=== PATIENT | male | born 1985 | race Caucasian/White ===

== ENCOUNTER 2022-02-12 12:31 | Emergency (ER) | payer OTHER, SELFPAY ==
[2022-02-12 14:08] VITALS: BP 134/83; PULSE 69; RESP 18; TEMP 36.9; O2SAT 100; BMI 32.1
--- NOTE | 2022-02-12 14:28 | ED_ITS ---
HPI - General Adult General Chief complaint: General Medical Stated complaint: NOSE PAIN, EYE PAIN, HEADACHE Time Seen by Provider: 02/12/22 14:13 Source: patient Mode of arrival: ambulatory Limitations: no limitations History of Present Illness HPI narrative: 36 yo male healthy here with nasal congestion, nose pain, frontal facial pain, frontal headache x several days. no fevers, chills, sneezing, cough, sore th roat, ear pain. Related Data Previous Rx's Medication Instructions Recorded amoxicillin 875 mg-potassium 1 tab PO BID #14 tab 02/12/22 clavulanate 125 mg tablet Allergies Allergy/AdvReac Type Severity Reaction Status Date / Time No Known Allergies Allergy Verified 02/12/22 14:08 Review of Systems Review of Systems: Yes all other systems are reviewed and are negative Constitutional: Constitutional: Reports no additional constitutional complaints, Denies body ache(s), Denies chills, Denies fever(s), Reports headache(s) and Denies weakness Eyes: Eyes: Reports no additional eye complaints and Denies change in vision ENT: Reports system reviewed and no additional complaints, except as documented, Denies dizziness, Reports facial pain, Reports headache(s), Reports nasal congestion, Denies nasal discharge, Denies neck pain, Reports sinus pain and Reports sinus pressure Cardiovascular: Cardiovascular: Reports no additional cardiovascular complaints, Denies chest pain, Denies leg edema and Denies dyspnea Respiratory: Respiratory: Reports no additional respiratory complaints, Denies cough and Denies dyspnea Gastrointestinal: Gastrointestinal: Reports no additional gastrointestinal complaints, Denies abdominal pain, Denies diarrhea, Denies nausea and Denies vomiting Genitourinary: Genitourinary: Denies urinary incontinence Musculoskeletal: Musculoskeletal: Reports no additional musculoskeletal comp laints, Denies back pain, Denies arthralgias, Denies joint swelling, Denies neck pain, Denies numbness and Denies tingling Integumentary/Breasts: Skin/Breast: Reports system reviewed and no additional complaints, except as docu and Denies rash Neurologic: Reports system reviewed and no additional complaints, except as documented, Denies dizziness, Reports headache(s), Denies numbness, Denies tingling and Denies weakness [facility] Past Medical History Attestation statement: The following information was validated with the patient. Source: old records reviewed and nursing notes reviewed Social History Social History Advance Directives: No Advance Directives Information Provided: No Physical Exam ED Vital Signs: Vital Signs - 24 hr 02/12/22 14:08 Temperature 98.5 F Pulse Rate 69 Respiratory Rate 18 Blood Pressure 134/83 Pulse Oximetry 100 BMI result Body Mass Index 32.1 Const General: cooperative, healthy appearing, comfortable and no acute distress Orientation/consciousness: patient oriented x3 Limitations: no limitations HENMT Head: Yes normal to inspection Ears: hearing grossly normal bilaterally and TM abnormal (bilateral effusion) General nose exam: Normal external nose present and Abnormal mucous membranes and turbinates present erythematous (swelling ) bilateral Face and sinus: Yes sinus tenderness (bilateral maxillar) Throat: Yes posterior oropharynx normal, Yes tonsils normal and Yes uvula midline Neck Neck: Yes normal visual inspection, Yes full ROM, Yes no lymphadenopathy and Yes no meningeal signs Chest Chest palpation & inspection: normal inspection of the chest Resp Effort & Inspection: normal respiratory effort Auscultation: clear to auscultation bilaterally Cardio Rate: regular rate Rhythm: regular rhythm Peripheral pulses: Peripheral pulses 2+ throughout Skin General skin exam: no rashes or lesions noted Neuro General: patient oriented x3, moves all extremities and no meningeal signs Cognition (Neuro): normal cognition Extrem General: Yes normal to inspection, Yes no pedal edema and Yes no calf tenderness Course Course Course Narrative: 36 yo male here with nasal congestion, nasal pain, frontal HOLT x several days. Exam c/w sinusitis. Will treat with course of antibiotics. Reviewed worrisome signs and symptoms of when to return to the emergency department. Comfortable discharge home. Medical Decision Making Medical Records Medical records reviewed: Yes I reviewed the patient's medical records. Lab Data Lab results reviewed: Yes I reviewed the patient's lab results. Discharge Plan Discharge Clinical Impression: Sinusitis Patient Disposition: Home, Self-Care Instructions: Sinusitis (ED) Additional Instructions: Buy [id number] nasal spray like Flonase or Nasacort Prescriptions: New amoxicillin-pot clavulanate 875-125 mg tablet 1 tab PO BID Qty: 14 0RF Referrals: Physician,Unknown J [Primary Care Provider] - Interventions: ED Discharge Assessment Last Done: 02/12/22 14:33 Discharge Date/Time: 02/12/22 14:34
== END 2022-02-12 14:34 | disposition home or self-care (01) ==
PROVIDERS: Emergency Provider Emergency Medicine
DX: J32.9 Chronic sinusitis, unspecified (principal); R51.9 Headache, unspecified
CPT/HCPCS: 99283

== ENCOUNTER 2022-06-15 13:34 | Emergency (ER) | payer OTHER, SELFPAY | END 2022-06-15 16:33 | disposition left against medical advice (07) | PROVIDERS: Emergency Provider Emergency Medicine | DX: F99 Mental disorder, not otherwise specified (principal) ==

== ENCOUNTER 2023-04-20 01:43 | Emergency (ER) | payer MEDICAID, SELFPAY ==
[2023-04-20 02:04] VITALS: BP 112/69; PULSE 61; RESP 18; TEMP 36.8; O2SAT 97; BMI 29.6
[2023-04-20 05:47] VITALS: BP 117/64; PULSE 46; RESP 16; TEMP 36.6; O2SAT 98
--- NOTE | 2023-04-20 06:12 | ED_ITS ---
HPI - Wound/Laceration General Chief Complaint: Wound/Laceration Stated Complaint: Abscess Time Seen by Provider: 04/20/23 06:05 Source: patient Mode of arrival: ambulatory Limitations: no limitations History of Present Illness HPI narrative: Patient comes to the emergency room complaining of a possible abscess in the left lower quadrant of the abdomen. Patient denies fever or chills, no pus drainage. Related Data Previous Rx's Medication Instructions Recorded amoxicillin 875 mg-potassium 1 tab PO BID #14 tabs 02/12/22 clavulanate 125 mg tablet cephalexin 500 mg capsule 500 mg PO BID #14 caps 04/20/23 doxycycline hyclate 100 mg tablet 100 mg PO BID #14 tabs 04/20/23 Allergies Allergy/AdvReac Type Severity Reaction Status Date / Time No Known Allergies Allergy Verified 02/12/22 14:08 Review of Systems Review of Systems: Constitutional : No Weight loss, No Fever, No Chills, No Night Sweats, No Fatigue, No Malaise ENT/Mouth : No Hearing loss, No Ear Pain, No Nasal Congestion, No Sinus Pain, No Hoarseness, No sore throat, No Rhinorrhea, No Swallowing Difficulty Eyes: No Eye Pain, No Swelling, No Redness, No Foreign Body, No Discharge, No Vision Changes Cardiovascular : No Chest Pain, No SOB, No Dyspnea on Exertion, No Orthopnea, No Edema, No Palpitations Respiratory : No Cough, No Sputum, No Wheezing, No Smoke Exposure, No Dyspnea Gastrointestinal : No Nausea, No Vomiting, No Diarrhea, No Constipation, No abdominal Pain, No Hematochezia, No Melena Genitourinary : no irregular bleeding, No Dysuria, No Urinary Frequency, No Hematuria, No Urinary Incontinence, No Urgency, No Flank Pain, No Urinary Flow Changes, No Hesitancy Musculoskeletal : No joint pain, No Myalgias, No Joint Swelling Skin : Complaining of skin induration/red dot/cellulitis in left lower quadrant of abdomen, superficial Neuro : No Weakness, No Numbness, No Paresthesias, No Loss of Consciousness, No Dizziness, No Headache Psych : No Anxiety/Panic, No Depression, No SI/HI/AH/VH, No Social Issues, Heme/Lymph: No Bruising, No Bleeding,No Lymphadenopathy Endocrine : No Polyuria, No Polydipsia, No Temperature Intolerance [facility] Social History Social History Advance Directives: No Advance Directives Information Provided: No Physical Exam Vital Signs: Vital Signs: Last Vital Signs Temp 97.9 F 04/20/23 05:47 Pulse 46 L 04/20/23 05:47 Resp 16 04/20/23 05:47 BP 117/64 04/20/23 05:47 Pulse Ox 98 04/20/23 05:47 O2 Del Method Room Air 04/20/23 05:47 BMI result Body Mass Index 29.6 Const: Other: Appearance: Alert. Oriented X3. No acute distress. Eyes: Pupils equal, round and reactive to light. ENT: Pharynx normal. Neck: Normal inspection. Neck supple. No lymph nodes noted. No crepitus CVS: Normal heart rate and rhythm. Pulses normal. Normal S1 and S2 Respiratory: No respiratory distress. Breath sounds normal. No Wheezing. No rales Abdomen: Soft and nontender. No rigidity. No distention. Skin: Skin warm and dry. In the left lower quadrant of the abdomen, there is a 2 cm x 2 cm induration of the skin, erythematous, bedside ultrasound does not show any fluid accumulation under the skin. Extremities: No lower extremity edema. No Lacerations. No Rash Neuro: Oriented X 3. No motor deficit. No sensory deficit. Moving all ex tremities. No slurred speech. CN 2 through 12 grossly intact Psych: calm, cooperative, normal affect Medical Decision Making Medical Decision Making MDM Narrative: -I discussed the physical exam with the patient, there is nothing to be drained at this time. -patient will be started on p.o. antibiotics Differential Diagnosis Differential Diagnoses: The differential diagnosis associated with the presentation includes (Abscess, cellulitis) Discharge Plan Discharge Clinical Impression: Cellulitis Patient Disposition: Home, Self-Care Instructions: Cellulitis (ED) Additional Instructions: Please follow-up with your primary care physician tomorrow. If you have any worsening or new symptoms, please return to the emergency room or call 911 Prescriptions: New cephalexin 500 mg capsule 500 mg PO BID Qty: 14 0RF doxycycline hyclate 100 mg tablet 100 mg PO BID Qty: 14 0RF No Action amoxicillin-pot clavulanate 875-125 mg tablet 1 tab PO BID Qty: 14 0RF
== END 2023-04-20 06:27 | disposition home or self-care (01) ==
PROVIDERS: Emergency Provider Emergency Medicine
DX: L03.311 Cellulitis of abdominal wall (principal)
CPT/HCPCS: 99283

== ENCOUNTER 2024-03-20 01:56 | Inpatient (IN) | payer MEDICAID, OTHER, SELFPAY ==
[2024-03-20 02:27] VITALS: BP 107/60; PULSE 80; RESP 17; TEMP 36.6; O2SAT 98; BMI 30.6
--- NOTE | 2024-03-20 03:02 | ED.PSYCH ---
HPI - Psych General Chief Complaint: Psychiatric Symptoms Stated Complaint: crisis Time Seen by Provider: 03/20/24 02:58 Source: patient Mode of arrival: ambulatory Limitations: no limitations History of Present Illness ED Provider: SANTOS BARRETO Narrative: 39 yo male with PMH of opiate abuse, ETOH abuse, depression here with c/o SI and wanting to hurt himself - plans to cut himself. Admits to heavy ETOH abuse since November has had ETOH withdrawal seizure in the past. Is on methadone. MD complaint: suicidal ideation and feels depressed Onset (ago): day(s) Duration: constant History of same: Yes Relieving factors: none Exacerbating factors: alcohol and other Context: recent alcohol abuse Associated psychiatric symptoms: depression and suicidal ideation Associated symptoms: denies other symptoms Treatments prior to arrival: none If self harm: admits thoughts of self harm and has plan Related Data Previous Rx's ?Medication ?Instructions ?Recorded amoxicillin 875 mg-potassium 1 tab PO BID #14 tabs 02/12/22 clavulanate 125 mg tablet cephalexin 500 mg capsule 500 mg PO BID #14 caps 04/20/23 doxycycline hyclate 100 mg tablet 100 mg PO BID #14 tabs 04/20/23 Allergies Allergy/AdvReac Type Severity Reaction Status Date / Time No Known Allergies Allergy Verified 03/20/24 02:30 Review of Systems Review of Systems: Constitutional : No Fever, No Chills ENT/Mouth : No Ear Pain, No Nasal Congestion, No sore throat Eyes: No Eye Pain, No Swelling, No Redness Cardiovascular : No Chest Pain, No SOB Respiratory : No Cough, No Sputum, No Dyspnea Gastrointestinal : No Nausea, No Vomiting, No Diarrhea, No Hematochezia, No Melena Genitourinary : No Dysuria, No Urinary Frequency, No Hematuria Musculoskeletal : No Myalgias Skin : No Skin Lesions, No rash Neuro : No Weakness, No Numbness, No Paresthesias, No Dizziness, No Headache Psych : positive Anxiety, positive Depression, positive SI no HI Heme/Lymph: No Lymphadenopathy Endocrine : No Polyuria, No Polydipsia All other systems reviewed and are negative [facility] Past Medical History Attestation statement: The following information was validated with the patient. Source: old records reviewed Medical History Opiate abuse, continuous Depression Social History Social History (Updated 03/20/24 @ 03:07 by Jaqueline Marques DO) Alcohol intake: current Alcohol intake frequency: 3 or more drinks per day Alcohol type: hard liquor Patient Tobacco Use Status: Current someday Tobacco user Smoked in Last 30 Days: Yes Use of substances other than those prescribed or required for medical reasons: Yes Substance Use Type: Crack/Cocaine, Heroin and Marijuana Substance Use Frequency: Chronic Longstanding Advance Directives: No Advance Directives Information Provided: No Do you have a plan to hurt others: No Plan Physical Exam Vital Signs: Vital Signs: Last Vital Signs Temp 97.8 F 03/20/24 02:27 Pulse 80 03/20/24 02:27 Resp 17 03/20/24 02:27 BP 107/60 03/20/24 02:27 Pulse Ox 98 03/20/24 02:27 O2 Del Method Room Air 03/20/24 02:27 BMI result Body Mass Index 30.6 Appearance: Alert. Oriented X3. No acute distress. Eyes: Pupils equal, round and reactive to light. ENT: Pharynx normal. Neck: Normal inspection. Neck supple. CVS: Normal heart rate and rhythm. Pulses normal. Respiratory: No respiratory distress. Breath sounds normal. Abdomen: Soft and nontender. Skin: Skin warm and dry. Normal skin color. Normal skin turgor. Extremities: No lower extremity edema. No calf ttp Neuro: Oriented X 3. No motor deficit. No sensory deficit. CN2-12 intact Medications Administered Generic Name Dose Route Start Last Admin Trade Name Freq PRN Reason Stop Dose Admin Lorazepam 2 mg 03/20/24 03:05 03/20/24 03:47 Lorazepam 1 Mg Tablet PO 2 mg Q3H PRN Administration Alcohol Withdrawal Medical Decision Making Medical Decision Making [facility] Narrative: 39 yo male with PMH of opiate abuse, ETOH abuse, depression here with c/o SI and wanting to cut himself in setting of ETOH use at this time labs, CARE team consult, CIWA scoring and PRN ativan ordered. He denies any acute medical complaints Differential Diagnosis Differential Diagnoses: The differential diagnosis associated with the presentation includes drug abuse, ETOH abuse, depression Admission/Observation Consideration of admission/observation: Escalation of care including admission/observation considered physician observation started at 3am pending CARE team Lab Data [facility] Lab Attestation statement: I reviewed the patient's lab results. 03/20/24 03:28 03/20/24 04:02 Labs: Lab Results 03/20/24 03/20/24 03/20/24 Range/Units 03:06 03:28 04:02 WBC 7.9 (4.8-10.8) X10*3/uL RBC 4.01 L (4.60-5.80) X10*6/uL Hgb 12.5 L (14.0-18.0) g/dl Hct 37.0 L (42.0-52.0) % MCV 92.3 (80.0-98.0) fL MCH 31.2 (27.0-33.0) pg MCHC 33.8 (31.0-36.0) g/dl RDW 12.3 (11.0-16.0) % Plt Count 180 (160-400) X10*3/uL MPV 11.9 (9.4-12.4) fL Immature Gran % (Auto) 1.9 H (0.0-0.4) % Neut % (Auto) 57.8 (45-73) % Lymph % (Auto) 30.1 (20-40) % Bennett % (Auto) 7.5 (2-11) % Eos % (Auto) 1.9 (0-4) % Baso % (Auto) 0.8 (0-2) % Lymph # (Auto) 2.4 (1.2-4.9) X10*3/uL Bennett # (Auto) 0.6 (0.1-1.2) X10*3/uL Eos # (Auto) 0.2 (0.0-0.4) X10*3/uL Baso # (Auto) 0.1 (0.0-0.2) X10*3/uL Abs Immat Gran (auto) 0.15 H (0.00-0.03) X10*3/uL Absolute Neuts (auto) 4.6 (2.0-8.3) x10*3/uL Absolute Nucleated RBC 0.080 H (0.0-0.012) X10*3/uL Nucleated RBC % (auto) 1.0 H (0.0-0.2) /100WBC Smear Tech's Comments VERIFIED Sodium 139 (135-145) mmol/L Potassium 3.1 L (3.3-5.1) mmol/L Chloride 104 (96-108) mmol/L Carbon Dioxide 24 (22-29) mmol/L Anion Gap 14 (12-20) BUN 17 H (9-16) mg/dL Creatinine 1.09 (0.5-1.4) mg/dL Estim Creat Clear Calc 109.3 Estimated GFR > 60 Random Glucose 115 (60-115) mg/dL Calcium 9.0 (8.4-10.2) mg/dL Total Bilirubin 0.5 (0.0-1.0) mg/dL Direct Bilirubin 0.2 (0.0-0.5) mg/dL AST 19 (5-37) U/L ALT 17 (0-40) U/L Alkaline Phosphatase 71 (39-117) U/L Total Protein 7.3 (6.5-8.0) g/dL Albumin 4.0 (3.5-5.0) g/dL Urine Opiates Screen POSITIVE H (Not Detect) Ur Buprenorphine Scrn Not Detected (Not Detect) ng/mL Ur Oxycodone Screen Not Detected (Not Detect) ng/mL Urine Methadone Screen Positive H (Not Detect) ng/mL Urine Fentanyl Screen POSITIVE H (Not Detect) Ur Barbiturates Screen Not Detected (Not Detect) Ur Phencyclidine Scrn Not Detected (Not Detect) Ur Amphetamines Screen Not Detected (Not Detect) U Benzodiazepines Scrn Not Detected (Not Detect) Urine Cocaine Screen POSITIVE H (Not Detect) U Marijuana (THC) Screen POSITIVE H (Not Detect) Ethyl Alcohol < 10 mg/dL External Record Review External record reviewed: Inpatient record Social Determinants Patient?s care significantly limited by Social Determinants of Health including: Problems related to primary support group Discharge Plan Discharge Clinical Impression: Depression, Polysubstance abuse, Acute hypokalemia Patient Disposition: Still a Patient Prescriptions: No Action amoxicillin-pot clavulanate 875-125 mg tablet 1 tab PO BID Qty: 14 0RF cephalexin 500 mg capsule 500 mg PO BID Qty: 14 0RF doxycycline hyclate 100 mg tablet 100 mg PO BID Qty: 14 0RF Interventions: [place]-Suicide Risk Severity Scale Last Done: 03/20/24 03:40 Print Language: Telugu
[2024-03-20 03:25] LABS: Amphetamine Screen Urine Not Detected (Not Detect); Barbiturates, Urine Not Detected (Not Detect); Benzodiazepines Screen Urine Not Detected (Not Detect); Buprenorphine Scr Not Detected (Not Detect); Cannabinoid Screen Urine POSITIVE (Not Detect); Cocaine Screen Urine POSITIVE (Not Detect); Fentanyl, urine POSITIVE (Not Detect); Methadone Screen, Urine Positive (Not Detect); Opiate Screen Urine POSITIVE (Not Detect); Oxycodone Screen Urine Not Detected (Not Detect); Phencyclidine Screen Urine Not Detected (Not Detect)
[2024-03-20 03:38] LABS: Basophils Absolute Auto 0.1 X10*3/uL (0.0-0.2); Basophils Percent Auto 0.8 % (0-2); Eosinophils Absolute Auto 0.2 X10*3/uL (0.0-0.4); Eosinophils Percent Auto 1.9 % (0-4); Hemoglobin 12.5 g/dl (14.0-18.0); Imm Gran Abs Auto 0.15 X10*3/uL (0.00-0.03); Imm Gran Pct Auto 1.9 % (0.0-0.4); Lymphocytes Absolute Auto 2.4 X10*3/uL (1.2-4.9); Lymphocytes Percent Auto 30.1 % (20-40); MANUAL DIFF FLAG SCAN; Mean Corpuscular HGB Conc 33.8 g/dl (31.0-36.0); Mean Corpuscular Hemoglobin 31.2 pg (27.0-33.0); Mean Corpuscular Volume 92.3 fL (80.0-98.0); Mean Platelet Volume 11.9 fL (9.4-12.4); Monocytes Absolute Auto 0.6 X10*3/uL (0.1-1.2); Monocytes Percent Auto 7.5 % (2-11); Neutrophils Absolute Auto 4.6 x10*3/uL (2.0-8.3); Neutrophils Percent Auto 57.8 % (45-73); PLT CLUMP 1; Red Blood Count 4.01 X10*6/uL (4.60-5.80); Red Cell Distribution Width 12.3 % (11.0-16.0); SCAN SMEAR FLAG 1
[2024-03-20 03:43] LABS: Platelet Count 180 X10*3/uL (160-400); White Blood Count 7.9 X10*3/uL (4.8-10.8)
[2024-03-20] MEDS: LORazepam 1 MG TABLET 2 MG PO ×3 (03:47→16:54)
[2024-03-20 04:04] LABS: SLIDE REVIEW VERIFIED
[2024-03-20 04:22] LABS: Alanine Aminotransferase 17 U/L (0-40); Alkaline Phosphatase 71 U/L (39-117); Anion Gap 14 (12-20); Aspartate Amino Transferase 19 U/L (5-37); Bilirubin Direct 0.2 mg/dL (0.0-0.5); Bilirubin Total 0.5 mg/dL (0.0-1.0); Blood Urea Nitrogen 17 mg/dL (9-16); Carbon Dioxide 24 mmol/L (22-29); Chloride 104 mmol/L (96-108); Creatinine Clr Calc Pharmacy 109.3; Estimated Glomerular Filt Rate > 60; Ethanol < 10 mg/dL; Glucose Random 115 mg/dL (60-115); Potassium 3.1 mmol/L (3.3-5.1); Sodium 139 mmol/L (135-145); Total Protein 7.3 g/dL (6.5-8.0)
[2024-03-20] MEDS: Potassium Chloride Packet 20 MEQ PACKET 40 MEQ PO (04:50)
[2024-03-20 06:13] VITALS: BP 121/70; PULSE 68; RESP 16; TEMP 36.8; O2SAT 95
[2024-03-20 09:02] VITALS: BP 101/57; PULSE 69; RESP 16; TEMP 36.5; O2SAT 96
[2024-03-20] MEDS: PHENobarbitaL sodium 65 MG/ML VIAL IM (10:01)
--- NOTE | 2024-03-20 10:15 | PC.NURSE ---
Addendum entered by Reva Caballero 03/20/24 10:16: Note at 1016 is a late entry for 03/20/24 at 0930 Original Note: Patient sleeping, awakens to verbal stimuli. skin is pink warm and moist, resp even and non labored. patient reports increased depression, not reports SI or any plans at this time. CIWA 9, medicated as ordered and physician made aware. verified order for phenobarbital w/ provider.
--- NOTE | 2024-03-20 12:43 | MHC.CARE ---
Patient evaluated by the CARE Team, disposition inpatient psychiatric treatment. ED provider, Dr. Everett updated.
[2024-03-20 13:49] VITALS: BP 120/63; PULSE 59; RESP 16; TEMP 36.6; O2SAT 96
--- NOTE | 2024-03-20 16:23 | PHA.MEDREC ---
Pharmacy Consult ? Medication Reconciliation Pharmacy has completed the medication reconciliation. Patient confirmed medications. He is taking Bupropion 150mg daily along with a 300mg tablet daily for a total of 450mg daily. Patient also stated he is getting Methadone from [facility]. I called both [place] and [place] offices to get confirmation on them but both offices state that they do not have this patient in their records.
--- NOTE | 2024-03-20 17:17 | PC.NURSE ---
Methadone Verification [facility]. Verified by Lakeisha CARLISLE at the clinic. 140mg methadone, last dosed on 03/18/24 at 0704.
[2024-03-20] MEDS: methADONE HCl 20 MG/2 ML ORAL.CONC 140 MG PO (18:22)
[2024-03-20] MEDS: buPROPion HCl XL 300 MG TAB.ER.24H PO (18:23)
[2024-03-20] MEDS: Gabapentin 400 MG CAPSULE 800 MG PO (18:23)
--- NOTE | 2024-03-20 19:23 | HE.PHANOTE ---
METHADONE Pt receives from [facility] . Lucio [facility] RN spoke with Lakeisha CLEMENTS RN to confirm 140mg. Last dose given 03/18/24 @ 0704.
[2024-03-20] MEDS: Cariprazine HCl 1.5 MG CAPSULE PO (20:36)
[2024-03-20] MEDS: QUEtiapine Fumarate 100 MG TABLET PO (20:36)
[2024-03-20 22:00] VITALS: BP 118/71; PULSE 60; RESP 18; O2SAT 96
--- NOTE | 2024-03-21 | ECG_ITS ---
Test Reason : RULE OUT PORLONGED QTC Blood Pressure : / mmHG Vent. Rate : 062 BPM Atrial Rate : 062 BPM P-R Int : 150 ms QRS Dur : 092 ms QT Int : 456 ms P-R-T Axes : 016 046 049 degrees QTc Int : 462 ms Normal sinus rhythm Normal ECG When compared with ECG of 29-JUN-2009 09:55, No significant change was found Referred By: Jaqueline Marques Electronically Signed By:GABBY ENGLAND
[2024-03-21] MEDS: Omeprazole 20 MG CAPSULE.DR PO (06:02)
[2024-03-21 06:04] VITALS: BP 150/84; PULSE 65; TEMP 36.6; O2SAT 96
--- NOTE | 2024-03-21 06:04 | PC.NURSE ---
medicated per mar.
--- NOTE | 2024-03-21 06:09 | PC.NURSE ---
pt reports feeling better by being in the Pod, is currently not having thoughts of harm, but worried if he was to be discharge he would.
[2024-03-21] MEDS: methADONE HCl 20 MG/2 ML ORAL.CONC 140 MG PO (08:43)
[2024-03-21] MEDS: buPROPion HCl XL 300 MG TAB.ER.24H PO (08:43)
[2024-03-21] MEDS: QUEtiapine Fumarate 100 MG TABLET PO ×3 (08:43→21:54)
[2024-03-21] MEDS: buPROPion HCl XL 150 MG TAB.ER.24H PO (08:43)
[2024-03-21] MEDS: Gabapentin 400 MG CAPSULE 800 MG PO ×2 (08:43→18:03)
[2024-03-21] MEDS: LORazepam 1 MG TABLET 2 MG PO ×2 (08:55→21:57)
[2024-03-21] MEDS: LORazepam 1 MG TABLET PO (14:47)
[2024-03-21 15:21] LABS: Anion Gap 10 (12-20); Blood Urea Nitrogen 10 mg/dL (9-16); Calcium 9.5 mg/dL (8.4-10.2); Carbon Dioxide 28 mmol/L (22-29); Chloride 105 mmol/L (96-108); Creatinine Clr Calc Pharmacy 167.8; Estimated Glomerular Filt Rate > 60; Glucose Random 96 mg/dL (60-115); Potassium 4.2 mmol/L (3.3-5.1); Sodium 139 mmol/L (135-145)
[2024-03-21 15:42] VITALS: BMI 30.5
[2024-03-21 15:43] VITALS: BP 141/82; PULSE 75; RESP 18; TEMP 36.4; O2SAT 99
[2024-03-21] MEDS: Nicotine Polacrilex 2 MG GUM 4 MG BUCCAL (18:15)
[2024-03-21] MEDS: Nicotine 21 MG PATCH.TD24 TRANSDERMA (18:15)
--- NOTE | 2024-03-21 19:13 | PC.ADMIT ---
Von is admitted to , on a Conditional Voluntary, from [facility] for treatment of suicidal ideation & depression. Patient presented voluntarily, seeking help for better treatment of his depression and addiction. Cristian has outpatient psychiatric care but states he hasn't felt consistency with his care providers. He is an alcohol abuser, drinks 1 pint of alcohol every day, and also reports daily marijuana use. Von has a history of alcohol withdrawal seizures. Patient's father had recently while he was in prison and this has had a negative effect on his emotional health. He is technically homeless but stays with his mother & stepfather. Von is unemployed as well. Skin check and changeover done without issue. Pt has been put on 15 minute safety checks.
[2024-03-21 20:00] VITALS: BP 132/78; PULSE 82; RESP 14; TEMP 36.6; O2SAT 98
[2024-03-21] MEDS: Cariprazine HCl 1.5 MG CAPSULE PO (21:54)
[2024-03-21] MEDS: Acetaminophen 325 MG TABLET 650 MG PO (21:57)
[2024-03-22] MEDS: Gabapentin 400 MG CAPSULE 800 MG PO ×4 (00:07→20:33)
[2024-03-22] MEDS: LORazepam 1 MG TABLET PO ×2 (00:08→20:33)
--- NOTE | 2024-03-22 04:10 | PC.NURSE ---
Nurse observed patient sleeping. No signs of distress or fidgeting. No signs of sweet visible on patient. Patient RR-14 and breathing free and easy. Nurse did not wake patient for full CIWA assessment at this time.
[2024-03-22] MEDS: LORazepam 1 MG TABLET 2 MG PO ×2 (04:26→08:21)
--- NOTE | 2024-03-22 05:05 | PC.NURSE ---
Von scored an 11 on the CIWA scale, was given 2mg Ativan PO
[2024-03-22] MEDS: Omeprazole 20 MG CAPSULE.DR PO (06:44)
[2024-03-22] MEDS: buPROPion HCl XL 300 MG TAB.ER.24H PO (08:11)
[2024-03-22] MEDS: methADONE HCl 20 MG/2 ML ORAL.CONC 140 MG PO (08:11)
[2024-03-22] MEDS: QUEtiapine Fumarate 100 MG TABLET PO ×2 (08:11→14:05)
[2024-03-22] MEDS: buPROPion HCl XL 150 MG TAB.ER.24H PO (08:11)
[2024-03-22 08:15] VITALS: BP 130/74; PULSE 61; RESP 18; TEMP 36.4; O2SAT 95
[2024-03-22] MEDS: Nicotine 21 MG PATCH.TD24 TRANSDERMA (08:21)
[2024-03-22] MEDS: Nicotine Polacrilex 2 MG GUM 4 MG BUCCAL ×3 (08:23→14:05)
[2024-03-22 09:28] LABS: Appearance Urine Clear; Color Urine Yellow; Glucose Urine UA Negative (Negative); Leukocyte Esterase Urine Negative (Negative); Nitrite Urine Negative (Negative); Urine Blood Negative (Negative); Urine Ketones Negative (Negative); Urine Protein Negative (Neg-Trace)
[2024-03-22 09:45] LABS: Estimated Average Glucose 105 mg/dL; Hemoglobin A1c % 5.3 % (<6.0)
[2024-03-22 10:00] LABS: Alanine Aminotransferase 13 U/L (0-40); Albumin Level 4.1 g/dL (3.5-5.0); Alkaline Phosphatase 75 U/L (39-117); Anion Gap 12 (12-20); Aspartate Amino Transferase 16 U/L (5-37); Bilirubin Total 0.3 mg/dL (0.0-1.0); Blood Urea Nitrogen 10 mg/dL (9-16); Calcium 10.1 mg/dL (8.4-10.2); Carbon Dioxide 28 mmol/L (22-29); Chloride 104 mmol/L (96-108); Cholesterol 185 mg/dL (<200); Creatinine Clr Calc Pharmacy 141.7; Estimated Glomerular Filt Rate > 60; Glucose Fasting 123 mg/dL (60-99); HDL Cholesterol 48 mg/dL (>40); LDL Cholesterol Calculated 100 mg/dL (<100); Magnesium 1.8 mg/dL (1.6-2.6); Potassium 3.9 mmol/L (3.3-5.1); Sodium 140 mmol/L (135-145); Total Protein 7.6 g/dL (6.5-8.0); Triglycerides 187 mg/dL (<150)
[2024-03-22 10:16] LABS: Free T4 (Free Thyroxine) 0.92 ng/dL (0.71-1.85); Thyroid Stimulating Hormone 0.77 uIU/mL (0.32-4.0)
--- NOTE | 2024-03-22 10:52 | P.HPPS_ITS ---
HPI Date of Service: 03/22/24 Chief Complaint: Depression Pollysubstance Use Disorder Opiate Use Sources of Information: patient interviewed, chart reviewed and crisis/core team assessment reviewed HPI Subjective Notes: Kwon Warning and Conditional Voluntary Healthcare Proxy: No Guardianship: No Medical Problems Affecting Mental Status: No (Denies) Narrative: 39 yo male, history of bipolar disorder, panic attacks, ADHD, polysubstance use disorder-cannabis, sedatives,opiates, alcohol use disorder, admitted on CV for management of withdrawal, medication adjustment and referrals. Reports incarceration for domestic violence until November 2023 with release, with relapse to manage sx. Reports by hx successful treatment with a regime of Seroquel, Wellbutrin, Klonopin Adderall XR,and IR. 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 Regime changed when incarcerated - Adderall, Klonopin stopped-hydroxyine, clonidine ordered along with buspirone which caused EPS/TD sx.- electric pulses throughout my body. Reports Seroquel was helpful with depressive sx, Wellbutrin very effective for depression, Klonopin for panic at a low dose prn and Adderall XR 10 mg a.m., 10 mg IR noon> 1 year ago- it took me out of the corner and gave me an opportunity to participate in life. Pt describes main precipitant to relapse after incarceration as sudden of father from [place] Sep 2023 at age 64-pt had no ability to attend services, grieve with family. The loss has been a shock (cries as he describes this) and he has not done grief work. Relapse has been to feel normal again but the medicine did it better . Pt would like to re- establish regime, begin psychotherapy and re-establish sobriety Past Psychiatric History: IP: Tash Robin 2022, [facility], [facility], rehab. 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 One of 5 sons, raised by parents who . 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 He is interested in [employer]. Two children 21 yo son, Cristian Gleason; 13 yo sons (not twins) Reports incarcerations-most recent release for DV November 2023 Substance History: Alcohol, started age 15, 1 sleeve daily Cannabis, started age 15, daily Sedatives-started age 18 Opiates-started age 20 Toxicology positive for Fentanyl, Opiates, Methadone, Cocaine, Cannabis BHN Methadone Maintenance Trauma History: Best friend in an MVA at age 20 Father suddenly of MA Oct 2023. Diagnostics Vital Signs (24Hr): Vital Signs - 24 hr 03/21/24 15:43 03/21/24 20:00 03/22/24 08:15 Temperature 97.5 F 97.9 F 97.6 F Pulse Rate 75 82 61 Respiratory Rate 18 14 18 Blood Pressure 141/82 H 132/78 130/74 Pulse Oximetry 99 98 95 Oxygen Delivery Method Room Air Room Air Room Air BMI result Body Mass Index 30.5 Labs 03/20/24 03:28 03/22/24 09:19 Labs: Laboratory Results - last 48 hr 03/21/24 03/22/24 03/22/24 14:57 09:10 09:19 Sodium 139 140 Potassium 4.2 D 3.9 Chloride 105 104 Carbon Dioxide 28 28 Anion Gap 10 L 12 BUN 10 10 Creatinine 0.71 0.84 Estim Creat Clear Calc 167.8 141.7 Estimated GFR > 60 > 60 Random Glucose 96 Fasting Glucose 123 H Estimat Average Glucose 105 Hemoglobin A1c % 5.3 Calcium 9.5 10.1 D Magnesium 1.8 Total Bilirubin 0.3 AST 16 ALT 13 Alkaline Phosphatase 75 Total Protein 7.6 Albumin 4.1 Triglycerides 187 H Cholesterol 185 LDL Cholesterol, Calc 100 H HDL Cholesterol 48 TSH 0.77 Free T4 0.92 Urine Color Yellow Urine Appearance Clear Urine pH 6.0 Ur Specific [place] 1.010 Urine Protein Negative Urine Glucose (UA) Negative Urine Ketones Negative Urine Blood Negative Urine Nitrite Negative Ur Leukocyte Esterase Negative Meds/Allergies Meds Home Medications ?Medication ?Instructions ?Recorded ?Confirmed ?Type bupropion HCl 150 mg 24 hr tablet, 150 mg PO DAILY 03/20/24 03/20/24 History extended release bupropion HCl 300 mg 24 hr tablet, 300 mg PO QAM 03/20/24 03/20/24 History extended release cariprazine 1.5 mg capsule 1.5 mg PO BEDTIME 03/20/24 03/20/24 History (Vrleobardolar) clonazepam 0.5 mg tablet 0.5 mg PO DAILY PRN panic attack 03/20/24 03/20/24 History clonidine HCl 0.1 mg tablet 0.1 mg PO BID PRN dizziness 03/20/24 03/20/24 History gabapentin 800 mg tablet 800 mg PO Q8H 03/20/24 03/20/24 History methadone 10 mg/mL oral concentrate 140 mg PO DAILY 03/20/24 03/20/24 History omeprazole 20 mg capsule,delayed 20 mg PO DAILY@0630 03/20/24 03/20/24 History release quetiapine 100 mg tablet 100 mg PO TID 03/20/24 03/20/24 History sofosbuvir 400 mg-velpatasvir 100 1 tab PO DAILY 03/20/24 03/20/24 History mg tablet (Epclusa) Allergies Allergies Allergy/AdvReac Type Severity Reaction Status Date / Time buspirone AdvReac Severe EPS Verified 03/22/24 15:40 Mental Status Exam Mental Status Exam Patient Appearance: Fatigued and Appropriate Patient Orientation: Person, Place, Time and Situation Level of Consciousness: Alert Patient Behavior: Appropriate, Talkative, Cooperative, Anxious, Distractible, Good Eye Contact and Crying Mood Description: Depressed Affect Description: Flat Patient Cognition Impaired: No Ability to Follow Directions: Good Speech Pattern: Spontaneous Speech Memory Description: Episodic Impaired Hallucinations: None Delusions: Not Present Perceptual Disturbances: Derealization Thought Process: Rumination Thought Content: positive for Circumstantial, positive for Perseveration and positive for Suicidal Ideation (resolving with treatment) Depressive Symptoms: Increased Anxiety, Difficulty Sleeping, Loss of Int. in Activity, Hopelessness, Increased Fatigue, Thoughts of /Suicide, Low Self Esteem and Loss of Energy Judgement: Fair Assessment & Plan Assessment & Plan (1) Bipolar disorder: Status: Acute Code(s): F31.9 - Bipolar disorder, unspecified (2) ADHD: Status: Acute Code(s): F90.9 - Attention-deficit hyperactivity disorder, unspecified type (3) Panic attacks: Status: Acute Code(s): F41.0 - Panic disorder [episodic paroxysmal anxiety] (4) Alcohol use disorder: Status: Acute Code(s): F10.90 - Alcohol use, unspecified, uncomplicated (5) Opioid use disorder, severe, on maintenance therapy: Status: Acute Code(s): F11.20 - Opioid dependence, uncomplicated (6) Cocaine use disorder: Status: Acute Code(s): F14.10 - Cocaine abuse, uncomplicated (7) Cannabis use disorder: Status: Acute Code(s): F12.90 - Cannabis use, unspecified, uncomplicated Plan 39 yo male, history of bipolar disorder, ADHD, panic attacks, alcohol, opiate, cocaine, cannabis use disorders presents for re-establishment of regime, detox, referral for OP treatment for psychiatry and addictions. Plan: CV 15 minute checks Increase Seroquel to 100 mg bid; 300 mg HS Will hold on Adderall XR 10 mg and Adderal IR 10 mg as after our meeting tw was informed that pt is admitted to the same unit the mother of his children is admitted to. As a result he will have an administrative transfer to another unit to allow him to focus on his own needs and issues without distraction of his partner. Will defer this prescription of this agent to accepting provider. We did discuss the shortage of medication and Vyvanse. Collateral contact Lyrica 25 mg dose x 1 for reports of RLS Benadryl prn for rash sx on forearm along with hydrocortisone cream [facility] referral-pt would like to become a substance use counselor Addiction Medicine Consult. Patient educated on: diagnosis, medication risk/benefits, substance abuse and therapeutic strategies Informed Consent: understands Reason for continued inpatient stay Substantial Risk for: harm to self and rapid decompensation Statement Statement: I have reviewed the history and physical and performed a pertinent examination on my patient. No changes have occurred unless specified. If the History and Physical was not performed prior to admission, the Hospitalist's service will be consulted for completing the admission physical. Time Spent With Patient Time: Total time managing care of this patient today ____ minutes.
[2024-03-22 10:59] LABS: Vitamin B12 236 pg/mL (200-900)
[2024-03-22] MEDS: hydrOXYzine HCL 25 MG TABLET PO ×2 (11:27→18:22)
[2024-03-22] MEDS: Pregabalin 25 MG CAPSULE PO (14:27)
[2024-03-22] MEDS: clonazePAM 0.5 MG TABLET PO (16:09)
[2024-03-22] MEDS: Magnesium Hydrox/Alum Hydrox 30 ML ORAL.SUSP PO (16:13)
[2024-03-22] MEDS: Acetaminophen 325 MG TABLET 650 MG PO (16:13)
[2024-03-22 16:28] VITALS: BP 139/76
[2024-03-22] MEDS: cloNIDine HCL 0.1 MG TABLET PO (16:28)
[2024-03-22] MEDS: Nicotine Polacrilex Lozenge 4 MG LOZENGE BUCCAL ×3 (16:29→20:33)
[2024-03-22] MEDS: Loperamide HCl 2 MG CAPSULE PO (16:29)
[2024-03-22 16:30] VITALS: BP 139/76; PULSE 86; RESP 16; TEMP 36.9; O2SAT 96
[2024-03-22 20:00] VITALS: BP 144/72; PULSE 80; RESP 16; TEMP 37; O2SAT 98
[2024-03-22] MEDS: Cariprazine HCl 1.5 MG CAPSULE PO (20:33)
[2024-03-22] MEDS: QUEtiapine Fumarate 300 MG TABLET PO (20:33)
[2024-03-23] MEDS: LORazepam 1 MG TABLET PO ×5 (00:01→20:15)
[2024-03-23] MEDS: Loperamide HCl 2 MG CAPSULE PO (00:01)
[2024-03-23] MEDS: Nicotine Polacrilex Lozenge 4 MG LOZENGE BUCCAL ×5 (00:01→19:38)
[2024-03-23] MEDS: Omeprazole 20 MG CAPSULE.DR PO (06:33)
[2024-03-23 07:00] VITALS: BMI 31.0
--- NOTE | 2024-03-23 07:36 | PM.EVENT ---
Documented by User: Carmita Holden APRN 03/23/24 07:37 Event Note Date of Service: 03/22/24 Event Note: 1142pm KIMWA 11. Lorazepam 1 mg ordered Time Spent With Patient Time: Total time managing care of this patient today ____ minutes. Documented by User: aPncho Dubois MD 04/30/24 13:59 Event Note Date of Service: 04/30/24
[2024-03-23 07:52] VITALS: BP 126/81; PULSE 88; RESP 14; TEMP 36.9; O2SAT 97
[2024-03-23] MEDS: buPROPion HCl XL 300 MG TAB.ER.24H PO (08:09)
[2024-03-23] MEDS: buPROPion HCl XL 150 MG TAB.ER.24H PO (08:10)
[2024-03-23] MEDS: QUEtiapine Fumarate 100 MG TABLET PO ×2 (08:10→15:24)
[2024-03-23] MEDS: Acetaminophen 325 MG TABLET 650 MG PO (08:11)
[2024-03-23] MEDS: Gabapentin 400 MG CAPSULE 800 MG PO ×3 (08:12→20:15)
[2024-03-23] MEDS: methADONE HCl 20 MG/2 ML ORAL.CONC 140 MG PO (08:15)
[2024-03-23] MEDS: Nicotine 21 MG PATCH.TD24 TRANSDERMA (08:18)
--- NOTE | 2024-03-23 10:09 | P.PNPSI_ITS ---
Subjective Subjective Date of Service: 03/23/24 Reason For Visit: Depression Pollysubstance Use Disorder Opiate Use Interim History: pt reporting very anxious at times BP elevated and appears sweaty; reports relief after ativan dose; wants to be back on his outpatient meds including adderall; encourged him to talk with team tomorrow. pt accepted that. denies SI or Hi; says he wants to get back on track withhis life after recent relapse. Review of Systems Review of Systems Constitutional : No Fever, No Chills ENT/Mouth : No Ear Pain, No Nasal Congestion, No sore throat Eyes: No Eye Pain, No Swelling, No Redness Cardiovascular : No Chest Pain, No SOB Respiratory : No Cough, No Sputum, No Dyspnea Gastrointestinal : No Nausea, No Vomiting, No Diarrhea, No Hematochezia, No Melena Genitourinary : No Dysuria, No Urinary Frequency, No Hematuria Musculoskeletal : No Myalgias Skin : No Skin Lesions, No rash Neuro : No Weakness, No Numbness, No Paresthesias, No Dizziness, No Headache Psych : positive Anxiety, positive Depression, positive SI no HI Heme/Lymph: No Lymphadenopathy Endocrine : No Polyuria, No Polydipsia All other systems reviewed and are negative Yes all other systems are reviewed and are negative (denies) Mental Status Exam Mental Status Exam Patient Appearance: Fatigued and Appropriate Patient Orientation: Person, Place, Time and Situation Level of Consciousness: Alert Patient Behavior: Appropriate, Talkative, Cooperative, Anxious, Distractible and Good Eye Contact Mood Description: Depressed and Anxious Affect Description: Nervous and Apprehensive Patient Cognition Impaired: No Ability to Follow Directions: Good Speech Pattern: Spontaneous Speech Memory Description: Episodic Impaired Delusions: Not Present Thought Process: Intact Thought Content: positive for Intact and positive for Goal Oriented Judgement: Fair Diagnostics Vital Signs (24Hr): Vital Signs - 24 hr 03/22/24 16:28 03/22/24 16:30 03/22/24 20:00 Temperature 98.5 F 98.6 F Pulse Rate 86 80 Respiratory Rate 16 16 Blood Pressure 139/76 139/76 144/72 H Pulse Oximetry 96 98 Oxygen Delivery Method Room Air Room Air 03/23/24 07:52 Temperature 98.4 F Pulse Rate 88 Respiratory Rate 14 Blood Pressure 126/81 Pulse Oximetry 97 Oxygen Delivery Method Room Air BMI result Body Mass Index 30.5 Labs 03/20/24 03:28 03/22/24 09:19 Labs: Laboratory Results - last 48 hr 03/21/24 03/22/24 03/22/24 14:57 09:10 09:19 Sodium 139 140 Potassium 4.2 D 3.9 Chloride 105 104 Carbon Dioxide 28 28 Anion Gap 10 L 12 BUN 10 10 Creatinine 0.71 0.84 Estim Creat Clear Calc 167.8 141.7 Estimated GFR > 60 > 60 Random Glucose 96 Fasting Glucose 123 H Estimat Average Glucose 105 Hemoglobin A1c % 5.3 Calcium 9.5 10.1 D Magnesium 1.8 Total Bilirubin 0.3 AST 16 ALT 13 Alkaline Phosphatase 75 Total Protein 7.6 Albumin 4.1 Triglycerides 187 H Cholesterol 185 LDL Cholesterol, Calc 100 H HDL Cholesterol 48 Vitamin B12 236 Folate 10.0 TSH 0.77 Free T4 0.92 Urine Color Yellow Urine Appearance Clear Urine pH 6.0 Ur Specific [place] 1.010 Urine Protein Negative Urine Glucose (UA) Negative Urine Ketones Negative Urine Blood Negative Urine Nitrite Negative Ur Leukocyte Esterase Negative Medications Medications Current Medications Acetaminophen (Acetaminophen 325 Mg Tablet) 650 mg PO Q6H PRN PRN Reason: Headache/Pain Mild Scale (1-3) Last Admin: 03/23/24 08:11 Dose: 650 mg Al Hydroxide/Mg Hydroxide (Magnesium Hydrox/Alum Hydrox 30 Ml Oral.Susp) 30 ml PO Q6H PRN PRN Reason: Heartburn/Nausea Last Admin: 03/22/24 16:13 Dose: 30 ml Bupropion HCl (Bupropion Hcl Xl 150 Mg Tab.Er.24h) 150 mg PO DAILY RAQUEL Last Admin: 03/23/24 08:10 Dose: 150 mg Bupropion HCl (Bupropion Hcl Xl 300 Mg Tab.Er.24h) 300 mg PO DAILY RAQUEL Last Admin: 03/23/24 08:09 Dose: 300 mg Cariprazine (Cariprazine Hcl 1.5 Mg Capsule) 1.5 mg PO BEDTIME RAQUEL Last Admin: 03/22/24 20:33 Dose: 1.5 mg Clonazepam (Clonazepam 0.5 Mg Tablet) 0.5 mg PO DAILY PRN PRN Reason: panic attack Last Admin: 03/22/24 16:09 Dose: 0.5 mg Clonidine HCl (Clonidine Hcl 0.1 Mg Tablet) 0.1 mg PO BID PRN; Protocol PRN Reason: dizziness Last Admin: 03/22/24 16:28 Dose: 0.1 mg Diphenhydramine HCl (Diphenhydramine Hcl 25 Mg Capsule) 25 mg PO Q6H PRN PRN Reason: pruritus Gabapentin (Gabapentin 400 Mg Capsule) 800 mg PO TID [facility] Last Admin: 03/23/24 08:12 Dose: 800 mg Hydrocortisone (Hydrocortisone 1 % Cream 28.35 Gm Tube) 1 appl TOPICAL BID PRN; Protocol PRN Reason: rash Hydroxyzine HCl (Hydroxyzine Hcl 25 Mg Tablet) 25 mg PO Q6H PRN PRN Reason: Anxiety Last Admin: 03/22/24 18:22 Dose: 25 mg Loperamide HCl (Loperamide Hcl 2 Mg Capsule) 2 mg PO Q6H PRN PRN Reason: Diarrhea Last Admin: 03/23/24 00:01 Dose: 2 mg Lorazepam (Lorazepam 1 Mg Tablet) 1 mg PO QID [facility] Stop: 03/23/24 21:01 Last Admin: 03/23/24 08:13 Dose: 1 mg Lorazepam (Lorazepam 1 Mg Tablet) 1 mg PO TID [facility] Stop: 03/24/24 21:01 Lorazepam (Lorazepam 1 Mg Tablet) 1 mg PO BID [facility] Stop: 03/25/24 21:01 Lorazepam (Lorazepam 0.5 Mg Tablet) 0.5 mg PO BID [facility] Stop: 03/26/24 21:01 Magnesium Hydroxide (Milk Of Magnesia 30 Ml Oral.Susp) 30 ml PO DAILY PRN PRN Reason: Constipation Methadone HCl (Methadone Hcl 20 Mg/2 Ml Oral.Conc) 140 mg PO DAILY [facility] Last Admin: 03/23/24 08:15 Dose: 140 mg Nicotine (Nicotine 21 Mg Patch.Td24) 21 mg TRANSDERMA DAILY PRN PRN Reason: Nicotine cravings Last Admin: 03/23/24 08:18 Dose: 21 mg Nicotine Polacrilex (Nicotine Polacrilex Lozenge 4 Mg Lozenge) 4 mg BUCCAL Q2H PRN PRN Reason: Nicotine Cravings Last Admin: 03/23/24 08:19 Dose: 4 mg Non-Formulary Medication (Sofosbuvir-Velpatasvir [Epclusa]) 1 tab PO DAILY [facility] Omeprazole (Omeprazole 20 Mg Capsule.Dr) 20 mg PO DAILY@0630 [facility] Last Admin: 03/23/24 06:33 Dose: 20 mg Quetiapine Fumarate (Quetiapine Fumarate 100 Mg Tablet) 100 mg PO BID@0900,1500 [facility] Last Admin: 03/23/24 08:10 Dose: 100 mg Quetiapine Fumarate (Quetiapine Fumarate 300 Mg Tablet) 300 mg PO BEDTIME [facility] Last Admin: 03/22/24 20:33 Dose: 300 mg Trazodone HCl (Trazodone Hcl 50 Mg Tablet) 50 mg PO BEDTIME MRX1 PRN PRN Reason: Insomnia Allergies Allergies Allergy/AdvReac Type Severity Reaction Status Date / Time buspirone AdvReac Severe EPS Verified 03/22/24 15:40 Assessment & Plan Assessment & Plan (1) Bipolar disorder: Status: Acute Code(s): F31.9 - Bipolar disorder, unspecified (2) ADHD: Status: Acute Code(s): F90.9 - Attention-deficit hyperactivity disorder, unspecified type (3) Panic attacks: Status: Acute Code(s): F41.0 - Panic disorder [episodic paroxysmal anxiety] (4) Alcohol use disorder: Status: Acute Code(s): F10.90 - Alcohol use, unspecified, uncomplicated (5) Opioid use disorder, severe, on maintenance therapy: Status: Acute Code(s): F11.20 - Opioid dependence, uncomplicated (6) Cocaine use disorder: Status: Acute Code(s): F14.10 - Cocaine abuse, uncomplicated (7) Cannabis use disorder: Status: Acute Code(s): F12.90 - Cannabis use, unspecified, uncomplicated Plan 39 yo male, history of bipolar disorder, ADHD, panic attacks, alcohol, opiate, cocaine, cannabis use disorders presents for re-establishment of regime, detox, referral for OP treatment for psychiatry and addictions. Plan: CV 15 minute checks Increase Seroquel to 100 mg bid; 300 mg HS Will hold on Adderall XR 10 mg and Adderal IR 10 mg as after our meeting tw was informed that pt is admitted to the same unit the mother of his children is admitted to. As a result he will have an administrative transfer to another unit to allow him to focus on his own needs and issues without distraction of his partner. Will defer this prescription of this agent to accepting provider. We did discuss the shortage of medication and Vyvanse. Collateral contact Lyrica 25 mg dose x 1 for reports of RLS Benadryl prn for rash sx on forearm along with hydrocortisone cream [facility] referral-pt would like to become a substance use counselor Addiction Medicine Consult. 03/23 increase clonazepam PRN to 0.5mg BID Reason for continued inpatient stay Substantial Risk for: harm to self and inability to function Time Spent With Patient Time: Total time managing care of this patient today ____ minutes.
[2024-03-23] MEDS: clonazePAM 0.5 MG TABLET PO ×2 (10:39→22:20)
[2024-03-23] MEDS: hydrOXYzine HCL 25 MG TABLET PO ×2 (10:47→22:20)
[2024-03-23 10:48] VITALS: BP 109/71
[2024-03-23] MEDS: diphenhydrAMINE HCL 25 MG CAPSULE PO (10:48)
[2024-03-23] MEDS: cloNIDine HCL 0.1 MG TABLET PO ×2 (10:48→20:20)
[2024-03-23 20:00] VITALS: BP 126/64; PULSE 79; RESP 18; TEMP 37; O2SAT 98
[2024-03-23] MEDS: QUEtiapine Fumarate 300 MG TABLET PO (20:14)
[2024-03-23] MEDS: Cariprazine HCl 1.5 MG CAPSULE PO (20:15)
[2024-03-23 20:20] VITALS: BP 126/64
[2024-03-24 08:00] VITALS: BP 138/90; PULSE 78; RESP 16; TEMP 36.9; O2SAT 97
[2024-03-24] MEDS: Nicotine 21 MG PATCH.TD24 TRANSDERMA (11:29)
[2024-03-24] MEDS: methADONE HCl 20 MG/2 ML ORAL.CONC 140 MG PO (11:30)
[2024-03-24] MEDS: buPROPion HCl XL 300 MG TAB.ER.24H PO (11:31)
[2024-03-24] MEDS: buPROPion HCl XL 150 MG TAB.ER.24H PO (11:32)
[2024-03-24] MEDS: Gabapentin 400 MG CAPSULE PO ×2 (11:32→20:48)
[2024-03-24] MEDS: Omeprazole 20 MG CAPSULE.DR PO (11:32)
[2024-03-24] MEDS: LORazepam 1 MG TABLET PO ×3 (11:33→20:43)
[2024-03-24] MEDS: QUEtiapine Fumarate 100 MG TABLET PO ×2 (11:33→14:15)
[2024-03-24] MEDS: Gabapentin 600 MG TABLET PO ×3 (11:35→20:43)
[2024-03-24] MEDS: Nicotine Polacrilex 2 MG GUM 4 MG BUCCAL ×4 (11:58→21:00)
--- NOTE | 2024-03-24 14:44 | MHC.RECOVRN ---
AUDIT-C Brief Intervention Pt had positive screen for unhealthy alcohol use on admission, subsequently met with t/w to discuss alcohol use and recovery supports/options. Upon meeting pt, pt reports he does not use alcohol. Provided pt with general recovery resources. Also provided with t/w contact information if questions or concerns arise. Denies questions or concerns at this time.
[2024-03-24] MEDS: diphenhydrAMINE HCL 25 MG CAPSULE PO ×2 (14:45→20:43)
[2024-03-24] MEDS: Hydrocortisone 1 % Cream 28.35 GM TUBE 1 APPL TOPICAL (14:45)
--- NOTE | 2024-03-24 16:21 | HO.PSYCHPN ---
Subjective Subjective Date of Service: 03/24/24 Reason For Visit: Depression Pollysubstance Use Disorder Opiate Use Interim History: has been seeing therapist and prescriber at [facility] since november,. they have not restarted him on stimulant and benzo. explains predicament, encourages pt to work on building relationship with outpt providers rather than coming inpatient and asking for controlled substances. amenable to increase yecenia to 1000 TID for nerve pain and to try clonidine for anxiety. per staff, 3-day up . sedated. taking meds. perseverative re adderall. slept 7 hours. Mental Status Exam Mental Status Exam Narrative: adequately dressed and groomed. cooperative. no PMA/PMR. speech nml rate, amount, loudness, tone, latency. thoughts linear and logical. affect constricted, normo-intense, non-labile. mood anxious. no SI/HI/AVH expressed. Diagnostics Vital Signs (24Hr): Vital Signs - 24 hr 03/23/24 20:00 03/23/24 20:20 Temperature 98.6 F Pulse Rate 79 Respiratory Rate 18 Blood Pressure 126/64 126/64 Pulse Oximetry 98 Oxygen Delivery Method Room Air BMI result Body Mass Index 31.0 Labs 03/20/24 03:28 03/22/24 09:19 Medications Medications Current Medications Acetaminophen (Acetaminophen 325 Mg Tablet) 650 mg PO Q6H PRN PRN Reason: Headache/Pain scale 1-10 Al Hydroxide/Mg Hydroxide (Magnesium Hydrox/Alum Hydrox 30 Ml Oral.Susp) 30 ml PO Q6H PRN PRN Reason: Heartburn/Nausea Last Admin: 03/22/24 16:13 Dose: 30 ml Bupropion HCl (Bupropion Hcl Xl 150 Mg Tab.Er.24h) 150 mg PO DAILY [facility]QUEL Last Admin: 03/24/24 11:32 Dose: 150 mg Bupropion HCl (Bupropion Hcl Xl 300 Mg Tab.Er.24h) 300 mg PO DAILY [facility] Last Admin: 03/24/24 11:31 Dose: 300 mg Cariprazine (Cariprazine Hcl 1.5 Mg Capsule) 1.5 mg PO BEDTIME [facility] Last Admin: 03/23/24 20:15 Dose: 1.5 mg Clonidine HCl (Clonidine Hcl 0.2 Mg Tablet) 0.2 mg PO BID PRN; Protocol PRN Reason: anxiety/restlessness Diphenhydramine HCl (Diphenhydramine Hcl 25 Mg Capsule) 25 mg PO Q6H PRN PRN Reason: pruritus Last Admin: 03/24/24 14:45 Dose: 25 mg Gabapentin (Gabapentin 400 Mg Capsule) 400 mg PO TID [facility] Last Admin: 03/24/24 11:32 Dose: 400 mg Gabapentin (Gabapentin 600 Mg Tablet) 600 mg PO TID [facility] Last Admin: 03/24/24 14:15 Dose: 600 mg Hydrocortisone (Hydrocortisone 1 % Cream 28.35 Gm Tube) 1 appl TOPICAL BID PRN; Protocol PRN Reason: rash Last Admin: 03/24/24 14:45 Dose: 1 appl Hydroxyzine HCl (Hydroxyzine Hcl 25 Mg Tablet) 25 mg PO Q6H PRN PRN Reason: Anxiety Last Admin: 03/23/24 22:20 Dose: 25 mg Loperamide HCl (Loperamide Hcl 2 Mg Capsule) 2 mg PO Q6H PRN PRN Reason: Diarrhea Last Admin: 03/23/24 00:01 Dose: 2 mg Lorazepam (Lorazepam 1 Mg Tablet) 1 mg PO TID [facility] Stop: 03/24/24 21:01 Last Admin: 03/24/24 14:15 Dose: 1 mg Lorazepam (Lorazepam 1 Mg Tablet) 1 mg PO BID [facility] Stop: 03/25/24 21:01 Lorazepam (Lorazepam 0.5 Mg Tablet) 0.5 mg PO BID [facility] Stop: 03/26/24 21:01 Magnesium Hydroxide (Milk Of Magnesia 30 Ml Oral.Susp) 30 ml PO DAILY PRN PRN Reason: Constipation Methadone HCl (Methadone Hcl 20 Mg/2 Ml Oral.Conc) 140 mg PO DAILY [facility] Last Admin: 03/24/24 11:30 Dose: 140 mg Nicotine (Nicotine 21 Mg Patch.Td24) 21 mg TRANSDERMA DAILY PRN PRN Reason: Nicotine cravings Last Admin: 03/24/24 11:29 Dose: 21 mg Nicotine Polacrilex (Nicotine Polacrilex 2 Mg Gum) 4 mg BUCCAL Q2H PRN PRN Reason: nicotine cravings Last Admin: 03/24/24 11:58 Dose: 4 mg Non-Formulary Medication (Sofosbuvir-Velpatasvir [Epclusa]) 1 tab PO DAILY [facility] Omeprazole (Omeprazole 20 Mg Capsule.Dr) 20 mg PO DAILY@30 [facility] Last Admin: 03/24/24 11:32 Dose: 20 mg Quetiapine Fumarate (Quetiapine Fumarate 100 Mg Tablet) 100 mg PO BID@0900,1500 [facility] Last Admin: 03/24/24 14:15 Dose: 100 mg Quetiapine Fumarate (Quetiapine Fumarate 300 Mg Tablet) 300 mg PO BEDTIME [facility] Last Admin: 03/23/24 20:14 Dose: 300 mg Trazodone HCl (Trazodone Hcl 50 Mg Tablet) 50 mg PO BEDTIME MRX1 PRN PRN Reason: Insomnia Allergies Allergies Allergy/AdvReac Type Severity Reaction Status Date / Time buspirone AdvReac Severe EPS Verified 03/22/24 15:40 Assessment & Plan Assessment & Plan (1) Bipolar disorder: Status: Acute Code(s): F31.9 - Bipolar disorder, unspecified (2) ADHD: Status: Acute Code(s): F90.9 - Attention-deficit hyperactivity disorder, unspecified type (3) Panic attacks: Status: Acute Code(s): F41.0 - Panic disorder [episodic paroxysmal anxiety] (4) Alcohol use disorder: Status: Acute Code(s): F10.90 - Alcohol use, unspecified, uncomplicated (5) Opioid use disorder, severe, on maintenance therapy: Status: Acute Code(s): F11.20 - Opioid dependence, uncomplicated (6) Cocaine use disorder: Status: Acute Code(s): F14.10 - Cocaine abuse, uncomplicated (7) Cannabis use disorder: Status: Acute Code(s): F12.90 - Cannabis use, unspecified, uncomplicated Plan 39 yo male, history of bipolar disorder, ADHD, panic attacks, alcohol, opiate, cocaine, cannabis use disorders presents for re-establishment of regime, detox, referral for OP treatment for psychiatry and addictions. 03/22: Increase Seroquel to 100 mg bid; 300 mg HS. Will hold on Adderall XR 10 mg and Adderal IR 10 mg as after our meeting tw was informed that pt is admitted to the same unit the mother of his children is admitted to. As a result he will have an administrative transfer to another unit to allow him to focus on his own needs and issues without distraction of his partner. Will defer this prescription of this agent to accepting provider. We did discuss the shortage of medication and Vyvanse. Lyrica 25 mg dose x 1 for reports of RLS. Benadryl prn for rash sx on forearm along with hydrocortisone cream. [facility] referral-pt would like to become a substance use counselor. 03/23 increase clonazepam PRN to 0.5mg BID 03/24: KWESI gerardo. do not start adderall. increase gabapentin to 1000 TID. increase clonidine PRN to 0.2 mg each. otherwise continue previous plan. Reason for continued inpatient stay Substantial Risk for: rapid decompensation Time Spent With Patient Time: Total time managing care of this patient today __35__ minutes.
[2024-03-24 16:52] VITALS: BP 109/64
[2024-03-24] MEDS: cloNIDine HCL 0.2 MG TABLET PO (16:52)
[2024-03-24] MEDS: QUEtiapine Fumarate 50 MG TABLET PO (18:53)
[2024-03-24 20:00] VITALS: BP 112/72; PULSE 82; RESP 16; TEMP 36.4; O2SAT 96
[2024-03-24] MEDS: hydrOXYzine HCL 25 MG TABLET PO (20:43)
[2024-03-24] MEDS: Cariprazine HCl 1.5 MG CAPSULE PO (20:48)
[2024-03-24] MEDS: QUEtiapine Fumarate 300 MG TABLET PO (20:49)
[2024-03-25] MEDS: Magnesium Hydrox/Alum Hydrox 30 ML ORAL.SUSP PO (02:54)
[2024-03-25 08:00] VITALS: BP 111/75; PULSE 81; RESP 15; TEMP 36.8; O2SAT 100
[2024-03-25] MEDS: methADONE HCl 20 MG/2 ML ORAL.CONC 140 MG PO (08:45)
[2024-03-25] MEDS: Omeprazole 20 MG CAPSULE.DR PO (08:46)
[2024-03-25] MEDS: buPROPion HCl XL 300 MG TAB.ER.24H PO (08:46)
[2024-03-25] MEDS: buPROPion HCl XL 150 MG TAB.ER.24H PO (08:46)
[2024-03-25] MEDS: Gabapentin 600 MG TABLET PO (08:46)
[2024-03-25] MEDS: Gabapentin 400 MG CAPSULE PO (08:46)
[2024-03-25] MEDS: LORazepam 1 MG TABLET PO ×2 (08:46→21:20)
[2024-03-25] MEDS: QUEtiapine Fumarate 100 MG TABLET PO ×2 (08:46→15:44)
[2024-03-25] MEDS: Nicotine 21 MG PATCH.TD24 TRANSDERMA (09:07)
[2024-03-25] MEDS: Nicotine Polacrilex 2 MG GUM 4 MG BUCCAL ×4 (11:12→23:27)
[2024-03-25 12:40] VITALS: BP 130/69; PULSE 94
[2024-03-25] MEDS: hydrOXYzine HCL 25 MG TABLET PO (12:42)
[2024-03-25] MEDS: cloNIDine HCL 0.2 MG TABLET PO ×2 (12:42→21:38)
[2024-03-25] MEDS: Hydrocortisone 1 % Cream 28.35 GM TUBE 1 APPL TOPICAL (14:14)
--- NOTE | 2024-03-25 14:25 | PM.EVENT ---
Event Note Date of Service: 03/25/24 Event Note: 39 year old male with history of IVDA admitted for adult psychiatry with consult placed to hospitalist service for evaluation of a rash in the R antecubital fossa. Pt reports injecting drugs into the area and has had redness for several days. No fevers, chills, occassional pruritus. The area is about 8 cmx3 cm very well circumscribed erythematous dry patch with some excoriation appears consistent with a contact dermatitis possibly r/t adhesive tape. Excematous changes noted to the R hand as well This is not consistent with a cellulitis. Vitals are stable. no evidence of sepsis. No fevers. Antibiotics not indicated. Appears had hydrocortisone cream ordered but has only been administered once. Change to triamcinolone BID vu. Give loratidine 10mg daily. Can use hydroxyzine as ordered prn for pruritus. Would not have benadryl and hydroxyzine ordered together. Benadryl dc'd. Thank you for allowing me to participate in this consult. Signing off at this time. Please do not hesitate to call for further questions or for any worsening symptoms/acute medical issues. Time Spent With Patient Time: Total time managing care of this patient today ____ minutes.
[2024-03-25] MEDS: Gabapentin 600 MG TABLET 1200 MG PO ×2 (15:43→21:20)
[2024-03-25] MEDS: Loratadine 10 MG TABLET PO (15:44)
--- NOTE | 2024-03-25 16:46 | HO.PSYCHPN ---
Subjective Subjective Date of Service: 03/25/24 Reason For Visit: Depression Pollysubstance Use Disorder Opiate Use Interim History: c/o rash in right antecubital fossa where he stuck himself with needle. agreeable to increase gabapentin to 3600 mg to see if it is helpful for pain as well as anxiety. per staff, 3-day up 03/28. wants new provider bcse this technical writer will not Rx klonopin and adderall. Mental Status Exam Mental Status Exam Narrative: adequately dressed and groomed. cooperative. no PMA/PMR. speech nml rate, amount, loudness, tone, latency. thoughts linear and logical. affect constricted, normo-intense, non-labile. mood anxious. no SI/HI/AVH expressed. Diagnostics Vital Signs (24Hr): Vital Signs - 24 hr 03/24/24 16:52 03/24/24 20:00 03/25/24 08:00 Temperature 97.5 F 98.3 F Pulse Rate 82 81 Respiratory Rate 16 15 Blood Pressure 109/64 112/72 111/75 Pulse Oximetry 96 100 Oxygen Delivery Method Room Air Room Air 03/25/24 12:40 Temperature Pulse Rate 94 Respiratory Rate Blood Pressure 130/69 Pulse Oximetry Oxygen Delivery Method BMI result Body Mass Index 31.0 Labs 03/20/24 03:28 03/22/24 09:19 Medications Medications Current Medications Acetaminophen (Acetaminophen 325 Mg Tablet) 650 mg PO Q6H PRN PRN Reason: Headache/Pain scale 1-10 Al Hydroxide/Mg Hydroxide (Magnesium Hydrox/Alum Hydrox 30 Ml Oral.Susp) 30 ml PO Q6H PRN PRN Reason: Heartburn/Nausea Last Admin: 03/25/24 02:54 Dose: 30 ml Bupropion HCl (Bupropion Hcl Xl 150 Mg Tab.Er.24h) 150 mg PO DAILY [facility] Last Admin: 03/25/24 08:46 Dose: 150 mg Bupropion HCl (Bupropion Hcl Xl 300 Mg Tab.Er.24h) 300 mg PO DAILY [facility] Last Admin: 03/25/24 08:46 Dose: 300 mg Cariprazine (Cariprazine Hcl 1.5 Mg Capsule) 1.5 mg PO BEDTIME [facility] Last Admin: 03/24/24 20:48 Dose: 1.5 mg Clonidine HCl (Clonidine Hcl 0.2 Mg Tablet) 0.2 mg PO BID PRN; Protocol PRN Reason: anxiety/restlessness Last Admin: 03/25/24 12:42 Dose: 0.2 mg Gabapentin (Gabapentin 600 Mg Tablet) 1,200 mg PO TID [facility] Last Admin: 03/25/24 15:43 Dose: 1,200 mg Hydrocortisone (Hydrocortisone 1 % Cream 28.35 Gm Tube) 1 appl TOPICAL BID PRN; Protocol PRN Reason: rash Last Admin: 03/25/24 14:14 Dose: 1 appl Hydroxyzine HCl (Hydroxyzine Hcl 25 Mg Tablet) 25 mg PO Q6H PRN PRN Reason: Anxiety, pruritus Loperamide HCl (Loperamide Hcl 2 Mg Capsule) 2 mg PO Q6H PRN PRN Reason: Diarrhea Last Admin: 03/23/24 00:01 Dose: 2 mg Loratadine (Loratadine 10 Mg Tablet) 10 mg PO DAILY [facility] Last Admin: 03/25/24 15:44 Dose: 10 mg Lorazepam (Lorazepam 1 Mg Tablet) 1 mg PO BID [facility] Stop: 03/25/24 21:01 Last Admin: 03/25/24 08:46 Dose: 1 mg Lorazepam (Lorazepam 0.5 Mg Tablet) 0.5 mg PO BID [facility] Stop: 03/26/24 21:01 Magnesium Hydroxide (Milk Of Magnesia 30 Ml Oral.Susp) 30 ml PO DAILY PRN PRN Reason: Constipation Methadone HCl (Methadone Hcl 20 Mg/2 Ml Oral.Conc) 140 mg PO DAILY [facility] Last Admin: 03/25/24 08:45 Dose: 140 mg Nicotine (Nicotine 21 Mg Patch.Td24) 21 mg TRANSDERMA DAILY PRN PRN Reason: Nicotine cravings Last Admin: 03/25/24 09:07 Dose: 21 mg Nicotine Polacrilex (Nicotine Polacrilex 2 Mg Gum) 4 mg BUCCAL Q2H PRN PRN Reason: nicotine cravings Last Admin: 03/25/24 16:17 Dose: 4 mg Non-Formulary Medication (Sofosbuvir-Velpatasvir [Epclusa]) 1 tab PO DAILY [facility] Omeprazole (Omeprazole 20 Mg Capsule.Dr) 20 mg PO DAILY@0630 [facility] Last Admin: 03/25/24 08:46 Dose: 20 mg Quetiapine Fumarate (Quetiapine Fumarate 100 Mg Tablet) 100 mg PO BID@0900,1500 [facility] Last Admin: 03/25/24 15:44 Dose: 100 mg Quetiapine Fumarate (Quetiapine Fumarate 300 Mg Tablet) 300 mg PO BEDTIME [facility] Last Admin: 03/24/24 20:49 Dose: 300 mg Quetiapine Fumarate (Quetiapine Fumarate 50 Mg Tablet) 50 mg PO TID PRN PRN Reason: Anxiety Last Admin: 03/24/24 18:53 Dose: 50 mg Trazodone HCl (Trazodone Hcl 50 Mg Tablet) 50 mg PO BEDTIME MRX1 PRN PRN Reason: Insomnia Triamcinolone Acetonide (Triamcinolone Acet 0.1 % Cream 15 Gm Tube) 1 appl TOPICAL BID [facility]; Protocol Stop: 04/01/24 09:01 Allergies Allergies Allergy/AdvReac Type Severity Reaction Status Date / Time buspirone AdvReac Severe EPS Verified 03/22/24 15:40 Assessment & Plan Assessment & Plan (1) Bipolar disorder: Status: Acute Code(s): F31.9 - Bipolar disorder, unspecified (2) ADHD: Status: Acute Code(s): F90.9 - Attention-deficit hyperactivity disorder, unspecified type (3) Panic attacks: Status: Acute Code(s): F41.0 - Panic disorder [episodic paroxysmal anxiety] (4) Alcohol use disorder: Status: Acute Code(s): F10.90 - Alcohol use, unspecified, uncomplicated (5) Opioid use disorder, severe, on maintenance therapy: Status: Acute Code(s): F11.20 - Opioid dependence, uncomplicated (6) Cocaine use disorder: Status: Acute Code(s): F14.10 - Cocaine abuse, uncomplicated (7) Cannabis use disorder: Status: Acute Code(s): F12.90 - Cannabis use, unspecified, uncomplicated Plan 39 yo male, history of bipolar disorder, ADHD, panic attacks, alcohol, opiate, cocaine, cannabis use disorders presents for re-establishment of regime, detox, referral for OP treatment for psychiatry and addictions. 03/22: Increase Seroquel to 100 mg bid; 300 mg HS. Will hold on Adderall XR 10 mg and Adderal IR 10 mg as after our meeting tw was informed that pt is admitted to the same unit the mother of his children is admitted to. As a result he will have an administrative transfer to another unit to allow him to focus on his own needs and issues without distraction of his partner. Will defer this prescription of this agent to accepting provider. We did discuss the shortage of medication and Vyvanse. Lyrica 25 mg dose x 1 for reports of RLS. Benadryl prn for rash sx on forearm along with hydrocortisone cream. [facility] referral-pt would like to become a substance use counselor. 03/23 increase clonazepam PRN to 0.5mg BID 03/24: DC klonopin. do not start adderall. increase gabapentin to 1000 TID. increase clonidine PRN to 0.2 mg each. otherwise continue previous plan. 03/25: increase gabapentin to 3600 mg daily. medical consult for rash at injection site. anxious. otherwise continue current mgmt. Reason for continued inpatient stay Substantial Risk for: inability to function and rapid decompensation Time Spent With Patient Time: Total time managing care of this patient today ____ minutes.
[2024-03-25] MEDS: QUEtiapine Fumarate 50 MG TABLET PO (21:19)
[2024-03-25] MEDS: Cariprazine HCl 1.5 MG CAPSULE PO (21:20)
[2024-03-25] MEDS: QUEtiapine Fumarate 300 MG TABLET PO (21:21)
[2024-03-25 21:30] VITALS: BP 126/67; PULSE 81; RESP 18; TEMP 36.4; O2SAT 97
[2024-03-26] MEDS: Nicotine Polacrilex 2 MG GUM 4 MG BUCCAL ×6 (04:19→22:03)
[2024-03-26] MEDS: hydrOXYzine HCL 25 MG TABLET PO ×2 (04:48→10:48)
[2024-03-26 04:49] VITALS: BP 105/63
[2024-03-26] MEDS: Milk of Magnesia 30 ML ORAL.SUSP PO (04:49)
[2024-03-26] MEDS: cloNIDine HCL 0.2 MG TABLET PO (04:49)
[2024-03-26] MEDS: QUEtiapine Fumarate 50 MG TABLET PO ×3 (04:49→23:59)
[2024-03-26 07:35] VITALS: BP 103/56; PULSE 69; RESP 16; TEMP 36.9; O2SAT 98
[2024-03-26] MEDS: buPROPion HCl XL 150 MG TAB.ER.24H PO (08:38)
[2024-03-26] MEDS: QUEtiapine Fumarate 100 MG TABLET PO ×2 (08:38→14:25)
[2024-03-26] MEDS: Gabapentin 600 MG TABLET 1200 MG PO ×3 (08:38→21:48)
[2024-03-26] MEDS: methADONE HCl 20 MG/2 ML ORAL.CONC 140 MG PO (08:38)
[2024-03-26] MEDS: buPROPion HCl XL 300 MG TAB.ER.24H PO (08:38)
[2024-03-26] MEDS: LORazepam 0.5 MG TABLET PO ×2 (08:39→21:49)
[2024-03-26] MEDS: Loratadine 10 MG TABLET PO (08:39)
[2024-03-26] MEDS: Omeprazole 20 MG CAPSULE.DR PO (08:39)
[2024-03-26] MEDS: Triamcinolone Acet 0.1 % Cream 15 GM TUBE 1 APPL TOPICAL ×2 (14:09→21:50)
--- NOTE | 2024-03-26 17:00 | P.PNPSI_ITS ---
Subjective Subjective Date of Service: 03/26/24 Reason For Visit: Depression Pollysubstance Use Disorder Opiate Use Interim History: focused on getting adderall and benzos. circular conversation, repeated circular conversation. slept well. per staff, wants new provider as MD not willing to help him. slept 7 hours. taking PRNs. Mental Status Exam Mental Status Exam Narrative: adequately dressed and groomed. cooperative. no PMA/PMR. speech nml rate, amount, loudness, tone, latency. thoughts linear and logical. affect constricted, normo-intense, non-labile. mood anxious. no SI/HI/AVH expressed. Diagnostics Vital Signs (24Hr): Vital Signs - 24 hr 03/25/24 21:30 03/26/24 04:49 03/26/24 07:35 Temperature 97.5 F 98.5 F Pulse Rate 81 69 Respiratory Rate 18 16 Blood Pressure 126/67 105/63 103/56 L Pulse Oximetry 97 98 Oxygen Delivery Method Room Air Room Air BMI result Body Mass Index 31.0 Labs 03/20/24 03:28 03/22/24 09:19 Medications Medications Current Medications Acetaminophen (Acetaminophen 325 Mg Tablet) 650 mg PO Q6H PRN PRN Reason: Headache/Pain scale 1-10 Al Hydroxide/Mg Hydroxide (Magnesium Hydrox/Alum Hydrox 30 Ml Oral.Susp) 30 ml PO Q6H PRN PRN Reason: Heartburn/Nausea Last Admin: 03/25/24 02:54 Dose: 30 ml Bupropion HCl (Bupropion Hcl Xl 150 Mg Tab.Er.24h) 150 mg PO DAILY [facility] Last Admin: 03/26/24 08:38 Dose: 150 mg Bupropion HCl (Bupropion Hcl Xl 300 Mg Tab.Er.24h) 300 mg PO DAILY [facility] Last Admin: 03/26/24 08:38 Dose: 300 mg Cariprazine (Cariprazine Hcl 1.5 Mg Capsule) 1.5 mg PO BEDTIME [facility] Last Admin: 03/25/24 21:20 Dose: 1.5 mg Clonidine HCl (Clonidine Hcl 0.2 Mg Tablet) 0.2 mg PO BID PRN; Protocol PRN Reason: anxiety/restlessness Last Admin: 03/26/24 04:49 Dose: 0.2 mg Gabapentin (Gabapentin 600 Mg Tablet) 1,200 mg PO TID [facility] Last Admin: 03/26/24 14:25 Dose: 1,200 mg Hydrocortisone (Hydrocortisone 1 % Cream 28.35 Gm Tube) 1 appl TOPICAL BID PRN; Protocol PRN Reason: rash Last Admin: 03/25/24 14:14 Dose: 1 appl Hydroxyzine HCl (Hydroxyzine Hcl 50 Mg Tablet) 50 mg PO Q6H PRN PRN Reason: Anxiety, pruritus Loperamide HCl (Loperamide Hcl 2 Mg Capsule) 2 mg PO Q6H PRN PRN Reason: Diarrhea Last Admin: 03/23/24 00:01 Dose: 2 mg Loratadine (Loratadine 10 Mg Tablet) 10 mg PO DAILY [facility] Last Admin: 03/26/24 08:39 Dose: 10 mg Lorazepam (Lorazepam 0.5 Mg Tablet) 0.5 mg PO BID [facility] Stop: 03/26/24 21:01 Last Admin: 03/26/24 08:39 Dose: 0.5 mg Magnesium Hydroxide (Milk Of Magnesia 30 Ml Oral.Susp) 30 ml PO DAILY PRN PRN Reason: Constipation Last Admin: 03/26/24 04:49 Dose: 30 ml Methadone HCl (Methadone Hcl 20 Mg/2 Ml Oral.Conc) 140 mg PO DAILY [facility] Last Admin: 03/26/24 08:38 Dose: 140 mg Nicotine (Nicotine 21 Mg Patch.Td24) 21 mg TRANSDERMA DAILY PRN PRN Reason: Nicotine cravings Last Admin: 03/25/24 09:07 Dose: 21 mg Nicotine Polacrilex (Nicotine Polacrilex 2 Mg Gum) 4 mg BUCCAL Q2H PRN PRN Reason: nicotine cravings Last Admin: 03/26/24 14:09 Dose: 4 mg Non-Formulary Medication (Sofosbuvir-Velpatasvir [Epclusa]) 1 tab PO DAILY [facility] Omeprazole (Omeprazole 20 Mg Capsule.Dr) 20 mg PO DAILY@0630 [facility] Last Admin: 03/26/24 08:39 Dose: 20 mg Quetiapine Fumarate (Quetiapine Fumarate 100 Mg Tablet) 100 mg PO BID@0900,1500 [facility] Last Admin: 03/26/24 14:25 Dose: 100 mg Quetiapine Fumarate (Quetiapine Fumarate 300 Mg Tablet) 300 mg PO BEDTIME [facility] Last Admin: 03/25/24 21:21 Dose: 300 mg Quetiapine Fumarate (Quetiapine Fumarate 50 Mg Tablet) 50 mg PO TID PRN PRN Reason: Anxiety Last Admin: 03/26/24 15:30 Dose: 50 mg Trazodone HCl (Trazodone Hcl 50 Mg Tablet) 50 mg PO BEDTIME MRX1 PRN PRN Reason: Insomnia Triamcinolone Acetonide (Triamcinolone Acet 0.1 % Cream 15 Gm Tube) 1 appl TOPICAL BID [facility]; Protocol Stop: 04/01/24 09:01 Last Admin: 03/26/24 14:09 Dose: 1 appl Allergies Allergies Allergy/AdvReac Type Severity Reaction Status Date / Time buspirone AdvReac Severe EPS Verified 03/22/24 15:40 Assessment & Plan Assessment & Plan (1) Bipolar disorder: Status: Acute Code(s): F31.9 - Bipolar disorder, unspecified (2) ADHD: Status: Acute Code(s): F90.9 - Attention-deficit hyperactivity disorder, unspecified type (3) Panic attacks: Status: Acute Code(s): F41.0 - Panic disorder [episodic paroxysmal anxiety] (4) Alcohol use disorder: Status: Acute Code(s): F10.90 - Alcohol use, unspecified, uncomplicated (5) Opioid use disorder, severe, on maintenance therapy: Status: Acute Code(s): F11.20 - Opioid dependence, uncomplicated (6) Cocaine use disorder: Status: Acute Code(s): F14.10 - Cocaine abuse, uncomplicated (7) Cannabis use disorder: Status: Acute Code(s): F12.90 - Cannabis use, unspecified, uncomplicated Plan 39 yo male, history of bipolar disorder, ADHD, panic attacks, alcohol, opiate, cocaine, cannabis use disorders presents for re-establishment of regime, detox, referral for OP treatment for psychiatry and addictions. 03/22: Increase Seroquel to 100 mg bid; 300 mg HS. Will hold on Adderall XR 10 mg and Adderal IR 10 mg as after our meeting tw was informed that pt is admitted to the same unit the mother of his children is admitted to. As a result he will have an administrative transfer to another unit to allow him to focus on his own needs and issues without distraction of his partner. Will defer this prescription of this agent to accepting provider. We did discuss the shortage of medication and Vyvanse. Lyrica 25 mg dose x 1 for reports of RLS. Benadryl prn for rash sx on forearm along with hydrocortisone cream. [facility] referral-pt would like to become a substance use counselor. 03/23 increase clonazepam PRN to 0.5mg BID 03/24: DC klonopin. do not start adderall. increase gabapentin to 1000 TID. increase clonidine PRN to 0.2 mg each. otherwise continue previous plan. 03/25: increase gabapentin to 3600 mg daily. medical consult for rash at injection site. anxious. otherwise continue current mgmt. 03/26: yecenia increase feels helpful. still anxious. wants different provider. Reason for continued inpatient stay Substantial Risk for: rapid decompensation Time Spent With Patient Time: Total time managing care of this patient today ____ minutes.
[2024-03-26] MEDS: hydrOXYzine HCL 50 MG TABLET PO (18:56)
[2024-03-26 21:45] VITALS: BP 120/56; PULSE 82; RESP 16; TEMP 36.9; O2SAT 95
[2024-03-26] MEDS: Cariprazine HCl 1.5 MG CAPSULE PO (21:49)
[2024-03-26] MEDS: QUEtiapine Fumarate 300 MG TABLET PO (21:49)
[2024-03-26] MEDS: Loperamide HCl 2 MG CAPSULE PO (23:58)
--- NOTE | 2024-03-27 00:17 | PC.NURSE ---
Von reported some diarrhea(unwitnessed) and anxiety. Was given Immodium PO prn and Seroquel PO prn.
[2024-03-27 07:40] VITALS: BP 100/52; PULSE 60; RESP 16; TEMP 37.1; O2SAT 94
[2024-03-27] MEDS: methADONE HCl 20 MG/2 ML ORAL.CONC 140 MG PO (09:04)
[2024-03-27] MEDS: QUEtiapine Fumarate 100 MG TABLET PO ×3 (09:06→15:41)
[2024-03-27] MEDS: Omeprazole 20 MG CAPSULE.DR PO (09:06)
[2024-03-27] MEDS: Loratadine 10 MG TABLET PO (09:06)
[2024-03-27] MEDS: buPROPion HCl XL 150 MG TAB.ER.24H PO (09:07)
[2024-03-27] MEDS: buPROPion HCl XL 300 MG TAB.ER.24H PO (09:07)
[2024-03-27] MEDS: Gabapentin 600 MG TABLET 1200 MG PO ×3 (09:07→20:34)
[2024-03-27] MEDS: Loperamide HCl 2 MG CAPSULE PO (09:18)
[2024-03-27] MEDS: Nicotine Polacrilex 2 MG GUM 4 MG BUCCAL (10:12)
[2024-03-27] MEDS: Nicotine 21 MG PATCH.TD24 TRANSDERMA (10:12)
[2024-03-27] MEDS: Nicotine Polacrilex Lozenge 4 MG LOZENGE BUCCAL ×2 (14:18→20:34)
--- NOTE | 2024-03-27 15:22 | P.PNPSI_ITS ---
Subjective Subjective Date of Service: 03/27/24 Reason For Visit: Depression Pollysubstance Use Disorder Opiate Use Interim History: calm, cooperative. states he continues anxious, only slept about 3 hours overnight. agreeable to increase seroquel PRNs to 100 mg each. per staff, broad affect. wants new doctor. frequent PRNs. frequent naps. slept about 6 hours. Mental Status Exam Mental Status Exam Narrative: adequately dressed and groomed. cooperative. no PMA/PMR. speech nml rate, amount, loudness, tone, latency. thoughts linear and logical. affect constricted, normo-intense, non-labile. mood anxious. no SI/HI/AVH expressed. Diagnostics Vital Signs (24Hr): Vital Signs - 24 hr 03/26/24 21:45 03/27/24 07:40 Temperature 98.5 F 98.7 F Pulse Rate 82 60 Respiratory Rate 16 16 Blood Pressure 120/56 L 100/52 L Pulse Oximetry 95 94 Oxygen Delivery Method Room Air Room Air BMI result Body Mass Index 31.0 Labs 03/20/24 03:28 03/22/24 09:19 Medications Medications Current Medications Acetaminophen (Acetaminophen 325 Mg Tablet) 650 mg PO Q6H PRN PRN Reason: Headache/Pain scale 1-10 Al Hydroxide/Mg Hydroxide (Magnesium Hydrox/Alum Hydrox 30 Ml Oral.Susp) 30 ml PO Q6H PRN PRN Reason: Heartburn/Nausea Last Admin: 03/25/24 02:54 Dose: 30 ml Bupropion HCl (Bupropion Hcl Xl 150 Mg Tab.Er.24h) 150 mg PO DAILY [facility] Last Admin: 03/27/24 09:07 Dose: 150 mg Bupropion HCl (Bupropion Hcl Xl 300 Mg Tab.Er.24h) 300 mg PO DAILY [facility] Last Admin: 03/27/24 09:07 Dose: 300 mg Cariprazine (Cariprazine Hcl 1.5 Mg Capsule) 1.5 mg PO BEDTIME [facility] Last Admin: 03/26/24 21:49 Dose: 1.5 mg Clonidine HCl (Clonidine Hcl 0.2 Mg Tablet) 0.2 mg PO BID PRN; Protocol PRN Reason: anxiety/restlessness Last Admin: 03/26/24 04:49 Dose: 0.2 mg Gabapentin (Gabapentin 600 Mg Tablet) 1,200 mg PO TID [facility] Last Admin: 03/27/24 14:19 Dose: 1,200 mg Hydrocortisone (Hydrocortisone 1 % Cream 28.35 Gm Tube) 1 appl TOPICAL BID PRN; Protocol PRN Reason: rash Last Admin: 03/25/24 14:14 Dose: 1 appl Hydroxyzine HCl (Hydroxyzine Hcl 50 Mg Tablet) 50 mg PO Q6H PRN PRN Reason: Anxiety, pruritus Last Admin: 03/26/24 18:56 Dose: 50 mg Loperamide HCl (Loperamide Hcl 2 Mg Capsule) 2 mg PO Q6H PRN PRN Reason: Diarrhea Last Admin: 03/27/24 09:18 Dose: 2 mg Loratadine (Loratadine 10 Mg Tablet) 10 mg PO DAILY [facility] Last Admin: 03/27/24 09:06 Dose: 10 mg Magnesium Hydroxide (Milk Of Magnesia 30 Ml Oral.Susp) 30 ml PO DAILY PRN PRN Reason: Constipation Last Admin: 03/26/24 04:49 Dose: 30 ml Methadone HCl (Methadone Hcl 20 Mg/2 Ml Oral.Conc) 140 mg PO DAILY [facility] Last Admin: 03/27/24 09:04 Dose: 140 mg Nicotine (Nicotine 21 Mg Patch.Td24) 21 mg TRANSDERMA DAILY PRN PRN Reason: Nicotine cravings Last Admin: 03/27/24 10:12 Dose: 21 mg Nicotine Polacrilex (Nicotine Polacrilex Lozenge 4 Mg Lozenge) 4 mg BUCCAL Q2H PRN PRN Reason: Nicotine Cravings Last Admin: 03/27/24 14:18 Dose: 4 mg Non-Formulary Medication (Sofosbuvir-Velpatasvir [Epclusa]) 1 tab PO DAILY [facility] Omeprazole (Omeprazole 20 Mg Capsule.Dr) 20 mg PO DAILY@0630 [facility] Last Admin: 03/27/24 09:06 Dose: 20 mg Quetiapine Fumarate (Quetiapine Fumarate 100 Mg Tablet) 100 mg PO BID@0900,1500 [facility] Last Admin: 03/27/24 14:18 Dose: 100 mg Quetiapine Fumarate (Quetiapine Fumarate 300 Mg Tablet) 300 mg PO BEDTIME [facility] Last Admin: 03/26/24 21:49 Dose: 300 mg Quetiapine Fumarate (Quetiapine Fumarate 100 Mg Tablet) 100 mg PO TID PRN PRN Reason: Anxiety Trazodone HCl (Trazodone Hcl 50 Mg Tablet) 50 mg PO BEDTIME MRX1 PRN PRN Reason: Insomnia Triamcinolone Acetonide (Triamcinolone Acet 0.1 % Cream 15 Gm Tube) 1 appl TOPICAL BID [facility]; Protocol Stop: 04/01/24 09:01 Last Admin: 03/27/24 09:33 Dose: Not Given Allergies Allergies Allergy/AdvReac Type Severity Reaction Status Date / Time buspirone AdvReac Severe EPS Verified 03/22/24 15:40 Assessment & Plan Assessment & Plan (1) Bipolar disorder: Status: Acute Code(s): F31.9 - Bipolar disorder, unspecified (2) ADHD: Status: Acute Code(s): F90.9 - Attention-deficit hyperactivity disorder, unspecified type (3) Panic attacks: Status: Acute Code(s): F41.0 - Panic disorder [episodic paroxysmal anxiety] (4) Alcohol use disorder: Status: Acute Code(s): F10.90 - Alcohol use, unspecified, uncomplicated (5) Opioid use disorder, severe, on maintenance therapy: Status: Acute Code(s): F11.20 - Opioid dependence, uncomplicated (6) Cocaine use disorder: Status: Acute Code(s): F14.10 - Cocaine abuse, uncomplicated (7) Cannabis use disorder: Status: Acute Code(s): F12.90 - Cannabis use, unspecified, uncomplicated Plan 39 yo male, history of bipolar disorder, ADHD, panic attacks, alcohol, opiate, cocaine, cannabis use disorders presents for re-establishment of regime, detox, referral for OP treatment for psychiatry and addictions. 03/22: Increase Seroquel to 100 mg bid; 300 mg HS. Will hold on Adderall XR 10 mg and Adderal IR 10 mg as after our meeting tw was informed that pt is admitted to the same unit the mother of his children is admitted to. As a result he will have an administrative transfer to another unit to allow him to focus on his own needs and issues without distraction of his partner. Will defer this prescription of this agent to accepting provider. We did discuss the shortage of medication and Vyvanse. Lyrica 25 mg dose x 1 for reports of RLS. Benadryl prn for rash sx on forearm along with hydrocortisone cream. [facility] referral-pt would like to become a substance use counselor. 03/23 increase clonazepam PRN to 0.5mg BID 03/24: KWESI klonosara. do not start adderall. increase gabapentin to 1000 TID. increase clonidine PRN to 0.2 mg each. otherwise continue previous plan. 03/25: increase gabapentin to 3600 mg daily. medical consult for rash at injection site. anxious. otherwise continue current mgmt. 03/26: yecenia increase feels helpful. still anxious. wants different provider. 03/27: no change. increase seroquel PRNs from 50 mg each to 100 mg each. planning to discharge by weds. Reason for continued inpatient stay Substantial Risk for: inability to function and rapid decompensation Time Spent With Patient Time: Total time managing care of this patient today __25__ minutes.
[2024-03-27] MEDS: hydrOXYzine HCL 50 MG TABLET PO (15:39)
[2024-03-27] MEDS: Hydrocortisone 1 % Cream 28.35 GM TUBE 1 APPL TOPICAL (15:42)
[2024-03-27 20:30] VITALS: BP 133/76; PULSE 95; RESP 16; TEMP 36.9; O2SAT 97
[2024-03-27] MEDS: QUEtiapine Fumarate 300 MG TABLET PO (20:34)
[2024-03-27] MEDS: cloNIDine HCL 0.2 MG TABLET PO (20:34)
[2024-03-27] MEDS: Cariprazine HCl 1.5 MG CAPSULE PO (20:34)
[2024-03-27] MEDS: Triamcinolone Acet 0.1 % Cream 15 GM TUBE 1 APPL TOPICAL (20:38)
[2024-03-28 07:45] VITALS: BP 111/62; PULSE 64; RESP 16; TEMP 36.8; O2SAT 98
[2024-03-28] MEDS: methADONE HCl 20 MG/2 ML ORAL.CONC 140 MG PO (08:19)
[2024-03-28] MEDS: Omeprazole 20 MG CAPSULE.DR PO (08:37)
[2024-03-28] MEDS: buPROPion HCl XL 150 MG TAB.ER.24H PO (08:37)
[2024-03-28] MEDS: QUEtiapine Fumarate 100 MG TABLET PO (08:38)
[2024-03-28] MEDS: buPROPion HCl XL 300 MG TAB.ER.24H PO (08:38)
[2024-03-28] MEDS: Loratadine 10 MG TABLET PO (08:39)
[2024-03-28] MEDS: Nicotine Polacrilex Lozenge 4 MG LOZENGE BUCCAL (08:39)
[2024-03-28] MEDS: Gabapentin 600 MG TABLET 1200 MG PO (08:39)
--- NOTE | 2024-03-28 10:16 | PM.PSYDC ---
DS: Providers Provider Date of Service: 03/28/24 Date of admission: 03/21/24 12:32 Primary care physician: Unknown Physician Consults: 03/21/24 16:10 Addiction Medicine Routine Consulting Provider: Addiction Covering Reason for consultation: substance abuse 03/25/24 12:35 Consult to Hospitalist Routine Comment: at needle insertion site R antecubital fossa Consulting Provider: Hospitalist Reason For Exam: spreading pruritic erythematous patch DS: Diagnosis Discharge Diagnosis (1) Bipolar disorder: Status: Acute (2) ADHD: Status: Acute (3) Panic attacks: Status: Acute (4) Alcohol use disorder: Status: Acute (5) Opioid use disorder, severe, on maintenance therapy: Status: Acute (6) Cocaine use disorder: Status: Acute (7) Cannabis use disorder: Status: Acute DS: Medications Discharge Medications Home Medications: Home Medications ?Medication ?Instructions ?Recorded ?Confirmed bupropion HCl 150 mg 24 hr tablet, 150 mg PO DAILY 03/20/24 03/20/24 extended release bupropion HCl 300 mg 24 hr tablet, 300 mg PO QAM 03/20/24 03/20/24 extended release cariprazine 1.5 mg capsule 1.5 mg PO BEDTIME 03/20/24 03/20/24 (Vraylar) methadone 10 mg/mL oral concentrate 140 mg PO DAILY 03/20/24 03/20/24 omeprazole 20 mg capsule,delayed 20 mg PO DAILY@0630 03/20/24 03/20/24 release sofosbuvir 400 mg-velpatasvir 100 1 tab PO DAILY 03/20/24 03/20/24 mg tablet (Epclusa) Previous Rx's ?Medication ?Instructions ?Recorded clonidine HCl 0.2 mg tablet 0.2 mg PO BID PRN 03/28/24 Anxiety/Restlessness 30 days #60 tabs gabapentin 600 mg tablet 1,200 mg (2 x 600 mg) PO TID 30 03/28/24 days #180 tabs hydroxyzine HCl 50 mg tablet 50 mg PO BID PRN Anxiety, pruritus 03/28/24 30 days #60 tabs naloxone 4 mg/actuation nasal 4 mg intranasal Q2M PRN opioid 03/28/24 spray (Narcan) overdose 1 day #2 ea nicotine (polacrilex) 4 mg buccal 4 mg buccal Q2H PRN Nicotine 03/28/24 lozenge Cravings 30 days #108 ea quetiapine 100 mg tablet 100 mg PO BID@0900,1500 30 days 03/28/24 #60 tabs quetiapine 300 mg tablet 300 mg PO BEDTIME 30 days #30 tabs 03/28/24 triamcinolone acetonide 0.1 % 1 appl topical BID 15 days #15 03/28/24 topical cream grams Mental Status Exam Mental Status Exam Narrative: adequately dressed and groomed. cooperative. no PMA/PMR. speech nml rate, amount, loudness, tone, latency. thoughts linear and logical. affect constricted, normo-intense, non-labile. mood happy and excited. no SI/HI/AVH expressed. Data Data Completed and Pending Completed studies during hospitalization [Text1]: 03/21/24 03/22/24 03/22/24 14:57 09:10 09:19 Sodium 139 140 Potassium 4.2 D 3.9 Chloride 105 104 Carbon Dioxide 28 28 Anion Gap 10 L 12 BUN 10 10 Creatinine 0.71 0.84 Estim Creat Clear Calc 167.8 141.7 Estimated GFR > 60 > 60 Random Glucose 96 Fasting Glucose 123 H Estimat Average Glucose 105 Hemoglobin A1c % 5.3 Calcium 9.5 10.1 D Magnesium 1.8 Total Bilirubin 0.3 AST 16 ALT 13 Alkaline Phosphatase 75 Total Protein 7.6 Albumin 4.1 Triglycerides 187 H Cholesterol 185 LDL Cholesterol, Calc 100 H HDL Cholesterol 48 Vitamin B12 236 Folate 10.0 TSH 0.77 Free T4 0.92 Urine Color Yellow Urine Appearance Clear Urine pH 6.0 Ur Specific [place] 1.010 Urine Protein Negative Urine Glucose (UA) Negative Urine Ketones Negative Urine Blood Negative Urine Nitrite Negative Ur Leukocyte Esterase Negative DS: Summary Hospital Course Hospital Course: per 03/22 admission note: 39 yo male, history of bipolar disorder, panic attacks, ADHD, polysubstance use disorder-cannabis, sedatives,opiates, alcohol use disorder, admitted on CV for management of withdrawal, medication adjustment and referrals. Reports incarceration for domestic violence until November 2023 with release, with relapse to manage sx. Reports by hx successful treatment with a regime of Seroquel, Wellbutrin, Klonopin Adderall XR,and IR. Hx of follow up with [facility]. Regime changed when incarcerated - Adderall, Klonopin stopped-hydroxyine, clonidine ordered along with buspirone which caused EPS/TD sx.- electric pulses throughout my body. Reports Seroquel was helpful with depressive sx, Wellbutrin very effective for depression, Klonopin for panic at a low dose prn and Adderall XR 10 mg a.m., 10 mg IR noon> 1 year ago- it took me out of the corner and gave me an opportunity to participate in life. Pt describes main precipitant to relapse after incarceration as sudden of father from [place] Sep 2023 at age 64-pt had no ability to attend services, grieve with family. The loss has been a shock (cries as he describes this) and he has not done grief work. Relapse has been to feel normal again but the medicine did it better . Pt would like to re-establish regime, begin psychotherapy and re-establish sobriety Past Psychiatric History: IP: [facility] 2022, [facility], [facility] for detox, rehab. CSS, TSS OP: Hx [facility] Several detox admits Medical Evaluation Reviewed: Yes [facility] Medical History (Updated 03/22/24 @ 16:04 by Carmita Holden, SOIL [employer]STER) Cannabis use disorder Cocaine use disorder Opioid use disorder, severe, on maintenance therapy Alcohol use disorder Panic attacks ADHD Bipolar disorder Opiate abuse, continuous Depression Narrative: Hepatitis C Family History: Bipolar- 2 brothers Social History: Born in [place]. One of 5 sons, raised by parents who . 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 He is interested in [facility]. Two children 21 yo son, Cristian Gleason; 13 yo sons (not twins) Reports incarcerations-most recent release for DV November 2023 Substance History: Alcohol, started age 15, 1 sleeve daily Cannabis, started age 15, daily Sedatives-started age 18 Opiates-started age 20 Toxicology positive for Fentanyl, Opiates, Methadone, Cocaine, Cannabis BHN Methadone Maintenance Trauma History: Best friend in an MVA at age 20 Father suddenly of [place] Oct 2023. Precis: 39 yo male, history of bipolar disorder, ADHD, panic attacks, alcohol, opiate, cocaine, cannabis use disorders presents for re-establishment of regime, detox, referral for OP treatment for psychiatry and addictions. 03/22: Increase Seroquel to 100 mg bid; 300 mg HS. Will hold on Adderall XR 10 mg and Adderal IR 10 mg as after our meeting tw was informed that pt is admitted to the same unit the mother of his children is admitted to. As a result he will have an administrative transfer to another unit to allow him to focus on his own needs and issues without distraction of his partner. Will defer this prescription of this agent to accepting provider. We did discuss the shortage of medication and Vyvanse. Lyrica 25 mg dose x 1 for reports of RLS. Benadryl prn for rash sx on forearm along with hydrocortisone cream. 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 03/23 increase clonazepam PRN to 0.5mg BID 03/24: DC klonopin. do not start adderall. increase gabapentin to 1000 TID. increase clonidine PRN to 0.2 mg each. otherwise continue previous plan. 03/25: increase gabapentin to 3600 mg daily. medical consult for rash at injection site. anxious. otherwise continue current mgmt. 03/26: yecenia increase feels helpful. still anxious. wants different provider. 03/27: no change. increase seroquel PRNs from 50 mg each to 100 mg each. planning to discharge by . 03/28: stable, discharged as per plan. aftercare in place. meds reviewed, reconciled, prescribed. Time Spent with Patient Time attestation: Total time managing care of this patient today __35__ minutes. Time spent: Greater than 30 minutes Discharge Plan Discharge Anticipated Discharge Date/Time: 03/28/24 10:11 Patient Disposition: Home, Self-Care Discharge Diagnosis: Depressive Disorder NOS Anxiety Disorder NOS Opioid Use Disorder Cocaine Use Disorder Referrals: Therapy & Psychiatry [Other] - 1 Week (*Please present to the above clinic, Wednesday through Wednesday between the hours of 8am and 12pm, in order to obtain outpatient mental health providers. *Please bring a photo ID and copy of your insurance card with you. ) [facility] [Provider Group] - 1 Week ([facility] added to chart. Patient does not have PCP.) Discharge Medications: New nicotine (polacrilex) 4 mg Lozenge 4 mg buccal Q2H PRN (Reason: Nicotine Cravings) 30 Days Qty: 108 0RF gabapentin 600 mg Tablet 1,200 mg PO TID 30 Days Qty: 180 0RF quetiapine 300 mg Tablet 300 mg PO BEDTIME 30 Days Qty: 30 0RF hydroxyzine HCl 50 mg Tablet 50 mg PO BID PRN (Reason: Anxiety, pruritus) 30 Days Qty: 60 0RF quetiapine 100 mg Tablet 100 mg PO BID@0900,1500 30 Days Qty: 60 0RF triamcinolone acetonide 0.1 % Cream 1 appl topical BID 15 Days Qty: 15 0RF Protocol: Apply to: Apply to: R antecubital fossa clonidine HCl 0.2 mg Tablet 0.2 mg PO BID PRN (Reason: Anxiety/Restlessness) 30 Days Qty: 60 0RF Protocol: Hold for SBP< HOLD for SBP < : 90 naloxone [Narcan] 4 mg/actuation spray,non-aerosol 4 mg intranasal Q2M PRN (Reason: opioid overdose) 1 Days Qty: 2 0RF Rx Instructions: spray 1 dose into ONE nostril; alternate nostrils w each dose until help arrives Continued omeprazole 20 mg capsule,delayed release(DR/EC) 20 mg PO DAILY@0630 bupropion HCl 300 mg tablet extended release 24 hr 300 mg PO QAM bupropion HCl 150 mg tablet extended release 24 hr 150 mg PO DAILY Vraylar 1.5 mg capsule 1.5 mg PO BEDTIME sofosbuvir-velpatasvir [Epclusa] 400-100 mg tablet 1 tab PO DAILY methadone 10 mg/mL Concentrate 140 mg PO DAILY Discontinued clonidine HCl 0.1 mg tablet 0.1 mg PO BID PRN (Reason: dizziness) clonazepam 0.5 mg tablet 0.5 mg PO DAILY PRN (Reason: panic attack) quetiapine 100 mg tablet 100 mg PO TID gabapentin 800 mg tablet 800 mg PO Q8H Discharge Orders: Discharge Order (Routine); Ordered 03/28/24 Ordered By: Sean Garcia Diet: Advance to usual diet Activity on Discharge: As tolerated Stand Alone Forms: Patient Portal Discharge page, Community Support Print Language: Thai Care Plan Goals: remain safe, stable, and sober in the outpatient treatment setting Health Concerns: none Plan of Treatment: take medications as prescribed, attend appointments as scheduled Assessment: not at imminent risk of harm to self or others Discharge Date/Time: 03/28/24 10:27
--- NOTE | 2024-03-28 11:37 | PC.NURSE ---
medicated with 2mg Ativan PRN for Ciwa. on March.
== END 2024-03-28 10:27 | disposition home or self-care (01) | DRG 753 ==
LOC: HO.ED 16:04 → HO.PM5 03-21 12:35 → HO.PADLT16 03-22 15:52
PROVIDERS: Admitting Provider Clinical Nurse Specialist Psychiatric/Mental Health, Adult; Emergency Provider Emergency Medicine; Visit Provider Psychiatry & Neurology Psychiatry
DX: F31.9 Bipolar disorder, unspecified (principal); E87.6 Hypokalemia; F90.9 Attention-deficit hyperactivity disorder, unspecified type; F19.10 Other psychoactive substance abuse, uncomplicated; F41.0 Panic disorder [episodic paroxysmal anxiety]; F14.10 Cocaine abuse, uncomplicated; F12.90 Cannabis use, unspecified, uncomplicated; F11.20 Opioid dependence, uncomplicated; F17.210 Nicotine dependence, cigarettes, uncomplicated; Z71.6 Tobacco abuse counseling; Z79.899 Other long term (current) drug therapy
CPT/HCPCS: 36415; 80048; 80053; 80061; 80076; 80307; 81003; 82607; 82746; 83036; 83735; 84439; 84443; 85025; 93005; 99285; J2560; S9485

== ENCOUNTER → 2024-03-21 08:57 | Outpatient (BNV) | payer MEDICAID, SELFPAY | PROVIDERS: Admitting Provider Clinical Nurse Specialist Psychiatric/Mental Health, Adult; Emergency Provider Emergency Medicine; Visit Provider Internal Medicine | DX: F32.A Depression, unspecified (principal); F19.10 Other psychoactive substance abuse, uncomplicated | CPT/HCPCS: 93010 ==

== ENCOUNTER → 2024-03-21 12:32 | Outpatient (BNV) | payer OTHER, SELFPAY | PROVIDERS: Admitting Provider Clinical Nurse Specialist Psychiatric/Mental Health, Adult; Emergency Provider Emergency Medicine; Visit Provider Clinical Nurse Specialist Psychiatric/Mental Health, Adult | DX: F31.4 Bipolar disorder, current episode depressed, severe, without psychotic features (principal); F90.9 Attention-deficit hyperactivity disorder, unspecified type; F41.0 Panic disorder [episodic paroxysmal anxiety]; F10.90 Alcohol use, unspecified, uncomplicated; F11.20 Opioid dependence, uncomplicated; F14.10 Cocaine abuse, uncomplicated; F12.90 Cannabis use, unspecified, uncomplicated | CPT/HCPCS: 99231; 99232; 99499 ==

== ENCOUNTER 2024-07-09 04:05 | Emergency (ER) | payer MEDICAID, SELFPAY ==
--- NOTE | 2024-07-09 | ECG_ITS ---
Test Reason : COCAINE USE Blood Pressure : / mmHG Vent. Rate : 068 BPM Atrial Rate : 068 BPM P-R Int : 168 ms QRS Dur : 090 ms QT Int : 440 ms P-R-T Axes : 046 029 029 degrees QTc Int : 467 ms Normal sinus rhythm Normal ECG When compared with ECG of 21-MAR-2024 08:57, No significant change was found Referred By: Generic ED Physician Electronically Signed By:GABBY ENGLAND
[2024-07-09 04:08] VITALS: BP 127/65; PULSE 74; RESP 18; TEMP 36.7; O2SAT 98; BMI 27.9
[2024-07-09 04:20] VITALS: BP 132/62; PULSE 75; RESP 16; O2SAT 99
[2024-07-09 05:33] LABS: Basophils Absolute Auto 0.1 X10*3/uL (0.0-0.2); Basophils Percent Auto 0.4 % (0-2); Eosinophils Absolute Auto 0.2 X10*3/uL (0.0-0.4); Eosinophils Percent Auto 1.4 % (0-4); Hematocrit 38.9 % (42.0-52.0); Hemoglobin 13.7 g/dl (14.0-18.0); Imm Gran Abs Auto 0.04 X10*3/uL (0.00-0.03); Imm Gran Pct Auto 0.3 % (0.0-0.4); Lymphocytes Absolute Auto 3.7 X10*3/uL (1.2-4.9); Lymphocytes Percent Auto 30.6 % (20-40); MANUAL DIFF FLAG NO; Mean Corpuscular HGB Conc 35.2 g/dl (31.0-36.0); Mean Corpuscular Hemoglobin 30.4 pg (27.0-33.0); Mean Corpuscular Volume 86.4 fL (80.0-98.0); Mean Platelet Volume 11.5 fL (9.4-12.4); Monocytes Percent Auto 8.3 % (2-11); Neutrophils Absolute Auto 7.2 x10*3/uL (2.0-8.3); Platelet Count 218 X10*3/uL (160-400); Red Cell Distribution Width 12.3 % (11.0-16.0); White Blood Count 12.2 X10*3/uL (4.8-10.8)
[2024-07-09 05:47] LABS: IDNOW Serial# 08D9AD1C
[2024-07-09 05:48] LABS: Alanine Aminotransferase 10 U/L (0-40); Albumin Level 4.4 g/dL (3.5-5.0); Alkaline Phosphatase 66 U/L (39-117); Anion Gap 14 (12-20); Aspartate Amino Transferase 13 U/L (5-37); Bilirubin Total 0.5 mg/dL (0.0-1.0); Blood Urea Nitrogen 15 mg/dL (9-16); COVID-19 Test Negative (Negative); Calcium 8.7 mg/dL (8.4-10.2); Carbon Dioxide 26 mmol/L (22-29); Chloride 103 mmol/L (96-108); Creatinine Clr Calc Pharmacy 137.7; Estimated Glomerular Filt Rate > 60; Glucose Random 106 mg/dL (60-115); Potassium 3.6 mmol/L (3.3-5.1); Sodium 139 mmol/L (135-145); Total Protein 7.3 g/dL (6.5-8.0)
[2024-07-09 06:00] VITALS: BP 101/60; PULSE 58; RESP 16; TEMP 36.6; O2SAT 97
--- NOTE | 2024-07-09 06:50 | ED_ITS ---
HPI - Psych General Chief Complaint: Psychiatric Symptoms Stated Complaint: Crisis Time Seen by Provider: 07/09/24 06:29 Source: patient Mode of arrival: ambulatory Limitations: no limitations History of Present Illness ED Provider: Krysta Ansari PA-C HPI Narrative: This is a 39-year-old male, with a history of opioid use disorder, cannabis use disorder, and depression, who presents emergency department with complaints SI with plan to overdose. He reports that he feels ?stuck? inside of his head with a thoughts. He uses heroin, cocaine, marijuana daily. On my initial assessment, patient reporting that he would like to speak to a psych doctor. He reports that is SI, he does not give me any other information. He frequently falls back to sleep, able to be aroused by voice. MD complaint: suicidal ideation and feels depressed Associated psychiatric symptoms: depression and suicidal ideation Related Data Home Medications ?Medication ?Instructions ?Recorded ?Confirmed bupropion HCl 150 mg 24 hr tablet, 150 mg PO DAILY 03/20/24 07/09/24 extended release bupropion HCl 300 mg 24 hr tablet, 300 mg PO DAILY 03/20/24 07/09/24 extended release methadone 10 mg/mL oral concentrate 150 mg PO DAILY 03/20/24 07/09/24 omeprazole 20 mg capsule,delayed 20 mg PO DAILY@0630 03/20/24 07/09/24 release clonazepam 0.5 mg tablet 0.5 mg PO DAILY PRN anxiety attack 07/09/24 07/09/24 dextroamphetamine-amphetamine ER 1 cap PO DAILY 07/09/24 07/09/24 10 mg 24hr capsule,extend release (Adderall XR) dextroamphetamine-amphetamine ER 1 cap PO DAILY 07/09/24 07/09/24 20 mg 24hr capsule,extend release (Adderall XR) sertraline 100 mg tablet 150 mg PO DAILY 07/09/24 07/09/24 Previous Rx's ?Medication ?Instructions ?Recorded gabapentin 600 mg tablet 1,200 mg (2 x 600 mg) PO TID 30 03/28/24 days #180 tabs nicotine (polacrilex) 4 mg buccal 4 mg buccal Q2H PRN Nicotine 03/28/24 lozenge Cravings 30 days #108 ea quetiapine 100 mg tablet 100 mg PO BID@0900,1500 30 days 03/28/24 #60 tabs quetiapine 300 mg tablet 300 mg PO BEDTIME 30 days #30 tabs 03/28/24 cephalexin 500 mg capsule 500 mg PO QID 7 days #28 caps 07/09/24 doxycycline hyclate 100 mg capsule 100 mg PO BID 7 days #14 caps 07/09/24 Allergies Allergy/AdvReac Type Severity Reaction Status Date / Time buspirone AdvReac Severe EPS Verified 07/09/24 04:11 Review of Systems 2 Review of Systems: Yes all other systems are reviewed and are negative Constitutional: Constitutional: Reports as per [facility] Past Medical History Medical History (Updated 07/10/24 @ 00:01 by Diana Long) Polysubstance abuse Cannabis use disorder Cocaine use disorder Opioid use disorder, severe, on maintenance therapy Alcohol use disorder Panic attacks ADHD Bipolar disorder Opiate abuse, continuous Depression Social History Social History (Updated 03/20/24 @ 03:07 by Jaqueline Marques DO) Household Members: Other Household Members Other:: Mother and Stepfather Housing: House Do you presently have visiting nurse or other home services: No Alcohol intake: current Alcohol intake frequency: 3 or more drinks per day Alcohol type: hard liquor Patient Tobacco Use Status: Current everyday Tobacco user Tobacco use type: Cigarette Cigarettes Per Day: 30 Smoked in Last 30 Days: Yes Second Hand Smoke Exposure: No Use of substances other than those prescribed or required for medical reasons: Yes Substance Use Type: Crack/Cocaine, Heroin and Marijuana Substance Use Frequency: Chronic Longstanding Last Used Substance: Just Prior to Admission Advance Directives: No Do you have a plan to hurt others: No Plan service: No Sexual orientation: Straight/Heterosexual Physical Exam 2 Vital Signs: Vital Signs: Last Vital Signs Temp 98.1 F 07/09/24 18:39 Pulse 77 07/09/24 18:39 Resp 18 07/09/24 18:39 BP 112/69 07/09/24 18:39 Pulse Ox 97 07/09/24 18:39 O2 Del Method Room Air 07/09/24 18:39 BMI result Body Mass Index 27.9 Const: General: cooperative, comfortable and no acute distress O rientation/consciousness: patient oriented x3 Limitations: no limitations HEENT: Head: Yes normal to inspection, Yes normocephalic and Yes atraumatic Ears: hearing grossly normal bilaterally General nose exam: Normal external nose present Face and sinus: Yes normal facial exam Mouth: Normal oral and palatal mucosa present, oropharynx normal and moist mucous membranes Throat: Yes posterior oropharynx normal Eyes: General: appearance normal, both eyes and all related structures E yelids: Yes eyelids normal Conjunctivae: conjunctivae normal Sclerae: s clerae normal Pupils: Equal, round and reactive pupils present EOM: EOMs intact bilaterally Neck: Neck: Yes normal visual inspection, Yes full ROM and Yes no lymphadenopathy Lymphatic: no lymphadenopathy noted Chest: Chest palpation & inspection: normal inspection of the chest Resp: Effort & Inspection: normal respiratory effort and able to speak in complete sentences Auscultation: clear to auscultation bilaterally, no crackles, no rales, no rhonchi and no wheezes Cardio: Rate: regular rate Rhythm: regular rhythm Heart sounds: S1 normal heart sound present and S2 normal heart sound present GI: Other: Abdomen is soft, nontender Inspection: Yes normal to inspection Skin: General skin exam: no rashes or lesions noted Trauma: no lacerations or abrasions Wounds: no wounds Neuro: General: patient oriented x3 and moves all extremities Cranial nerves: Yes CN's II-XII intact bilaterally and Yes Equal, round and reactive pupils present Cognition (Neuro): normal cognition Gait exam (Neuro): N ormal gait present Motor exam (neuro): 5/5 motor strength present throughout Extrem: General: Yes normal to inspection Right upper extremity: normal to inspection Left upper extremity: normal to inspection Right lower extremity: normal to inspection Left lower extremity: normal to inspection Psych: Appearance: grossly normal Mental Status: mental status grossly normal Speech and movement: Normal speech and movement present Affect: Sad affect present Attitude: Guarded attititude/behavior present and Avoids eye contact (attititude/behavior) Thought content: Suicidality present I nsight: Good insight present (Psych) Judgement: Good judgement present (Psych) Course Reevaluation(s) Reevaluation #1: Patient was brought back to the Behavioral pod. Upon further questioning, he reports that he needs help and is feeling very anxious. He is resting comfortably under no acute distress. Will continue to monitor pending care team consult. Still waiting urine drug screen and UA. Labs revealing slight leukocytosis at 12.2, chemistry within normal limits, no electrolyte derangement, COVID negative. EKG nonischemic. We will continue to closely monitor. He tested negative for COVID. He has no physical complaints. Time: 09:54 Reevaluation #2: Patient re-evaluated, he is alert. He states that he has had increased thoughts of ending his life with a plan to overdose. He states that he previously was on psychiatric medications however has not been using them as prescribed. He is unable to report to me when he lost took any of his medications. He does report that he received his methadone dosing yesterday. He states that he typically uses 2-3 bundles of heroin per day. He also admits to cocaine use. He states that he last use yesterday. He also states that he has a history of alcohol use disorder, typically drinks asleep of nips per day. History of alcohol withdrawal seizures 2 years ago. Last drink was yesterday. He is physically feeling well, no current complaints. Patient willing to give urine sample now. Pending care team consult. Physician observation initiated. Time: 16:12 Reevaluation #3: Case discussed with care team consulted Addie who states patient is not suicidal or homicidal. Upon further investigation she states it seems patient is selling his Adderall and Klonopin to procur heroin, cocaine, and fentanyl. UA SANTOS shows positivity for fentanyl, cocaine, and heroin but no benzos. I also evaluated patient who states he is not suicidal or homicidal. Patient has shown me left thigh area of redness where he injected himself with a needle. Positive for redness and tenderness but negative for fluctuance. Will discharged with antibiotics. Patient educated on warm compress 4 times a day for 15 minutes. Patient not in any distress. Not suspecting DVT, osteomyelitis, or necrotizing fasciitis. Negative for signs of arterial occlusion. Time: 18:24 Medications Administered Discontinued Medications Generic Name Dose Route Start Last Admin Trade Name Freq PRN Reason Stop Dose Admin Methadone HCl 150 mg 07/10/24 09:00 07/09/24 18:11 Methadone Hcl 20 Mg/2 Ml Oral.Conc PO 150 mg DAILY RAQUEL Administration Nicotine Polacrilex 4 mg 07/09/24 16:55 07/09/24 17:13 Nicotine Polacrilex Lozenge 4 Mg Lozenge BUCCAL 4 mg Q2H PRN Administration Nicotine Cravings Medical Decision Making Medical Decision Making MDM Narrative: This is a 39-year-old male who presents emergency department for evaluation of suicidal ideation with plan to overdose. He uses heroin, cocaine, and marijuana daily. On arrival, vital signs within normal limits. On my initial assessment, patient is drowsy however easily arousable. Head is normocephalic atraumatic, he is neurologically intact. We will continue to closely monitor, and patient will be seen and evaluated by the care team. Plan: Labs, EKG, viral swabs, care team evaluation Differential Diagnosis Differential Diagnoses: The differential diagnosis associated with the presentation includes Depression, anxiety, suicidal ideation, homicidal ideation, polysubstance abuse Admission/Observation Consideration of admission/observation: Escalation of care including admission/observation considered Depression, anxiety, suicidal ideation, homicidal ideation, polysubstance abuse Lab Data MDM Lab Attestation statement: I reviewed the patient's lab results. Slight leukocytosis at 12.2, chemistry with no electrolyte derangement, COVID negative. 07/09/24 05:27 07/09/24 05:27 Labs: Lab Results 07/09/24 07/09/24 Range/Units 05:27 16:19 WBC 12.2 H (4.8-10.8) X10*3/uL RBC 4.50 L (4.60-5.80) X10*6/uL Hgb 13.7 L (14.0-18.0) g/dl Hct 38.9 L (42.0-52.0) % MCV 86.4 (80.0-98.0) fL MCH 30.4 (27.0-33.0) pg MCHC 35.2 (31.0-36.0) g/dl RDW 12.3 (11.0-16.0) % Plt Count 218 (160-400) X10*3/uL MPV 11.5 (9.4-12.4) fL Immature Gran % (Auto) 0.3 (0.0-0.4) % Neut % (Auto) 59.0 (45-73) % Lymph % (Auto) 30.6 (20-40) % [place] % (Auto) 8.3 (2-11) % Eos % (Auto) 1.4 (0-4) % Baso % (Auto) 0.4 (0-2) % Lymph # (Auto) 3.7 (1.2-4.9) X10*3/uL [place] # (Auto) 1.0 (0.1-1.2) X10*3/uL Eos # (Auto) 0.2 (0.0-0.4) X10*3/uL Baso # (Auto) 0.1 (0.0-0.2) X10*3/uL Abs Immat Gran (auto) 0.04 H (0.00-0.03) X10*3/uL Absolute Neuts (auto) 7.2 (2.0-8.3) x10*3/uL Absolute Nucleated RBC 0.000 (0.0-0.012) X10*3/uL Nucleated RBC % (auto) 0.0 (0.0-0.2) /100WBC Sodium 139 (135-145) mmol/L Potassium 3.6 (3.3-5.1) mmol/L Chloride 103 (96-108) mmol/L Carbon Dioxide 26 (22-29) mmol/L Anion Gap 14 (12-20) BUN 15 (9-16) mg/dL Creatinine 0.83 (0.5-1.4) mg/dL Estim Creat Clear Calc 137.7 Estimated GFR > 60 Random Glucose 106 (60-115) mg/dL Calcium 8.7 D (8.4-10.2) mg/dL Total Bilirubin 0.5 (0.0-1.0) mg/dL AST 13 (5-37) U/L ALT 10 (0-40) U/L Alkaline Phosphatase 66 (39-117) U/L Total Protein 7.3 (6.5-8.0) g/dL Albumin 4.4 (3.5-5.0) g/dL Urine Opiates Screen POSITIVE H (Not Detect) Ur Buprenorphine Scrn Not Detected (Not Detect) ng/mL Ur Oxycodone Screen Not Detected (Not Detect) ng/mL Urine Methadone Screen Positive H (Not Detect) ng/mL Urine Fentanyl Screen POSITIVE H (Not Detect) Ur Barbiturates Screen Not Detected (Not Detect) Ur Phencyclidine Scrn Not Detected (Not Detect) Ur Amphetamines Screen Not Detected (Not Detect) U Benzodiazepines Scrn Not Detected (Not Detect) Urine Cocaine Screen POSITIVE H (Not Detect) U Marijuana (THC) Screen POSITIVE H (Not Detect) COVID-19 (MAKAYLA) Negative (Negative) COVID-19 Clin Com See Note Independent Interpretation I performed an independent interpretation of an: EKG Interpretation: EKG normal sinus rhythm with a ventricular rate of 68 beats per minute, CO interval 168, QT QTC 440/467, no ST elevation or depression. Radiology Impression Discussion of test interpretation with radiology: I have reviewed the radiologist's reading. External Record Review External record reviewed: Inpatient record, Office record, Outpatient record, Prior outpatient labs, Prior outpatient radiology, Primary care record and Outside ED record Discharge Plan Discharge Clinical Impression: Opioid use disorder, severe, on maintenance therapy, Cellulitis, Abscess Patient Disposition: Home, Self-Care Instructions: Cellulitis (ED), Abscess (ED), Opioid Use Disorder (ED) Additional Instructions: Please continue all at-home medications as prescribed. If any new or worsening symptoms occur including but not limited to thoughts of harming herself or others, chest pain, shortness for breath, seek emergent care. Recommend warm compress 4 times a day for 15 minutes on left thigh early abscess cellulitis. You will be discharged with antibiotics. Return to the ED immediately for any increased swelling, pus discharge, foul odor, fever, chills, increased redness, calf pain, leg swelling, bluish discoloration, chest pain, shortness of breath, suicidal/homicidal ideation, or any other concerning symptoms. Recommend follow-up with [facility] and primary care provider. Prescriptions: New cephalexin 500 mg capsule 500 mg PO QID 7 Days Qty: 28 0RF doxycycline hyclate 100 mg capsule 100 mg PO BID 7 Days Qty: 14 0RF No Action omeprazole 20 mg capsule,delayed release(DR/EC) 20 mg PO DAILY@0630 bupropion HCl 300 mg tablet extended release 24 hr 300 mg PO DAILY bupropion HCl 150 mg tablet extended release 24 hr 150 mg PO DAILY methadone 10 mg/mL Concentrate 150 mg PO DAILY nicotine (polacrilex) 4 mg Lozenge 4 mg buccal Q2H PRN (Reason: Nicotine Cravings) 30 Days Qty: 108 0RF gabapentin 600 mg Tablet 1,200 mg PO TID 30 Days Qty: 180 0RF quetiapine 300 mg Tablet 300 mg PO BEDTIME 30 Days Qty: 30 0RF quetiapine 100 mg Tablet 100 mg PO BID@0900,1500 30 Days Qty: 60 0RF clonazepam 0.5 mg tablet 0.5 mg PO DAILY PRN (Reason: anxiety attack) sertraline 100 mg tablet 150 mg PO DAILY dextroamphetamine-amphetamine [Adderall XR] 20 mg capsule,extended release 24hr 1 cap PO DAILY dextroamphetamine-amphetamine [Adderall XR] 10 mg capsule,extended release 24hr 1 cap PO DAILY Interventions: Waldo-Suicide Risk Severity Scale Last Done: 07/09/24 04:20 ED Discharge Assessment Last Done: 07/09/24 18:39 Discharge Date/Time: 07/09/24 18:42 Print Language: Chinese
--- NOTE | 2024-07-09 08:25 | PC.NURSE ---
Assumed care of patient at 0800, patient appears to be in no apparent distress this am, calm and cooperative, sitting watching TV in 8
--- NOTE | 2024-07-09 12:36 | MHC.CARE ---
Col[facility] Maker attempted to meet with patient to complete evaluation. Will re-approach when clinically appropriate; appears to be under the influence of substances. No UTOx completed at this time.
--- NOTE | 2024-07-09 16:00 | MHC.CARE ---
According to RN patient is unable to be aroused and appears to be under the influence of an unknown substance. Pts urine is pending collection for UA/UTOX to be completed.
--- NOTE | 2024-07-09 16:02 | PHA.MEDREC ---
Pharmacy Consult ? Medication Reconciliation Pharmacy has completed the medication reconciliation. MED REC DONE USING CLAIMS HISTORY PATIENT IS BEING UNCOOPERATIVE ANSWERING QUESTIONS.
[2024-07-09 16:44] LABS: Amphetamine Screen Urine Not Detected (Not Detect); Barbiturates, Urine Not Detected (Not Detect); Benzodiazepines Screen Urine Not Detected (Not Detect); Buprenorphine Scr Not Detected (Not Detect); Cannabinoid Screen Urine POSITIVE (Not Detect); Cocaine Screen Urine POSITIVE (Not Detect); Fentanyl, urine POSITIVE (Not Detect); Methadone Screen, Urine Positive (Not Detect); Opiate Screen Urine POSITIVE (Not Detect); Oxycodone Screen Urine Not Detected (Not Detect); Phencyclidine Screen Urine Not Detected (Not Detect)
--- NOTE | 2024-07-09 17:11 | HE.PHANOTE ---
[facility] last dose given 150 mg 07/08/24
[2024-07-09] MEDS: Nicotine Polacrilex Lozenge 4 MG LOZENGE BUCCAL (17:13)
[2024-07-09 17:35] VITALS: BP 112/69; PULSE 77; RESP 18; TEMP 36.7; O2SAT 97
--- NOTE | 2024-07-09 18:03 | PC.NURSE ---
Pt notified this RN that he has an abscess on his inner left thigh. He reports that he shot up in his thigh about two weeks prior to arrival. Area is about 2 inches in size, red and warm to the touch. MILDRED velazquez
[2024-07-09] MEDS: methADONE HCl 20 MG/2 ML ORAL.CONC 150 MG PO (18:11)
[2024-07-09 18:39] VITALS: BP 112/69; PULSE 77; RESP 18; TEMP 36.7; O2SAT 97
== END 2024-07-09 18:42 | disposition home or self-care (01) ==
PROVIDERS: Emergency Provider Emergency Medicine
DX: F33.1 Major depressive disorder, recurrent, moderate (principal); R45.851 Suicidal ideations; L02.416 Cutaneous abscess of left lower limb; F12.10 Cannabis abuse, uncomplicated; F17.210 Nicotine dependence, cigarettes, uncomplicated; F14.10 Cocaine abuse, uncomplicated; F11.10 Opioid abuse, uncomplicated; F41.9 Anxiety disorder, unspecified; Z79.899 Other long term (current) drug therapy; Z51.81 Encounter for therapeutic drug level monitoring; Z11.52 Encounter for screening for COVID-19
CPT/HCPCS: 80053; 80307; 85025; 87635; 93005; 99284; 99285; S9485

== ENCOUNTER → 2024-07-09 04:38 | Outpatient (BNV) | payer MEDICAID, SELFPAY | PROVIDERS: Emergency Provider Emergency Medicine; Visit Provider Internal Medicine | DX: F14.10 Cocaine abuse, uncomplicated (principal) | CPT/HCPCS: 93010 ==

== ENCOUNTER 2024-10-04 13:14 | Emergency (ER) | payer MEDICAID, SELFPAY ==
[2024-10-04 13:39] VITALS: BP 139/91; PULSE 59; RESP 18; TEMP 37.2; O2SAT 97; BMI 28.6
--- NOTE | 2024-10-04 13:39 | ED_ITS ---
HPI - General Adult General Chief complaint: Psychiatric Symptoms Stated complaint: Crisis Time Seen by Provider: 10/04/24 13:45 Source: patient Mode of arrival: ambulatory Limitations: no limitations History of Present Illness ED Provider: STEFANY VILLALBA PA-C HPI narrative: 39 year old male with pmhx significant for depression, bipolar disorder, ADHD, polysubstance abuse presents to the ED today for evaluation of depression and suicidal ideation. Reports increased thoughts of harming himself. Has plans to overdose on intravenous drugs. Denies any previous attempts. Denies HI. Admits to intravenous heroin and cocaine use. Last used early this morning. He does not wish to speak to our detox team. Denies AH/VH/TH. Denies etoh consumption. Denies any physical complaints. Related Data Home Medications ?Medication ?Instructions ?Recorded ?Confirmed bupropion HCl 150 mg 24 hr tablet, 150 mg PO DAILY 03/20/24 10/04/24 extended release bupropion HCl 300 mg 24 hr tablet, 300 mg PO DAILY 03/20/24 10/04/24 extended release clonazepam 0.5 mg tablet 0.5 mg PO DAILY PRN anxiety attack 07/09/24 10/04/24 dextroamphetamine-amphetamine ER 1 cap PO DAILY 07/09/24 10/04/24 20 mg 24hr capsule,extend release (Adderall XR) sertraline 100 mg tablet 150 mg PO DAILY 07/09/24 10/04/24 albuterol sulfate 90 mcg/actuation 2 puff inhalation Q6H PRN wheezing 10/04/24 10/04/24 aerosol inhaler (Ventolin HFA) quetiapine 100 mg tablet 100 mg PO BID@0900,1500 10/04/24 10/04/24 methadone 10 mg/mL oral 150 mg PO DAILY 10/05/24 10/05/24 concentrate (Methadone Intensol) Previous Rx's ?Medication ?Instructions ?Recorded gabapentin 600 mg tablet 1,200 mg (2 x 600 mg) PO TID 30 03/28/24 days #180 tabs Allergies Allergy/AdvReac Type Severity Reaction Status Date / Time buspirone AdvReac Severe EPS Verified 10/04/24 13:41 Review of Systems 2 Review of Systems: Constitutional: No fever, chills, fatigue, night sweats, weight changes ENT/Mouth: No ear pain, hearing loss, nasal congestion, sinus pain, rhinorrhea, sore throat Eyes: No eye pain, swelling, redness, vision changes, discharge Cardio: No chest pain, palpitations, CORONEL, orthopnea, peripheral edema Pulm: No SOB, cough, sputum, wheezing, dyspnea, hemoptysis GI: No nausea, vomiting, hematemesis, abdominal pain, diarrhea, constipation, hematochezia, melena : No irregular bleeding, dysuria, frequency, urgency, hesitancy, hematuria, flank pain, urinary flow changes, urinary incontinence or retention MSK: No back pain, neck pain, joint pain, myalgias Skin: No lesions, rashes Neuro: No weakness, numbness, paresthesias, LOC, dizziness, headache Psych: No anxiety/panic,, HI, AH/VH, +SI, +depression All other systems reviewed and are negative. FORMERLY [facility], [facility] Past Medical History Attestation statement: The following information was validated with the patient. Source: old records reviewed and nursing notes reviewed Medical History Polysubstance abuse Cannabis use disorder Cocaine use disorder Opioid use disorder, severe, on maintenance therapy Alcohol use disorder Panic attacks ADHD Bipolar disorder Opiate abuse, continuous Depression Social History Social History Household Members: Other Household Members Other:: Mother and Stepfather Housing: House Do you presently have visiting nurse or other home services: No Alcohol intake: current Alcohol intake frequency: 3 or more drinks per day Alcohol type: hard liquor Patient Tobacco Use Status: Current everyday Tobacco user Tobacco use type: Cigarette Cigarettes Per Day: 30 Smoked in Last 30 Days: Yes Second Hand Smoke Exposure: No Use of substances other than those prescribed or required for medical reasons: Yes Substance Use Type: Crack/Cocaine, Heroin and Marijuana Advance Directives: No Advance Directives Information Provided: Yes Do you have a plan to hurt others: No Plan service: No Sexual orientation: Straight/Heterosexual Physical Exam ED Vital Signs: Vital Signs - 24 hr 10/04/24 20:03 10/05/24 07:01 10/05/24 11:44 Temperature 97.8 F 97.4 F Pulse Rate 67 72 Respiratory Rate 20 16 16 Blood Pressure 110/42 L 114/92 H Pulse Oximetry 97 97 Oxygen Delivery Method Room Air Room Air BMI result Body Mass Index 28.6 hypertensive, vitals otherwise wnl General: intermittently falling asleep on my exam however arousable to verbal stimuli, appears acutely high on substances Skin: track blanco noted to extremities Head: Normocephalic, atraumatic. EENT: Hearing is intact b/l. Conjunctiva clear. PERRLA. EOM intact. Moist mucous membranes.? Neck: Supple without LAD Cardiac: Chest wall symmetric. RRR Lungs: Normal respiratory effort without accessory muscle use. CTA bilaterally Abdomen: Soft, non-tender, non-distended. No rebound tenderness or guarding Back: No midline spinous or paraspinal tenderness. No step off deformity. Ext: Upper and lower extremities atraumatic, without tenderness, deformity, swelling or erythema. NV intact. Neuro: AOx3. Normal speech. CN 2-12 grossly intact. Ambulating with steady gait. Psych: Appropriate mood and affect. Responds appropriately to questions. Course Course Course Narrative: RME, this is a rapid medical exam performed by Alli Ramírez please refer to primary provider for complete H&P- 39 year old male presents for evaluation of heroin abuse and depression with suicidal ideation. Plan for medical workup and care team evaluation. Reevaluation(s) Reevaluation #1: CBC without leukocytosis or left shift. Normocytic anemia, chronic when compared to priors. H&H around baseline and above transfusion threshold. Chemistry without acute electrolyte abnormality requiring intervention. No TERESO. Liver function WNL. Awaiting UA/UDS. Care team consult placed. Reevaluation #2: Physician observation ended, patient with placement at [facility], patient otherwise well appearing without acute events. Clinical exam of heart lungs and abdomen without acute findings. No focal deficits. Medications Administered Discontinued Medications Generic Name Dose Route Start Last Admin Trade Name Freq PRN Reason Stop Dose Admin Amphetamine/Dextroamphetamine 20 mg 10/05/24 09:00 10/05/24 08:06 Dextroamphetamine/Amphetamine Xr 10 Mg Cap.Er.24h PO 20 mg DAILY RAQUEL Administration Bupropion HCl 300 mg 10/05/24 09:00 10/05/24 08:14 Bupropion Hcl Xl 300 Mg Tab.Er.24h PO Not Given DAILY RAQUEL Bupropion HCl 150 mg 10/05/24 09:00 01/16/25 08:06 Bupropion Hcl Xl 150 Mg Tab.Er.24h PO 150 mg DAILY RAQUEL Administration Clonazepam 0.5 mg 10/04/24 17:24 10/05/24 08:32 Clonazepam 0.5 Mg Tablet PO 0.5 mg DAILY PRN Administration anxiety attack Gabapentin 1,200 mg 10/04/24 21:00 10/05/24 08:06 Gabapentin 600 Mg Tablet PO 1,200 mg TID RAQUEL Administration Lorazepam 1 mg 10/04/24 16:02 10/04/24 17:03 Lorazepam 1 Mg Tablet PO 10/04/24 16:03 1 mg ONCE ONE Administration Methadone HCl 150 mg 10/05/24 09:00 10/05/24 08:04 Methadone Hcl 20 Mg/2 Ml Oral.Conc PO 10/05/24 09:01 150 mg ONCE@0900 ONE Administration Methadone HCl 150 mg 10/05/24 09:00 10/05/24 08:13 Methadone Hcl 20 Mg/2 Ml Oral.Conc PO Not Given DAILY RAQUEL Nicotine Polacrilex 2 mg 10/04/24 17:24 10/05/24 08:31 Nicotine Polacrilex 2 Mg Gum BUCCAL 2 mg Q1H PRN Administration Nicotine Cravings Quetiapine Fumarate 100 mg 10/05/24 09:00 10/05/24 08:06 Quetiapine Fumarate 100 Mg Tablet PO 100 mg BID@0900,1500 RAQUEL Administration Quetiapine Fumarate 100 mg 10/04/24 21:14 10/04/24 21:26 Quetiapine Fumarate 100 Mg Tablet PO 10/04/24 21:15 100 mg ONCE ONE Administration Sertraline HCl 150 mg 10/05/24 09:00 10/05/24 08:06 Sertraline Hcl 50 Mg Tablet PO 150 mg DAILY RAQUEL Administration Medical Decision Making Medical Decision Making MDM Narrative: 39 year old male with pmhx significant for depression, bipolar disorder, ADHD, polysubstance abuse presents to the ED today for evaluation of depression and suicidal ideation. he is hypertensive, vitals are otherwise wnl. on exam, patient is intermittently falling asleep on my exam however arousable to verbal stimuli, appears acutely high on substances Differential diagnosis includes depression, anxiety, suicidal ideation, polysubstance abuse, anemia, electrolyte abnormality Plan for medical work up and care team evaluation. Differential Diagnosis Differential Diagnoses: The differential diagnosis associated with the presentation includes as above. Admission/Observation Consideration of admission/observation: Escalation of care including admission/observation considered Lab Data MDM Lab Attestation statement: I reviewed the patient's lab results. as above. 10/04/24 14:10 10/04/24 14:10 Labs: Lab Results 10/04/24 10/04/24 Range/Units 14:10 16:33 WBC 6.7 (4.8-10.8) X10*3/uL RBC 4.33 L (4.60-5.80) X10*6/uL Hgb 13.1 L (14.0-18.0) g/dl Hct 39.1 L (42.0-52.0) % MCV 90.3 (80.0-98.0) fL MCH 30.3 (27.0-33.0) pg MCHC 33.5 (31.0-36.0) g/dl RDW 11.9 (11.0-16.0) % Plt Count TNP MPV TNP Immature Gran % (Auto) 0.3 (0.0-0.4) % Neut % (Auto) 61.3 (45-73) % Lymph % (Auto) 24.3 (20-40) % [place] % (Auto) 10.5 (2-11) % Eos % (Auto) 3.0 (0-4) % Baso % (Auto) 0.6 (0-2) % Lymph # (Auto) 1.6 (1.2-4.9) X10*3/uL [place] # (Auto) 0.7 (0.1-1.2) X10*3/uL Eos # (Auto) 0.2 (0.0-0.4) X10*3/uL Baso # (Auto) 0.0 (0.0-0.2) X10*3/uL Abs Immat Gran (auto) 0.02 (0.00-0.03) X10*3/uL Absolute Neuts (auto) 4.1 (2.0-8.3) x10*3/uL Absolute Nucleated RBC 0.000 (0.0-0.012) X10*3/uL Nucleated RBC % (auto) 0.0 (0.0-0.2) /100WBC Smear Tech's Comments VERIFIED Sodium 141 (135-145) mmol/L Potassium 4.0 (3.3-5.1) mmol/L Chloride 109 H (96-108) mmol/L Carbon Dioxide 25 (22-29) mmol/L Anion Gap 11 L (12-20) BUN 8 L (9-16) mg/dL Creatinine 0.78 (0.5-1.4) mg/dL Estim Creat Clear Calc 148.1 Estimated GFR > 60 Random Glucose 93 (60-115) mg/dL Calcium 8.8 (8.4-10.2) mg/dL Total Bilirubin 0.3 (0.0-1.0) mg/dL AST 21 (5-37) U/L ALT 17 (0-40) U/L Alkaline Phosphatase 59 (39-117) U/L Total Protein 7.1 (6.5-8.0) g/dL Albumin 4.0 (3.5-5.0) g/dL Urine Color Yellow Urine Appearance Clear Urine pH 5.5 (5.0-9.0) Ur Specific [place] <= 1.005 (1.005-1.025) Urine Protein Negative (Neg-Trace) mg/dL Urine Glucose (UA) Negative (Negative) mg/dL Urine Ketones Negative (Negative) mg/dL Urine Blood Trace H (Negative) Urine Nitrite Negative (Negative) Ur Leukocyte Esterase Negative (Negative) Urine RBC 0-2 (0-2) /HPF Urine WBC 0-5 (0-5) /HPF Ur Squamous Epith Cells 0-2 (0-2) /HPF Urine Bacteria None Seen (None Seen) Hyaline Casts 0-2 (0-2) /LPF Salicylates < 5.0 L (15-30) mg/dL Urine Opiates Screen POSITIVE H (Not Detect) Ur Buprenorphine Scrn Not Detected (Not Detect) ng/mL Ur Oxycodone Screen Not Detected (Not Detect) ng/mL Urine Methadone Screen Positive H (Not Detect) ng/mL Urine Fentanyl Screen POSITIVE H (Not Detect) Acetaminophen < 3 (<30) mcg/mL Ur Barbiturates Screen Not Detected (Not Detect) Ur Phencyclidine Scrn Not Detected (Not Detect) Ur Amphetamines Screen Not Detected (Not Detect) U Benzodiazepines Scrn POSITIVE H (Not Detect) Urine Cocaine Screen POSITIVE H (Not Detect) U Marijuana (THC) Screen POSITIVE H (Not Detect) Ethyl Alcohol < 10 mg/dL Independent Interpretation I performed an independent interpretation of an: EKG Radiology Impression Discussion of test interpretation with radiology: I have reviewed the radiologist's reading. External Record Review External record reviewed: Inpatient record, Office record, Outpatient record, Prior outpatient labs, Prior outpatient radiology, Primary care record and Outside ED record Chronic Conditions Patient?s care impacted by: Other (polysubstance abuse, depression) Social Determinants Patient?s care significantly limited by Social Determinants of Health including: Alcoholism and drug addiction in family, Problems related to primary support group and Other Social Determinant of Health Critical Care Time Critical Care Time Critical Care Time: No Discharge Plan Discharge Clinical Impression: Heroin abuse, Suicidal ideation, Cocaine abuse Depression Qualifiers: Depression Type: unspecified Qualified Code(s): F32.A - Depression, unspecified Patient Disposition: Xfer Psychiatric Hosp Transfer Details: TO: [facility], [facility], [place], [place], Prescriptions: No Action bupropion HCl 300 mg tablet extended release 24 hr 300 mg PO DAILY bupropion HCl 150 mg tablet extended release 24 hr 150 mg PO DAILY gabapentin 600 mg Tablet 1,200 mg PO TID 30 Days Qty: 180 0RF clonazepam 0.5 mg tablet 0.5 mg PO DAILY PRN (Reason: anxiety attack) sertraline 100 mg tablet 150 mg PO DAILY dextroamphetamine-amphetamine [Adderall XR] 20 mg capsule,extended release 24hr 1 cap PO DAILY albuterol sulfate [Ventolin HFA] 90 mcg/actuation HFA aerosol inhaler 2 puff inhalation Q6H PRN (Reason: wheezing) quetiapine 100 mg tablet 100 mg PO BID@0900,1500 methadone [Methadone Intensol] 10 mg/mL Concentrate 150 mg PO DAILY Patient Comments: Last dosed yesterday 10/04/2024 at 0643 Interventions: Emmet-Suicide Risk Severity Scale Last Done: 10/04/24 17:23 Acute Care Transfer Worksheet (ED) Last Done: 10/05/24 11:44 Discharge Date/Time: 10/05/24 11:46 Print Language: Uzbek
[2024-10-04 14:30] LABS: Basophils Percent Auto 0.6 % (0-2); Eosinophils Absolute Auto 0.2 X10*3/uL (0.0-0.4); Hematocrit 39.1 % (42.0-52.0); Hemoglobin 13.1 g/dl (14.0-18.0); Imm Gran Abs Auto 0.02 X10*3/uL (0.00-0.03); Imm Gran Pct Auto 0.3 % (0.0-0.4); Lymphocytes Absolute Auto 1.6 X10*3/uL (1.2-4.9); Lymphocytes Percent Auto 24.3 % (20-40); MANUAL DIFF FLAG SCAN; Mean Corpuscular HGB Conc 33.5 g/dl (31.0-36.0); Mean Corpuscular Hemoglobin 30.3 pg (27.0-33.0); Mean Corpuscular Volume 90.3 fL (80.0-98.0); Monocytes Absolute Auto 0.7 X10*3/uL (0.1-1.2); Monocytes Percent Auto 10.5 % (2-11); Neutrophils Absolute Auto 4.1 x10*3/uL (2.0-8.3); Neutrophils Percent Auto 61.3 % (45-73); PLT CLUMP 1; Red Blood Count 4.33 X10*6/uL (4.60-5.80); Red Cell Distribution Width 11.9 % (11.0-16.0); SCAN SMEAR FLAG 1
[2024-10-04 14:37] LABS: Acetaminophen LAB < 3 mcg/mL (<30); Alanine Aminotransferase 17 U/L (0-40); Alkaline Phosphatase 59 U/L (39-117); Anion Gap 11 (12-20); Aspartate Amino Transferase 21 U/L (5-37); Bilirubin Total 0.3 mg/dL (0.0-1.0); Blood Urea Nitrogen 8 mg/dL (9-16); Calcium 8.8 mg/dL (8.4-10.2); Carbon Dioxide 25 mmol/L (22-29); Chloride 109 mmol/L (96-108); Creatinine Clr Calc Pharmacy 148.1; Estimated Glomerular Filt Rate > 60; Ethanol < 10 mg/dL; Glucose Random 93 mg/dL (60-115); Salicylate < 5.0 mg/dL (15-30); Sodium 141 mmol/L (135-145); Total Protein 7.1 g/dL (6.5-8.0)
[2024-10-04 14:46] LABS: White Blood Count 6.7 X10*3/uL (4.8-10.8)
[2024-10-04 14:47] LABS: SLIDE REVIEW VERIFIED
--- NOTE | 2024-10-04 14:52 | MHC.EDTECH ---
pt changed over into hospital attire with securityu present. Pt could not provide a urine at this time. Labs drawn. Belongings in [facility].
--- NOTE | 2024-10-04 15:14 | ECG_ITS ---
Test Reason : polysubstance use Blood Pressure : */* mmHG Vent. Rate : 54 BPM Atrial Rate : 54 BPM P-R Int : 152 ms QRS Dur : 88 ms QT Int : 486 ms P-R-T Axes : 14 34 15 degrees QTcB Int : 460 ms Sinus bradycardia Otherwise normal ECG When compared with ECG of 09-Jul-2024 04:38, No significant change was found Referred By: Vidya Hinds Electronically Signed By: Andrea Forbes
[2024-10-04 16:29] VITALS: BP 109/65; PULSE 56; RESP 16; TEMP 36.9; O2SAT 98
[2024-10-04 16:53] LABS: Appearance Urine Clear; Color Urine Yellow; Glucose Urine UA Negative (Negative); Leukocyte Esterase Urine Negative (Negative); Nitrite Urine Negative (Negative); PH 5.5 (5.0-9.0); Specific Gravity - Urine <= 1.005 (1.005-1.025); UMIC TRIGGER UACC YES; Urine Blood Trace (Negative); Urine Ketones Negative (Negative); Urine Protein Negative (Neg-Trace)
[2024-10-04 16:58] LABS: Amphetamine Screen Urine Not Detected (Not Detect); Barbiturates, Urine Not Detected (Not Detect); Benzodiazepines Screen Urine POSITIVE (Not Detect); Buprenorphine Scr Not Detected (Not Detect); Cannabinoid Screen Urine POSITIVE (Not Detect); Cocaine Screen Urine POSITIVE (Not Detect); Fentanyl, urine POSITIVE (Not Detect); Methadone Screen, Urine Positive (Not Detect); Opiate Screen Urine POSITIVE (Not Detect); Oxycodone Screen Urine Not Detected (Not Detect); Phencyclidine Screen Urine Not Detected (Not Detect)
[2024-10-04 16:59] LABS: Bacteria Urine None Seen (None Seen); Hyaline Casts Urine 0-2 /LPF (0-2); RBC Urine 0-2 /HPF (0-2); Squamous Epithelial Cell Urine 0-2 /HPF (0-2); WBC Urine 0-5 /HPF (0-5)
[2024-10-04] MEDS: LORazepam 1 MG TABLET PO (17:03)
--- NOTE | 2024-10-04 17:18 | PC.NURSE ---
med rec competed with [facility] pharmacy via phone.
[2024-10-04] MEDS: Nicotine Polacrilex 2 MG GUM BUCCAL ×2 (17:40→20:03)
[2024-10-04 20:03] VITALS: BP 110/42; PULSE 67; RESP 20; TEMP 36.6; O2SAT 97
[2024-10-04] MEDS: Gabapentin 600 MG TABLET 1200 MG PO (20:03)
--- NOTE | 2024-10-04 20:33 | MHC.CARE ---
Pt has been accepted to [facility], [address] [facility] [id number]. for tomorrow 10/05 ETA [address]. Gaitan. No N2N required
[2024-10-04] MEDS: QUEtiapine Fumarate 100 MG TABLET PO (21:26)
[2024-10-05 07:01] VITALS: RESP 16
--- NOTE | 2024-10-05 07:07 | PC.NURSE ---
Assumed care of patient at 0645, patient appears to be sleeping, respirations even and unlabored, no apparent distress was noted. Continue plan of care for transfer to [facility] for 11am today
--- NOTE | 2024-10-05 07:54 | PC.NURSE ---
verified methadone with [facility], updated in med rec
--- NOTE | 2024-10-05 07:54 | HE.PHANOTE ---
METHADONE Pt last received 150mg on 10/04/24 @ 0643 from [facility], ashish Hudson LPN, .
[2024-10-05] MEDS: methADONE HCl 20 MG/2 ML ORAL.CONC 150 MG PO (08:04)
[2024-10-05] MEDS: Gabapentin 600 MG TABLET 1200 MG PO (08:06)
[2024-10-05] MEDS: QUEtiapine Fumarate 100 MG TABLET PO (08:06)
[2024-10-05] MEDS: buPROPion HCl XL 150 MG TAB.ER.24H PO (08:06)
[2024-10-05] MEDS: Dextroamphetamine/Amphetamine XR 10 MG CAP.ER.24H 20 MG PO (08:06)
[2024-10-05] MEDS: Sertraline HCL 50 MG TABLET 150 MG PO (08:06)
--- NOTE | 2024-10-05 08:12 | PC.NURSE ---
Pt visualized cheeking his medications, spitting some out and taking the rest. Pt reporting that he does not like taking the zoloft and felt uncomfortable asking to not take them. This RN disposed of Zoloft and visualized that patient took the rest of his medications
[2024-10-05] MEDS: Nicotine Polacrilex 2 MG GUM BUCCAL (08:31)
[2024-10-05] MEDS: clonazePAM 0.5 MG TABLET PO (08:32)
--- NOTE | 2024-10-05 09:10 | PC.NURSE ---
Pt showering at this time
--- NOTE | 2024-10-05 09:11 | PHA.MEDREC ---
Pharmacy Consult ? Medication Reconciliation Pharmacy has reviewed med rec done by nursing. Matches claims.
[2024-10-05 11:44] VITALS: BP 114/92; PULSE 72; RESP 16; TEMP 36.3; O2SAT 97
== END 2024-10-05 11:46 ==
PROVIDERS: Physician Assistant; Physician Assistant Medical; Emergency Provider Student in an Organized Health Care Education/Training Program
DX: F33.1 Major depressive disorder, recurrent, moderate (principal); R45.851 Suicidal ideations; F11.10 Opioid abuse, uncomplicated; F14.10 Cocaine abuse, uncomplicated; R00.1 Bradycardia, unspecified; Z51.81 Encounter for therapeutic drug level monitoring; Z79.899 Other long term (current) drug therapy; Z71.51 Drug abuse counseling and surveillance of drug abuser
CPT/HCPCS: 36415; 80053; 80143; 80179; 80307; 81001; 85025; 93005; 99285; S9485

== ENCOUNTER → 2024-10-04 15:14 | Outpatient (BNV) | payer MEDICAID, SELFPAY | PROVIDERS: Emergency Provider Student in an Organized Health Care Education/Training Program; Visit Provider Internal Medicine Cardiovascular Disease | DX: R00.1 Bradycardia, unspecified (principal) | CPT/HCPCS: 93010 ==

== ENCOUNTER 2024-11-05 11:53 | Emergency (ER) | payer MEDICAID, SELFPAY ==
--- NOTE | 2024-11-05 12:09 | ED.GENADULT ---
HPI - General Adult General Chief complaint: General Medical Stated complaint: methadone dose Time Seen by Provider: 11/05/24 12:19 Source: patient, RN notes reviewed and old records reviewed Mode of arrival: ambulatory History of Present Illness ED Provider: Abigail Cali PA-C HPI narrative: 39-year-old male with a past medical history of polysubstance use disorder, ADHD, bipolar, depression, presenting to ED requesting methadone dosing. was just discharged from [facility] on 11/03/2024. currently takes 140 mg of methadone, and was last dosed on 11/03. Missed dose yesterday. Denies active substance use, SI/HI. Usually receives methadone at [facility]. Related Data Home Medications ?Medication ?Instructions ?Recorded ?Confirmed bupropion HCl 150 mg 24 hr tablet, 150 mg PO DAILY 03/20/24 10/04/24 extended release bupropion HCl 300 mg 24 hr tablet, 300 mg PO DAILY 03/20/24 10/04/24 extended release clonazepam 0.5 mg tablet 0.5 mg PO DAILY PRN anxiety attack 07/09/24 10/04/24 dextroamphetamine-amphetamine ER 1 cap PO DAILY 07/09/24 10/04/24 20 mg 24hr capsule,extend release (Adderall XR) sertraline 100 mg tablet 150 mg PO DAILY 07/09/24 10/04/24 albuterol sulfate 90 mcg/actuation 2 puff inhalation Q6H PRN wheezing 10/04/24 10/04/24 aerosol inhaler (Ventolin HFA) quetiapine 100 mg tablet 100 mg PO BID@0900,1500 10/04/24 10/04/24 methadone 10 mg/mL oral 140 mg PO DAILY 10/05/24 11/05/24 concentrate (Methadone Intensol) Previous Rx's ?Medication ?Instructions ?Recorded gabapentin 600 mg tablet 1,200 mg (2 x 600 mg) PO TID 30 03/28/24 days #180 tabs Allergies Allergy/AdvReac Type Severity Reaction Status Date / Time buspirone AdvReac Severe EPS Verified 11/05/24 12:18 Review of Systems Review of Systems: Yes all other systems are reviewed and are negative Constitutional: Constitutional: Reports as per HPI [facility] Past Medical History Attestation statement: The following information was validated with the patient. Source: old records reviewed Medical History Polysubstance abuse Cannabis use disorder Cocaine use disorder Opioid use disorder, severe, on maintenance therapy Alcohol use disorder Panic attacks ADHD Bipolar disorder Opiate abuse, continuous Depression Social History Social History Household Members: Other Household Members Other:: Mother and Stepfather Housing: House Do you presently have visiting nurse or other home services: No Alcohol intake: current Alcohol intake frequency: 3 or more drinks per day Alcohol type: hard liquor Patient Tobacco Use Status: Current everyday Tobacco user Tobacco use type: Cigarette Cigarettes Per Day: 30 Second Hand Smoke Exposure: No Substance Use Type: Crack/Cocaine, Heroin and Marijuana Advance Directives: No Advance Directives Information Provided: No service: No Sexual orientation: Straight/Heterosexual Physical Exam ED Vital Signs: Vital Signs - 24 hr 11/05/24 12:16 11/05/24 14:40 Temperature 98.7 F 98.7 F Pulse Rate 85 85 Respiratory Rate 16 16 Blood Pressure 117/66 117/66 Pulse Oximetry 95 95 Oxygen Delivery Method Room Air Room Air BMI result Body Mass Index 30.9 Const General: cooperative, healthy appearing and no acute distress Orientation/consciousness: patient oriented x3 Limitations: no limitations HENMT Head: Yes normal to inspection and Yes atraumatic Ears: hearing grossly normal bilaterally General nose exam: Normal external nose present Face and sinus: Yes normal facial exam Eyes General: appearance normal, both eyes and all related structures EOM: EOMs intact bilaterally Neck Neck: Yes normal visual inspection and Yes no meningeal signs Resp Effort & Inspection: normal respiratory effort and no respiratory distress Cardio Rate: regular rate Skin Rashes: no rashes Wounds: no wounds Neuro General: patient oriented x3, tone normal and no meningeal signs Cranial nerves: Yes CN's II-XII intact bilaterally Gait exam (Neuro): Normal gait present Extrem General: Yes normal to inspection Psych Thought content: suicidality and no homicidality Course Course Course Narrative: Recovery team evaluated patient, patient did admit to buying heroin/cocaine yesterday. > Recovery was able to confirm patient's methadone dose as being 140mg, and he did receive last dose on 11/03/2024 > case also discussed with Vira Saleem, agreeable to give patient his dose of 140mg today in the ED. Will supply with last dose letter. Results discussed with patient including worrisome signs and symptoms and strict return precautions, and when to return to the emergency department. They verbalized understanding and feel safe for discharge at this time. Medications Administered Discontinued Medications Generic Name Dose Route Start Last Admin Trade Name Veronica PRN Reason Stop Dose Admin Methadone HCl 140 mg 11/05/24 13:47 11/05/24 14:34 Methadone Hcl 20 Mg/2 Ml Oral.Conc PO 11/05/24 13:48 140 mg ONCE ONE Administration Medical Decision Making Medical Decision Making MDM Narrative: 39-year-old male with a past medical history of polysubstance use disorder, ADHD, bipolar, depression, presenting to ED requesting methadone dosing. Patient has paperwork from [facility], [facility] state discharge date is 11/03/2024 however per paperwork last dose of methadone 11/02/2024. Paperwork difficult to read/confusing. Will consult CARE team for further information/verification Plan: Tox screen, Recovery team consult Please refer to course for remaining clinical decision making, interpretation of labs/imaging results, and discussions with consultants and/or family members. Differential Diagnosis Differential Diagnoses: The differential diagnosis associated with the presentation includes As above Consult Healthcare Provider Management of the patient was discussed with: Behavioral Health Provider Lab Data [facility] Lab Attestation statement: I reviewed the patient's lab results. Labs: Lab Results 11/05/24 Range/Units 12:34 Urine Opiates Screen POSITIVE H (Not Detect) Ur Buprenorphine Scrn Not Detected (Not Detect) ng/mL Ur Oxycodone Screen Not Detected (Not Detect) ng/mL Urine Methadone Screen Positive H (Not Detect) ng/mL Urine Fentanyl Screen POSITIVE H (Not Detect) Ur Barbiturates Screen Not Detected (Not Detect) Ur Phencyclidine Scrn Not Detected (Not Detect) Ur Amphetamines Screen Not Detected (Not Detect) U Benzodiazepines Scrn POSITIVE H (Not Detect) Urine Cocaine Screen POSITIVE H (Not Detect) U Marijuana (THC) Screen Not Detected (Not Detect) Independent Historian Clinical information obtained from an independent historian. History obtained from or confirmed by: Other External Record Review External record reviewed: Inpatient record, Office record, Outpatient record, Prior outpatient labs, Prior outpatient radiology, Primary care record and Outside ED record Tests considered The following testing was considered but not selected: As above Chronic Conditions Patient?s care impacted by: Other Social Determinants Patient?s care significantly limited by Social Determinants of Health including: Inadequate housing, Alcoholism and drug addiction in family, Problems related to primary support group, Unemployment and Other Social Determinant of Health Discharge Plan Discharge Clinical Impression: Methadone dependence Patient Disposition: Home, Self-Care Instructions: Opioid Use Disorder (ED) Additional Instructions: You were dose with her methadone today. You were supplied with a last dose letter. Please follow-up with your methadone clinic tomorrow for further dosing Please avoid drug and alcohol use Opiate use disorder You were seen in our Emergency Department today for treatment of opiate use disorder. You may have been dosed with medication for opiate use disorder (MOUD) in the form of suboxone or methadone. You may experience feeling some withdrawal symptoms and this is normal. The? dose in the Emergency Department is a starting dose and meant to be titrated up once you follow up with a clinic. Please do not feel discouraged, it is a process. The nurse has reviewed with you where to follow up and what information to bring with you, to continue treatment. You also may have been given naloxone (narcan) to take home with you. This medication is used to potentially treat opiate overdose. If you decide you want to stop or cut down on how much you?re using, you can call or walk into our outpatient Addiction Treatment office: [facility] (M-F 9am-5p) [address] [place] [address], [address] [phone] You may have been provided with safer injection?items, please take time to take care of YOU and your health. Use new supplies whenever possible to lessen the chances of infections and other illnesses.? ?If you need more supplies, please go [facility],? [address], [place] you can call or text to coordinate delivery of safer supplies. You were also provided a list of several treatment providers in the area.? If you experience any worsening symptoms you cannot control please return to the ED or call 911. Please follow up at your next appointment. Things to look out for are fevers, chest pain, shortness of breath, severe pain, dizziness, fainting or any other concerns. Prescriptions: No Action bupropion HCl 300 mg tablet extended release 24 hr 300 mg PO DAILY bupropion HCl 150 mg tablet extended release 24 hr 150 mg PO DAILY gabapentin 600 mg Tablet 1,200 mg PO TID 30 Days Qty: 180 0RF clonazepam 0.5 mg tablet 0.5 mg PO DAILY PRN (Reason: anxiety attack) sertraline 100 mg tablet 150 mg PO DAILY dextroamphetamine-amphetamine [Adderall XR] 20 mg capsule,extended release 24hr 1 cap PO DAILY albuterol sulfate [Ventolin HFA] 90 mcg/actuation HFA aerosol inhaler 2 puff inhalation Q6H PRN (Reason: wheezing) quetiapine 100 mg tablet 100 mg PO BID@0900,1500 methadone [Methadone Intensol] 10 mg/mL Concentrate 140 mg PO DAILY Referrals: [facility] [Outside] - 1 week Interventions: ED Discharge Assessment Last Done: 11/05/24 14:40 Discharge Date/Time: 11/05/24 14:40 Print Language: Syriac
[2024-11-05 12:16] VITALS: BP 117/66; PULSE 85; RESP 16; TEMP 37.1; O2SAT 95; BMI 30.9
[2024-11-05 13:01] LABS: Amphetamine Screen Urine Not Detected (Not Detect); Barbiturates, Urine Not Detected (Not Detect); Benzodiazepines Screen Urine POSITIVE (Not Detect); Buprenorphine Scr Not Detected (Not Detect); Cannabinoid Screen Urine Not Detected (Not Detect); Cocaine Screen Urine POSITIVE (Not Detect); Fentanyl, urine POSITIVE (Not Detect); Methadone Screen, Urine Positive (Not Detect); Opiate Screen Urine POSITIVE (Not Detect); Oxycodone Screen Urine Not Detected (Not Detect); Phencyclidine Screen Urine Not Detected (Not Detect)
--- NOTE | 2024-11-05 13:55 | HE.PHANOTE ---
re methadone verification last dose 140 mg given at recovery [facility] in [place] 11/03/24 *pt normal clinic is [facility] in [place]*
--- NOTE | 2024-11-05 13:55 | MHC.RECOVRN ---
Methadone verified: Agus Lama, RN at [facility] ([place] location) [address] 1985 was last dosed on Sunday November 03, 2024 11/03/2024 @ 5:20am with 140mg of Methadone. Pt was to get his dose yesterday at [facility] but it was closed and pt missed his dose and used instead. Called and confirmed that pt has not been dosed there since September. Consulted with MILDRED Raymond and Vira Saleem NP.
[2024-11-05] MEDS: methADONE HCl 20 MG/2 ML ORAL.CONC 140 MG PO (14:34)
--- NOTE | 2024-11-05 14:39 | PC.NURSE ---
Last dose note provided to pt. in a sealed envelope by this RN.
[2024-11-05 14:40] VITALS: BP 117/66; PULSE 85; RESP 16; TEMP 37.1; O2SAT 95
== END 2024-11-05 14:40 | disposition home or self-care (01) ==
LOC: HO.ED 14:27
PROVIDERS: Physician Assistant; Emergency Provider Emergency Medicine
DX: F11.20 Opioid dependence, uncomplicated (principal); Z51.81 Encounter for therapeutic drug level monitoring; Z79.899 Other long term (current) drug therapy
CPT/HCPCS: 80307; 99282; 99284; S9485

== ENCOUNTER 2024-11-06 17:54 | Emergency (ER) | payer MEDICAID, SELFPAY ==
[2024-11-06 18:17] VITALS: BP 115/63; PULSE 85; RESP 19; TEMP 36.6; O2SAT 99; BMI 30.7
--- NOTE | 2024-11-06 18:18 | ED_ITS ---
HPI - General Adult General Chief complaint: General Medical Stated complaint: methadone shot Time Seen by Provider: 11/06/24 18:20 Source: patient and RN notes reviewed Mode of arrival: ambulatory Limitations: no limitations History of Present Illness ED Provider: Krysta Ansari PA-C HPI narrative: This is a 39-year-old male, with a history of opioid use disorder on methadone who presents emergency department for methadone dosing. Patient is currently on methadone 140 mg daily. Last dose was yesterday, he was seen here in the emergency department as his clinic is currently closed due to the holiday. Denies any current complaints. No fevers, chills, chest pain, shortness for breath, abdominal pain, nausea, vomiting or diarrhea. No other complaints or concerns at this time. MD complaint: methadone dose Relieving factors: none Exacerbating factors: none Associated symptoms: denies other symptoms Treatments prior to arrival: none Related Data Home Medications ?Medication ?Instructions ?Recorded ?Confirmed bupropion HCl 150 mg 24 hr tablet, 150 mg PO DAILY 03/20/24 10/04/24 extended release bupropion HCl 300 mg 24 hr tablet, 300 mg PO DAILY 03/20/24 10/04/24 extended release clonazepam 0.5 mg tablet 0.5 mg PO DAILY PRN anxiety attack 07/09/24 10/04/24 dextroamphetamine-amphetamine ER 1 cap PO DAILY 07/09/24 10/04/24 20 mg 24hr capsule,extend release (Adderall XR) sertraline 100 mg tablet 150 mg PO DAILY 07/09/24 10/04/24 albuterol sulfate 90 mcg/actuation 2 puff inhalation Q6H PRN wheezing 10/04/24 10/04/24 aerosol inhaler (Ventolin HFA) quetiapine 100 mg tablet 100 mg PO BID@0900,1500 10/04/24 10/04/24 methadone 10 mg/mL oral 140 mg PO DAILY 10/05/24 11/05/24 concentrate (Methadone Intensol) Previous Rx's ?Medication ?Instructions ?Recorded gabapentin 600 mg tablet 1,200 mg (2 x 600 mg) PO TID 30 03/28/24 days #180 tabs Allergies Allergy/AdvReac Type Severity Reaction Status Date / Time buspirone AdvReac Severe EPS Verified 11/06/24 18:19 Review of Systems Review of Systems: Yes all other systems are reviewed and are negative Constitutional: Constitutional: Reports as per [facility] Past Medical History Attestation statement: The following information was validated with the patient. Medical History Polysubstance abuse Cannabis use disorder Cocaine use disorder Opioid use disorder, severe, on maintenance therapy Alcohol use disorder Panic attacks ADHD Bipolar disorder Opiate abuse, continuous Depression Social History Social History Household Members: Other Household Members Other:: Mother and Stepfather Housing: House Do you presently have visiting nurse or other home services: No Alcohol intake: current Alcohol intake frequency: 3 or more drinks per day Alcohol type: hard liquor Patient Tobacco Use Status: Current everyday Tobacco user Tobacco use type: Cigarette Cigarettes Per Day: 30 Second Hand Smoke Exposure: No Substance Use Type: Crack/Cocaine, Heroin and Marijuana Advance Directives: No Advance Directives Information Provided: No Do you have a plan to hurt others: No Plan service: No Sexual orientation: Straight/Heterosexual Physical Exam ED Vital Signs: Vital Signs - 24 hr 11/06/24 18:17 11/06/24 19:18 Temperature 98 F 98 F Pulse Rate 85 85 Respiratory Rate 19 19 Blood Pressure 115/63 115/63 Pulse Oximetry 99 99 BMI result Body Mass Index 30.7 Const General: cooperative, comfortable and no acute distress Orientation/consciousness: patient oriented x3 Limitations: no limitations [facility] Head: Yes normal to inspection, Yes normocephalic and Yes atraumatic Ears: hearing grossly normal bilaterally General nose exam: Normal external nose present Face and sinus: Yes normal facial exam Mouth: Normal oral and palatal mucosa present, oropharynx normal and moist mucous membranes Throat: Yes posterior oropharynx normal Eyes General: appearance normal, both eyes and all related structures Eyelids: Yes eyelids normal Conjunctivae: conjunctivae normal Sclerae: sclerae normal Pupils: Equal, round and reactive pupils present EOM: EOMs intact bilaterally Neck Neck: Yes normal visual inspection, Yes full ROM and Yes no lymphadenopathy Lymphatic: no lymphadenopathy noted Chest Chest palpation & inspection: normal inspection of the chest Resp Effort & Inspection: normal respiratory effort and able to speak in complete sentences Cardio Rate: regular rate Rhythm: regular rhythm Heart sounds: S1 normal heart sound present and S2 normal heart sound present GI Inspection: Yes normal to inspection Skin General skin exam: no rashes or lesions noted Trauma: no lacerations or abrasions Wounds: no wounds Neuro General: patient oriented x3 and moves all extremities Cranial nerves: Yes Equal, round and reactive pupils present Extrem General: Yes normal to inspection Right upper extremity: normal to inspection Left upper extremity: normal to inspection Right lower extremity: normal to inspection Left lower extremity: normal to inspection Medications Administered Discontinued Medications Generic Name Dose Route Start Last Admin Trade Name Freq PRN Reason Stop Dose Admin Methadone HCl 140 mg 11/06/24 18:18 11/06/24 18:54 Methadone Hcl 20 Mg/2 Ml Oral.Conc PO 11/06/24 18:19 140 mg ONCE ONE Administration Medical Decision Making Medical Decision Making [facility] Narrative: This is a 39-year-old male who presents emergency department for evaluation of methadone dosing. Vital signs within normal limits. Patient was medicated with methadone, given last dose letter. He will follow-up with his outpatient facility tomorrow. No current complaints. Patient stable for discharge Differential Diagnosis Differential Diagnoses: The differential diagnosis associated with the presentation includes opioid use disorder, methadone dependence, polysubstance abuse, Discharge Plan Discharge Clinical Impression: Opioid use disorder, severe, on maintenance therapy Patient Disposition: Home, Self-Care Instructions: Opioid Use Disorder (ED) Additional Instructions: You were seen in the emergency department for methadone dosing. You were medicated with methadone 140 mg. Please follow-up with your clinic tomorrow. If any new or worsening symptoms occur including but not limited to chest pain or shortness for breath, please seek emergent care. Prescriptions: No Action bupropion HCl 300 mg tablet extended release 24 hr 300 mg PO DAILY bupropion HCl 150 mg tablet extended release 24 hr 150 mg PO DAILY gabapentin 600 mg Tablet 1,200 mg PO TID 30 Days Qty: 180 0RF clonazepam 0.5 mg tablet 0.5 mg PO DAILY PRN (Reason: anxiety attack) sertraline 100 mg tablet 150 mg PO DAILY dextroamphetamine-amphetamine [Adderall XR] 20 mg capsule,extended release 24hr 1 cap PO DAILY albuterol sulfate [Ventolin HFA] 90 mcg/actuation HFA aerosol inhaler 2 puff inhalation Q6H PRN (Reason: wheezing) quetiapine 100 mg tablet 100 mg PO BID@0900,1500 methadone [Methadone Intensol] 10 mg/mL Concentrate 140 mg PO DAILY Interventions: ED Discharge Assessment Last Done: 11/06/24 19:18 Discharge Date/Time: 11/06/24 19:19 Print Language: Faroese
--- OUTSIDE RECORDS SUMMARY | 2024-11-06 18:35 | XMS_ITS | Encounter Summary ---
Author Organization [employer] Address [address] [place] [address] Care Team Providers Care Area Forester Name Role Phone Radhames Ojeda MD Primary Care Prov ider Reason for Visit * Reason Onset Date Comments PT1 form 02/24/2023 Encounter Details Date Type Department Care Team (Late st Contact Info) Description 02/24/2023 Telephone [facility] [address] [place] [address] Radhames Ojeda MD [address] [place] [address] PT1 form Social History Tobacco Use Types Packs/Day Years Used Date Smoking Tobacco: Former Cigarettes 1 20 Smokeless Tobacco: Never Alcohol Use Standard Drinks/Week Comments Not Currently 0 (1 standard drink = 0.6 oz pur e alcohol) Depression Answer Date Recorded Patient Health Questionnaire-9 Score 3 02/10/2023 Depression Answer Date Recorded Patient Health Questionnaire-2 Score 2 02/10/2023 Sex and Gender Information Value Date Recorded Sex Assigned at Male 07/20/2022 10:20 AM EDT Legal Sex Male 10:20 AM EDT Gender Identity Male 07/20/2022 10:20 AM EDT Sexual Orientation Straight 07/20/2022 10 :20 AM EDT documented as of this encounter Miscellaneous Notes * Telephone Encounter - Janay Wagner - 04/02/2023 9:53 AM EDT Tc from pt returning call in regards to message above. Pt verified both home and location address. * Telephone Encounter - Helena Wu - 03/17/2023 9:50 AM EDT VM left for pt to return call and verify address. Patient has an active PT-1 to address requested on file. * Telephone Encounter - Kimber Alvarez - 02/24/2023 9:45 AM EDT TC from Gwen Bhagat of pt requesting PT1 for location : [facility] [address] [place] [address] Date: everyday Time: 6:00 am Software Asset Manager : no Wheelchair : no PCP DR. Quinones documented in this encounter Plan of Treatment Not on file documented as of this encounter Visit Diagnoses Not on filedocumented in this encounter Additional Health Concerns Assessment Noted Time PHQ-9 Depression Total Score: 3 02/11/20 23 2:02 PM EDT documented as of this encounter Care Teams Area Forester Relationship Specialty Start Date End Date Radhames Ojeda MD [address] [place] [id number] PCP - General Internal Medicine 02/13/20 documented as of this encounter
--- OUTSIDE RECORDS SUMMARY | 2024-11-06 18:35 | XMS_ITS | Encounter Summary ---
Author Organization [employer] Address [address] [facility] 7t [place] [address] Care Team Providers Care Arch Support Technician Name Role Phone Radhames Ojeda MD Primary Care Prov ider Reason for Visit * Reason Comments Care Coordination [facility] Program Encounter Details Date Type Department Care Team ([facility] st Contact Info) Description 10/13/2024 Telephone [facility] MED[facility]INE [address] [place] [address] Radhames Ojeda MD [address] [place], [place] [phone] Care Coordination ( [facility] Program) Social History Tobacco Use Types Packs/Day Years Used Date Smoking Tobacco: Every Day Cigarettes 0.5 22.1 Started: 2002 Passive Smoke Exposure: Current Smokeless Tobacco: Never Alcohol Use Standard Drinks/Week Comments Not Currently 0 (1 standard drink = 0.6 oz pur e alcohol) Depression Answer Date Recorded Patient Health Questionnaire-9 Score 3 02/10/2023 Housing Stability Answer Date Recorded What is your housing situation today? I have giovani sunshine 07/21/[address] you li ve. Do you have problems with any of the following? None of the above 07/21/2023 Food Insecurity Answer Date Recorded Within the past 12 months, y ou worried that your food would run out before you got money to buy more: Never True 07/21/2023 Within the past 12 months,th e food you bought just didn't last and you didn't have enough money to get more: Never True 09/2022 Transportation Answer Date Recorded In the past 12 months, has l ack of transportation kept you from medical appts, meetings, work or from getting things needed for daily living? No 07/21/2023 Utilities Answer Date Recorded In the past 12 months, has t he electric, gas, oil or water company threatened to shut off services in your home? No 07/21/2023 Depression Answer Date Recorded Patient Health Questionnaire-2 Score 2 02/10/2023 Sex and Gender Information Value Date Recorded Sex Assigned at Male 07/20/2022 10:20 AM EDT Legal Sex Male 10:20 AM EDT Gender Identity Male 07/20/2022 10:20 AM EDT Sexual Orientation Straight 07/20/2022 10 :20 AM EDT documented as of this encounter Progress Notes * Reva Benitez RN - 10/13/2024 9:16 AM EST Received below incoming email from LUCAS Snider with the [facility] Program, Tatiana, I am writing to inform you that Von Michelle 1985 Member: [id number] was admitted to [facility] . We will be outreaching the member while they are admitted and will be hopefully working with them in o) Behavioral Health Transitions of Care ( [facility]) program. I have CC'd the Social Work Shift Production Supervisor, Adilia Foss : who will be working with me on the case and who will be coordinating with the inpatient team. I also wanted to share some preliminary information with you: Admission date: 10/05/2024 Admission diagnosis: Additional clinical information from [facility]: Chart review: 39, white male- admitted to [facility] 10/05. DX: opioid dependance, RENEE, alcohol abuse, MDD active w/ c3 assigned to [facility], last appt at center: 08/23/2024 Planned discharge date: TBD We will be in touch soon with more information as soon as we have it and to coordinate discharge appointments. Please let us know if there is any pertinent clinical information that we should share with the inpatient team PCP updated. documented in this encounter Plan of Treatment Not on file documented as of this encounter Visit Diagnoses Not on filedocumented in this encounter Additional Health Concerns Assessment Noted Time PHQ-9 Depression Total Score: 3 02/11/20 23 2:02 PM EDT documented as of this encounter Care Teams Arch Support Technician Relationship Specialty Start Date End Date Radhames Ojeda MD [address] [place] [id number] PCP - General Internal Medicine 02/13/20 documented as of this encounter
--- OUTSIDE RECORDS SUMMARY | 2024-11-06 18:35 | XMS_ITS | Encounter Summary ---
Author Organization [employer] Address [address] [place] [address] [place] [address] Care Team Providers Care Cushion Cover Inspector Name Role Phone Radhames Ojeda MD Primary Care Prov ider Reason for Visit * Reason Onset Date Comments Med Refill 01/06/2023 Encounter Details Date Type Department Care Team ([facility] st Contact Info) Description 01/06/2023 Telephone [facility] MED & PEDS [address] [place], [place] [phone] Radhames Ojeda MD [address] [place] [address] Med Refill Social History Tobacco Use Types Packs/Day Years Used Date Smoking Tobacco: Never Assessed Sex and Gender Information Value Date Recorded Sex Assigned at Male 07/20/2022 10:20 AM EDT Legal Sex Male 10:20 AM EDT Gender Identity Male 07/20/2022 10:20 AM EDT Sexual Orientation Straight 07/20/2022 10 :20 AM EDT documented as of this encounter Miscellaneous Notes * Telephone Encounter - Zachariah Leung - 01/06/2023 4:38 PM EDT Tc from pt requesting med refill on gabapentin (Neurontin) 800 MG tablet Please sent to [facility]/pharmacy #[id number] - [place] - [address] [facility] documented in this encounter Plan of Treatment Not on file documented as of this encounter Visit Diagnoses Not on filedocumented in this encounter Care Teams Cushion Cover Inspector Relationship Specialty Start Date End Date QuinonesRadhames Hester MD [address] [place] [id number] PCP - General Internal Medicine 02/13/20 documented as of this encounter
--- OUTSIDE RECORDS SUMMARY | 2024-11-06 18:35 | XMS_ITS | Clinical Summary ---
Author Organization [employer] Address [address] [facility] 7t [place] [address] Care Team Providers Care Carton Stamper Name Role Phone Radhames Ojeda MD Primary Care Prov ider Allergies No known active allergies Medications * This document contains information received from the source organization and may not represent a complete record from that organization. 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 90 tablet 1 4 Active buPROPion XL (Wellbutrin XL) 300 MG 24 hr tablet Take 1 tablet (300 mg) by mouth in the morning. 90 tablet 3 4 025 Active albuterol 108 (90 Base) MCG/ACT inhaler Inhale 2 puffs every 6 (six) hours if needed for wheezing. 18 g 11 4 025 Active omeprazole (PriLOSEC) [address] capsuleIndicati ons:Gastroesoph ageal reflux disease, unspecified whether esophagitis present TAKE 1 CAPSULE BY MOUTH EVERY DAY 90 capsule 1 5 Active omeprazole (PriLOSEC) [address] capsuleIndicati ons:Gastroesoph ageal reflux disease, unspecified whether esophagitis present TAKE 1 CAPSULE BY MOUTH EVERY DAY 90 capsule 1 4 025 Discontinued Active Problems Problem Noted Date Diagnosed Date Right forearm cellulitis 05/06/2023 Assessment & Plan (05/06/2023 1:49 PM EDT): Patient seen at [facility] due to right arm cellulitis, he refers completed oral antibiotics, no reported fever/chills, no erythema. Candidiasis 04/19/2023 Assessment & Plan (04/19/2023 7:27 PM EDT): Likely from heat at work -rx clotrimazole cream then nystatin powder when improving -will check DM, HIV and RPR Chronic bilateral low back pain with bilateral s ciatica 02/10/2023 Assessment & Plan (04/04/2024 10:45 PM EDT): On gabapentin, has been helping with his pain, no changes will be made Assessment & Plan (12/29/2023 12:20 AM EDT): Continue gabapentin, tylenol/ibuprofen as needed Assessment & Plan (05/06/2023 1:52 PM EDT): Continue gabapentin/tylenol/ibuprofen, avoid heavy lifting Assessment & Plan (02/10/2023 2:27 PM EDT): Pain controlled with current therapy, avoid heavy lifting, aply cold pads, rest as needed, take tylenol/ibuprofen as needed Anabolic steroid abuse 01/25/2019 Chronic anemia 01/25/2019 Chronic hepatitis C 01/25/2019 Assessment & Plan (05/06/2023 1:49 PM EDT): Told to get blood work done for further assesment Assessment & Plan (04/19/2023 7:30 PM EDT): PT would like treatment for Hep C. He was waiting until he was in sustained recovery. 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 Assessment & Plan (12/29/2023 12:19 AM EDT): Followed by therapist, he is pending psych evaluation Assessment & Plan (05/06/2023 1:52 PM EDT): Followed by mental health provider he is on clonidine, clonazepam as needed, bupropion 300mg, quetiapine, and escitalopram, No suicidal/homicidal ideas Assessment & Plan (02/10/2023 2:28 PM EDT): No suicidal/homicidal ideas, on wellbutrin, followed by therapist, pending psych evaluation Perirenal abscess 01/25/2019 Smoker 01/25/2019 Encounters * This document contains information received from the source organization and may not represent a complete record from that organization. Date Type Department Care Team Description 10/17/2024 Refill [facility] MED[facility]INE [address] [place] [phone] Radhames Ojeda MD Gastroesophageal reflux disease, unspecified whether esophagitis present 10/13/2024 Telephone [facility] MEDICINE [address] [place] [address] Radhames Ojeda MD Care Coordination ( [facility] Program) 08/23/2024 2:00 PM EST Telemedicine [facility] MED & PEDS [address] [place] [address] Radhames Ojeda MD Subacute cough (Primary Dx) 08/23/2024 Travel 08/22/2024 Telephone [facility] [address] [place] [address] Radhames Ojeda MD chart prep 08/16/2024 Telephone [facility] [address] [place] [address] Radhames Ojeda MD Nurse Triage 08/07/2024 Telephone [facility] [address] [place] [address] Amanda Johnson RN ER Follow-up 08/07/2024 Patient Outreach [facility] [address] [place] [address] Kena Galvan RN Transition Of Care (Tcm) from Last 3 Months Immunizations Name Administration Dates Next Due Tdap 03/18/2018 Social History Tobacco Use Types Packs/Day Years Used Date Smoking Tobacco: Every Day Cigarettes 0.5 22.1 Started: 2002 Passive Smoke Exposure: Current Smokeless Tobacco: Never Tobacco Cessation:Ready to Q uit: Not Asked; Counseling Given: Not Answered Alcohol Use Standard Drinks/Week Comments Not Currently [...] Orientation Straight 07/20/2022 10 :20 AM EDT Last Filed Vital Signs Vital Sign Reading Time Taken Comments Blood Pressure 117/73 12/28/2023 3:39 PM EDT Pulse 82 12/28/2023 3:39 PM EDT Temperature 36.1 ??C (97 ??F) 12/28/2023 3:39 PM EDT Respiratory Rate 20 12/28/2023 3:39 PM EDT Oxygen Saturation 95% 12/28/2023 3:39 PM EDT Inhaled Oxygen Concentration - - Weight 104 kg (229 lb) 12/28/2023 3:39 PM EDT Height 177.8 cm (5' 10 ) 12/28/2023 3:39 PM EDT Body Mass Index 32.86 12/28/2023 3:39 PM EDT Plan of Treatment Health Maintenance Due Date Last Done Comments HIV Screening 1985 Lipid Panel 1985 Alcohol/Substance Use Screening 1997 Family Planning (PISQ) 02/23/2000 Hepatitis B Vaccines (2 of 3 - 3-dose series) 11/22/2000 10/25/2000 Pneumococcal Vaccine: Pediatrics (0 to 5 Years) and At-Risk Patients (6 to 49) Years) (1 of 2 - PCV) 02/23/2004 Hepatitis A Vaccines (2 of 2 - Risk 2-dose series) 03/27/2021 09/27/2020 Depression Screening 02/11/2024 02/10/2023, 02/10/2023 SDOH Screening 02/11/2024 02/10/2023 COVID-19 Vaccine (4 - 2023-2 5 season) 2024 08/22/2022, 12/19/2020, 11/21/2020 Influenza Vaccine (#1) 2024 Tobacco Screening 12/27/2024 12/28/2023 DTaP/Tdap/Td Vaccines (3 - T d or Tdap) 11/07/2033 11/07/2023, 03/18/2018 Zoster Vaccines (1 of 2) 2035 RSV Patients and Patients Aged 60 years or older (1 - 1-dose 75+ series) 02/23/2060 HIB Vaccines Aged Out No longer eligi ble based on patient's age to complete this topic HPV Vaccines Aged Out No longer eligi ble based on patient's age to complete this topic IPV Vaccines Aged Out No longer eligi ble based on patient's age to complete this topic Meningococcal Vaccine Aged Out No fozia tyrese eligible based on patient's age to complete this topic RSV under 20 months Aged Out No longe r eligible based on patient's age to complete this topic Rotavirus Vaccines Aged Out No longer eligible based on patient's age to complete this topic Insurance [facility] C3 Care Teams Carton Stamper Relationship Specialty Start Date End Date Radhames Ojeda MD [address] [place] [id number] PCP - General Internal Medicine 02/13/20
--- OUTSIDE RECORDS SUMMARY | 2024-11-06 18:35 | XMS_ITS | Encounter Summary ---
Author Organization [employer] Address [address] [place] [address] 7t [place] [address] Care Team Providers Care Demographer Name Role Phone Radhames Ojeda MD Primary Care Prov ider Reason for Visit * Reason Comments Med Refill Encounter Details Date Type Department Care Team ([facility] st Contact Info) Description 03/24/2023 Refill [facility] MED & PEDS [address] [place], [place] [phone] Radhames Ojeda MD [address] [place] [address] Chronic bilateral low back pain with bilateral sciatica Social History Tobacco Use Types Packs/Day Years [...] AM EDT documented as of this encounter Plan of Treatment Not on file documented as of this encounter Visit Diagnoses Diagnosis Chronic bilateral low back pain with bilateral sciatica documented in this encounter Additional Health Concerns Assessment Noted Time PHQ-9 Depression Total Score: 3 02/11/20 23 2:02 PM EDT documented as of this encounter Care Teams Demographer Relationship Specialty Start Date End Date Radhames Ojeda MD [address] [place] [id number] PCP - General Internal Medicine 02/13/20 documented as of this encounter
--- OUTSIDE RECORDS SUMMARY | 2024-11-06 18:35 | XMS_ITS | Encounter Summary ---
Author Organization [employer] Address [address] [place] [address] 7t [place] [address] Care Team Providers Care Application Dba Name Role Phone Radhames Ojeda MD Primary Care Prov ider Reason for Visit * Reason Comments Med Refill Encounter Details Date Type Department Care Team ([facility] st Contact Info) Description 01/06/2023 Refill [facility] MED & PEDS [address] [place] [address] Radhames Ojeda MD [address] [place] [address] Chronic bilateral low back pain with bilateral [...] with bilateral sciatica documented in this encounter Care Teams Application Dba Relationship Specialty Start Date End Date Radhames Ojeda MD [address] [place] [address] PCP - General Internal Medicine 02/13/20 documented as of this encounter
--- OUTSIDE RECORDS SUMMARY | 2024-11-06 18:35 | XMS_ITS | Clinical Summary ---
Author Organization [facility] Address [address] [place] [id number] Care Team Providers Care Mobile Designer Name Role Phone Unavailable Primary Care Provider Unavailabl e Social History Tobacco Use Types Packs/Day Years Used Date Smoking Tobacco: Never Assessed Sex and Gender Information Value Date Recorded Sex Assigned at Not on file Legal Sex Male 4:14 AM EST Gender Identity Not on file Sexual Orientation Not on file Plan of Treatment Health Maintenance Due Date Last Done Comments DTaP,Tdap,and Td Vaccines (1 - Tdap) 02/23/2004 Hepatitis B Vaccines (1 of 3 - 19+ 3-dose series) 02/23/2004 Cholesterol Screening (Lipid Panel) 08/23/2022 Depression Screening 08/23/2022 HIV Screening 08/23/2022 Hepatitis C Screening 08/23/2022 Social Influencers of Health Screening 08/23/2022 COVID-19 Vaccine (2023-2 5 season) 2024 Influenza Vaccine (#1) 2024 HIB Vaccines Aged Out No longer eligi ble based on patient's age to complete this topic HPV Vaccines Aged Out No longer eligi ble based on patient's age to complete this topic Hepatitis A Vaccines Aged Out No long er eligible based on patient's age to complete this topic IPV Vaccines Aged Out No longer eligi ble based on patient's age to complete this topic MMR Vaccines Aged Out No longer eligi ble based on patient's age to complete this topic Meningococcal ACWY Vaccine Aged Out N o longer eligible based on patient's age to complete this topic Meningococcal B Vacine Aged Out No lo nger eligible based on patient's age to complete this topic Pneumococcal Vaccine: Pediat rics (0 to 5 Years) and At-Risk Patients (6 to 64 Years) Aged Out No longer eligible b ased on patient's age to complete this topic RSV Immunization Patients Un paras 20 months Aged Out No longer eligible b ased on patient's age to complete this topic Varicella Vaccines Aged Out No longer eligible based on patient's age to complete this topic
--- OUTSIDE RECORDS SUMMARY | 2024-11-06 18:35 | XMS_ITS | Clinical Summary ---
Author Organization [facility] Address [address] [place] [address] Care Team Providers Care Global Cto Name Role Phone Unavailable Primary Care Provider Unavailabl e Allergies No known active allergies Medications Medication Sig Dispensed Refills Start Date End Date Status clindamycin (CLEOCIN) 300 MG capsule Take 1 capsule (300 mg total) by mouth 3 (three) times a day. 21 capsule 0 05/15/2018 Active Active Problems No known active problems Social History Tobacco Use Types Packs/Day Years Used Date Smoking Tobacco: Former Smokeless Tobacco: Never Sex and Gender Information Value Date Recorded Sex Assigned at Not on file Gender Identity Not on file Sexual Orientation Not on file Last Filed Vital Signs Vital Sign Reading Time Taken Comments Blood Pressure 130/84 05/15/2018 8:00 PM EDT Pulse 64 05/15/2018 8:00 PM EDT Temperature 36.9 ??C (98.4 ??F) 05/15/2018 8:00 PM ED T Respiratory Rate 16 05/15/2018 8:00 PM EDT Oxygen Saturation 100% 05/15/2018 8:00 PM EDT Inhaled Oxygen Concentration - - Weight 86.1 kg (189 lb 14.4 oz) 05/15/2018 5:17 PM EDT Height - - Body Mass Index - - Plan of Treatment Health Maintenance Due Date Last Done Comments Hepatitis B Vaccines (1 of 3 - 3-dose series) 1985 Hepatitis C Screening 1985 COVID-19 Vaccine (#1) 1985 Depression Screening 1997 Preventative Health Evaluation 2003 DTap / Tdap / Td (1 - Tdap) 02/23/2004 Influenza Vaccine (#1) 2024 Pneumococcal Vaccine Aged Out No long er eligible based on patient's age to complete this topic RSV Ped < 20 months Aged Out No longe r eligible based on patient's age to complete this topic
--- OUTSIDE RECORDS SUMMARY | 2024-11-06 18:35 | XMS_ITS | Encounter Summary ---
Author Organization [employer] Address [address] [facility] [address] [place] [address] Care Team Providers Care Clinical Documentation Developer Name Role Phone Radhames Ojeda MD Primary Care Prov ider Reason for Visit * Reason Onset Date Comments Medication Question 10/14/2022 Encounter Details Date Type Department Care Team (Late st Contact Info) Description 10/14/2022 Telephone [facility] MEDICINE [address] [place] [address] Radhames Ojeda MD [address] [place], [place] [phone] Medication Question Social History Tobacco Use Types Packs/Day Years Used Date Smoking Tobacco: Never Assessed Sex and Gender Information Value Date Recorded Sex Assigned at Male 07/20/2022 10:20 AM EDT Legal Sex Male 10:20 AM EDT Gender Identity Male 07/20/2022 10:20 AM EDT Sexual Orientation Straight 07/20/2022 10 :20 AM EDT documented as of this encounter Miscellaneous Notes * Telephone Encounter - Richard Wagner RN - 10/14/2022 2:22 PM EST Please see message below. Thank you. * Telephone Encounter - Wagner Bethea - 10/14/2022 2:16 PM EST Tc from pt requesting med status on Wellbutrin XL 150 mg documented in this encounter Plan of Treatment Not on file documented as of this encounter Visit Diagnoses Not on filedocumented in this encounter Care Teams Clinical Documentation Developer Relationship Specialty Start Date End Date Radhames Oejda MD [address] [place] [phone] PCP - General Internal Medicine 02/13/20 documented as of this encounter
--- OUTSIDE RECORDS SUMMARY | 2024-11-06 18:35 | XMS_ITS | Encounter Summary ---
Author Organization [employer] Address [address] [place] [address] 7t [place] [address] Care Team Providers Care Endocrinology Physician Name Role Phone Radhames Ojeda MD Primary Care Prov ider Encounter Details Date Type Department Care Team (Late st Contact Info) Description 10/15/2022 Orders Only [facility] MEDICINE [address] [place], [place] [phone] Radhames Ojeda MD [address] [place] [address] Mood disorder (CMS/HCC) (Primary Dx) Social History Tobacco Use Types Packs/Day Years [...] as of this encounter Visit Diagnoses Diagnosis Mood disorder (CMS/HCC)- Primary Unspecified episodic mood disorder documented in this encounter Care Teams Endocrinology Physician Relationship Specialty Start Date End Date Radhames Ojeda MD [address] [place] [address] PCP - General Internal Medicine 02/13/20 documented as of this encounter
--- OUTSIDE RECORDS SUMMARY | 2024-11-06 18:35 | XMS_ITS | Encounter Summary ---
Author Organization [employer] Address [address] [place] [address] 7t [place] [address] Care Team Providers Care Vp Of Digital Marketing Name Role Phone Radhames Ojeda MD Primary Care Prov ider Reason for Visit * Reason Comments Med Refill Encounter Details Date Type Department Care Team ([facility] st Contact Info) Description 03/23/2023 Refill [facility] CH[facility] MED & PEDS [address] [place], [place] [phone] Radhames Ojeda MD [address] [place] [address] Chronic bilateral low back pain with bilateral [...] documented as of this encounter Care Teams Vp Of Digital Marketing Relationship Specialty Start Date End Date Radhames Ojeda MD [address] [place] [id number] PCP - General Internal Medicine 02/13/20 documented as of this encounter
--- OUTSIDE RECORDS SUMMARY | 2024-11-06 18:35 | XMS_ITS | Encounter Summary ---
Author Organization [employer] Address [address] [place] [address] 7t [place] [address] Care Team Providers Care Highway Safety Engineer Name Role Phone Radhames Ojeda MD Primary Care Prov ider Reason for Visit * Reason Comments Med Refill Encounter Details Date Type Department Care Team ([facility] st Contact Info) Description 10/14/2022 Refill [facility] MED & PEDS [address] [place] [address] Radhames Ojeda MD [address] [place] [address] Chronic bilateral low back pain with bilateral [...] sciatica documented in this encounter Care Teams Highway Safety Engineer Relationship Specialty Start Date End Date Radhames Ojeda MD [address] [place] [address] PCP - General Internal Medicine 02/13/20 documented as of this encounter
--- OUTSIDE RECORDS SUMMARY | 2024-11-06 18:35 | XMS_ITS | Encounter Summary ---
Author Organization [employer] Address [address] [facility] 7t [place] [address] Care Team Providers Care Homicide Squad Captain Name Role Phone Radhames Ojeda MD Primary Care Prov ider Reason for Visit * Reason Comments Med Refill Encounter Details Date Type Department Care Team ([facility] st Contact Info) Description 10/17/2024 Refill [facility] MEDICINE [address] [place] [address] Radhames Ojeda MD 505 [place], [place] [phone] Gastroesophageal reflux disease, unspecified whether esophagitis present Social History Tobacco Use Types Packs/Day Years [...] as of this encounter Visit Diagnoses Diagnosis Gastroesophageal reflux disease, unspecified whether esophagitis present documented in this encounter Additional Health Concerns Assessment Noted Time PHQ-9 Depression Total Score: 3 02/11/20 23 2:02 PM EDT documented as of this encounter Care Teams Homicide Squad Captain Relationship Specialty Start Date End Date Radhames Ojeda MD [address] [place] [id number] PCP - General Internal Medicine 02/13/20 documented as of this encounter
--- OUTSIDE RECORDS SUMMARY | 2024-11-06 18:35 | XMS_ITS | Encounter Summary ---
Author Organization [employer] Address [address] [place] [address] 7t [place] [address] Care Team Providers Care Cryptographic Technician Name Role Phone Radhames Ojeda MD Primary Care Prov ider Encounter Details Date Type Department Care Team (Late st Contact Info) Description 09/25/2022 Orders Only [facility] MEDICINE 230 [place] [address] Radhames Ojeda MD 505 [place], [place] [phone] Eye exam, routine (Primary Dx) Social History Tobacco Use Types [...] as of this encounter Visit Diagnoses Diagnosis Eye exam, routine- Primary documented in this encounter Care Teams Cryptographic Technician Relationship Specialty Start Date End Date Radhames Ojeda MD 505 [place] [address] PCP - General Internal Medicine 02/13/20 documented as of this encounter
--- NOTE | 2024-11-06 18:50 | HE.PHANOTE ---
METHADONE Pt last received here at [facility] 11/05/24 @ 0567 for 140mg.
[2024-11-06] MEDS: methADONE HCl 20 MG/2 ML ORAL.CONC 140 MG PO (18:54)
[2024-11-06 19:18] VITALS: BP 115/63; PULSE 85; RESP 19; TEMP 36.6; O2SAT 99
== END 2024-11-06 19:19 | disposition home or self-care (01) ==
LOC: HO.ED 18:33
PROVIDERS: Emergency Provider Emergency Medicine
DX: F11.10 Opioid abuse, uncomplicated (principal); Z79.899 Other long term (current) drug therapy
CPT/HCPCS: 99282

== ENCOUNTER 2024-11-26 10:14 | Emergency (ER) | payer MEDICAID, SELFPAY ==
--- NOTE | ~2024-11-26 | XR_ITS ---
CLINICAL HISTORY: pain 3 views lumbar spine Comparison: None Findings: Normal vertebral body alignment. No acute fractures or dislocation. Moderate disc space narrowing at L5-S1. IMPRESSION: Moderate disc space narrowing at L5-S1. No acute process. This document has been electronically signed by: Derrek Vance MD on 11/26/2024 12:25:59
--- NOTE | ~2024-11-26 | XR_ITS ---
CLINICAL HISTORY: pain 3 views thoracic spine Comparison: None Findings: Normal vertebral body alignment. No acute fractures or dislocation. No significant degenerative change. IMPRESSION: No acute findings. This document has been electronically signed by: Derrek Vance MD on 11/26/2024 12:25:10
--- NOTE | ~2024-11-26 | MR_ITS ---
CLINICAL HISTORY: MIDLINE TENDERNESS, IVDU, HX EPIDURAL, WBC COUNT MR thoracic spine with and without gadolinium Comparison: CR - XR THORACIC SPINE 3V - 11/26/24 10:49 EDT Findings: Normal alignment. No acute fracture or pathologic bone lesion. T6 moderate-sized benign vertebral body hemangioma. Unremarkable thoracic cord. No significant spinal canal or foraminal stenoses. No significant degenerative change. Paraspinous musculature intact. Left lower lobe area of consolidation and small pleural effusion. IMPRESSION: No acute findings. Left lower lobe area of consolidation and small pleural effusion, partially imaged, concerning for airspace disease such as pneumonia. CT chest is recommended for further evaluation. This document has been electronically signed by: Hira Estrada MD on 11/26/2024 19:43:48
--- NOTE | ~2024-11-26 | MR_ITS ---
CLINICAL HISTORY: MIDLINE TENDERNESS, IVDU, HX EPIDURAL, WBC COUNT MR lumbar spine with and without gadolinium Comparison: CR - XR LUMBAR SPINE 2-3V - 11/26/24 10:50 EDT Findings: Normal alignment. No acute fracture or pathologic bone lesion. Cauda equina and conus medullaris within normal limits. Moderate spondylosis at L5-S1 with degenerative disc desiccation, disc height loss, and a superimposed left paracentral disc extrusion with caudal migration causing mild spinal canal narrowing and moderate bilateral neural foraminal narrowing with abutment of the exiting bilateral L5 nerve roots. Paraspinous musculature intact. IMPRESSION: No acute findings. Single level moderate spondylosis at L5-S1 with left paracentral disc extrusion with caudal migration causing moderate bilateral neural foraminal narrowing and abutment of the exiting L5 nerve roots. This document has been electronically signed by: Hira Estrada MD on 11/26/2024 19:29:26
[2024-11-26 10:21] VITALS: BP 123/72; PULSE 67; RESP 18; TEMP 35.8; O2SAT 98; BMI 29.4
--- OUTSIDE RECORDS SUMMARY | 2024-11-26 11:09 | XMS_ITS | Encounter Summary ---
Author Organization [employer] Address [address] [place] [address] 7t [place] [address] Care Team Providers Care Grinding Operator Name Role Phone Radhames Ojeda MD Primary Care Prov ider Reason for Visit * Reason Comments Med Refill Encounter Details Date Type Department Care Team ([facility] st Contact Info) Description 01/06/2023 Refill [facility] MED & PEDS 505 [place] [address] Radhames Ojeda MD 505 [place] [address] Chronic bilateral low back pain with bilateral [...] sciatica documented in this encounter Care Teams Grinding Operator Relationship Specialty Start Date End Date Radhames Ojeda MD 505 [place] [address] PCP - General Internal Medicine 02/13/20 documented as of this encounter
--- OUTSIDE RECORDS SUMMARY | 2024-11-26 11:09 | XMS_ITS | Encounter Summary ---
Author Organization [employer] Address [address] [facility] 7 [place] [address] Care Team Providers Care Second Shift Supervisor Name Role Phone Radhames Ojeda MD Primary Care Prov ider Reason for Visit * Reason Onset Date Comments Medication Question 10/14/2022 Encounter Details Date Type Department Care Team (Late st Contact Info) Description 10/14/2022 Telephone [facility] MEDICINE 230 [place] [address] Radhames Ojeda MD 505 [place], [place] [phone] Medication Question Social History Tobacco Use Types [...] on filedocumented in this encounter Care Teams Second Shift Supervisor Relationship Specialty Start Date End Date Radhames Ojeda MD [address] [place] [id number] PCP - General Internal Medicine 02/13/20 documented as of this encounter
--- OUTSIDE RECORDS SUMMARY | 2024-11-26 11:09 | XMS_ITS | Encounter Summary ---
Author Organization [employer] Address [address] [place] [address] 7t [place] [address] Care Team Providers Care Director Television Name Role Phone Radhames Ojeda MD Primary Care Prov ider Encounter Details Date Type Department Care Team (Late st Contact Info) Description 09/25/2022 Orders Only [facility] MEDICINE 230 [place] [address] Radhames Ojeda MD 505 [place], [place] [phone] Eye exam, routine (Primary Dx) Social History [...] Primary documented in this encounter Care Teams Director Television Relationship Specialty Start Date End Date Radhames Ojeda MD 505 [place] [address] PCP - General Internal Medicine 02/13/20 documented as of this encounter
--- OUTSIDE RECORDS SUMMARY | 2024-11-26 11:09 | XMS_ITS | Encounter Summary ---
Author Organization [employer] Address [address] [place] [address] 7t [place] [address] Care Team Providers Care Newswriter Name Role Phone Radhames Ojeda MD Primary Care Prov ider Reason for Visit * Reason Comments Med Refill Encounter Details Date Type Department Care Team ([facility] st Contact Info) Description 03/23/2023 Refill [facility] 505 [place], [place] [phone] Radhames Ojeda MD 505 [place] [address] Chronic bilateral low back pain with bilateral [...] documented as of this encounter Care Teams Newswriter Relationship Specialty Start Date End Date Radhames Ojeda MD [address] [place] [phone] PCP - General Internal Medicine 02/13/20 documented as of this encounter
--- OUTSIDE RECORDS SUMMARY | 2024-11-26 11:09 | XMS_ITS | Encounter Summary ---
Author Organization [employer] Address [address] [place] [address] [place] [address] Care Team Providers Care Dairy Husbandman Name Role Phone Radhames Ojeda MD Primary Care Prov ider Reason for Visit * Reason Onset Date Comments Med Refill 01/06/2023 Encounter Details Date Type Department Care Team ([facility] st Contact Info) Description 01/06/2023 Telephone [facility] MED & PEDS 505 [place], [place] [phone] Radhames Ojeda MD 505 [place] [address] Med Refill Social History Tobacco Use Types [...] (Neurontin) 800 MG tablet Please sent to [facility]/pharmacy #[id number] - [place] - [address] [facility] [facility] documented in this encounter Plan of Treatment Not on file documented as of this encounter Visit Diagnoses Not on filedocumented in this encounter Care Teams Dairy Husbandman Relationship Specialty Start Date End Date QuinonesRadhames Hester MD [address] [place] [phone] PCP - General Internal Medicine 02/13/20 documented as of this encounter
--- OUTSIDE RECORDS SUMMARY | 2024-11-26 11:09 | XMS_ITS | Encounter Summary ---
Author Organization [employer] Address [address] [place] [address] 7t [place] [address] Care Team Providers Care Rail Car Maintenance Mechanic Name Role Phone Radhames Ojeda MD Primary Care Prov ider Reason for Visit * Reason Comments Med Refill Encounter Details Date Type Department Care Team ([facility] st Contact Info) Description 10/14/2022 Refill [facility] MED & PEDS 505 [place] [address] Radhames Ojeda MD 505 [place] [address] Chronic bilateral low back pain with bilateral [...] sciatica documented in this encounter Care Teams Rail Car Maintenance Mechanic Relationship Specialty Start Date End Date Radhames Ojeda MD 505 [place] [address] PCP - General Internal Medicine 02/13/20 documented as of this encounter
--- OUTSIDE RECORDS SUMMARY | 2024-11-26 11:09 | XMS_ITS | Encounter Summary ---
Author Organization [employer] Address [address] [place] [address] 7t [place] [address] Care Team Providers Care Public Works Supervisor Name Role Phone Radhames Ojeda MD Primary Care Prov ider Encounter Details Date Type Department Care Team (Late st Contact Info) Description 10/15/2022 Orders Only [facility] MEDICINE 230 [place], [place] [phone] Radhames Ojeda MD 505 [place] [address] Mood disorder (CMS/HCC) (Primary Dx) Social History [...] disorder documented in this encounter Care Teams Public Works Supervisor Relationship Specialty Start Date End Date Radhames Ojeda MD 505 [place] [address] PCP - General Internal Medicine 02/13/20 documented as of this encounter
--- OUTSIDE RECORDS SUMMARY | 2024-11-26 11:09 | XMS_ITS | Encounter Summary ---
Author Organization [employer] Address [address] [facility] 7t [place] [address] Care Team Providers Care Communications Engineering Technician Name Role Phone Radhames Ojeda MD Primary Care Prov ider Reason for Visit * Reason Onset Date Comments PT1 form 02/24/2023 Encounter Details Date Type Department Care Team (Late st Contact Info) Description 02/24/2023 Telephone [facility] MEDICINE 230 [place] [address] Radhames Ojeda MD 505 [place] [address] PT1 form Social History Tobacco Use Types [...] of pt requesting PT1 for location : [facility] [address] [place] [address] Date: everyday Time: 6:00 am Mill Helper : no Wheelchair : no PCP DR. Quinones documented in this encounter Plan of Treatment Not on file documented as of this encounter Visit Diagnoses Not on filedocumented in this encounter Additional Health Concerns Assessment Noted Time PHQ-9 Depression Total Score: 3 02/11/20 23 2:02 PM EDT documented as of this encounter Care Teams Communications Engineering Technician Relationship Specialty Start Date End Date Radhames Ojeda MD [address] [place] [id number] PCP - General Internal Medicine 02/13/20 documented as of this encounter
--- OUTSIDE RECORDS SUMMARY | 2024-11-26 11:09 | XMS_ITS | Clinical Summary ---
Author Organization [employer] Address [address] [facility] 7t [place] [address] Care Team Providers Care Burglar Alarm Assembler Name Role Phone Radhames Ojeda MD Primary Care Prov ider Allergies No known active allergies Medications * This document contains information received from the source organization and may not represent a complete record from that organization. clotrimazole (Lotrimin) 1 % cream Use 4 times a day on rash for 7 days 30 g 2 04/19/2023 Active gabapentin (Neurontin) 800 MG tabletIndication s:DOUGH RAISER checked 08/26/22 Take 1 tablet (800 mg) by mouth every 8 (eight) hours. 90 tablet 1 01/25/2024 Active buPROPion XL (Wellbutrin XL) 300 MG 24 hr tablet Take 1 tablet (300 mg) by mouth in the morning. 90 tablet 3 01/25/2024 01/25/20 25 Active albuterol 108 (90 Base) MCG/ACT inhaler Inhale 2 puffs every 6 (six) hours if needed for wheezing. 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5 22.2 Started: 2002 Passive Smoke Exposure: Current Smokeless Tobacco: Never Tobacco Cessation:Ready to Q uit: Not Asked; Counseling Given: Not Answered Alcohol Use Standard Drinks/Week Comments Not Currently 0 (1 standard drink = 0.6 oz pur e alcohol) Depression Answer Date Recorded Patient Health Questionnaire-9 Score 3 02/10/2023 Housing Stability Answer Date Recorded What is your housing situation today? I have giovanicharlene sunshine 07/21/[address] you [...] enough money to get more: Never True 11/ 09/2022 Transportation Answer Date Recorded In the [...] 02/10/2023 SDOH Screening 02/11/2024 02/10/2023 COVID-19 Vaccine (2023-2 5 season) 2024 08/22/2022, 12/19/2020, 11/21/2020 Influenza [...] patient's age to complete this topic [facility] Care Teams Burglar Alarm Assembler Relationship Specialty Start Date End Date QuinonesRadhames Hester MD [address] [place] [phone] PCP - General Internal Medicine 02/13/20
--- OUTSIDE RECORDS SUMMARY | 2024-11-26 11:09 | XMS_ITS | Clinical Summary ---
Author Organization [facility] Address [address] [place] [address] Care Team Providers Care Environmental Scientist Name Role Phone Unavailable Primary Care Provider [...]
--- OUTSIDE RECORDS SUMMARY | 2024-11-26 11:09 | XMS_ITS | Encounter Summary ---
Author Organization [employer] Address [address] [facility] 7t [place] [address] Care Team Providers Care Endoscopy Nurse Name Role Phone Radhames Ojeda MD Primary Care Prov ider Reason for Visit * Reason Onset Date Comments Med Refill 01/13/2024 Encounter Details Date Type Department Care Team (Late st Contact Info) Description 01/13/2024 Telephone [facility] MEDICINE 230 [place] [address] Radhames Ojeda MD 505 [place] [address] Med Refill Social History Tobacco Use Types [...] encounter Miscellaneous Notes * Telephone Encounter - Rose Subramanian RN - 01/14/2024 3:46 PM EDT Placed call to pharmacy regarding message. Pt last filled wellbutrin rx on 04/30/23 for 90 day supply. If pt had been taking regularly pt should have been out by July of last year. No history of psych prescribing med prior to that and last rx filled was from PCP. Pt does have upcoming appt with PCP on 01/27/24. Will send message to PCP for review and see if PCP wants to wait to discuss med with pt during appt. * Telephone Encounter - Kari Awad - 01/14/2024 12:52 PM EDT Tc from pt calling again in regards to medication mention below, stated prescribed by psychiatrist however is not going anymore to specialty and stated discussed with PCP the script. * Telephone Encounter - John Ford - 01/13/2024 10:30 AM EDT TC from pt requesting medication refill. Medications needing refill: buPROPion XL (Wellbutrin XL) 150 MG 24 hr tablet To be sent to: [facility]/pharmacy #[id number] documented in this encounter Plan of Treatment Not on file documented as of this encounter Visit Diagnoses Not on filedocumented in this encounter Additional Health Concerns Assessment Noted Time PHQ-9 Depression Total Score: 3 02/11/20 23 2:02 PM EDT documented as of this encounter Care Teams Endoscopy Nurse Relationship Specialty Start Date End Date Radhames Ojeda MD [address] [place] [phone] PCP - General Internal Medicine 02/13/20 documented as of this encounter
--- OUTSIDE RECORDS SUMMARY | 2024-11-26 11:09 | XMS_ITS | Encounter Summary ---
Author Organization [employer] Address [address] [place] [address] 7t [place] [address] Care Team Providers Care Dairy Hand Name Role Phone Radhames Ojeda MD Primary Care Prov ider Reason for Visit * Reason Comments Med Refill Encounter Details Date Type Department Care Team ([facility] st Contact Info) Description 03/24/2023 Refill [facility] MED & PEDS 505 [place], [place] [phone] Radhames Ojeda MD 505 [place] [address] Chronic bilateral low back pain with bilateral [...] documented as of this encounter Care Teams Dairy Hand Relationship Specialty Start Date End Date Radhames Ojeda MD [address] [place] [phone] PCP - General Internal Medicine 02/13/20 documented as of this encounter
--- OUTSIDE RECORDS SUMMARY | 2024-11-26 11:09 | XMS_ITS | Clinical Summary ---
Author Organization [facility] Address [address] [place] [phone] Care Team Providers Care Clinical Law Professor Name Role Phone Unavailable Primary Care Provider [...]
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
[2024-11-26 12:39] LABS: MANUAL DIFF FLAG NO
[2024-11-26 12:42] LABS: Basophils Percent Auto 0.3 % (0-2); Eosinophils Absolute Auto 0.1 X10*3/uL (0.0-0.4); Eosinophils Percent Auto 0.6 % (0-4); Hematocrit 37.3 % (42.0-52.0); Hemoglobin 12.8 g/dl (14.0-18.0); Imm Gran Abs Auto 0.05 X10*3/uL (0.00-0.03); Imm Gran Pct Auto 0.3 % (0.0-0.4); Lymphocytes Percent Auto 13.5 % (20-40); Mean Corpuscular HGB Conc 34.3 g/dl (31.0-36.0); Mean Corpuscular Hemoglobin 30.1 pg (27.0-33.0); Mean Corpuscular Volume 87.8 fL (80.0-98.0); Mean Platelet Volume 11.2 fL (9.4-12.4); Monocytes Absolute Auto 1.2 X10*3/uL (0.1-1.2); Monocytes Percent Auto 8.2 % (2-11); Neutrophils Absolute Auto 11.4 x10*3/uL (2.0-8.3); Neutrophils Percent Auto 77.1 % (45-73); Platelet Count 284 X10*3/uL (160-400); Red Blood Count 4.25 X10*6/uL (4.60-5.80); Red Cell Distribution Width 12.4 % (11.0-16.0); White Blood Count 14.8 X10*3/uL (4.8-10.8)
[2024-11-26] MEDS: Ketorolac Tromethamine 30 MG/ML VIAL IVPUSH (12:48)
[2024-11-26 12:51] VITALS: BP 124/70; PULSE 65; RESP 18; TEMP 36.7; O2SAT 94
[2024-11-26 12:58] LABS: Alanine Aminotransferase 11 U/L (0-40); Albumin Level 4.5 g/dL (3.5-5.0); Alkaline Phosphatase 75 U/L (39-117); Anion Gap 16 (12-20); Aspartate Amino Transferase 12 U/L (5-37); Bilirubin Total 0.8 mg/dL (0.0-1.0); Blood Urea Nitrogen 10 mg/dL (9-16); C Reactive Protein 10.86 mg/dL (< or = 0.50); Carbon Dioxide 26 mmol/L (22-29); Chloride 103 mmol/L (96-108); Creatinine Clr Calc Pharmacy 142.7; Estimated Glomerular Filt Rate > 60; Glucose Random 79 mg/dL (60-115); Potassium 4.3 mmol/L (3.3-5.1); Sodium 141 mmol/L (135-145); Total Protein 8.7 g/dL (6.5-8.0)
[2024-11-26 12:59] LABS: Lactic Acid 1.5 mmol/L (0.5-2.0)
[2024-11-26 13:40] LABS: Erythrocyte Sedimentation Rate 87 MM/HR (0-15)
[2024-11-26] MEDS: Piperacillin Sodium/Tazobactam 3.375 GM in 0.9 % Sodium Chloride 50 ML IV (14:35)
[2024-11-26 14:56] VITALS: RESP 18
[2024-11-26] MEDS: HYDROmorphone HCl 1 MG/ML SYRINGE IVPUSH (14:56)
[2024-11-26] MEDS: vancomycin/NS 2,000 MG/500 ML PLAST..BAG 250 MG IV (15:11)
[2024-11-26 16:10] VITALS: BP 130/73; PULSE 69; RESP 16; O2SAT 98
[2024-11-26] MEDS: gadobutroL 10 ML VIAL IVPUSH (18:36)
[2024-11-26 21:05] VITALS: BP 132/84; PULSE 67; RESP 17; TEMP 36.6; O2SAT 97
[2024-11-26] MEDS: Amoxicillin/Potassium Clav 875 MG TABLET PO (21:08)
[2024-11-26] MEDS: Doxycycline Monohydrate 100 MG CAPSULE PO (21:08)
[2024-11-26 21:14] VITALS: BP 132/84; PULSE 67; RESP 17; TEMP 36.6; O2SAT 97
== END 2024-11-26 21:15 | disposition home or self-care (01) ==
PROVIDERS: Physician Assistant Medical; Emergency Provider Emergency Medicine
DX: J18.8 Other pneumonia, unspecified organism (principal); M54.9 Dorsalgia, unspecified; F19.10 Other psychoactive substance abuse, uncomplicated; F14.10 Cocaine abuse, uncomplicated; F17.210 Nicotine dependence, cigarettes, uncomplicated
CPT/HCPCS: 36415; 72072; 72100; 72157; 72158; 80053; 82550; 83605; 83735; 85025; 85652; 86140; 87040; 96365; 96366; 96367; 96375; 99285; A9585; J1171; J1885; J2543; J3370

== ENCOUNTER → 2024-11-26 10:24 | Outpatient (BNV) | payer MEDICAID, SELFPAY | PROVIDERS: Emergency Provider Emergency Medicine; Visit Provider Radiology Vascular & Interventional Radiology | DX: J90 Pleural effusion, not elsewhere classified (principal); M47.817 Spondylosis without myelopathy or radiculopathy, lumbosacral region; M51.360 Other intervertebral disc degeneration, lumbar region with discogenic back pain only; M54.6 Pain in thoracic spine | CPT/HCPCS: 72072; 72100; 72157; 72158 ==

== ENCOUNTER 2025-01-27 14:58 | Emergency (ER) | payer MEDICAID, SELFPAY ==
--- NOTE | ~2025-01-27 | US_ITS ---
CLINICAL HISTORY: RLE swelling, concern for DVT Venous duplex ultrasound right lower extremity Comparison: None Findings: The visualized deep veins are fully compressible with normal Doppler color flow and spectral tracings. No popliteal cyst. IMPRESSION: 1. Negative for right lower extremity deep vein thrombosis. This document has been electronically signed by: Casey Vasqeuz MD on 01/27/2025 16:28:18
--- NOTE | ~2025-01-27 | XR_ITS ---
CLINICAL HISTORY: infection, concern for osteo 2 view right tibia-fibula Comparison: None Findings No acute fractures or dislocations. Chronic healed fracture of the tibial diaphysis. No joint effusion. No significant arthritic change. No radiopaque foreign body. IMPRESSION: No aggressive osseous lesion. This document has been electronically signed by: Casey Vasquez MD on 01/27/2025 16:02:20
[2025-01-27 15:06] VITALS: BP 125/61; PULSE 65; RESP 16; TEMP 36.6; O2SAT 96; BMI 28.4
--- NOTE | 2025-01-27 15:08 | ED_ITS ---
HPI - General Adult General Chief complaint: Wound/Laceration Stated complaint: r lower leg cellulitis Time Seen by Provider: 01/27/25 16:09 Source: patient Mode of arrival: ambulatory Limitations: no limitations History of Present Illness ED Provider: Jose Cruz Srivastava PA-C HPI narrative: 39-year-old male with polysubstance use disorder, bipolar, depression presents to the emergency department today due to left lower leg pain. He states that he injected heroin into the area 2 days ago, and since then has noticed redness, swelling and increased pain of the right lower leg. He states the leg is painful while ambulating. He states he has had the same issue and had an infection in the same extremity a few years ago . He reports he is also experiencing some pain in his left hand over the 5th digit as he uses this area to inject heroin as well. He states his last heroin use was 2 days ago and he is currently on 150 mg of methadone daily from [facility], had his dose today. He states he is interested in getting some assistance with his drug use. He denies fever, chills, headache, nausea, vomiting, diarrhea. MD complaint: RLE cellulitis Onset (ago): day(s) (2) Location: upper extremity ( left hand) and lower extremity ( RLE) Radiation: non-radiation Severity: moderate Quality: aching Pain Consistency: constant Relieving factors: none Exacerbating factors: none Associated symptoms: denies other symptoms Treatments prior to arrival: none Related Data Home Medications ?Medication ?Instructions ?Recorded ?Confirmed bupropion HCl 150 mg 24 hr tablet, 150 mg PO DAILY 03/20/24 10/04/24 extended release bupropion HCl 300 mg 24 hr tablet, 300 mg PO DAILY 03/20/24 10/04/24 extended release clonazepam 0.5 mg tablet 0.5 mg PO DAILY PRN anxiety attack 07/09/24 10/04/24 dextroamphetamine-amphetamine ER 1 cap PO DAILY 07/09/24 10/04/24 20 mg 24hr capsule,extend release (Adderall XR) sertraline 100 mg tablet 150 mg PO DAILY 07/09/24 10/04/24 albuterol sulfate 90 mcg/actuation 2 puff inhalation Q6H PRN wheezing 10/04/24 10/04/24 aerosol inhaler (Ventolin HFA) quetiapine 100 mg tablet 100 mg PO BID@0900,1500 10/04/24 10/04/24 methadone 10 mg/mL oral 140 mg PO DAILY 10/05/24 11/05/24 concentrate (Methadone Intensol) Previous Rx's ?Medication ?Instructions ?Recorded gabapentin 600 mg tablet 1,200 mg (2 x 600 mg) PO TID 30 03/28/24 days #180 tabs amoxicillin 875 mg-potassium 1 tab PO BID 7 days #14 tabs 11/26/24 clavulanate 125 mg tablet doxycycline hyclate 100 mg tablet 100 mg PO BID 7 days #14 tabs 11/26/24 doxycycline hyclate 100 mg tablet 100 mg PO BID #20 tabs 01/27/25 Allergies Allergy/AdvReac Type Severity Reaction Status Date / Time buspirone AdvReac Severe EPS Verified 01/27/25 15:08 Review of Systems 2 Constitutional: Constitutional: Denies chills, Denies fever(s) and Denies headache(s) Eyes: Eyes: Denies change in vision and Denies other (No redness.) ENT: Denies headache(s), Denies nasal congestion, Denies nasal discharge, Denies neck pain and Denies sore throat Cardiovascular: Cardiovascular: Denies chest pain, Denies dyspnea, Denies dyspnea on exertion and Denies orthopnea Respiratory: Respiratory: Denies cough, Denies dyspnea and Denies dyspnea on exertion Gastrointestinal: Gastrointestinal: Denies abdominal pain, Denies melena, Denies hematochezia, Denies diarrhea, Denies nausea and Denies vomiting Musculoskeletal: Musculoskeletal: Denies back pain, Denies muscle weakness, Denies neck pain and Denies numbness Neurologic: Denies headache(s), Denies focal weakness and Denies numbness [facility] Past Medical History Attestation statement: The following information was validated with the patient. Source: old records reviewed Medical History Polysubstance abuse Cannabis use disorder Cocaine use disorder Opioid use disorder, severe, on maintenance therapy Alcohol use disorder Panic attacks ADHD Bipolar disorder Opiate abuse, continuous Depression Social History Social History Household Members: Other Household Members Other:: Mother and Stepfather Housing: House Do you presently have visiting nurse or other home services: No Alcohol intake: current Alcohol intake frequency: 3 or more drinks per day Alcohol type: hard liquor Patient Tobacco Use Status: Current everyday Tobacco user Tobacco use type: Cigarette Cigarettes Per Day: 30 Second Hand Smoke Exposure: No Substance Use Type: Crack/Cocaine and Heroin Substance Use Frequency: Chronic Longstanding Advance Directives: Yes Advance Directives Information Provided: No Advance Directives on File: No Do you have a plan to hurt others: No Plan service: No Sexual orientation: Straight/Heterosexual Physical Exam ED Vital Signs: Vital Signs - 24 hr 01/27/25 15:06 01/27/25 16:14 Temperature 98 F 97.7 F Pulse Rate 65 66 Respiratory Rate 16 16 Blood Pressure 125/61 131/76 Pulse Oximetry 96 96 Oxygen Delivery Method Room Air Room Air BMI result Body Mass Index 28.4 Const General: cooperative, no acute distress, alert and awake; No intoxicated appearing Orientation/consciousness: patient oriented x3 Limitations: no limitations HENMT Head: Yes normal to inspection Eyes General: appearance normal, both eyes and all related structures Pupils: Equal, round and reactive pupils present EOM: EOMs intact bilaterally Neck Neck: Yes normal visual inspection and Yes full ROM Resp Other: Lung sounds clear with scant wheeze that clears with cough. Effort & Inspection: normal respiratory effort Cardio Rate: regular rate Rhythm: regular rhythm Heart sounds: no murmurs Skin Other: Erythema to the right lower extremity overlying the tibia in several areas at the injection site. There was no induration or discharge. See photo below. Neuro General: patient oriented x3 Cranial nerves: Yes Equal, round and reactive pupils present Extrem Other: Full range of motion, no inguinal lymphadenopathy Left upper extremity: normal to inspection Right lower extremity: lower leg ( erythema over the prox, lateral calf, erythema over the anterior tibialis) Course Course Course Narrative: RME performed by Carmella Cardozo PA-C. Patient is a 39 year old assigned male at presenting to the emergency department with right lower leg cellulitis. Patient states he has a history of IVDU and over the last 2 days he has had right lower leg swelling / redness / pain. Detailed physical exam and review of systems are deferred to the primary care coordinator. Labs and imaging ordered. Patient placed back in the waiting room pending room availability and results. Medications Administered Discontinued Medications Generic Name Dose Route Start Last Admin Trade Name Freq PRN Reason Stop Dose Admin Doxycycline Monohydrate 100 mg 01/27/25 17:07 01/27/25 17:16 Doxycycline Monohydrate 100 Mg Capsule PO 01/27/25 17:08 100 mg ONCE ONE Administration Naloxone HCl 8 mg 01/27/25 17:07 01/27/25 17:16 Naloxone Hcl Nasal Take Home 4 Mg Walls NOSTRILALT 01/27/25 17:08 8 mg ONCE ONE Administration Medical Decision Making Medical Decision Making [facility] Narrative: 39-year-old male with polysubstance use disorder, bipolar, depression presents to the emergency department today due to left lower leg pain. He states that he injected heroin into the area 2 days ago, and since then has noticed redness, swelling and increased pain of the right lower leg. Vital signs stable, patient nontoxic appearing, in no acute distress. On physical exam right lower extremity with large border of erythema over the anterior tibialis extending into the lateral calf with mild warmth. No edema/pitting edema of the lower extremities, DP and femoral pulses 2+. No abscess or active drainage. Injection areas with scabs no open wounds or drainage, compartments soft- low suspicion for osteomyelitis, DVT, compartment syndrome. Labs, tib-fib x-ray, and venous duplex ordered from triage. Labs reveal leukocytosis at 14, elevated CRP at 12.5. This is most likely due to a cellulitis infection. These lab elevations are more reassuring due to vital signs being stable. X-ray does not show evidence of acute processes, does not show any evidence of osteomyelitis or gas in soft tissues. Patient will be treated with doxycycline to cover for MRSA. Area of erythema marked with purple skin marker to allow patient to observe for worsening cellulitis. Patient counseled on strict return precautions. Patient offered addiction medicine consult however refused, stating that he has a continue relationship with [facility]. Patient feels comfortable with discharge plan home. No further questions at this time. Differential Diagnosis Differential Diagnoses: The differential diagnosis associated with the presentation includes Cellulitis Abscess Osteomyelitis DVT Compartment syndrome Necrotizing fasciitis Admission/Observation Consideration of admission/observation: Escalation of care including admission/observation considered Lab Data [facility] Lab Attestation statement: I reviewed the patient's lab results. 01/27/25 15:29 01/27/25 15:29 Labs: Lab Results 01/27/25 Range/Units 15:29 WBC 14.3 H (4.8-10.8) X10*3/uL RBC 4.11 L (4.60-5.80) X10*6/uL Hgb 12.5 L (14.0-18.0) g/dl Hct 35.7 L (42.0-52.0) % MCV 86.9 (80.0-98.0) fL MCH 30.4 (27.0-33.0) pg MCHC 35.0 (31.0-36.0) g/dl RDW 12.4 (11.0-16.0) % Plt Count 181 D (160-400) X10*3/uL MPV 10.5 (9.4-12.4) fL Immature Gran % (Auto) 0.4 (0.0-0.4) % Neut % (Auto) 78.1 H (45-73) % Lymph % (Auto) 11.8 L (20-40) % [place] % (Auto) 8.9 (2-11) % Eos % (Auto) 0.6 (0-4) % Baso % (Auto) 0.2 (0-2) % Lymph # (Auto) 1.7 (1.2-4.9) X10*3/uL [place] # (Auto) 1.3 H (0.1-1.2) X10*3/uL Eos # (Auto) 0.1 (0.0-0.4) X10*3/uL Baso # (Auto) 0.0 (0.0-0.2) X10*3/uL Abs Immat Gran (auto) 0.06 H (0.00-0.03) X10*3/uL Absolute Neuts (auto) 11.2 H (2.0-8.3) x10*3/uL Absolute Nucleated RBC 0.000 (0.0-0.012) X10*3/uL Nucleated RBC % (auto) 0.0 (0.0-0.2) /100WBC ESR 36 H (0-15) MM/HR Sodium 141 (135-145) mmol/L Potassium 3.6 (3.3-5.1) mmol/L Chloride 105 (96-108) mmol/L Carbon Dioxide 25 (22-29) mmol/L Anion Gap 15 (12-20) BUN 21 H (9-16) mg/dL Creatinine 0.93 (0.5-1.4) mg/dL Estim Creat Clear Calc 123.9 Estimated GFR > 60 Random Glucose 127 H (60-115) mg/dL Calcium 9.1 D (8.4-10.2) mg/dL Magnesium 2.0 (1.6-2.6) mg/dL Total Bilirubin 0.6 (0.0-1.0) mg/dL AST 17 (5-37) U/L ALT 17 (0-40) U/L Alkaline Phosphatase 69 (39-117) U/L C-Reactive Protein 12.50 H (< or = 0.50) mg/dL Total Protein 7.4 (6.5-8.0) g/dL Albumin 4.3 (3.5-5.0) g/dL Independent Interpretation I performed an independent interpretation of an: Plain X-Ray and Ultrasound Interpretation: I have independently reviewed the x-ray and ultrasound and agree with the radiologist's reading Radiology Impression Discussion of test interpretation with radiology: I have reviewed the radiologist's reading. Radiologist Impression: Venous duplex ultrasound right lower extremity Comparison: None Findings: The visualized deep veins are fully compressible with normal Doppler color flow and spectral tracings. No popliteal cyst. IMPRESSION: 1. Negative for right lower extremity deep vein thrombosis. This document has been electronically signed by: Casey Vasquez MD on 01/27/2025 16:28:18 2 view right tibia-fibula Comparison: None Findings No acute fractures or dislocations. Chronic healed fracture of the tibial diaphysis. No joint effusion. No significant arthritic change. No radiopaque foreign body. IMPRESSION: No aggressive osseous lesion. This document has been electronically signed by: Casey Vasquez MD on 01/27/2025 16:02:20 External Record Review External record reviewed: Inpatient record, Office record and Outpatient record Prescription Management I considered prescription management with: Antibiotic (Doxycycline) Discharge Plan Discharge Clinical Impression: Cellulitis of leg, right Patient Disposition: Home, Self-Care Instructions: Cellulitis (ED) Additional Instructions: You were evaluated in the emergency department today for an infection called cellulitis of your right lower leg. Your labs showed an elevated white count due to the infection but were otherwise reassuring. Your x-ray imaging did not show any involvement of the bone or soft tissues. Your ultrasound did not show any evidence of a DVT which would be a clot in your leg. You will be started on a 10 day course of doxycycline for the infection. Please make sure that you take the entire course of medication to ensure that the infection clears up. Your leg was marked with purple marker to allow you to observe for any growth of the infection. If the redness on your leg passes the purple line please return to the emergency department. Please return to the emergency department if you experience fevers greater than 100.4?, nausea, vomiting, confusion, or any other new or concerning symptoms. We will also provide you with take-home Narcan. Follow-up with your primary care provider. Call this week to schedule a follow- up appointment. Return to the emergency department if you have any worsening of symptoms, or any concerns. Get well soon! Prescriptions: New doxycycline hyclate 100 mg tablet 100 mg PO BID Qty: 20 0RF No Action bupropion HCl 300 mg tablet extended release 24 hr 300 mg PO DAILY bupropion HCl 150 mg tablet extended release 24 hr 150 mg PO DAILY gabapentin 600 mg Tablet 1,200 mg PO TID 30 Days Qty: 180 0RF clonazepam 0.5 mg tablet 0.5 mg PO DAILY PRN (Reason: anxiety attack) sertraline 100 mg tablet 150 mg PO DAILY dextroamphetamine-amphetamine [Adderall XR] 20 mg capsule,extended release 24hr 1 cap PO DAILY albuterol sulfate [Ventolin HFA] 90 mcg/actuation HFA aerosol inhaler 2 puff inhalation Q6H PRN (Reason: wheezing) quetiapine 100 mg tablet 100 mg PO BID@0900,1500 methadone [Methadone Intensol] 10 mg/mL Concentrate 140 mg PO DAILY doxycycline hyclate 100 mg tablet 100 mg PO BID 7 Days Qty: 14 0RF amoxicillin-pot clavulanate 875-125 mg tablet 1 tab PO BID 7 Days Qty: 14 0RF Print Language: Citizen Of [place]
[2025-01-27 15:34] LABS: MANUAL DIFF FLAG NO
[2025-01-27 15:35] LABS: Basophils Percent Auto 0.2 % (0-2); Eosinophils Absolute Auto 0.1 X10*3/uL (0.0-0.4); Eosinophils Percent Auto 0.6 % (0-4); Hematocrit 35.7 % (42.0-52.0); Hemoglobin 12.5 g/dl (14.0-18.0); Imm Gran Abs Auto 0.06 X10*3/uL (0.00-0.03); Imm Gran Pct Auto 0.4 % (0.0-0.4); Lymphocytes Absolute Auto 1.7 X10*3/uL (1.2-4.9); Lymphocytes Percent Auto 11.8 % (20-40); Mean Corpuscular Hemoglobin 30.4 pg (27.0-33.0); Mean Corpuscular Volume 86.9 fL (80.0-98.0); Mean Platelet Volume 10.5 fL (9.4-12.4); Monocytes Absolute Auto 1.3 X10*3/uL (0.1-1.2); Monocytes Percent Auto 8.9 % (2-11); Neutrophils Absolute Auto 11.2 x10*3/uL (2.0-8.3); Neutrophils Percent Auto 78.1 % (45-73); Platelet Count 181 X10*3/uL (160-400); Red Blood Count 4.11 X10*6/uL (4.60-5.80); Red Cell Distribution Width 12.4 % (11.0-16.0); White Blood Count 14.3 X10*3/uL (4.8-10.8)
[2025-01-27 15:50] LABS: Alanine Aminotransferase 17 U/L (0-40); Albumin Level 4.3 g/dL (3.5-5.0); Alkaline Phosphatase 69 U/L (39-117); Anion Gap 15 (12-20); Aspartate Amino Transferase 17 U/L (5-37); Bilirubin Total 0.6 mg/dL (0.0-1.0); Blood Urea Nitrogen 21 mg/dL (9-16); Calcium 9.1 mg/dL (8.4-10.2); Carbon Dioxide 25 mmol/L (22-29); Chloride 105 mmol/L (96-108); Creatinine Clr Calc Pharmacy 123.9; Estimated Glomerular Filt Rate > 60; Glucose Random 127 mg/dL (60-115); Potassium 3.6 mmol/L (3.3-5.1); Sodium 141 mmol/L (135-145); Total Protein 7.4 g/dL (6.5-8.0)
[2025-01-27 16:12] LABS: Erythrocyte Sedimentation Rate 36 MM/HR (0-15)
[2025-01-27 16:14] VITALS: BP 131/76; PULSE 66; RESP 16; TEMP 36.5; O2SAT 96
--- NOTE | 2025-01-27 16:20 | PC.NURSE ---
Patient is a 39 yo male, history of bipolar disorder, panic attacks, ADHD, polysubstance use disorder-cannabis, sedatives,opiates, alcohol use disorder presents with multiple areas of redness, swelling and several non-draining wounds to right leg from injecting heroin/cocaine. Areas are cellulitic in appearance. Alert and oriented. Lungs clear bilat. Respirations even and non-labored. Abdomen soft, non-tender with positive bowel sounds. Positive pedal pulses with good CSM noted.
[2025-01-27] MEDS: Doxycycline Monohydrate 100 MG CAPSULE PO (17:16)
[2025-01-27] MEDS: Naloxone HCl Nasal TAKE HOME 4 MG SPRAY 8 MG NOSTRILALT (17:16)
[2025-01-27 17:45] VITALS: BP 121/76; PULSE 65; RESP 18; TEMP 36.5; O2SAT 99
[2025-01-27 17:50] VITALS: BP 121/76; PULSE 65; RESP 18; TEMP 36.5; O2SAT 99
== END 2025-01-27 17:52 | disposition home or self-care (01) ==
PROVIDERS: Physician Assistant Medical; Emergency Provider Emergency Medicine Emergency Medical Services
DX: L03.115 Cellulitis of right lower limb (principal); R60.0 Localized edema; M79.604 Pain in right leg; Z79.899 Other long term (current) drug therapy
CPT/HCPCS: 36415; 73590; 80053; 83735; 85025; 85652; 86140; 93971; 99284

== ENCOUNTER → 2025-01-27 15:08 | Outpatient (BNV) | payer MEDICAID, SELFPAY | PROVIDERS: Visit Provider Nuclear Medicine | DX: R22.41 Localized swelling, mass and lump, right lower limb (principal); L03.115 Cellulitis of right lower limb | CPT/HCPCS: 73590; 93971 ==

== ENCOUNTER 2025-02-18 10:35 | Emergency (ER) | payer MEDICAID, SELFPAY ==
[2025-02-18 10:41] VITALS: BP 101/48; PULSE 59; RESP 16; TEMP 36.3; O2SAT 97; BMI 28.2
--- NOTE | 2025-02-18 10:50 | PC.NURSE ---
faxed methadone verification for to pharmacy
--- NOTE | 2025-02-18 10:50 | ED_ITS ---
HPI - General Adult General Chief complaint: General Medical Stated complaint: seeking methadone dose Time Seen by Provider: 02/18/25 10:50 Source: patient Mode of arrival: ambulatory Limitations: no limitations History of Present Illness ED Provider: Carmella Cardozo PA-C HPI narrative: Patient is a 39 year old assigned male at with a history of substance use disorder - on methadone presenting to the emergency department today requesting his methadone dose. Patient states that he just barely missed the clinic today and needs his methadone dose. Patient denies any dizziness, lightheadedness, abdominal pain, nausea, vomiting, fever, chills, blurry vision, double vision, loss of vision, chest pain, difficulty breathing, shortness of breath, back pain, night sweats, pain with urination, increased urinary frequency, increased urinary urgency, blood in his urine or stool, syncope or a near syncopal episode, recent trauma or falls, bowel incontinence, bladder incontinence, or an y other complaints at this time. Relieving factors: none Exacerbating factors: none Associated symptoms: denies other symptoms Treatments prior to arrival: none Related Data Home Medications ?Medication ?Instructions ?Recorded ?Confirmed bupropion HCl 150 mg 24 hr tablet, 150 mg PO DAILY 03/20/24 10/04/24 extended release bupropion HCl 300 mg 24 hr tablet, 300 mg PO DAILY 03/20/24 10/04/24 extended release clonazepam 0.5 mg tablet 0.5 mg PO DAILY PRN anxiety attack 07/09/24 10/04/24 dextroamphetamine-amphetamine ER 1 cap PO DAILY 07/09/24 10/04/24 20 mg 24hr capsule,extend release (Adderall XR) sertraline 100 mg tablet 150 mg PO DAILY 07/09/24 10/04/24 albuterol sulfate 90 mcg/actuation 2 puff inhalation Q6H PRN wheezing 10/04/24 10/04/24 aerosol inhaler (Ventolin HFA) quetiapine 100 mg tablet 100 mg PO BID@0900,1500 10/04/24 10/04/24 methadone 10 mg/mL oral 140 mg PO DAILY 10/05/24 11/05/24 concentrate (Methadone Intensol) Previous Rx's ?Medication ?Instructions ?Recorded gabapentin 600 mg tablet 1,200 mg (2 x 600 mg) PO TID 30 03/28/24 days #180 tabs amoxicillin 875 mg-potassium 1 tab PO BID 7 days #14 tabs 11/26/24 clavulanate 125 mg tablet doxycycline hyclate 100 mg tablet 100 mg PO BID 7 days #14 tabs 11/26/24 doxycycline hyclate 100 mg tablet 100 mg PO BID #20 tabs 01/27/25 Allergies Allergy/AdvReac Type Severity Reaction Status Date / Time buspirone AdvReac Severe EPS Verified 02/18/25 10:42 Review of Systems Constitutional: Constitutional: Reports no additional constitutional complaints, Denies chills, Denies fever(s) and Denies night sweats Eyes: Eyes: Reports no additional eye complaints, Denies blurry vision, Denies change in vision, Denies diplopia, Denies eye discharge, Denies loss of vision and Denies eye pain ENT: Denies dizziness Cardiovascular: Cardiovascular: Reports no additional cardiovascular complaints, Denies chest pain, Denies lightheadedness, Denies Loss of Consciousness and Denies dyspnea Respiratory: Respiratory: Reports no additional respiratory complaints and Denies dyspnea Gastrointestinal: Gastrointestinal: Reports no additional gastrointestinal complaints, Denies abdominal pain, Denies melena, Denies hematochezia, Denies change in bowel habits and Denies change in stool character Genitourinary: Genitourinary: Reports no additional male genitourinary co mplaints, Denies hematuria, Denies oliguria, Denies difficulty urinating, Denies dysuria, Denies urinary frequency, Denies urinary hesitancy, Denies urinary incontinence and Denies urinary urgency Musculoskeletal: Musculoskeletal: Reports no additional musculoskeletal complaints, Denies numbness and Denies tingling Neurologic: Denies dizziness, Denies loss of vision, Denies numbness and Denies tingling Psychiatric: Psychiatric: Reports no additional psychiatric complaints Endocrine: Endocrine: Reports no additional endocrine complaints Hematologic/Lymphatic: Hematologic/Lymphatic: Reports no additional hematologic/lymphatic complaints Allergic/Immunologic: Allergic/Immunologic: Reports no additional allergic/immunologic complaints PMFSH Past Medical History Attestation statement: The following information was validated with the patient. Source: old records reviewed and nursing notes reviewed Medical History Polysubstance abuse Cannabis use disorder Cocaine use disorder Opioid use disorder, severe, on maintenance therapy Alcohol use disorder Panic attacks ADHD Bipolar disorder Opiate abuse, continuous Depression Social History Social History Household Members: Other Household Members Other:: Mother and Stepfather Housing: House Do you presently have visiting nurse or other home services: No Alcohol intake: current Alcohol intake frequency: 3 or more drinks per day Alcohol type: hard liquor Patient Tobacco Use Status: Current everyday Tobacco user Tobacco use type: Cigarette Cigarettes Per Day: 30 Second Hand Smoke Exposure: No Substance Use Type: Crack/Cocaine and Heroin Advance Directives: No Advance Directives Information Provided: Yes Do you have a plan to hurt others: No Plan service: No Sexual orientation: Straight/Heterosexual Physical Exam ED Vital Signs: Vital Signs - 24 hr 02/18/25 10:41 Temperature 97.4 F Pulse Rate 59 Respiratory Rate 16 Blood Pressure 101/48 L Pulse Oximetry 97 Oxygen Delivery Method Room Air BMI result Body Mass Index 28.2 Const General: cooperative, no acute distress, alert and awake Nutritional Appearance: well nourished Orientation/consciousness: patient oriented x3 HENMT Head: Yes normal to inspection and Yes atraumatic Ears: hearing grossly normal bilaterally and external ears normal General nose exam: Normal external nose present, no nasal discharge noted and no epistaxis Face and sinus: Yes normal facial exam, No abrasion and No laceration Mouth: Normal oral and palatal mucosa present, no drooling and no muffled voice Eyes General: appearance normal, both eyes and all related structures Periorbital: periorbital findings normal Eyelids: Yes eyelids normal Conjunctivae: conjunctivae normal Pupils: Equal, round and reactive pupils present EOM: EOMs intact bilaterally Neck Neck: Yes normal visual inspection, Yes full ROM and Yes no lymphadenopathy Resp Effort & Inspection: normal respiratory effort and able to speak in complete sentences Neuro General: patient oriented x3, moves all extremities and CN's II-XI intact bilaterally Cranial nerves: Yes Equal, round and reactive pupils present Cognition (Neuro): normal cognition Extrem General: Yes normal to inspection, Yes full ROM and Yes capillary refill normal Psych Appearance: grossly normal Mental Status: mental status grossly normal Affect: normal affect Attitude: cooperative Thought process: Normal thought process present Thought content: Normal thought content present Insight: Good insight present (Psych) Medical Decision Making Medical Decision Making MDM Narrative: Patient is a 39 year old assigned male at with a history of substance use disorder - on methadone presenting to the emergency department today requesting his methadone dose. Patient's physical exam was unremarkable. I explained my physical exam findings to the patient. I answered all questions asked by the patient. While awaiting for his methadone dose - the patient eloped from the department. I called him and he explained that he wanted to run to the local [employer] for cigarettes and would be back at some point today to get his dose. Patient is considered to have left without completing treatment. Differential Diagnosis Differential Diagnoses: The differential diagnosis associated with the presentation includes Methadone dose Methadone use Discharge Plan Discharge Clinical Impression: Opiate use Patient Disposition: Left W/O Completing Treatment Instructions: Opioid Use Disorder (ED) Prescriptions: No Action bupropion HCl 300 mg tablet extended release 24 hr 300 mg PO DAILY bupropion HCl 150 mg tablet extended release 24 hr 150 mg PO DAILY gabapentin 600 mg Tablet 1,200 mg PO TID 30 Days Qty: 180 0RF clonazepam 0.5 mg tablet 0.5 mg PO DAILY PRN (Reason: anxiety attack) sertraline 100 mg tablet 150 mg PO DAILY dextroamphetamine-amphetamine [Adderall XR] 20 mg capsule,extended release 24hr 1 cap PO DAILY albuterol sulfate [Ventolin HFA] 90 mcg/actuation HFA aerosol inhaler 2 puff inhalation Q6H PRN (Reason: wheezing) quetiapine 100 mg tablet 100 mg PO BID@0900,1500 methadone [Methadone Intensol] 10 mg/mL Concentrate 140 mg PO DAILY doxycycline hyclate 100 mg tablet 100 mg PO BID 7 Days Qty: 14 0RF amoxicillin-pot clavulanate 875-125 mg tablet 1 tab PO BID 7 Days Qty: 14 0RF doxycycline hyclate 100 mg tablet 100 mg PO BID Qty: 20 0RF Referrals: [facility] Family Medicine [Provider Group] (Call to establish and follow up with a primary care provider. If you already have a primary care provider, please follow up with them.) [facility] [Provider Group] (Call to establish and follow up with a primary care provider. If you already have a primary care provider, please follow up with them.) [facility] [Provider Group] (Call to establish and follow up with a primary care provider. If you already have a primary care provider, please follow up with them.) [facility] Primary Care, [facility] [Provider Group] (Call to establish and follow up with a primary care provider. If you already have a primary care provider, please follow up with them.) [facility] Primary Care, [facility] [Provider Group] (Call to establish and follow up with a primary care provider. If you already have a primary care provider, please follow up with them.) Print Language: Anguillan
--- NOTE | 2025-02-18 10:59 | HE.PHANOTE ---
RE: methadone Last dose at [facility] 02/16/25 150mg @0704
--- NOTE | 2025-02-18 11:05 | PC.NURSE ---
called pt in wr without answer, security believed he stepped outside, security looked outside without finding patient- PIT provider notified.
--- NOTE | 2025-02-18 11:10 | PC.NURSE ---
provider called patient who stated he went to the gas station to buy cigarettes and will return.
--- NOTE | 2025-02-18 11:36 | PC.NURSE ---
pt has not returned for medication
--- NOTE | 2025-02-18 11:40 | PC.NURSE ---
pt has not returned, 2nd called placed by PIT provider, pt will be taken off as LWCT
== END 2025-02-18 11:43 | disposition left against medical advice (07) ==
PROVIDERS: Emergency Provider Emergency Medicine
DX: F11.20 Opioid dependence, uncomplicated (principal)
CPT/HCPCS: 99281

== ENCOUNTER 2025-03-06 06:58 | Emergency (ER) | payer MEDICAID, SELFPAY ==
--- NOTE | ~2025-03-06 | XR_ITS ---
EXAMINATION: XR HAND, RIGHT CLINICAL INFORMATION: rt hand pain COMPARISON: None available. TECHNIQUE: PA, lateral, and oblique views of the right hand. FINDINGS: Metacarpal bones are intact. The phalanges are intact with normal alignment. Carpal bones are intact with normal alignment. Distal radius and ulna are intact. No subcutaneous emphysema. No metallic or radiopaque foreign body. XR/XR hand RT min 3V IMPRESSION: No acute fracture or dislocation. Electronically signed by: Jaime David MD 03/06/2025 08:25 AM EDT
[2025-03-06 07:06] VITALS: BP 153/88; PULSE 69; RESP 16; TEMP 36.3; O2SAT 100; BMI 26.5
--- OUTSIDE RECORDS SUMMARY | 2025-03-06 07:27 | XMS_ITS | Encounter Summary ---
Author Organization [employer] Address [address] [place] [address] Care Team Providers Care Emotionally Impaired Teacher Name Role Phone Radhames Ojeda MD Primary Care Prov ider Reason for Visit * Reason Onset Date Comments Med Refill 01/13/2024 Encounter Details Date Type Department Care Team (Late st Contact Info) Description 01/13/2024 Telephone [facility] [address] [place] [address] Radhames Ojeda MD [address], [place] [id number] Med Refill Social History Tobacco Use Types Packs/Day Years Used Date Smoking Tobacco: Every Day Cigarettes 0.5 22.5 Started: 2002 Passive Smoke Exposure: Current Smokeless [...] 24 hr tablet To be sent to: [facility]/pharmacy #[id number] documented in this encounter Plan of Treatment Not on file documented as of this encounter Visit Diagnoses Not on filedocumented in this encounter Additional Health Concerns Assessment Noted Time PHQ-9 Depression Total Score: 3 02/11/20 23 2:02 PM EDT documented as of this encounter Care Teams Emotionally Impaired Teacher Relationship Specialty Start Date End Date Radhames Ojeda MD [address] [place] [id number] PCP - General Internal Medicine 02/13/20 documented as of this encounter
--- NOTE | 2025-03-06 08:03 | ED.EXTPRO ---
HPI - Extremity Problem General Chief complaint: Extremity Problem Stated complaint: Finger Pain R Hand Time Seen by Provider: 03/06/25 07:50 Source: patient Mode of arrival: ambulatory Limitations: no limitations History of Present Illness HPI Narrative: this is 40 years old male presented to emergency department complaining of tingling in the right 5th finger ongoing for about 3 days denies any injury. He does have history of IVDA he does inject in the right upper extremity MD Complaint: extremity pain Onset (ago): hour(s) (3) Pain Consistency: constant Location: right Radiation: none Relieving factors: nothing Exacerbating factors: nothing Associated symptoms: denies other symptoms Related Data Home Medications ?Medication ?Instructions ?Recorded ?Confirmed bupropion HCl 150 mg 24 hr tablet, 150 mg PO DAILY 03/20/24 10/04/24 extended release bupropion HCl 300 mg 24 hr tablet, 300 mg PO DAILY 03/20/24 10/04/24 extended release clonazepam 0.5 mg tablet 0.5 mg PO DAILY PRN anxiety attack 07/09/24 10/04/24 dextroamphetamine-amphetamine ER 1 cap PO DAILY 07/09/24 10/04/24 20 mg 24hr capsule,extend release (Adderall XR) sertraline 100 mg tablet 150 mg PO DAILY 07/09/24 10/04/24 albuterol sulfate 90 mcg/actuation 2 puff inhalation Q6H PRN wheezing 10/04/24 10/04/24 aerosol inhaler (Ventolin HFA) quetiapine 100 mg tablet 100 mg PO BID@0900,1500 10/04/24 10/04/24 methadone 10 mg/mL oral 140 mg PO DAILY 10/05/24 11/05/24 concentrate (Methadone Intensol) Previous Rx's ?Medication ?Instructions ?Recorded gabapentin 600 mg tablet 1,200 mg (2 x 600 mg) PO TID 30 03/28/24 days #180 tabs amoxicillin 875 mg-potassium 1 tab PO BID 7 days #14 tabs 11/26/24 clavulanate 125 mg tablet doxycycline hyclate 100 mg tablet 100 mg PO BID 7 days #14 tabs 11/26/24 doxycycline hyclate 100 mg tablet 100 mg PO BID #20 tabs 01/27/25 Allergies Allergy/AdvReac Type Severity Reaction Status Date / Time buspirone AdvReac Severe EPS Verified 03/06/25 07:07 Review of Systems Constitutional: Constitutional: Reports no additional constitutional complaints ENT: Reports system reviewed and no additional complaints, except as documented Cardiovascular: Cardiovascular: Reports no additional cardiovascular complaints Gastrointestinal: Gastrointestinal: Reports no additional gastrointestinal complaints [facility] Past Medical History [facility] Narrative: history of polysubstance abuse, history of bipolar disorder Medical History Polysubstance abuse Cannabis use disorder Cocaine use disorder Opioid use disorder, severe, on maintenance therapy Alcohol use disorder Panic attacks ADHD Bipolar disorder Opiate abuse, continuous Depression Social History Social History Household Members: Other Household Members Other:: Mother and Stepfather Housing: House Do you presently have visiting nurse or other home services: No Alcohol intake: current Alcohol intake frequency: 3 or more drinks per day Alcohol type: hard liquor Patient Tobacco Use Status: Current everyday Tobacco user Tobacco use type: Cigarette Cigarettes Per Day: 30 Second Hand Smoke Exposure: No Substance Use Type: Crack/Cocaine and Heroin service: No Sexual orientation: Straight/Heterosexual Physical Exam Vital Signs: Vital Signs: Last Vital Signs Temp 97.4 F 03/06/25 09:45 Pulse 69 03/06/25 09:45 Resp 16 03/06/25 09:45 BP 153/88 H 03/06/25 09:45 Pulse Ox 100 03/06/25 09:45 O2 Del Method Room Air 03/06/25 09:45 BMI result Body Mass Index 26.5 Const: General: cooperative Orientation/consciousness: oriented to person and patient oriented x3 HEENT: Head: Yes normal to inspection General nose exam: Normal external nose present Face and sinus: Yes normal facial exam Mouth: Normal oral and palatal mucosa present Neck: Neck: Yes normal visual inspection Chest: Chest palpation & inspection: normal inspection of the chest Resp: Effort & Inspection: normal respiratory effort Auscultation: clear to auscultation bilaterally Cardio: Jugular venous distension: no JVD Palpation: normal PMI Rate: regular rate GI: Inspection: Yes normal to inspection Palpation (GI): Soft to palpation, not firm and nontender Percussion: Yes normal to percussion Auscultation: normal bowel sounds Skin: General skin exam: elasticity normal and turgor normal Neuro: General: oriented to person and patient oriented x3 Cranial nerves: Yes CN's II-XII intact bilaterally Cognition (Neuro): normal cognition Extrem: Other: examination of the right extremity shows no deformi Course Reevaluation(s) Reevaluation #1: xray normal neuro intact will d/c Time: 09:31 Medical Decision Making Medical Decision Making [facility] Narrative: he is here with a right 5th finger tingling neurologically is intact most likely is peripheral neuropathy we will obtain an x-ray to complete the evaluation to rule out foreign body retained in the hand such as needles Differential Diagnosis Differential Diagnoses: The differential diagnosis associated with the presentation includes neuropathy / I do not think he has a CVA with right 5th finger numbness Admission/Observation Consideration of admission/observation: Escalation of care including admission/observation considered Discharge Plan Discharge Clinical Impression: Paresthesia and pain of right extremity Patient Disposition: Home, Self-Care Instructions: Paresthesia (ED) Additional Instructions: Follow-up with your primary care physician return to the emergency room if you worse if you have a weakness in the arm /fever Prescriptions: No Action bupropion HCl 300 mg tablet extended release 24 hr 300 mg PO DAILY bupropion HCl 150 mg tablet extended release 24 hr 150 mg PO DAILY gabapentin 600 mg Tablet 1,200 mg PO TID 30 Days Qty: 180 0RF clonazepam 0.5 mg tablet 0.5 mg PO DAILY PRN (Reason: anxiety attack) sertraline 100 mg tablet 150 mg PO DAILY dextroamphetamine-amphetamine [Adderall XR] 20 mg capsule,extended release 24hr 1 cap PO DAILY albuterol sulfate [Ventolin HFA] 90 mcg/actuation HFA aerosol inhaler 2 puff inhalation Q6H PRN (Reason: wheezing) quetiapine 100 mg tablet 100 mg PO BID@0900,1500 methadone [Methadone Intensol] 10 mg/mL Concentrate 140 mg PO DAILY doxycycline hyclate 100 mg tablet 100 mg PO BID 7 Days Qty: 14 0RF amoxicillin-pot clavulanate 875-125 mg tablet 1 tab PO BID 7 Days Qty: 14 0RF doxycycline hyclate 100 mg tablet 100 mg PO BID Qty: 20 0RF Referrals: Physician,Unknown J [Primary Care Provider] - 2 days Interventions: ED Discharge Assessment Last Done: 03/06/25 09:45 Discharge Date/Time: 03/06/25 09:58 Print Language: Paraguayan
[2025-03-06 09:45] VITALS: BP 153/88; PULSE 69; RESP 16; TEMP 36.3; O2SAT 100
== END 2025-03-06 09:58 | disposition home or self-care (01) ==
PROVIDERS: Emergency Provider Emergency Medicine
DX: R20.2 Paresthesia of skin (principal); M79.644 Pain in right finger(s)
CPT/HCPCS: 73130; 99282; 99283

== ENCOUNTER → 2025-03-06 08:02 | Outpatient (BNV) | payer MEDICAID, SELFPAY | PROVIDERS: Emergency Provider Emergency Medicine; Visit Provider Radiology Diagnostic Radiology | DX: M79.641 Pain in right hand (principal) | CPT/HCPCS: 73130 ==

== ENCOUNTER 2025-03-15 22:22 | Inpatient (IN) | payer MEDICAID, SELFPAY ==
[2025-03-15 22:49] VITALS: BP 106/72; PULSE 62; RESP 18; TEMP 36.9; O2SAT 98; BMI 27.1
--- NOTE | 2025-03-15 23:07 | MHC.EDTECH ---
IVDU - Patient is a hard stick, refused x2 attempt.
[2025-03-16] VITALS (7 sets, daily range): BP systolic 92–126; BP diastolic 54–83; PULSE 51–57; RESP 16–18; TEMP 36.1–36.8; O2SAT 96–99; BMI 27.8
--- NOTE | 2025-03-16 00:15 | ED.SKABFB ---
HPI - Skin/Abscess/Foreign Bdy General Chief complaint: Skin/Abscess/Foreign Body Stated complaint: christine lower legs infected,poison carola Time Seen by Provider: 03/15/25 23:58 Source: patient Mode of arrival: ambulatory Limitations: no limitations History of Present Illness ED Provider: Dr. Bre Boggs HPI narrative: Patient comes to the emergency room complaining of worsening lower extremity cellulitis. Patient states that he was discharged from [facility] 3 days ago. Patient was sent home with a prescription for cephalexin and Bactrim. Patient admits that he takes his medications maybe once a day instead of twice a day because he is not at home. Patient denies fever chills. Patient states that his lower extremities are still draining fluid. Patient states that the pain is getting worse and the redness significantly worsened since he was discharged from [facility]. Related Data Home Medications ?Medication ?Instructions ?Recorded ?Confirmed bupropion HCl 150 mg 24 hr tablet, 150 mg PO DAILY 03/20/24 10/04/24 extended release bupropion HCl 300 mg 24 hr tablet, 300 mg PO DAILY 03/20/24 10/04/24 extended release clonazepam 0.5 mg tablet 0.5 mg PO DAILY PRN anxiety attack 07/09/24 10/04/24 dextroamphetamine-amphetamine ER 1 cap PO DAILY 07/09/24 10/04/24 20 mg 24hr capsule,extend release (Adderall XR) sertraline 100 mg tablet 150 mg PO DAILY 07/09/24 10/04/24 albuterol sulfate 90 mcg/actuation 2 puff inhalation Q6H PRN wheezing 10/04/24 10/04/24 aerosol inhaler (Ventolin HFA) quetiapine 100 mg tablet 100 mg PO BID@0900,1500 10/04/24 10/04/24 methadone 10 mg/mL oral 140 mg PO DAILY 10/05/24 11/05/24 concentrate (Methadone Intensol) Previous Rx's ?Medication ?Instructions ?Recorded gabapentin 600 mg tablet 1,200 mg (2 x 600 mg) PO TID 30 03/28/24 days #180 tabs amoxicillin 875 mg-potassium 1 tab PO BID 7 days #14 tabs 11/26/24 clavulanate 125 mg tablet doxycycline hyclate 100 mg tablet 100 mg PO BID 7 days #14 tabs 11/26/24 doxycycline hyclate 100 mg tablet 100 mg PO BID #20 tabs 01/27/25 Allergies Allergy/AdvReac Type Severity Reaction Status Date / Time buspirone AdvReac Severe EPS Verified 03/15/25 22:53 Review of Systems Review of Systems: Constitutional : No Weight loss, No Fever, No Chills, No Night Sweats, No Fatigue, No Malaise ENT/Mouth : No Hearing loss, No Ear Pain, No Nasal Congestion, No Sinus Pain, No Hoarseness, No sore throat, No Rhinorrhea, No Swallowing Difficulty Eyes: No Eye Pain, No Swelling, No Redness, No Foreign Body, No Discharge, No Vision Changes Cardiovascular : No Chest Pain, No SOB, No Dyspnea on Exertion, No Orthopnea, No Edema, No Palpitations Respiratory : No Cough, No Sputum, No Wheezing, No Smoke Exposure, No Dyspnea Gastrointestinal : No Nausea, No Vomiting, No Diarrhea, No Constipation, No abdominal Psych : No Anxiety/Panic, No Depression, No SI/HI/AH/VH, No Social Issues, Heme/Lymph: No Bruising, No Bleeding,No Lymphadenopathy Endocrine : No Polyuria, No Polydipsia, No Temperature Intolerance ON LICENSE OF [facility] Past Medical History Medical History Polysubstance abuse Cannabis use disorder Cocaine use disorder Opioid use disorder, severe, on maintenance therapy Alcohol use disorder Panic attacks ADHD Bipolar disorder Opiate abuse, continuous Depression Social History Social History Household Members: Other Household Members Other:: Mother and Stepfather Housing: House Do you presently have visiting nurse or other home services: No Alcohol intake: current Alcohol intake frequency: 3 or more drinks per day Alcohol type: hard liquor Patient Tobacco Use Status: Current everyday Tobacco user Tobacco use type: Cigarette Cigarettes Per Day: 30 Second Hand Smoke Exposure: No Substance Use Type: Crack/Cocaine and Heroin Advance Directives: No Do you have a plan to hurt others: No Plan service: No Sexual orientation: Straight/Heterosexual Physical Exam Vital Signs: Vital Signs: Last Vital Signs Temp 98.5 F 03/15/25 22:49 Pulse 62 03/15/25 22:49 Resp 18 03/15/25 22:49 BP 106/72 03/15/25 22:49 Pulse Ox 98 03/15/25 22:49 O2 Del Method Room Air 03/15/25 22:49 BMI result Body Mass Index 27.1 Const: Other: Appearance: Alert. Oriented X3. No acute distress. Eyes: Pupils equal, round and reactive to light. ENT: Pharynx normal. Neck: Normal inspection. Neck supple. No lymph nodes noted. No crepitus CVS: Normal heart rate and rhythm. Pulses normal. Normal S1 and S2 Respiratory: No respiratory distress. Breath sounds normal. No Wheezing. No rales Abdomen: Soft and nontender. No rigidity. No distention. Skin: Skin warm and dry. Normal skin color. Normal skin turgor. See extremities below Extremities: No lower extremity edema. No Lacerations. No Rash patient has bilateral cellulitis, eschars, mild serosanguineous drainage from the right barba, see pictures below Neuro: Oriented X 3. No motor deficit. No sensory deficit. Moving all extremities. No slurred speech. CN 2 through 12 grossly intact Psych: calm, cooperative, normal affect Medical Decision Making Medical Decision Making [facility] Narrative: My interpretation of labs: No significant abnormality in patient's hematology or chemistry. No fever. I discussed the physical exam with Dr. Redd. Unfortunately, patient is not very good at taking his medications and his legs are getting worse. Ideally he should be admitted, patient is not reliable taking p.o. meds. Dr. Redd I agreed to admit the patient. Patient states that he is willing to stay for his treatment Differential Diagnosis Differential Diagnoses: The differential diagnosis associated with the presentation includes (Cellulitis, abscesses) Admission/Observation Consideration of admission/observation: Escalation of care including admission/observation considered Consult Healthcare Provider Management of the patient was discussed with: Hospitalist Lab Data [facility] Lab Attestation statement: I reviewed the patient's lab results. 03/16/25 00:18 03/16/25 00:18 Labs: Lab Results 03/16/25 Range/Units 00:18 WBC 9.7 (4.8-10.8) X10*3/uL RBC 3.66 L (4.60-5.80) X10*6/uL Hgb 11.0 L (14.0-18.0) g/dl Hct 31.4 L (42.0-52.0) % MCV 85.8 (80.0-98.0) fL MCH 30.1 (27.0-33.0) pg MCHC 35.0 (31.0-36.0) g/dl RDW 12.5 (11.0-16.0) % Plt Count 212 (160-400) X10*3/uL MPV 10.9 (9.4-12.4) fL Immature Gran % (Auto) 0.3 (0.0-0.4) % Neut % (Auto) 66.2 (45-73) % Lymph % (Auto) 19.8 L (20-40) % Kings % (Auto) 9.0 (2-11) % Eos % (Auto) 4.5 H (0-4) % Baso % (Auto) 0.2 (0-2) % Lymph # (Auto) 1.9 (1.2-4.9) X10*3/uL Kings # (Auto) 0.9 (0.1-1.2) X10*3/uL Eos # (Auto) 0.4 (0.0-0.4) X10*3/uL Baso # (Auto) 0.0 (0.0-0.2) X10*3/uL Abs Immat Gran (auto) 0.03 (0.00-0.03) X10*3/uL Absolute Neuts (auto) 6.4 (2.0-8.3) x10*3/uL Absolute Nucleated RBC 0.000 (0.0-0.012) X10*3/uL Nucleated RBC % (auto) 0.0 (0.0-0.2) /100WBC Sodium 140 (135-145) mmol/L Potassium 3.7 (3.3-5.1) mmol/L Chloride 105 (96-108) mmol/L Carbon Dioxide 26 (22-29) mmol/L Anion Gap 13 (12-20) BUN 13 (9-16) mg/dL Creatinine 0.73 (0.5-1.4) mg/dL Estim Creat Clear Calc 143.2 Estimated GFR > 60 Random Glucose 111 (60-115) mg/dL Total Bilirubin 0.6 (0.0-1.0) mg/dL AST 25 (5-37) U/L ALT 10 (0-40) U/L Alkaline Phosphatase 60 (39-117) U/L Total Protein 7.2 (6.5-8.0) g/dL Albumin 4.3 (3.5-5.0) g/dL Critical Care Time Critical Care Time Critical Care Time: Yes Total Critical Care Time: 60 Attestation: I have personally provided critical care time. Time includes review of lab data, radiology results, discussion with consultants, and monitoring for potential decompensation. Intervention performed as documented. Discharge Plan Discharge Clinical Impression: Cellulitis Patient Disposition: Home, Self-Care Prescriptions: No Action bupropion HCl 300 mg tablet extended release 24 hr 300 mg PO DAILY bupropion HCl 150 mg tablet extended release 24 hr 150 mg PO DAILY gabapentin 600 mg Tablet 1,200 mg PO TID 30 Days Qty: 180 0RF clonazepam 0.5 mg tablet 0.5 mg PO DAILY PRN (Reason: anxiety attack) sertraline 100 mg tablet 150 mg PO DAILY dextroamphetamine-amphetamine [Adderall XR] 20 mg capsule,extended release 24hr 1 cap PO DAILY albuterol sulfate [Ventolin HFA] 90 mcg/actuation HFA aerosol inhaler 2 puff inhalation Q6H PRN (Reason: wheezing) quetiapine 100 mg tablet 100 mg PO BID@0900,1500 methadone [Methadone Intensol] 10 mg/mL Concentrate 140 mg PO DAILY doxycycline hyclate 100 mg tablet 100 mg PO BID 7 Days Qty: 14 0RF amoxicillin-pot clavulanate 875-125 mg tablet 1 tab PO BID 7 Days Qty: 14 0RF doxycycline hyclate 100 mg tablet 100 mg PO BID Qty: 20 0RF Print Language: Belarusian
[2025-03-16 00:24] LABS: MANUAL DIFF FLAG NO
[2025-03-16 00:26] LABS: Hematocrit 31.4 % (42.0-52.0); Hemoglobin 11.0 g/dl (14.0-18.0); Imm Gran Abs Auto 0.03 X10*3/uL (0.00-0.03); Imm Gran Pct Auto 0.3 % (0.0-0.4); Lymphocytes Absolute Auto 1.9 X10*3/uL (1.2-4.9); Mean Corpuscular HGB Conc 35.0 g/dl (31.0-36.0); Mean Corpuscular Hemoglobin 30.1 pg (27.0-33.0); Mean Corpuscular Volume 85.8 fL (80.0-98.0); NRBC Abs Auto 0.000 X10*3/uL (0.0-0.012); NRBC Pct Auto 0.0 /100WBC (0.0-0.2); Platelet Count 212 X10*3/uL (160-400); Red Blood Count 3.66 X10*6/uL (4.60-5.80); White Blood Count 9.7 X10*3/uL (4.8-10.8)
--- OUTSIDE RECORDS SUMMARY | 2025-03-16 00:38 | XMS_ITS | Encounter Summary ---
Author Organization [employer] Address [address] [place] [address] Care Team Providers Care Bullion Weigher Name Role Phone Radhames Ojeda MD Primary Care Prov ider Reason for Visit * Reason Onset Date Comments Med Refill 01/13/2024 Encounter Details Date Type Department Care Team (Late st Contact Info) Description 01/13/2024 Telephone [facility] [address] [place] [address] Radhames Ojeda MD [address] [place], [place] [id number] Med Refill Social History Tobacco Use Types [...] 24 hr tablet To be sent to: [facility]/pharmacy #[id number] documented in this encounter Plan of Treatment Not on file documented as of this encounter Visit Diagnoses Not on filedocumented in this encounter Additional Health Concerns Assessment Noted Time PHQ-9 Depression Total Score: 3 02/11/20 23 2:02 PM EDT documented as of this encounter Care Teams Bullion Weigher Relationship Specialty Start Date End Date Radhames Ojeda MD [address] [place] [id number] PCP - General Internal Medicine 02/13/20 documented as of this encounter
[2025-03-16 00:46] LABS: Anion Gap 13 (12-20); Blood Urea Nitrogen 13 mg/dL (9-16); Carbon Dioxide 26 mmol/L (22-29); Chloride 105 mmol/L (96-108); Creatinine Clr Calc Pharmacy 143.2; Estimated Glomerular Filt Rate > 60; Potassium 3.7 mmol/L (3.3-5.1); Sodium 140 mmol/L (135-145)
[2025-03-16 00:47] LABS: Alanine Aminotransferase 10 U/L (0-40); Albumin Level 4.3 g/dL (3.5-5.0); Alkaline Phosphatase 60 U/L (39-117); Aspartate Amino Transferase 25 U/L (5-37); Total Protein 7.2 g/dL (6.5-8.0)
--- NOTE | 2025-03-16 01:14 | PC.NURSE ---
Plan for USGIV per Dr. Boggs at this time.
[2025-03-16 01:34] LABS: Calcium 9.1 mg/dL (8.4-10.2)
--- NOTE | 2025-03-16 01:42 | PM.IMHP ---
History of Present Illness Date of Service: 03/16/25 Chief Complaint: Leg infection This is a 40-year-old male with pertinent history of IV polysubstance use disorder, mood disorder who presents to the emergency department for concerns of leg infection. Patient states he was sent home from [facility] 3 days prior to presentation with oral antibiotics but patient admits that he was not compliant with them. He reports worsening of right lower extremity redness, warmth and pain. Also bilateral lower extremities are draining pus. Does not know if he has had MRSA infection in the past. Admits to using IV drugs. No fever, chills, nausea or vomiting. He denies chest pain, palpitations, shortness of breath, abdominal pain, changes in urinary or bowel habits. In the emergency department, patient was given IV antibiotics. Review of Systems Constitutional: Constitutional: Reports no additional constitutional complaints Cardiovascular: Cardiovascular: Reports no additional cardiovascular complaints Respiratory: Respiratory: Reports no additional respiratory complaints Gastrointestinal: Gastrointestinal: Reports no additional gastrointestinal complaints Genitourinary: Genitourinary: Reports no additional male genitourinary complaints [facility] Medical History Polysubstance abuse Cannabis use disorder Cocaine use disorder Opioid use disorder, severe, on maintenance therapy Alcohol use disorder Panic attacks ADHD Bipolar disorder Opiate abuse, continuous Depression Social History Household Members: Other Household Members Other:: Mother and Stepfather Housing: House Do you presently have visiting nurse or other home services: No Alcohol intake: current Alcohol intake frequency: 3 or more drinks per day Alcohol type: hard liquor Patient Tobacco Use Status: Current everyday Tobacco user Tobacco use type: Cigarette Cigarettes Per Day: 30 Second Hand Smoke Exposure: No Substance Use Type: Crack/Cocaine and Heroin Advance Directives: No Do you have a plan to hurt others: No Plan service: No Sexual orientation: Straight/Heterosexual Meds Allergies Allergy/AdvReac Type Severity Reaction Status Date / Time buspirone AdvReac Severe EPS Verified 03/15/25 22:53 Active Medications: Current Medications Sodium Chloride (Ns) 1,000 mls @ 999 mls/hr IVCONT .Q1H1M ONE Stop: 03/16/25 02:01 Vancomycin HCl (Vancomycin/Ns) 2,000 mg in 500 mls @ 250 mls/hr IV ONCE ONE Stop: 03/16/25 03:00 Home Medications ?Medication ?Instructions ?Recorded ?Confirmed ?Last Taken ?Type bupropion HCl 150 mg 24 hr tablet, 150 mg PO DAILY 03/20/24 10/04/24 10/03/24 History extended release bupropion HCl 300 mg 24 hr tablet, 300 mg PO DAILY 03/20/24 10/04/24 10/03/24 History extended release clonazepam 0.5 mg tablet 0.5 mg PO DAILY PRN anxiety attack 07/09/24 10/04/24 07/06/24 History dextroamphetamine-amphetamine ER 1 cap PO DAILY 07/09/24 10/04/24 10/03/24 History 20 mg 24hr capsule,extend release (Adderall XR) sertraline 100 mg tablet 150 mg PO DAILY 07/09/24 10/04/24 10/03/24 History albuterol sulfate 90 mcg/actuation 2 puff inhalation Q6H PRN wheezing 10/04/24 10/04/24 10/03/24 09:00 History aerosol inhaler (Ventolin HFA) quetiapine 100 mg tablet 100 mg PO BID@0900,1500 10/04/24 10/04/24 10/03/24 History methadone 10 mg/mL oral 140 mg PO DAILY 10/05/24 11/05/24 11/03/24 History concentrate (Methadone Intensol) Physical Exam Vital Signs and Narrative: Vital Signs: Last Vital Signs Temp 98.5 F 03/15/25 22:49 Pulse 62 03/15/25 22:49 Resp 18 03/15/25 22:49 BP 106/72 03/15/25 22:49 Pulse Ox 98 03/15/25 22:49 O2 Del Method Room Air 03/15/25 22:49 BMI result Body Mass Index 27.1 Middle-aged male lying in bed in no distress Neck supple, no JVD Regular rate and rhythm, S1-S2 heard Regular breath sounds bilaterally, no wheezing or crackles appreciated Abdomen soft nontender, no guarding, no rigidity Patient is awake, alert and oriented to self, place, time and person ; no focal motor deficit Psych: Normal mood Right lower extremity with foul-smelling serosanguineous drainage, erythema, warmth ; left lower extremity with erythema and warmth ; multiple track blanco seen Results Labs 03/16/25 00:18 03/16/25 00:18 Labs: Laboratory Results - last 24 hr 03/16/25 00:18 MCV 85.8 MCH 30.1 MCHC 35.0 RDW 12.5 Plt Count 212 MPV 10.9 Immature Gran % (Auto) 0.3 Neut % (Auto) 66.2 Lymph % (Auto) 19.8 L Mclennan % (Auto) 9.0 Eos % (Auto) 4.5 H Baso % (Auto) 0.2 Lymph # (Auto) 1.9 Mclennan # (Auto) 0.9 Eos # (Auto) 0.4 Baso # (Auto) 0.0 Abs Immat Gran (auto) 0.03 Absolute Neuts (auto) 6.4 Absolute Nucleated RBC 0.000 Nucleated RBC % (auto) 0.0 Anion Gap 13 Estim Creat Clear Calc 143.2 Estimated GFR > 60 Random Glucose 111 Calcium 9.1 Total Bilirubin 0.6 AST 25 ALT 10 Alkaline Phosphatase 60 Total Protein 7.2 Albumin 4.3 Assessment and Plan (1) Cellulitis: Status: Acute Plan This is a 40-year-old male with pertinent history of IV polysubstance use disorder, mood disorder who presents to the emergency department for concerns of leg infection. #. Lower extremity purulent cellulitis: Will admit patient with IV antibiotics due to extensive cellulitis. Noncompliant with outpatient p.o. antibiotics. No sepsis. Monitor for improvement. #. Mood disorder: Continue home mood stabilizers #. Polysubstance use disorder: Monitor for withdrawal. Consulted Addiction Team Med rec pending DVT prophylaxis: Lovenox Full code Admit as inpatient and will require two night minimum hospital stay for IV antibiotics (as above), which is not possible in a lesser acute setting. Quality Stroke Does the patient have a stroke diagnosis?: No VTE Prior VTE?: No VTE Risk Level:: Medical - moderate - high VTE Device Contraindication: Treatment Not Indicated VTE Drug Contraindication: N/A - Med Ordered
[2025-03-16] MEDS: vancomycin/NS 2,000 MG/500 ML PLAST..BAG 250 MG IV (02:13)
[2025-03-16 06:07] LABS: MANUAL DIFF FLAG NO
[2025-03-16 06:17] LABS: Hematocrit 30.0 % (42.0-52.0); Hemoglobin 10.2 g/dl (14.0-18.0); Imm Gran Abs Auto 0.02 X10*3/uL (0.00-0.03); Imm Gran Pct Auto 0.3 % (0.0-0.4); Lymphocytes Absolute Auto 2.2 X10*3/uL (1.2-4.9); Mean Corpuscular HGB Conc 34.0 g/dl (31.0-36.0); Mean Corpuscular Hemoglobin 29.6 pg (27.0-33.0); Mean Corpuscular Volume 87.0 fL (80.0-98.0); NRBC Abs Auto 0.000 X10*3/uL (0.0-0.012); NRBC Pct Auto 0.0 /100WBC (0.0-0.2); Platelet Count 182 X10*3/uL (160-400); Red Blood Count 3.45 X10*6/uL (4.60-5.80); White Blood Count 7.1 X10*3/uL (4.8-10.8)
--- NOTE | 2025-03-16 08:14 | HE.PHANOTE ---
Re Methadone Received verification from nursing. Pt get 150mg from [facility], last dose was given on 03/15/25 @0900.
[2025-03-16 08:25] LABS: Anion Gap 12 (12-20); Blood Urea Nitrogen 9 mg/dL (9-16); Calcium 8.2 mg/dL (8.4-10.2); Carbon Dioxide 23 mmol/L (22-29); Chloride 106 mmol/L (96-108); Creatinine Clr Calc Pharmacy 171.4; Estimated Glomerular Filt Rate > 60; Potassium 3.2 mmol/L (3.3-5.1); Sodium 138 mmol/L (135-145)
[2025-03-16] MEDS: oxyCODONE HCl Immed Release 5 MG TABLET PO ×3 (08:32→22:17)
--- NOTE | 2025-03-16 08:35 | PHA.MEDREC ---
Pharmacy Consult ? Medication Reconciliation Pharmacy has completed the medication reconciliation. Spoke with pt to confirm meds.
--- NOTE | 2025-03-16 08:43 | PC.NURSE ---
Pt medicated for pain per orders; pt's methadone dose verified with [facility] clinic/Abdi and verification form faxed to pharmacy; provider made aware and awaiting ordered dose
[2025-03-16] MEDS: methADONE HCl 20 MG/2 ML ORAL.CONC 150 MG PO (08:59)
[2025-03-16] MEDS: Dextroamphetamine/Amphetamine XR 5 MG CAP.ER.24H 25 MG PO (09:01)
[2025-03-16] MEDS: buPROPion HCl XL 300 MG TAB.ER.24H PO (09:02)
[2025-03-16] MEDS: 0.9 % Sodium Chloride Flush 3 ML SYRINGE IVFLUSH ×3 (10:46→22:11)
--- NOTE | 2025-03-16 15:51 | PC.NURSE ---
Attempt to place IV x 2, unable, primary rn notified.
--- NOTE | 2025-03-16 16:20 | MHC.CM.PN ---
PT REPORTS HE LIVES WITH HIS MOTHER AND IS INDEPENDENT WITH CARE HE IS ACTIVE WITH [facility] FOR MMT AND [facility] FOR MH SERVICES COPY OF HCP REQUESTED, HE REPORTS HIS MOTHER IS HIS AGENT PCP AT [facility] DCP: HOME VIA PRIVATE TRANSPORT
--- NOTE | 2025-03-16 16:25 | PM.EVENT ---
Event Note Date of Service: 03/16/25 Event Note: Patient seen and examined by hospitalist team this morning, seen and examined again Leg skin area seems similar Physical exam is similar to HPI. Assessment and plan as per HPI Time Spent With Patient Time: Total time managing care of this patient today ____ minutes.
--- NOTE | 2025-03-16 17:14 | HO.SKINPHOTO ---
Addendum entered by Xiao Peter RN 03/16/25 17:16: RT Leg open to air, multiple abrasions, some scabby, warm to touch Left leg bottom photo Original Note:
[2025-03-17 07:22] VITALS: BP 110/71; PULSE 50; RESP 18; TEMP 36.2; O2SAT 98
[2025-03-17] MEDS: oxyCODONE HCl Immed Release 5 MG TABLET PO ×3 (07:30→21:31)
[2025-03-17] MEDS: Dextroamphetamine/Amphetamine XR 5 MG CAP.ER.24H 25 MG PO (08:44)
[2025-03-17] MEDS: buPROPion HCl XL 150 MG TAB.ER.24H PO (08:45)
[2025-03-17] MEDS: buPROPion HCl XL 300 MG TAB.ER.24H PO (08:45)
[2025-03-17] MEDS: methADONE HCl 20 MG/2 ML ORAL.CONC 150 MG PO (08:54)
--- NOTE | 2025-03-17 10:25 | P.PNIM_ITS ---
Subjective Subjective Date of Service: 03/17/25 Interval History: leg cellulitis Review of Systems mostly area seems similar -may be slight improvement no fevers Review of Systems: Yes all other systems are reviewed and are negative Physical Exam 2 Vital Signs: Vital Signs: Last Vital Signs Temp 97.1 F 03/17/25 07:22 Pulse 50 03/17/25 07:22 Resp 18 03/17/25 07:22 BP 110/71 03/17/25 07:22 Pulse Ox 98 03/17/25 07:22 O2 Del Method Room Air 03/17/25 07:22 BMI result Body Mass Index 27.8 Appearance: Alert.? Oriented X3.? cvs: rrr, [id number] , no murmur res: clear to auscultation ,no rhonchii or wheezing abd: no rebound or guarding ,nt, bs present. Right lower extremity witherythema/warm ,slowly drying up, multiple track blanco seen ext pulses present , no cyanosis , neuro: axo3 , nonfocal. Objective Data Active Medications Acetaminophen (Acetaminophen 325 Mg Tablet) 650 mg PO Q6H PRN PRN Reason: Pain, Mild 1-3,fever,headache Last Admin: 03/17/25 07:30 Dose: 650 mg Documented By: JERALD Albuterol Sulfate (Albuterol Sulfate 90 Mcg 8 Gm Inhaler) 2 puff INHALE Q6H PRN PRN Reason: Wheezing Amphetamine/Dextroamphetamine (Dextroamphetamine/Amphetamine Xr 5 Mg Cap.Er.24h) 25 mg PO DAILY [facility] Last Admin: 03/17/25 08:44 Dose: 25 mg Documented By: JERALD Bupropion HCl (Bupropion Hcl Xl 150 Mg Tab.Er.24h) 150 mg PO DAILY [facility] Last Admin: 03/17/25 08:45 Dose: 150 mg Documented By: JERALD Bupropion HCl (Bupropion Hcl Xl 300 Mg Tab.Er.24h) 300 mg PO DAILY [facility] Last Admin: 03/17/25 08:45 Dose: 300 mg Documented By: JERALD Calcium Carbonate (Calcium Carbonate 750 Mg Tab.Chew) 750 mg PO Q4H PRN PRN Reason: Heartburn Clonazepam (Clonazepam 0.5 Mg Tablet) 0.5 mg PO DAILY [facility] Last Admin: 03/17/25 08:45 Dose: 0.5 mg Documented By: JERALD Enoxaparin Sodium (Enoxaparin Sodium 40 Mg/0.4 Ml Syringe) 40 mg SUBCUT Q24H [facility] Last Admin: 03/17/25 08:46 Dose: Not Given Documented By: JERALD Non-Admin Reason: Patient Refused Gabapentin (Gabapentin 400 Mg Capsule) 1,200 mg PO TID [facility] Last Admin: 03/17/25 08:44 Dose: 1,200 mg Documented By: JERALD Vancomycin HCl 1,250 mg/ (Sodium Chloride) 250 mls @ 166.667 mls/hr IV Q12H [facility] Last Infusion: 03/17/25 03:24 Dose: Infused Documented By: NATHANIEL Sodium Chloride (Ns) 1,000 mls @ 100 mls/hr IVCONT .Q10H [facility] Last Admin: 03/17/25 01:50 Dose: 100 mls/hr Documented By: NATHANIEL Magnesium Hydroxide (Milk Of Magnesia 30 Ml Oral.Susp) 30 ml PO DAILY PRN PRN Reason: Constipation Melatonin (Melatonin 3 Mg Tablet) 6 mg PO BEDTIME PRN PRN Reason: Insomnia Methadone HCl (Methadone Hcl 20 Mg/2 Ml Oral.Conc) 150 mg PO DAILY [facility] Last Admin: 03/17/25 08:54 Dose: 150 mg Documented By: JERALD Co-signed By: KEYUR Multivitamins/Vitamin C (Multivitamin Tablet) 1 tab PO DAILY [facility] Last Admin: 03/17/25 08:46 Dose: Not Given Documented By: JERALD Non-Admin Reason: Patient Refused Nicotine Polacrilex (Nicotine Polacrilex 2 Mg Gum) 2 mg BUCCAL Q2H PRN PRN Reason: Nicotine Cravings Last Admin: 03/17/25 07:30 Dose: 2 mg Documented By: JERALD Ondansetron HCl (Ondansetron Hcl 4 Mg/2 Ml Vial) 4 mg IVPUSH Q8H PRN PRN Reason: Nausea and Vomiting Oxycodone HCl (Oxycodone Hcl Immed Release 5 Mg Tablet) 5 mg PO Q4H PRN PRN Reason: Pain, Severe (Pain Scale 7-10) Last Admin: 03/17/25 07:30 Dose: 5 mg Documented By: JERALD Pharmacy Consult (Consult Rx Vancomycin Dosing) 1 each MISCELLANE DAILY PRN PRN Reason: Consult order Quetiapine Fumarate (Quetiapine Fumarate 100 Mg Tablet) 100 mg PO BID@1200,2100 [facility] Last Admin: 03/16/25 22:11 Dose: 100 mg Documented By: NATHANIEL Sertraline HCl (Sertraline Hcl 50 Mg Tablet) 150 mg PO DAILY [facility] Last Admin: 03/17/25 08:46 Dose: Not Given Documented By: JERALD Non-Admin Reason: Patient Refused Sodium Chloride (0.9 % Sodium Chloride Flush 3 Ml Syringe) 3 ml IVFLUSH QSHIFT [facility] Last Admin: 03/17/25 08:03 Dose: Not Given Documented By: JERALD Non-Admin Reason: IV Running Labs 03/16/25 05:47 03/16/25 05:47 Microbiology Microbiology Results: Microbiology 03/16/25 02:05 Blood Culture - Preliminary Blood - Venous No growth after 24 hours. 03/16/25 02:05 Blood Culture - Preliminary Blood - Venous No growth after 24 hours. Assessment and Plan (1) Cellulitis: Status: Acute (2) Hypokalemia: Status: Acute Assessment and Plan: 40-year-old male with pertinent history of IV polysubstance use disorder, mood disorder who presents to the emergency department for concerns of leg infection. Lower extremity purulent cellulitis:continue IV antibiotics due to extensive cellulitis. blood cultures neg@24hrs, Noncompliant with outpatient p.o. antibiotics. No sepsis. Monitor for improvement. Acute hypokalemia: Replacements ordered. Mood disorder: Continue home mood stabilizers Polysubstance use disorder: Monitor for withdrawal. Consulted Addiction Team ongoing need:lower leg cellulitis -need iv antibiotics, vanco trough monitoring as well as renal function electrolyte monitoring. Above was discussed with the patient detail length he understand and in agreement with the above plan. Quality Stroke Does the patient have a stroke diagnosis?: No VTE Prior VTE?: No VTE Risk Level:: Medical - moderate - high VTE Device Contraindication: Treatment Not Indicated VTE Drug Contraindication: N/A - Med Ordered
[2025-03-17] MEDS: Potassium Chloride ER 20 MEQ TAB.ER.PRT PO (10:33)
[2025-03-17 12:34] LABS: Creatinine Clr Calc Pharmacy 127.5; Estimated Glomerular Filt Rate > 60
--- NOTE | 2025-03-17 12:57 | HE.PHANOTE ---
RE: VANCO DOSING Trough came back as 9.7 mg/L, renal function is stable. Dose is increased to 1500 mg q12h, next trough is scheduled for 03/18/25 @1200.
[2025-03-17 15:08] VITALS: BP 139/78; PULSE 58; RESP 15; TEMP 36.8; O2SAT 99
[2025-03-17] MEDS: 0.9 % Sodium Chloride Flush 3 ML SYRINGE IVFLUSH (21:33)
[2025-03-17 23:28] VITALS: BP 100/62; PULSE 50; RESP 16; TEMP 36.6; O2SAT 99
[2025-03-18 07:19] VITALS: BP 107/62; PULSE 57; RESP 18; TEMP 36.4; O2SAT 97
[2025-03-18] MEDS: Dextroamphetamine/Amphetamine XR 5 MG CAP.ER.24H 25 MG PO (09:09)
[2025-03-18] MEDS: buPROPion HCl XL 300 MG TAB.ER.24H PO (09:09)
[2025-03-18] MEDS: buPROPion HCl XL 150 MG TAB.ER.24H PO (09:10)
[2025-03-18] MEDS: methADONE HCl 20 MG/2 ML ORAL.CONC 150 MG PO (09:10)
[2025-03-18] MEDS: oxyCODONE HCl Immed Release 5 MG TABLET PO ×4 (09:16→21:41)
[2025-03-18 15:12] VITALS: BP 163/85; PULSE 62; RESP 16; TEMP 36.7; O2SAT 98
--- NOTE | 2025-03-18 15:22 | PC.NURSE ---
Patient has been refusing labs. This RN whent to bedside to hang noon vanco and realized trough was not drawn. When asked pt reported that he refused. This RN was not told that patient had refused vanco trough. Education provided to patient abouit importance of blood work who them consented to getting a blood draw. Phlebotomy was contacted to redraw and re[ported to bedside for sample but was unable to get one due top [patient being a difficult stick. Meat Washer reported that she would have someone else come up and try to draw him. Time is now 3:24 and still no vanco trough has been drawn and antibiotic dose is delayed.
[2025-03-18] MEDS: 0.9 % Sodium Chloride Flush 3 ML SYRINGE IVFLUSH (15:40)
[2025-03-18 16:45] LABS: Anion Gap 14 (12-20); Blood Urea Nitrogen 5 mg/dL (9-16); Calcium 8.6 mg/dL (8.4-10.2); Carbon Dioxide 22 mmol/L (22-29); Chloride 109 mmol/L (96-108); Creatinine Clr Calc Pharmacy 147.3; Estimated Glomerular Filt Rate > 60; Potassium 4.2 mmol/L (3.3-5.1); Sodium 141 mmol/L (135-145)
[2025-03-18 17:03] VITALS: BP 132/78
[2025-03-19] VITALS: BP 121/71; PULSE 50; RESP 18; TEMP 36.2; O2SAT 98
[2025-03-19 07:41] VITALS: BP 140/78; PULSE 59; RESP 17; TEMP 36.7; O2SAT 99
[2025-03-19] MEDS: methADONE HCl 20 MG/2 ML ORAL.CONC 150 MG PO (09:23)
[2025-03-19] MEDS: buPROPion HCl XL 150 MG TAB.ER.24H PO (09:26)
[2025-03-19] MEDS: buPROPion HCl XL 300 MG TAB.ER.24H PO (09:26)
[2025-03-19] MEDS: Dextroamphetamine/Amphetamine XR 5 MG CAP.ER.24H 25 MG PO (09:26)
[2025-03-19] MEDS: oxyCODONE HCl Immed Release 5 MG TABLET PO ×2 (11:42→16:13)
--- NOTE | 2025-03-19 12:30 | P.PNIM_ITS ---
Subjective Subjective Date of Service: 03/19/25 Interval History: leg cellulitis Review of Systems erythema and swelling somewhat improving pain also improving Review of Systems: Yes all other systems are reviewed and are negative Physical Exam 2 Vital Signs: Vital Signs: Last Vital Signs Temp 98.1 F 03/19/25 07:41 Pulse 59 03/19/25 07:41 Resp 17 03/19/25 07:41 BP 140/78 H 03/19/25 07:41 Pulse Ox 99 03/19/25 07:41 O2 Del Method Room Air 03/19/25 07:41 BMI result Body Mass Index 27.8 Appearance: Alert.? Oriented X3.? cvs: [id number], [id number] . res: clear to auscultation ,no rhonchii or wheezing abd: no rebound or guarding ,nt, bs present. Right lower extremity witherythema/warm ,slowly drying up, multiple track blanco seen ext pulses present , no cyanosis , neuro: axo3 , nonfocal. Objective Data Active Medications Acetaminophen (Acetaminophen 325 Mg Tablet) 650 mg PO Q6H PRN PRN Reason: Pain, Mild 1-3,fever,headache Last Admin: 03/17/25 07:30 Dose: 650 mg Documented By: JERALD Albuterol Sulfate (Albuterol Sulfate 90 Mcg 8 Gm Inhaler) 2 puff INHALE Q6H PRN PRN Reason: Wheezing Amphetamine/Dextroamphetamine (Dextroamphetamine/Amphetamine Xr 5 Mg Cap.Er.24h) 25 mg PO DAILY [facility] Last Admin: 03/19/25 09:26 Dose: 25 mg Documented By: NORMAN Bupropion HCl (Bupropion Hcl Xl 150 Mg Tab.Er.24h) 150 mg PO DAILY [facility] Last Admin: 03/19/25 09:26 Dose: 150 mg Documented By: NORMAN Bupropion HCl (Bupropion Hcl Xl 300 Mg Tab.Er.24h) 300 mg PO DAILY [facility] Last Admin: 03/19/25 09:26 Dose: 300 mg Documented By: NORMAN Calcium Carbonate (Calcium Carbonate 750 Mg Tab.Chew) 750 mg PO Q4H PRN PRN Reason: Heartburn Clonazepam (Clonazepam 0.5 Mg Tablet) 0.5 mg PO DAILY [facility] Last Admin: 03/19/25 09:27 Dose: 0.5 mg Documented By: NORMAN Enoxaparin Sodium (Enoxaparin Sodium 40 Mg/0.4 Ml Syringe) 40 mg SUBCUT Q24H [facility] Last Admin: 03/19/25 09:31 Dose: Not Given Documented By: NORMAN Non-Admin Reason: Patient Refused Gabapentin (Gabapentin 400 Mg Capsule) 1,200 mg PO TID [facility] Last Admin: 03/19/25 09:26 Dose: 1,200 mg Documented By: NORMAN Sodium Chloride (Ns) 1,000 mls @ 100 mls/hr IVCONT .Q10H [facility] Last Admin: 03/19/25 05:51 Dose: 100 mls/hr Documented By: JULISSA Vancomycin HCl 1,000 mg/ (Sodium Chloride) 270 mls @ 270 mls/hr IV Q8H [facility] Last Infusion: 03/19/25 10:41 Dose: Infused Documented By: NORMAN Ketorolac Tromethamine (Ketorolac Tromethamine 15 Mg/Ml Vial) 15 mg IVPUSH Q6H [facility] Last Admin: 03/19/25 09:25 Dose: 15 mg Documented By: NORMAN Magnesium Hydroxide (Milk Of Magnesia 30 Ml Oral.Susp) 30 ml PO DAILY PRN PRN Reason: Constipation Melatonin (Melatonin 3 Mg Tablet) 6 mg PO BEDTIME PRN PRN Reason: Insomnia Methadone HCl (Methadone Hcl 20 Mg/2 Ml Oral.Conc) 150 mg PO DAILY [facility] Last Admin: 03/19/25 09:23 Dose: 150 mg Documented By: NORMAN Co-signed By: LISA Multivitamins/Vitamin C (Multivitamin Tablet) 1 tab PO DAILY [facility] Last Admin: 03/19/25 09:27 Dose: 1 tab Documented By: NORMAN Nicotine Polacrilex (Nicotine Polacrilex 2 Mg Gum) 2 mg BUCCAL Q2H PRN PRN Reason: Nicotine Cravings Last Admin: 03/19/25 09:37 Dose: 2 mg Documented By: NORMAN Omeprazole (Omeprazole 20 Mg Capsule.Dr) 20 mg PO DAILY@30 [facility] Last Admin: 03/19/25 05:50 Dose: 20 mg Documented By: JULISSA Ondansetron HCl (Ondansetron Hcl 4 Mg/2 Ml Vial) 4 mg IVPUSH Q8H PRN PRN Reason: Nausea and Vomiting Oxycodone HCl (Oxycodone Hcl Immed Release 5 Mg Tablet) 5 mg PO Q4H PRN PRN Reason: Pain, Severe (Pain Scale 7-10) Last Admin: 03/19/25 11:42 Dose: 5 mg Documented By: NORMAN Pharmacy Consult (Consult Rx Vancomycin Dosing) 1 each MISCELLANE DAILY PRN PRN Reason: Consult order Quetiapine Fumarate (Quetiapine Fumarate 100 Mg Tablet) 100 mg PO BID@1200,2100 [facility] Last Admin: 03/19/25 11:42 Dose: 100 mg Documented By: NORMAN Sertraline HCl (Sertraline Hcl 50 Mg Tablet) 150 mg PO DAILY [facility] Last Admin: 03/19/25 09:30 Dose: Not Given Documented By: NORMAN Non-Admin Reason: Patient Refused Sodium Chloride (0.9 % Sodium Chloride Flush 3 Ml Syringe) 3 ml IVFLUSH QSHIFT [facility] Last Admin: 03/19/25 07:11 Dose: Not Given Documented By: NORMAN Non-Admin Reason: IV Running Labs 03/16/25 05:47 03/18/25 16:05 Labs: Laboratory Results - last 24 hr 03/18/25 16:05 Anion Gap 14 Estim Creat Clear Calc 147.3 Estimated GFR > 60 Random Glucose 87 Calcium 8.6 C-Reactive Protein 1.48 H Random Vancomycin 8.2 L Assessment and Plan (1) Cellulitis: Status: Acute (2) Hypokalemia: Status: Acute Assessment and Plan: 40-year-old male with pertinent history of IV polysubstance use disorder, mood disorder who presents to the emergency department for concerns of leg infection. Lower extremity purulent cellulitis:continue IV antibiotics due to extensive cellulitis. blood cultures neg@24hrs, Noncompliant with outpatient p.o. antibiotics. No sepsis. Monitor for improvement. vanco trough was 8.2,blood culture negative @48hrs crp improving,esr pendin id eval Acute hypokalemia: Replacements ordered. Mood disorder: Continue home mood stabilizers Polysubstance use disorder: Monitor for withdrawal. Consulted Addiction Team ongoing need:lower leg cellulitis -need iv antibiotics, vanco trough monitoring as well as renal function electrolyte monitoring. Above was discussed with the patient detail length he understand and in agreement with the above plan. Quality Stroke Does the patient have a stroke diagnosis?: No VTE Prior VTE?: No VTE Risk Level:: Medical - moderate - high VTE Device Contraindication: Treatment Not Indicated VTE Drug Contraindication: N/A - Med Ordered
[2025-03-19 15:18] VITALS: BP 155/86; PULSE 64; RESP 18; TEMP 36.6; O2SAT 99
--- NOTE | 2025-03-19 15:47 | MHC.CM.PN ---
PER MD ROUNDS/EMR, PT NOT MEDICALLY CLEARED, DUE TO LE CELLULITIS REQUIRING IV ABX, VANCO TROUGH MONITORING AND RENAL FUNCTION MONITORING. ID CONSULT ALSO PENDING DCP TBD, CURRENTLY EXPECTED HE WILL DC HOME WITH NO SERVICES.
--- NOTE | 2025-03-19 16:06 | HO.WOUND ---
Wound Consult: Initial 40yr old?male admitted to [facility] on 03/16/25 - See progress notes and H&P for detailed history.? Wound consult placed for right barba.? Patient agreeable to assessment and photo documentation.? Patient reports injection use sites. Patient educated about choosing different sites to limit damage to tissue - he reports understanding. We discussed community resources such as [employer] and he reports he is aware of the services. Right barba Etiology: ?Ulceration secondary to injection sites Present on Admission Wound Bed: various stages of healing -many are stable dry scabs the larges has a moist inferior aspect no fluctance noted Drainage / Odor: scant sampson drainage Edges: ? irregular Sunitha wound:improving erythema noted per chart review - ? No Induration, Fluctuance or Warmth noted Pain: mild discomfort noted Goals of Treatment: ? Moisture management with Durafiber AG Recommendations: Right Barba - Cleanse with Normal saline moist gauze, or routine showering with soap and water daily, pat dry.? Apply barrier cream to periwound, apply Durafiber AG to wound bed, cover with dry gauze, ABd pad and wrap.? Change every other day. Re-consult wound care Nurse for wound deterioration or wound changes.
[2025-03-19] MEDS: 0.9 % Sodium Chloride Flush 3 ML SYRINGE IVFLUSH (16:17)
[2025-03-19 17:15] LABS: Creatinine Clr Calc Pharmacy 145.2; Estimated Glomerular Filt Rate > 60
[2025-03-19 17:29] LABS: Anion Gap 16 (12-20); Blood Urea Nitrogen 6 mg/dL (9-16); Calcium 9.0 mg/dL (8.4-10.2); Carbon Dioxide 22 mmol/L (22-29); Chloride 106 mmol/L (96-108); Potassium 4.4 mmol/L (3.3-5.1); Sodium 140 mmol/L (135-145)
--- NOTE | 2025-03-19 17:29 | HE.PHANOTE ---
RUIZ Changing dose to 1250mg Q8H per subtherapeutic trough. New predicted trough 14.7, AUC 517. Next trough to be drawn 03/20 @1600.
[2025-03-19 23:51] VITALS: BP 124/61; PULSE 62; RESP 16; TEMP 36.1; O2SAT 97
[2025-03-20] MEDS: oxyCODONE HCl Immed Release 5 MG TABLET PO ×2 (06:12→12:02)
[2025-03-20 07:25] VITALS: BP 135/72; PULSE 59; RESP 18; TEMP 37.2; O2SAT 97
[2025-03-20] MEDS: methADONE HCl 20 MG/2 ML ORAL.CONC 150 MG PO (09:42)
[2025-03-20] MEDS: Dextroamphetamine/Amphetamine XR 5 MG CAP.ER.24H 25 MG PO (09:42)
[2025-03-20] MEDS: buPROPion HCl XL 300 MG TAB.ER.24H PO (09:43)
[2025-03-20] MEDS: buPROPion HCl XL 150 MG TAB.ER.24H PO (09:43)
--- NOTE | 2025-03-20 11:03 | MHC.CM.PN ---
Patient is discharged to home self care. A Last dose letter was provided to the patient to resume treatment @ [facility] Methadone [facility]. Patient has arranged for private transport to home.
--- NOTE | 2025-03-20 13:21 | PM.DS ---
DS: Providers Provider Date of Service: 03/20/25 Date of admission: 03/16/25 01:05 Date of discharge: 03/20/25 Primary care physician: Unknown Physician Consults: 03/16/25 01:41 Addiction Medicine Provider Routine Consulting Provider: Addiction Covering Reason for consultation: polysubstance use disorder 03/16/25 10:56 Consult to Wound Care Routine Reason for consultation: Abrasion/scabs to skin with cellulitis 03/16/25 15:50 Inpt - Recovery Team Routine Comment: Reason for consultation: BH/ABIOLA eval 03/19/25 07:35 Consult to Infectious Diseases Routine Consulting Provider: [facility] Reason for consultation: Leg cellulitis /ivdu Has provider been notified: No DS: Diagnosis Discharge Diagnosis (1) Cellulitis: Status: Acute (2) Hypokalemia: Status: Acute DS: Summary Hospital Course Hospital Course: from initial hpi: 40-year-old male with pertinent history of IV polysubstance use disorder, mood disorder who presents to the emergency department for concerns of leg infection. Patient states he was sent home from [facility] 3 days prior to presentation with oral antibiotics but patient admits that he was not compliant with them. He reports worsening of right lower extremity redness, warmth and pain. Also bilateral lower extremities are draining pus. Does not know if he has had MRSA infection in the past. Admits to using IV drugs. No fever, chills, nausea or vomiting. He denies chest pain, palpitations, shortness of breath, abdominal pain, changes in urinary or bowel habits. In the emergency department, patient was given IV antibiotics. hospital course: patient was admitted for RLE cellulitis, treated with vancomycin, seen by wound care measures recommendations for local care. Blood cultures were negative. Symptoms resolved. We will be discharged on 5 more days of doxycycline. For acute hypokalemia received replacement. For mood disorder continued on meds. For polysubstance dependence had no withdrawal was seen by Addiction team. Patient is feeling better will be discharged home. Time Attestation Discharge Coordination Time (in mins): 33 Quality: Safe Use of Opioids Does Pt have an Active Cancer Diagnosis on the Problem List?: No Quality: Stroke Does the patient have a stroke diagnosis?: No Physical Exam Vital Signs: Vital Signs: Last Vital Signs Temp 98.9 F 03/20/25 07:25 Pulse 59 03/20/25 07:25 Resp 18 03/20/25 07:25 BP 135/72 03/20/25 07:25 Pulse Ox 97 03/20/25 07:25 O2 Del Method Room Air 03/20/25 07:25 BMI result Body Mass Index 27.8 Appearance: Alert.? Oriented X3.? cvs: [id number], [id number] . res: clear to auscultation ,no rhonchii or wheezing abd: no rebound or guarding ,nt, bs present. Right lower extremity witherythema/warm ,slowly drying up, multiple track blanco seen ext pulses present , no cyanosis , neuro: axo3 , nonfocal. DS: Data Data Completed and Pending Labs on day of discharge: Laboratory Results - last 24 hr 03/19/25 16:15 Sodium 140 Potassium 4.4 Chloride 106 Carbon Dioxide 22 Anion Gap 16 BUN 6 L Creatinine 0.72 Estim Creat Clear Calc 145.2 Estimated GFR > 60 Random Glucose 106 Calcium 9.0 Random Vancomycin 11.0 L Preliminary micro results at discharge 03/16/25 02:05 Blood Culture - Preliminary Blood - Venous No growth after 48 hours. 03/16/25 02:05 Blood Culture - Preliminary Blood - Venous No growth after 48 hours. Discharge Plan Discharge Anticipated Discharge Date/Time: 03/20/25 13:19 Patient Disposition: Home, Self-Care Discharge Diagnosis: cellulitis Referrals: Physician,Unknown J [Primary Care Provider, Medical] - 1 Week Discharge Medications: New doxycycline hyclate 100 mg tablet 100 mg PO BID Qty: 10 0RF Continued bupropion HCl 300 mg tablet extended release 24 hr 300 mg PO DAILY bupropion HCl 150 mg tablet extended release 24 hr 150 mg PO DAILY clonazepam 0.5 mg tablet 0.5 mg PO DAILY sertraline 100 mg tablet 150 mg PO DAILY dextroamphetamine-amphetamine [Adderall XR] 25 mg capsule,extended release 24hr 1 cap PO DAILY gabapentin 800 mg tablet 1,200 mg PO TID multivitamin with minerals Tablet 1 tab PO DAILY albuterol sulfate [Ventolin HFA] 90 mcg/actuation HFA aerosol inhaler 2 puff inhalation Q6H PRN (Reason: wheezing) quetiapine 100 mg tablet 100 mg PO BID@1200,2100 methadone [Methadone Intensol] 10 mg/mL Concentrate 150 mg PO DAILY Discharge Orders: Discharge Order (Routine); Ordered 03/20/25 Ordered By: Renato Vo Diet: Advance to usual diet Activity on Discharge: As tolerated Stand Alone Forms: Patient Portal Discharge page Print Language: [place] Islander Activity Restrictions/Additional Instructions: Topical wound care recommendations: Right Guzman - Cleanse with Normal saline moist gauze, or routine showering with soap and water daily, pat dry.? Apply barrier cream to area around wound, apply Durafiber AG to wound bed, cover with dry gauze, or Bandaid.? Change every 2-3 days. If would healing does not occur over the next few weeks consider Outpatient Wound Clinic. Recommend follow up out patient Wound Clinic at [address] [place] [id number] and to call for an appointment at time of discharge. [phone].? Care Plan Goals: recovery Health Concerns: cellulitis Plan of Treatment: doxy 5 days Assessment: see above
--- NOTE | 2025-03-20 13:42 | P.CNID_ITS ---
History of Present Illness Data of Consult Service Date: 03/19/25 Requesting physician: Isabel Dias Primary Care Provider: Unknown Physician HPI Reason for consult: RLE redness He presents with redness and serosanguinous discharge RLE. He has no fever or chills . He was discharged for same issue three days ago and didnt take Keflex and Bactrim regularly. He also is injecting into area Review of Systems 2 Review of Systems: Yes all other systems are reviewed and are negative PMFSH Past Medical History Medical History Polysubstance abuse Cannabis use disorder Cocaine use disorder Opioid use disorder, severe, on maintenance therapy Alcohol use disorder Panic attacks ADHD Bipolar disorder Opiate abuse, continuous Depression Social History Social History Household Members: Family Household Members Other:: Mother and Stepfather Housing: House Do you presently have visiting nurse or other home services: No Alcohol intake: unknown Patient Tobacco Use Status: Current everyday Tobacco user Tobacco use type: Cigarette Cigarettes Per Day: 30 Second Hand Smoke Exposure: No Substance Use Type: Crack/Cocaine, IV Drugs and Opiates service: No Sexual orientation: Straight/Heterosexual Meds Allergies Allergy/AdvReac Type Severity Reaction Status Date / Time buspirone AdvReac Severe EPS Verified 03/15/25 22:53 Active Medications: Current Medications Acetaminophen (Acetaminophen 325 Mg Tablet) 650 mg PO Q6H PRN PRN Reason: Pain, Mild 1-3,fever,headache Last Admin: 03/20/25 12:33 Dose: 650 mg Albuterol Sulfate (Albuterol Sulfate 90 Mcg 8 Gm Inhaler) 2 puff INHALE Q6H PRN PRN Reason: Wheezing Amphetamine/Dextroamphetamine (Dextroamphetamine/Amphetamine Xr 5 Mg Cap.Er.24h) 25 mg PO DAILY [facility] Last Admin: 03/20/25 09:42 Dose: 25 mg Bupropion HCl (Bupropion Hcl Xl 150 Mg Tab.Er.24h) 150 mg PO DAILY [facility] Last Admin: 03/20/25 09:43 Dose: 150 mg Bupropion HCl (Bupropion Hcl Xl 300 Mg Tab.Er.24h) 300 mg PO DAILY [facility] Last Admin: 03/20/25 09:43 Dose: 300 mg Calcium Carbonate (Calcium Carbonate 750 Mg Tab.Chew) 750 mg PO Q4H PRN PRN Reason: Heartburn Clonazepam (Clonazepam 0.5 Mg Tablet) 0.5 mg PO DAILY [facility] Last Admin: 03/20/25 09:43 Dose: 0.5 mg Enoxaparin Sodium (Enoxaparin Sodium 40 Mg/0.4 Ml Syringe) 40 mg SUBCUT Q24H [facility] Last Admin: 03/20/25 09:50 Dose: Not Given Gabapentin (Gabapentin 400 Mg Capsule) 1,200 mg PO TID [facility] Last Admin: 03/20/25 09:42 Dose: 1,200 mg Sodium Chloride (Ns) 1,000 mls @ 100 mls/hr IVCONT .Q10H [facility] Last Admin: 03/20/25 13:09 Dose: Not Given Vancomycin HCl 1,250 mg/ (Sodium Chloride) 250 mls @ 166.667 mls/hr IV Q8H [facility] Last Infusion: 03/20/25 11:30 Dose: Infused Ketorolac Tromethamine (Ketorolac Tromethamine 15 Mg/Ml Vial) 15 mg IVPUSH Q6H [facility] Last Admin: 03/20/25 09:44 Dose: 15 mg Magnesium Hydroxide (Milk Of Magnesia 30 Ml Oral.Susp) 30 ml PO DAILY PRN PRN Reason: Constipation Melatonin (Melatonin 3 Mg Tablet) 6 mg PO BEDTIME PRN PRN Reason: Insomnia Methadone HCl (Methadone Hcl 20 Mg/2 Ml Oral.Conc) 150 mg PO DAILY [facility] Last Admin: 03/20/25 09:42 Dose: 150 mg Multivitamins/Vitamin C (Multivitamin Tablet) 1 tab PO DAILY [facility] Last Admin: 03/20/25 09:42 Dose: 1 tab Nicotine Polacrilex (Nicotine Polacrilex 2 Mg Gum) 2 mg BUCCAL Q2H PRN PRN Reason: Nicotine Cravings Last Admin: 03/20/25 12:02 Dose: 2 mg Omeprazole (Omeprazole 20 Mg Capsule.Dr) 20 mg PO DAILY@0630 [facility] Last Admin: 03/20/25 05:30 Dose: 20 mg Ondansetron HCl (Ondansetron Hcl 4 Mg/2 Ml Vial) 4 mg IVPUSH Q8H PRN PRN Reason: Nausea and Vomiting Oxycodone HCl (Oxycodone Hcl Immed Release 5 Mg Tablet) 5 mg PO Q4H PRN PRN Reason: Pain, Severe (Pain Scale 7-10) Last Admin: 03/20/25 12:02 Dose: 5 mg Pharmacy Consult (Consult Rx Vancomycin Dosing) 1 each MISCELLANE DAILY PRN PRN Reason: Consult order Quetiapine Fumarate (Quetiapine Fumarate 100 Mg Tablet) 100 mg PO BID@1200,2100 [facility] Last Admin: 03/20/25 12:02 Dose: 100 mg Sertraline HCl (Sertraline Hcl 50 Mg Tablet) 150 mg PO DAILY [facility] Last Admin: 03/20/25 09:50 Dose: Not Given Sodium Chloride (0.9 % Sodium Chloride Flush 3 Ml Syringe) 3 ml IVFLUSH QSHIFT [facility] Last Admin: 03/20/25 07:08 Dose: Not Given Home Medications ?Medication ?Instructions ?Recorded ?Confirmed ?Last Taken ?Type bupropion HCl 150 mg 24 hr tablet, 150 mg PO DAILY 10/1303/16/25 03/15/25 History extended release bupropion HCl 300 mg 24 hr tablet, 300 mg PO DAILY 10/1303/16/25 03/15/25 History extended release clonazepam 0.5 mg tablet 0.5 mg PO DAILY anxiety radha ck 07/09/24 03/16/25 03/15/25 History sertraline 100 mg tablet 150 mg PO DAILY 07/09/2403/15/25 History albuterol sulfate 90 mcg/actuation 2 puff inhalation Q 6H PRN wheezing 10/04/24 03/16/25 03/15/25 History aerosol inhaler (Ventolin HFA) quetiapine 100 mg tablet 100 mg PO BID@1200,2100 09/2003/16/25 03/15/25 History methadone 10 mg/mL oral 150 mg PO DAILY 10/05/2403/15/25 09:00 History concentrate (Methadone Intensol) dextroamphetamine-amphetamine ER 1 cap PO DAILY 03/16/25 03/15/25 History 25 mg 24hr capsule,extend release (Adderall XR) gabapentin 800 mg tablet 1,200 mg PO TID 03/16/2503/15/25 History multivitamin with minerals 1 tab PO DAILY 03/16/2503/15/25 History Physical Exam 2 Vital Signs: Vital Signs: Last Vital Signs Temp 98.9 F 03/20/25 07:25 Pulse 59 03/20/25 07:25 Resp 18 03/20/25 07:25 BP 135/72 03/20/25 07:25 Pulse Ox 97 03/20/25 07:25 O2 Del Method Room Air 03/20/25 07:25 BMI result Body Mass Index 27.8 Const: General: cooperative HEENT: Head: Yes normal to inspection Face and sinus: Yes normal facial exam Mouth: Normal oral and palatal mucosa present Teeth and gingiva: d entition normal Eyes: General: appearance normal, both eyes and all related structures P upils: Equal, round and reactive pupils present Resp: Effort & Inspection: normal respiratory effort Cardio: Rate: regular rate Rhythm: regular rhythm GI: Palpation (GI): Soft to palpation and nontender : General: Yes no CVA tenderness Back/Spine/Pelvis: Back: no CVA tenderness Skin: General skin exam: no rashes or lesions noted Neuro: General: moves all extremities Cranial nerves: Yes Equal, round and reactive pupils present Extrem: Other: mild redness around eschars RLE below knee LLe unremarkable ,slt erythema Psych: Appearance: grossly normal Results Labs 03/16/25 05:47 03/19/25 16:15 Labs: BMP 03/19/25 16:15 Sodium 140 Potassium 4.4 Chloride 106 Carbon Dioxide 22 BUN 6 L Creatinine 0.72 Calcium 9.0 Microbiology Microbiology Results: Microbiology 03/16/25 02:05 Blood - Venous Blood Culture - Preliminary No growth after 48 hours. 03/16/25 02:05 Blood - Venous Blood Culture - Preliminary No growth after 48 hours. Assessment and Plan (1) Cellulitis: Status: Acute (2) Cocaine use disorder: Status: Acute (3) Opioid use disorder, severe, on maintenance therapy: Status: Acute Plan Resolving cellulitis,xylazine and med noncompliance Po Doxycycline 100 mg bid for a week and check HIV and Hepatitis C viral load.
[2025-03-20 15:11] VITALS: BP 108/61; PULSE 75; RESP 18; TEMP 36.6; O2SAT 97
== END 2025-03-20 15:50 | disposition home or self-care (01) | DRG 383 ==
LOC: HO.ED 03-16 01:18 → HO.EDOVER 03-16 01:33 → HO.S3 03-16 09:33
PROVIDERS: Internal Medicine; Admitting Provider Student in an Organized Health Care Education/Training Program; Emergency Provider Emergency Medicine; Visit Provider Internal Medicine
DX: L03.115 Cellulitis of right lower limb (principal); E87.6 Hypokalemia; F11.20 Opioid dependence, uncomplicated; L03.116 Cellulitis of left lower limb; F17.210 Nicotine dependence, cigarettes, uncomplicated; F19.90 Other psychoactive substance use, unspecified, uncomplicated; F39 Unspecified mood [affective] disorder; Z71.6 Tobacco abuse counseling; Z91.148 Patient's other noncompliance with medication regimen for other reason; Z79.899 Other long term (current) drug therapy
CPT/HCPCS: 36415; 80048; 80053; 80202; 82565; 85025; 85652; 86140; 87040; 99285; J1885; J2543; J3370; J3371; S9485

== ENCOUNTER → 2025-03-16 01:05 | Outpatient (BNV) | payer MEDICAID, SELFPAY | PROVIDERS: Admitting Provider Student in an Organized Health Care Education/Training Program; Emergency Provider Emergency Medicine; Visit Provider Internal Medicine | DX: L03.90 Cellulitis, unspecified (principal); F14.10 Cocaine abuse, uncomplicated; F11.20 Opioid dependence, uncomplicated | CPT/HCPCS: 99222 ==

== ENCOUNTER → 2025-03-16 01:05 | Outpatient (BNV) | payer MEDICAID, SELFPAY | PROVIDERS: Admitting Provider Student in an Organized Health Care Education/Training Program; Emergency Provider Emergency Medicine; Visit Provider Student in an Organized Health Care Education/Training Program | DX: L03.90 Cellulitis, unspecified (principal) | CPT/HCPCS: 99222; 99231; 99499 ==

== ENCOUNTER 2025-05-20 15:47 | Inpatient (IN) | payer MEDICAID, SELFPAY ==
[2025-05-20] VITALS (10 sets, daily range): BP systolic 119–126; BP diastolic 59–75; PULSE 76–84; RESP 16–18; TEMP 37.4–38.4; O2SAT 98–100; BMI 25.3
--- NOTE | ~2025-05-20 | CT_ITS ---
CLINICAL HISTORY: tib fib, abscess? CT of the right lower extremity with contrast Comparison: Radiograph of the right tibia and fibula 05/20/2025, radiograph of the right tibia and fibula 01/27/2025 Findings: Anterior soft tissue defects at the mid lower leg (series 3, images 350- 390). No encapsulated fluid collection is seen to suggest an abscess. There is anterior skin thickening and subcutaneous fat stranding suggestive of cellulitis. No subcutaneous or intramuscular air are seen to suggest necrotizing fasciitis and there is no air tracking to the bone to suggest osteomyelitis. Healed mid tibial shaft fracture. No acute fracture or dislocation. Again, no evidence of acute osteomyelitis. Right lower extremity visualized vascular structures are grossly unremarkable. Impression: Anterior right lower extremity cellulitis without abscess or imaging findings of necrotizing fasciitis, which should be confirmed clinically. No radiographic evidence of acute osteomyelitis. Healed mid tibial shaft fracture. This document has been electronically signed by: Randall Coburn MD on 05/20/2025 21:51:10
--- NOTE | ~2025-05-20 | US_ITS ---
CLINICAL HISTORY: cellulitis Venous duplex ultrasound bilateral lower extremity Comparison: CT/SR - CT LOWER LEG RT W IV CON - 05/20/25 20:19 EDT US - US VENOUS DUPLEX LE RT - 01/27/25 15:35 EDT Findings: The visualized deep veins are fully compressible with normal Doppler color flow and spectral tracings. Right peroneal vein is not visualized. Mildly enlarged right inguinal lymph node with normal morphology, favored to be reactive. No popliteal cyst. IMPRESSION: 1. Negative for bilateral lower extremity deep vein thrombosis in the visualized veins. 2. Right peroneal vein is not visualized. This document has been electronically signed by: Nancy Kauffman MD on 05/21/2025 18:30:08
--- NOTE | ~2025-05-20 | XR_ITS ---
CLINICAL HISTORY: overlying skin infection 2 view right tibia-fibula Comparison: CR - XR TIBIA FIBULA RT 2V - 01/27/25 15:15 EDT Findings There is a old healed mid shaft tibial diaphysis fracture. No lytic or blastic bone lesions. No destructive bone lesions. No joint effusion. No significant arthritic change. No radiopaque foreign body. IMPRESSION: 1. No acute findings of the right tibia or fibula. This document has been electronically signed by: Yosi Osuna MD on 05/20/2025 17:09:36
--- NOTE | 2025-05-20 16:19 | ED.GENADULT ---
HPI - General Adult General Chief complaint: Wound/Laceration Stated complaint: nausea, fever, chills, light headed, etc..... Time Seen by Provider: 05/20/25 19:35 Source: patient Limitations: no limitations History of Present Illness ED Provider: Vicky Kuhn PA-C HPI narrative: 40-year-old male with a history of polysubstance abuse, including IV drug abuse on methadone, who presents with infection to right lower extremity times 2-3 days. Overlying redness, warmth, swelling and pain. Some of the sites are ulcerated and scabbed over, losing purulent discharge. Associated fever. Related Data Home Medications ?Medication ?Instructions ?Recorded ?Confirmed bupropion HCl 150 mg 24 hr tablet, 150 mg PO DAILY 03/20/24 05/21/25 extended release bupropion HCl 300 mg 24 hr tablet, 300 mg PO DAILY 03/20/24 05/21/25 extended release clonazepam 0.5 mg tablet 0.5 mg PO DAILY PRN anxiety attack 07/09/24 05/21/25 sertraline 100 mg tablet 150 mg PO DAILY 07/09/24 05/21/25 albuterol sulfate 90 mcg/actuation 2 puff inhalation Q6H PRN wheezing 10/04/24 05/21/25 aerosol inhaler (Ventolin HFA) quetiapine 100 mg tablet 100 mg PO BID@1200,2100 10/04/24 05/21/25 methadone 10 mg/mL oral 150 mg PO DAILY 10/05/24 03/16/25 concentrate (Methadone Intensol) gabapentin 800 mg tablet 1,200 mg PO TID 03/16/25 05/21/25 multivitamin with minerals 1 tab PO DAILY 03/16/25 05/21/25 dextroamphetamine-amphetamine ER 1 cap PO QAM 05/21/25 05/21/25 25 mg 24hr capsule,extend release (Adderall XR) nicotine (polacrilex) 4 mg buccal 4 mg PO Q2H PRN Nicotine Cravings 05/21/25 05/21/25 lozenge Allergies Allergy/AdvReac Type Severity Reaction Status Date / Time buspirone AdvReac Severe EPS Verified 05/20/25 16:21 Review of Systems Review of Systems: Yes all other systems are reviewed and are negative Constitutional: Constitutional: Denies fatigue and Reports fever(s) Integumentary/Breasts: Skin/Breast: Reports erythema, Reports skin swelling, Reports sores and Reports wounds Endocrine: Endocrine: Denies fatigue PMFSH Past Medical History Attestation statement: The following information was validated with the patient. Medical History Polysubstance abuse Cannabis use disorder Cocaine use disorder Opioid use disorder, severe, on maintenance therapy Alcohol use disorder Panic attacks ADHD Bipolar disorder Opiate abuse, continuous Depression Social History Social History Household Members: Family Household Members Other:: Mother and Stepfather Housing: House Do you presently have visiting nurse or other home services: No Alcohol intake: unknown Patient Tobacco Use Status: Current everyday Tobacco user Tobacco use type: Cigarette Cigarettes Per Day: 30 Smoked in Last 30 Days: Yes Second Hand Smoke Exposure: No Use of substances other than those prescribed or required for medical reasons: Yes Substance Use Type: Crack/Cocaine, Heroin and IV Drugs Last Used Substance: Days (ago) Advance Directives: No Advance Directives Information Provided: Yes service: No Sexual orientation: Straight/Heterosexual Physical Exam ED Vital Signs: Vital Signs - 24 hr 05/20/25 16:19 05/20/25 19:55 05/20/25 20:02 Temperature 99.3 F 101.2 F H Pulse Rate 84 82 Respiratory Rate 18 16 16 Blood Pressure 126/73 121/75 Pulse Oximetry 99 Oxygen Delivery Method Room Air 05/20/25 20:42 05/20/25 20:53 05/20/25 21:12 Temperature 100.8 F H Pulse Rate 78 Respiratory Rate 18 16 16 Blood Pressure 125/75 Pulse Oximetry 100 Oxygen Delivery Method Room Air 05/20/25 22:25 05/20/25 22:40 05/20/25 22:43 Temperature 99.3 F Pulse Rate 81 76 78 Respiratory Rate 16 16 16 Blood Pressure 119/59 L 126/69 120/69 Pulse Oximetry 98 Oxygen Delivery Method Room Air 05/20/25 22:58 Temperature Pulse Rate Respiratory Rate 16 Blood Pressure Pulse Oximetry Oxygen Delivery Method BMI result Body Mass Index 25.3 Const Other: Alert well-appearing Orientation/consciousness: patient oriented x3 Resp Effort & Inspection: normal respiratory effort Cardio Other: Normal peripheral perfusion Skin Other: Warm dry no rash Neuro General: patient oriented x3, gait normal, no focal motor deficits and CN's II-XI intact bilaterally Extrem Other: see picture under course Psych Other: Cooperative Course Course Course Narrative: This is a Rapid Medical Examination (RME) performed by Coral Hinds PA-C in triage. Full HPI, ROS, assessment and treatment plan per primary provider in the Main ED. Hx: 40 yo M here for eval of right lower leg infection x days. reports injecting cocaine into the area. reports increased, swelling/pain/redness with purulent bloody drainage. last injected cocaine yesterday - feels as though he is withdrawing. he is currently on methadone - last dosed yesterday at [facility] w/ 150 mg methadone. missed today's dose. PE/vitals: low grade temp 99.3F, see photo of RLE below Findings No acute fracture. No dislocation. Joint spaces are maintained. No erosions. Visualized soft tissues are radiographically unremarkable. IMPRESSION: 1. No acute fracture or dislocation. Plan: labs, lactic, blood cultures, xr Reevaluation(s) Reevaluation #1: At 7:54 p.m. on May 20 a sepsis focused exam was performed. In addition to screening labs, blood cultures and lactic were obtained. Giving weight based IV fluid therapy, starting empiric vancomycin and Zosyn. Tylenol for fever Time: 19:54 Medications Administered Discontinued Medications Generic Name Dose Route Start Last Admin Trade Name Gabrieleq PRN Reason Stop Dose Admin Acetaminophen 975 mg 05/20/25 19:54 05/20/25 20:02 Acetaminophen 325 Mg Tablet PO 05/20/25 19:55 975 mg ONCE ONE Administration Hydromorphone HCl 1 mg 05/20/25 19:54 05/20/25 20:02 Hydromorphone Hcl 1 Mg/Ml Syringe IVPUSH 05/20/25 19:55 1 mg ONCE ONE Administration Protocol Hydromorphone HCl 2 mg 05/20/25 21:07 05/20/25 21:12 Hydromorphone Hcl 2 Mg/Ml Vial IVPUSH 05/20/25 21:08 2 mg ONCE ONE Administration Protocol Hydromorphone HCl 2 mg 05/21/25 00:18 05/21/25 00:37 Hydromorphone Hcl 2 Mg/Ml Vial IVPUSH 05/21/25 00:19 2 mg ONCE ONE Administration Protocol Sodium Chloride 2,472 mls @ 2,472 mls/hr 05/20/25 19:54 05/20/25 22:10 Ns 30 ml/kg infuse over 1 hr (2472 ml) 05/20/25 20:53 Infused IV Infusion .Q1H STA Vancomycin HCl 1,500 mg/ 500 mls @ 333.333 mls/hr 05/20/25 19:54 05/20/25 22:58 Sodium Chloride IV 05/20/25 21:23 Infused ONCE ONE Infusion Piperacillin Sod/Tazobactam 50 mls @ 100 mls/hr 05/20/25 19:54 05/20/25 20:35 Sod 3.375 gm/ Sodium Chloride IV 05/20/25 20:23 Infused ONCE ONE Infusion Iohexol 100 ml 05/20/25 20:29 05/20/25 20:29 Iohexol 350 Mg/Ml 100 Ml Infus..Btl IV 05/20/25 20:30 85 ml ONCE ONE Administration Procedures Procedure Narrative Procedure Narrative: Ultrasound-guided IV 20 gauge 1-3/4 inch IV placed in left upper extremity. Adequate blood return, flushes well secured with Tegaderm Medical Decision Making Medical Decision Making MDM Narrative: 40-year-old male with a history of polysubstance abuse, including IV drug abuse on methadone, who presents with infection to right lower extremity times 2-3 days. Overlying redness, warmth, swelling and pain. Some of the sites are ulcerated and scabbed over, losing purulent discharge. Associated fever. Problem: Polysubstance abuse including IV drug abuse History: Per patient I have considered the following differential diagnoses: Cellulitis, purulent cellulitis, abscess, neck fascia, osteomyelitis , sepsis Plan: Screening labs including an x-ray of the tib-fib were ordered from triage, there was no evidence of osteomyelitis, I am concerned for potential underlying abscess, we will obtain a CT scan. The patient meets sepsis criteria, blood cultures lactic obtained, weight based IV fluid therapy initiated with vancomycin and Zosyn, Tylenol for fever. Given Dilaudid for pain. The patient states he is interested in speaking with a middle school football coach prior to being discharged from the hospital. I have independently reviewed the following tests: Labs: Leukocytosis 19.7 with left shift, not anemic, no electrolyte abnormality, lactic 1.3 CT tib/fib: Impression: Anterior right lower extremity cellulitis without abscess or imaging findings of necrotizing fasciitis, which should be confirmed clinically. No radiographic evidence of acute osteomyelitis. Healed mid tibial shaft fracture. Differential Diagnosis Differential Diagnoses: The differential diagnosis associated with the presentation includes See medical decision-making Admission/Observation Consideration of admission/observation: Escalation of care including admission/observation considered will require admission Consult Healthcare Provider Management of the patient was discussed with: Hospitalist Lab Data [facility] Lab Attestation statement: I reviewed the patient's lab results. 05/20/25 16:58 05/20/25 16:58 Labs: Lab Results 05/20/25 05/20/25 Range/Units 16:58 21:18 WBC 19.7 H (4.8-10.8) X10*3/uL RBC 4.17 L D (4.60-5.80) X10*6/uL Hgb 12.4 L D (14.0-18.0) g/dl Hct 34.9 L (42.0-52.0) % MCV 83.7 (80.0-98.0) fL MCH 29.7 (27.0-33.0) pg MCHC 35.5 (31.0-36.0) g/dl RDW 12.5 (11.0-16.0) % Plt Count 223 (160-400) X10*3/uL MPV 10.9 (9.4-12.4) fL Immature Gran % (Auto) 0.6 H (0.0-0.4) % Neut % (Auto) 86.6 H (45-73) % Lymph % (Auto) 5.2 L (20-40) % [place] % (Auto) 7.0 (2-11) % Eos % (Auto) 0.3 (0-4) % Baso % (Auto) 0.3 (0-2) % Lymph # (Auto) 1.0 L (1.2-4.9) X10*3/uL [place] # (Auto) 1.4 H (0.1-1.2) X10*3/uL Eos # (Auto) 0.1 (0.0-0.4) X10*3/uL Baso # (Auto) 0.1 (0.0-0.2) X10*3/uL Abs Immat Gran (auto) 0.12 H (0.00-0.03) X10*3/uL Absolute Neuts (auto) 17.1 H (2.0-8.3) x10*3/uL Absolute Nucleated RBC 0.000 (0.0-0.012) X10*3/uL Nucleated RBC % (auto) 0.0 (0.0-0.2) /100WBC ESR 86 H (0-15) MM/HR Sodium 140 (135-145) mmol/L Potassium 4.0 (3.3-5.1) mmol/L Chloride 105 (96-108) mmol/L Carbon Dioxide 25 (22-29) mmol/L Anion Gap 14 (12-20) BUN 11 (9-16) mg/dL Creatinine 0.98 (0.5-1.4) mg/dL Estim Creat Clear Calc 106.7 Estimated GFR > 60 Random Glucose 118 H (60-115) mg/dL Lactic Acid 1.3 (0.5-2.0) mmol/L Calcium 9.3 (8.4-10.2) mg/dL Magnesium 1.8 (1.6-2.6) mg/dL Total Bilirubin 0.6 (0.0-1.0) mg/dL AST 14 (5-37) U/L ALT 11 (0-40) U/L Alkaline Phosphatase 77 (39-117) U/L C-Reactive Protein 10.40 H (< or = 0.50) mg/dL Total Protein 8.1 H (6.5-8.0) g/dL Albumin 4.5 (3.5-5.0) g/dL Lipase 10 (8-78) U/L Urine Opiates Screen POSITIVE H (Not Detect) Ur Buprenorphine Scrn Not Detected (Not Detect) ng/mL Ur Oxycodone Screen Not Detected (Not Detect) ng/mL Urine Methadone Screen Positive H (Not Detect) ng/mL Urine Fentanyl Screen POSITIVE H (Not Detect) Ur Barbiturates Screen Not Detected (Not Detect) Ur Phencyclidine Scrn Not Detected (Not Detect) Ur Amphetamines Screen Not Detected (Not Detect) U Benzodiazepines Scrn Not Detected (Not Detect) Urine Cocaine Screen POSITIVE H (Not Detect) U Marijuana (THC) Screen Not Detected (Not Detect) Radiology Impression Discussion of test interpretation with radiology: I have reviewed the radiologist's reading. Critical Care Time Critical Care Time Critical Care Time: Yes Total Critical Care Time: 35 Attestation: I Vicky Kuhn PA-C have personally performed 35 minutes of critical care time not including lines and procedures; sepsis, need for IV antibiotic therapy, IV analgesia, admission Discharge Plan Discharge Clinical Impression: Cellulitis of leg, right, Sepsis, Drug abuse, IV Patient Disposition: Admitted As Inpatient
[2025-05-20 17:05] LABS: MANUAL DIFF FLAG NO
[2025-05-20 17:10] LABS: Hematocrit 34.9 % (42.0-52.0); Hemoglobin 12.4 g/dl (14.0-18.0); Imm Gran Abs Auto 0.12 X10*3/uL (0.00-0.03); Imm Gran Pct Auto 0.6 % (0.0-0.4); Lymphocytes Absolute Auto 1.0 X10*3/uL (1.2-4.9); Mean Corpuscular HGB Conc 35.5 g/dl (31.0-36.0); Mean Corpuscular Hemoglobin 29.7 pg (27.0-33.0); Mean Corpuscular Volume 83.7 fL (80.0-98.0); NRBC Abs Auto 0.000 X10*3/uL (0.0-0.012); NRBC Pct Auto 0.0 /100WBC (0.0-0.2); Platelet Count 223 X10*3/uL (160-400); Red Blood Count 4.17 X10*6/uL (4.60-5.80); White Blood Count 19.7 X10*3/uL (4.8-10.8)
[2025-05-20 17:22] LABS: Alanine Aminotransferase 11 U/L (0-40); Albumin Level 4.5 g/dL (3.5-5.0); Alkaline Phosphatase 77 U/L (39-117); Anion Gap 14 (12-20); Aspartate Amino Transferase 14 U/L (5-37); Blood Urea Nitrogen 11 mg/dL (9-16); Calcium 9.3 mg/dL (8.4-10.2); Carbon Dioxide 25 mmol/L (22-29); Chloride 105 mmol/L (96-108); Creatinine Clr Calc Pharmacy 106.7; Estimated Glomerular Filt Rate > 60; Lipase 10 U/L (8-78); Magnesium 1.8 mg/dL (1.6-2.6); Potassium 4.0 mmol/L (3.3-5.1); Sodium 140 mmol/L (135-145); Total Protein 8.1 g/dL (6.5-8.0)
--- OUTSIDE RECORDS SUMMARY | 2025-05-20 19:32 | XMS_ITS | Encounter Summary ---
Author Organization [employer] Address [address] [facility] 7[address] [place] [address] Care Team Providers Care Personnel Training Officer Name Role Phone Radhames Ojeda MD Primary Care Prov ider Reason for Visit * Reason Comments Med Change Request Encounter Details Date Type Department Care Team ([facility] Contact Info) Description 03/07/2025 Refill [facility] CHC MED & PEDS [address] [place], [place] [phone] Radhames Ojeda MD [address] [place], [place] [phone] Social History Tobacco Use Types Packs/Day Years Used Date Smoking Tobacco: Every Day Cigarettes 0.5 22.7 Started: 2002 Passive Smoke Exposure: Current Smokeless Tobacco: Never Alcohol Use Standard Drinks/Week Comments Not Currently 0 (1 standard drink = 0.6 oz pur e alcohol) Depression Answer Date Recorded Patient Health Questionnaire-9 Score 0 12/26/2024 Patient Health Questionnaire-9 Score 0 12/26/2024 Last PHQ-9: Questionnaire Data Not on file 0 12/26/2024 Housing Stability Answer Date Recorded What is [...] Answer Date Recorded Patient Health Questionnaire-2 Score 0 12/26/2024 Sex and Gender Information Value Date Recorded [...] Assessment Noted Time PHQ-9 Depression Total Score: 0 12/27/19 25 1:37 PM EDT documented as of this encounter Care Teams Personnel Training Officer Relationship Specialty Start Date End Date Radhames Ojeda MD [address] [place] [id number] PCP - General Internal Medicine 02/13/20 documented as of this encounter
--- OUTSIDE RECORDS SUMMARY | 2025-05-20 19:32 | XMS_ITS | Encounter Summary ---
Author Organization [employer] Address [address] [facility] [address] [place] [address] Care Team Providers Care Renewal Specialist Name Role Phone Radhames Ojeda MD Primary Care Prov ider Reason for Visit * Reason Onset Date Comments Med Refill 01/13/2024 Encounter Details Date Type Department Care Team (Late st Contact Info) Description 01/13/2024 Telephone [facility] MEDICINE [address] [place] [address] Radhames Ojeda MD [address] [place], [place] [phone] Med Refill Social History Tobacco Use Types [...] 24 hr tablet To be sent to: [facility]/pharmacy #[id number] documented in this encounter Plan of Treatment Not on file documented as of this encounter Visit Diagnoses Not on filedocumented in this encounter Additional Health Concerns Assessment Noted Time PHQ-9 Depression Total Score: 3 02/11/20 23 2:02 PM EDT documented as of this encounter Care Teams Renewal Specialist Relationship Specialty Start Date End Date Radhames Ojeda MD [address] [place] [id number] PCP - General Internal Medicine 02/13/20 documented as of this encounter
--- OUTSIDE RECORDS SUMMARY | 2025-05-20 19:33 | XMS_ITS | Clinical Summary ---
Author Organization [facility] Address [address] [place] [address] Care Team Providers Care Chief Maintenance Supervisor Name Role Phone Unavailable Primary Care Provider [...] 64 05/15/2018 8:00 PM EDT Temperature 36.9 C (98.4 F) 05/15/2018 8:00 PM EDT Respiratory Rate 16 05/15/2018 8:00 PM EDT [...] (1 - Tdap) 02/23/2004 Influenza Vaccine (#1) 2025 Pneumococcal Vaccine Aged Out No long er eligible based on patient's age to complete this topic RSV Ped < 20 months Aged Out No longe r eligible based on patient's age to complete this topic
--- OUTSIDE RECORDS SUMMARY | 2025-05-20 19:33 | XMS_ITS | Clinical Summary ---
Author Organization [employer] Address [address] [facility] 7[address] [place] [address] Care Team Providers Care Air Purifier Servicer Name Role Phone Radhames Ojeda MD Primary Care Prov ider Allergies No known active allergies Medications * This document contains information received from the source organization and may not represent a complete record from that organization. clotrimazole (Lotrimin) 1 % cream Use 4 times a day on rash for 7 days 30 g 2 04/19/2023 Active gabapentin (Neurontin) 800 MG tabletIndication s:WATER RESOURCE ENGINEER checked 08/26/22 Take 1 tablet (800 mg) by mouth every 8 (eight) hours. 90 tablet 1 01/25/2024 Active buPROPion XL (Wellbutrin XL) 300 MG 24 hr tablet Take 1 tablet (300 mg) by mouth in the morning. 90 tablet 3 01/25/2024 Active albuterol 108 (90 Base) MCG/ACT inhaler Inhale 2 puffs every 6 (six) hours if needed for wheezing. 18 g 11 08/23/2024 08/23/20 25 Active omeprazole (PriLOSEC) [address] Joy ns:Gastroesophag eal reflux disease, unspecified whether esophagitis present TAKE 1 CAPSULE BY MOUTH EVERY DAY 90 capsule 1 10/20/2024 Active diphenhydrAMINE (BENADryl) 25 MG tablet Take 1 tablet (25 mg) by mouth every 6 (six) hours if needed for itching. 30 tablet 04/06/2025 Active Active Problems Problem Noted Date Diagnosed Date Right forearm cellulitis 05/06/2023 Assessment & Plan (05/06/2023 1:49 PM EDT): Patient seen at [facility] due to right arm cellulitis, he [...] & Plan (04/04/2024 10:45 PM EDT): Followe humera therapist, pending psych follow up, no suicidal/homicidal [...] Encounters Date Type Department Care Team Description 04/06/2025 11:40 AM EDT Office Visit [facility] CHC MED & PEDS [address] [place] [address] Jolie Rodriguez MD Poison carola (Primary Dx); Neuropathy of finger of right hand 04/06/2025 Travel 04/06/2025 Telephone [facility] MED & PEDS [address] [place] [address] Radhames Ojeda MD Nurse Triage 03/14/2025 Telephone [facility] MED & PEDS [address] [place] [address] Radhames Ojeda MD Nurse Triage 03/07/2025 Refill [facility] MED & PEDS [address] [place] [address] Radhames Ojeda MD 03/02/2025 Telephone [facility] MEDICINE [address] [place], [place] [phone] Radhames Ojeda MD Nurse Triage from Last 3 Months Immunizations Immunization Administration Dates Next Due Tdap 03/18/2018 Social [...] Sign Reading Time Taken Comments Blood Pressure 131/80 04/06/2025 11:45 AM EDT Pulse 52 04/06/2025 11:45 AM EDT Temperature 36.5 C (97.7 F) 04/06/2025 11:45 AM EDT Respiratory Rate 18 04/06/2025 11:45 AM EDT Oxygen Saturation 99% 04/06/2025 11:45 AM EDT Inhaled Oxygen Concentration - - Weight 85.3 kg (188 lb) 04/06/2025 11:45 AM EDT Height 177.8 cm (5' 10 ) 04/06/2025 11:45 AM EDT Body Mass Index 26.98 04/06/2025 11:45 AM EDT Plan of Treatment Health Maintenance Due Date Last Done Comments HIV Screening 1985 Lipid Panel 1985 Disability Screening 1985 Alcohol/Substance Use Screening 1997 Family Planning (PISQ) 02/23/2000 HPV Vaccines (1 - Male 3-dos e series) 02/23/2000 Hepatitis B Vaccines (2 of 3 - 3-dose series) 11/22/2000 10/25/2000 Pneumococcal Vaccine: Pediatrics (0 to 5 Years) and At-Risk Patients (6 to 49) Years (1 of 2 - PCV) 02/23/2004 Hepatitis A Vaccines (2 of 2 - Risk 2-dose series) 03/27/2021 09/27/2020 SDOH Screening 02/11/2024 02/10/2023 COVID-19 Vaccine (4 - 2023-2 5 season) 2024 08/22/2022, 12/19/2020, 11/21/2020 Influenza Vaccine (#1) 2025 Depression Screening 12/26/2025 12/26/2024, 12/26/2024 Tobacco Screening 04/06/2026 04/06/2025 Zoster Vaccines (1 of 2) 2035 DTaP/Tdap/Td Vaccines (4 - T d or Tdap) 03/11/2035 03/11/2025, 11/07/2023, 03/18/2018 RSV Patients and Patients Aged 60 years or older (1 - 1-dose 75+ series) 02/23/2060 HIB Vaccines Aged Out No longer eligi ble based on patient's age to complete this topic IPV Vaccines Aged Out No longer eligi ble based on patient's age to complete this topic Meningococcal B Vaccine Aged Out No l onger eligible based on patient's age to complete this topic Meningococcal Vaccine Aged Out No fozia tyrese eligible based on patient's age to complete this topic RSV under 20 months Aged Out No longe r eligible based on patient's age to complete this topic Rotavirus Vaccines Aged Out No longer eligible based on patient's age to complete this topic Insurance [facility] STANDARD Care Teams Air Purifier Servicer Relationship Specialty Start Date End Date Radhames Ojeda MD [address] [place] [id number] PCP - General Internal Medicine 02/13/20
--- OUTSIDE RECORDS SUMMARY | 2025-05-20 19:34 | XMS_ITS | Encounter Summary ---
Author Organization [employer] Address [address] [facility] [address] [place] [address] Care Team Providers Care Tissue Rewinder Name Role Phone Radhames Ojeda MD Primary Care Prov ider Reason for Visit * Reason Comments Med Refill Encounter Details Date Type Department Care Team ([facility] st Contact Info) Description 10/14/2022 Refill [facility] CHC MED & PEDS [address] [place] [address] Radhames Ojeda MD [address] [place] [address] Chronic bilateral low back pain with bilateral [...] sciatica documented in this encounter Care Teams Tissue Rewinder Relationship Specialty Start Date End Date Radhames Ojeda MD [address] [place] [address] PCP - General Internal Medicine 02/13/20 documented as of this encounter
--- OUTSIDE RECORDS SUMMARY | 2025-05-20 19:35 | XMS_ITS | Encounter Summary ---
Author Organization [employer] Address [address] [facility] [address] [place] [address] Care Team Providers Care Armature Rewinder Name Role Phone Radhames Ojeda MD Primary Care Prov ider Reason for Visit * Reason Onset Date Comments Medication Question 10/14/2022 Encounter Details Date Type Department Care Team (Late st Contact Info) Description 10/14/2022 Telephone [facility] MEDICINE [address] [place] [address] Radhames Ojeda MD [address] [place], [place] [phone] Medication Question Social History Tobacco Use Types [...] on filedocumented in this encounter Care Teams Armature Rewinder Relationship Specialty Start Date End Date Radhames Ojeda MD [address] [place] [id number] PCP - General Internal Medicine 02/13/20 documented as of this encounter
--- OUTSIDE RECORDS SUMMARY | 2025-05-20 19:35 | XMS_ITS | Encounter Summary ---
Author Organization [employer] Address [address] [facility] [address] [place] [address] Care Team Providers Care Pin Sticker Name Role Phone Radhames Ojeda MD Primary Care Prov ider Encounter Details Date Type Department Care Team (Late st Contact Info) Description 09/25/2022 Orders Only [facility] MEDICINE [address] [place] [address] Radhames Ojeda MD [address] [place], [place] [phone] Eye exam, routine (Primary Dx) Social History [...] Primary documented in this encounter Care Teams Pin Sticker Relationship Specialty Start Date End Date Radhames Ojeda MD [address] [place] [address] PCP - General Internal Medicine 02/13/20 documented as of this encounter
--- OUTSIDE RECORDS SUMMARY | 2025-05-20 19:36 | XMS_ITS | Encounter Summary ---
Author Organization [employer] Address [address] [facility] [address] [place] [address] Care Team Providers Care Salvage Inspector Name Role Phone Radhames Ojeda MD Primary Care Prov ider Encounter Details Date Type Department Care Team (Late st Contact Info) Description 10/15/2022 Orders Only [facility] MEDICINE [address] [place] [address] Radhames Ojeda MD [address] [place], [place] [phone] Mood disorder (CMS/HCC) (Primary Dx) Social History [...] disorder documented in this encounter Care Teams Salvage Inspector Relationship Specialty Start Date End Date Radhames Ojeda MD [address] [place], [place] [phone] PCP - General Internal Medicine 02/13/20 documented as of this encounter
--- OUTSIDE RECORDS SUMMARY | 2025-05-20 19:37 | XMS_ITS | Encounter Summary ---
Author Organization [employer] Address [address] [place] [address] [address] [place] [address] Care Team Providers Care Housecleaner Floor Name Role Phone Radhames Ojeda MD Primary Care Prov ider Reason for Visit * Reason Onset Date Comments Med Refill 01/06/2023 Encounter Details Date Type Department Care Team ([facility] st Contact Info) Description 01/06/2023 Telephone [facility] MED & PEDS [address] [place], [place] [phone] Radhames Ojeda MD [address] [place] [address] Med Refill Social History Tobacco Use Types [...] (Neurontin) 800 MG tablet Please sent to [facility]/pharmacy #[id number] - [place] - [phone] [facility] documented in this encounter Plan of Treatment Not on file documented as of this encounter Visit Diagnoses Not on filedocumented in this encounter Care Teams Housecleaner Floor Relationship Specialty Start Date End Date Quinones Briggs, Radhames, MD [address] [place] [phone] PCP - General Internal Medicine 02/13/20 documented as of this encounter
--- OUTSIDE RECORDS SUMMARY | 2025-05-20 19:37 | XMS_ITS | Encounter Summary ---
Author Organization [employer] Address [address] [facility] 7[address] [place] [address] Care Team Providers Care Employment Programs Analyst Name Role Phone Radhames Ojeda MD Primary Care Prov ider Reason for Visit * Reason Comments Med Refill Encounter Details Date Type Department Care Team ([facility] st Contact Info) Description 01/06/2023 Refill [facility] PEDS [address] [place] [address] Radhames Ojeda MD [address] [place] [address] Chronic bilateral low back pain with bilateral [...] sciatica documented in this encounter Care Teams Employment Programs Analyst Relationship Specialty Start Date End Date Radhames Ojeda MD [address] [place] [address] PCP - General Internal Medicine 02/13/20 documented as of this encounter
--- OUTSIDE RECORDS SUMMARY | 2025-05-20 19:37 | XMS_ITS | Clinical Summary ---
Author Organization [facility] Address [address] [place] [address] Phone Care Team Providers Care Floor Hand Name Role Phone Physician, Pcp Unknown Primary Care Provider Dolores vailable Allergies No known active allergies Medications No known medications Active Problems No known active problems Encounters Date Type Department Care Team Description 04/09/2025 6:13 PM EDT - 04/09/2025 6:30 PM EDT Emergency [facility] Emergency [address] [place] [address] Rash (Primary Dx) Discharge Disposition: Home or Self Care 03/11/2025 10:04 PM EDT - 03/12/2025 8:43 AM EDT Emergency [facility] Emergency [address] [place] [address] Cellulitis of right lower leg (Primary Dx); Laceration of right middle finger without foreign body without damage to nail, initial encounter Discharge Disposition: Home or Self Care from Last 3 Months Immunizations Name Administration Dates Next Due Tdap Tetanus diptheria acell ular pertussis (Boostrix; Adacel) 7yo and older 03/11/2025 Medical History Medical History Date Comments Anxiety Depression Social History Tobacco Use Types Packs/Day Years Used Date Smoking Tobacco: Never Assessed Sex and Gender Information Value Date Recorded Sex Assigned at Not on file Legal Sex Male 4:14 AM EST Gender Identity Not on file Sexual Orientation Not on file Obstetrics History Last Filed Vital Signs Vital Sign Reading Time Taken Comments Blood Pressure 144/96 04/09/2025 5:28 PM EDT Pulse 53 04/09/2025 5:28 PM EDT Temperature 36.7 C (98.1 F) 04/09/2025 5:28 PM EDT Respiratory Rate 18 04/09/2025 5:28 PM EDT Oxygen Saturation 99% 04/09/2025 5:28 PM EDT Inhaled Oxygen Concentration - - Weight 85.3 kg (188 lb) 04/09/2025 5:28 PM EDT Height 180.3 cm (5' 11 ) 04/09/2025 5:28 PM EDT Body Mass Index 26.22 04/09/2025 5:28 PM EDT Plan of Treatment Health Maintenance Due Date Last Done Comments Hepatitis B Vaccines (2 of 3 - 3-dose series) 11/22/2000 10/25/2000 Hepatitis A Vaccines (2 of 2 - Risk 2-dose series) 03/27/2021 09/27/2020 Cholesterol Screening (Lipid Panel) 08/23/2022 HIV Screening 08/23/2022 Hepatitis C Screening 08/23/2022 Social Influencers of Health Screening 08/23/2022 COVID-19 Vaccine (4 - 2023-2 5 season) 2024 08/22/2022, 12/19/2020, 11/21/2020 Depression Screening 09/20/2024 Influenza Vaccine (#1) 2025 DTaP,Tdap,and Td Vaccines (4 - Td or Tdap) 03/11/2035 03/11/2025, 11/07/2023, 03/18/2018 HIB Vaccines Aged Out No longer eligi [...] age to complete this topic Pneumococcal Vaccine: Pediatrics (0 to 5 Years) and At-Risk Patients (6 to 49 Years) Aged Out No longer eligible b ased on patient's age to complete this topic RSV Immunization Patients Under 20 months Aged Out No longer eligible b ased on patient's age to complete this topic Varicella Vaccines Aged Out No longer eligible based on patient's age to complete this topic Procedures Procedure Name Priority Date/Time Associated Diagnosis Comments CT LOWER EXTREMITY W CONTRAST RIGHT STAT 03/12/2025 4:39 AM EDT CULTURE BLOOD STAT 03/12/2025 2:33 AM EDT CBC WITH AUTO DIFFERENTIAL STAT 03/12/2025 2:16 AM EDT C-REACTIVE PROTEIN STAT 03/12/2025 2: 16 AM EDT LACTATE, WITH REFLEX STAT 03/12/2025 2:16 AM EDT CBC AND DIFFERENTIAL STAT 03/12/2025 2:16 AM EDT COMPREHENSIVE METABOLIC PANEL STAT 03/12/2025 2:16 AM EDT CULTURE BLOOD STAT 03/12/2025 2:16 AM EDT US BEDSIDE VASCULAR ACCESS Routine 03/12/2025 2:15 AM EDT VAS US DUPLEX LOWER EXT VENOUS RIGHT STAT 03/12/2025 12:16 AM EDT Cellulitis of right lower leg from Last 3 Months Results * CT Lower Extremity w Contrast Right (03/12/2025 4:39 AM EDT) Anatomical Region Laterality Modality Lower Extremities Right Computed Tomog aquiles 03/12/2025 5:33 AM EDT Impressions 03/12/2025 5:33 AM EDT Diffuse edema versus cellulitis, worse in the lower right leg. There is focal skin/subcutaneous thickening at the lateral hindfoot skin/subcutaneous tissues. Nonspecific and could be phlegmonous change. Developing abscess felt less likely but not excluded. No obvious radiodense retained foreign body evident at this location, but a non radiodense retained foreign body can not be excluded. Otherwise, no drainable fluid collections identified. No evidence for osteomyelitis. See findings section of the report. This document has been electronically signed by: Jax Saunders MD on 03/12/2025 05:33:54 Narrative 03/12/2025 5:33 AM EDT INDICATION: IVDA Cellulitis r/o Osteo vs Abscess vs Retained FB CT right lower leg and foot with contrast Comparison: None provided Findings: [id number]-[id number] is from the distal femur through the foot. There subcutaneous stranding in the right lower leg, worse inferiorly, extending into the foot. There is focal density in the skin and subcutaneous tissues at the level of the lateral, posterior, inferior calcaneus. No drainable fluid collections identified. No acute bony findings. Old right mid tibia fracture deformity. No areas of cortical disruption or periosteal reaction identified. No soft tissue gas identified. Procedure Note Jax Saunders - 03/12/2025 INDICATION: IVDA Cellulitis r/o Osteo vs Abscess vs Retained FB CT right lower leg and foot with contrast Comparison: None provided Findings: Wkyui-tt-gqqo is from the distal femur through the foot. There subcutaneous stranding in the right lower leg, worse inferiorly, extending into the foot. There is focal density in the skin and subcutaneous tissues at the level of the lateral, posterior, inferior calcaneus. No drainable fluid collections identified. No acute bony findings. Old right mid tibia fracture deformity. No areas of cortical disruption or periosteal reaction identified. No soft tissue gas identified. IMPRESSION: Diffuse edema versus cellulitis, worse in the lower right leg. There is focal skin/subcutaneous thickening at the lateral hindfoot skin/subcutaneous tissues. Nonspecific and could be phlegmonous change. Developing abscess felt less likely but not excluded. No obvious radiodense retained foreign body evident at this location, but a non radiodense retained foreign body can not be excluded. Otherwise, no drainable fluid collections identified. No evidence for osteomyelitis. See findings section of the report. This document has been electronically signed by: Jax Saunders MD on 03/12/2025 05:33:54 Cornelius LEVY [facility] [place]EDURES Final Result * Blood Culture, Peripheral #2 (03/12/2025 2:33 AM EDT) Only the most recent of2 resultswithin the time period is included. [facility] Signature Culture, Blood No growth at 5 days LAB MICROBIOLOGY METHOD 03/17/2025 5:01 AM EDT [facility] Blood Venous blood specimen / Unknown Venipuncture / Unknown 03/12/2025 2:33 AM EDT 03/12/2025 3:56 AM EDT Patricia LEVY LAB MICROBIOLOGY - GENERAL ORDERABLES Final Result Performing Organization Address [facility]/ZIP Co de Phone Number [facility] [address] [place] [address], [place] [phone] * Lactate, with Reflex (03/12/2025 2:16 AM EDT) [facility] LACTIC ACID 0.9 0.4 - 2.0 mmol/L LAB CHEMISTRY METHOD 03/12/2025 3:12 AM EDT [facility] Blood Venous blood specimen / Unknown Venipuncture / Unknown 03/12/2025 2:16 AM EDT 03/12/2025 2:42 AM EDT Patricia LEVY LAB BLOOD ORDERABLES Final Result Performing Organization Address [facility]/ZIP Co de Phone Number [facility] [address] [place] [address], [place] [phone] * (ABNORMAL) CBC auto differential (03/12/2025 2:16 AM EDT) [facility] WBC 7.4 4.8 - 10.8 K/mcL LAB HEMETOLOGY METHOD 03/12/2025 2:48 AM EDT [facility] RBC 3.50(L) 4.50 - 5.50 M/mcL LAB HEMETOLOGY METHOD 03/12/2025 2:48 AM EDT [facility] Hemoglobin 10.4(L) 13.5 - 17.5 g/dL LAB HEMETOLOGY METHOD 03/12/2025 2:48 AM EDT [facility] Hematocrit 31.7(L) 42.0 - 54.0 % LAB HEMETOLOGY METHOD 03/12/2025 2:48 AM [facility] MCV 90.6 79.0 - 98.0 FL LAB HEMETOLOGY METHOD 03/12/2025 2:48 AM [facility] MCH 29.7 27.0 - 32.0 pcg LAB HEMETOLOGY METHOD 03/12/2025 2:48 AM [facility] MCHC 32.8 32.0 - 37.0 g/dL LAB HEMETOLOGY METHOD 03/12/2025 2:48 AM [facility] RDW 12.6 11.0 - 15.0 % LAB HEMETOLOGY METHOD 03/12/2025 2:48 AM [facility] Platelets 172 130 - 400 K/mcL LAB HEMETOLOGY METHOD 03/12/2025 2:48 AM [facility] MPV 12.2(H) 7.0 - 11.0 FL LAB HEMETOLOGY METHOD 03/12/2025 2:48 AM [facility] NRBC 0.0 <1.0 % LAB HEMETOLOGY METHOD 03/12/2025 2:48 AM [facility] NRBC Absolute 0.00 <0.10 K/mcL LAB HEMETOLOGY METHOD 03/12/2025 2:48 AM [facility] Neutrophils Relative 53.8 % LAB HEMETOLOGY METHOD 03/12/2025 2:48 AM [facility] Lymphocytes Relative 26.6 % LAB HEMETOLOGY METHOD 03/12/2025 2:48 AM [facility] Monocytes Relative 16.4 % LAB HEMETOLOGY METHOD 03/12/2025 2:48 AM [facility] Eosinophils Relative 2.6 % LAB HEMETOLOGY METHOD 03/12/2025 2:48 AM [facility] Basophils Relative 0.3 % LAB HEMETOLOGY METHOD 03/12/2025 2:48 AM EDT [facility] Immature Granulocytes Relative 0.3 % LAB HEMETOLOGY METHOD 03/12/2025 2:48 AM EDT [facility] Neutrophils Absolute 3.97 1.50 - 7.00 K/mcL LAB HEMETOLOGY METHOD 03/12/2025 2:48 AM EDT [facility] Lymphocytes Absolute 1.96 1.00 - 5.00 K/mcL LAB HEMETOLOGY METHOD 03/12/2025 2:48 AM EDT [facility] Monocytes Absolute 1.21(H) 0.20 - 1.00 K/mcL LAB HEMETOLOGY METHOD 03/12/2025 2:48 AM EDT [facility] Eosinophils Absolute 0.19 0.00 - 0.50 K/mcL LAB HEMETOLOGY METHOD 03/12/2025 2:48 AM EDT [facility] Basophils Absolute 0.02 0.00 - 0.20 K/mcL LAB HEMETOLOGY METHOD 03/12/2025 2:48 AM EDT [facility] Immature Granulocytes Absolute 0.02 0.00 - 0.03 K/mcL LAB HEMETOLOGY METHOD 03/12/2025 2:48 AM EDT [facility] Blood Venous blood specimen / Unknown Venipuncture / Unknown 03/12/2025 2:16 AM EDT 03/12/2025 2:43 AM EDT us Patricia LEVY LAB BLOOD ORDERABLES Final Result [facility] [address] [place] [address], * (ABNORMAL) C-reactive protein (03/12/2025 2:16 AM EDT) C-Reactive Protein 11.10(H) <=0.50 mg/dL LAB CHEMISTRY METHOD 03/12/2025 3:14 AM [facility] Blood Venous blood specimen / Unknown Venipuncture / Unknown 03/12/2025 2:16 AM EDT 03/12/2025 2:43 AM EDT us Patricia LEVY LAB BLOOD ORDERABLES Final Result [facility] [address] [place] [address], [place] [phone] * (ABNORMAL) Comprehensive Metabolic Panel (CMP) (03/12/2025 2:16 AM EDT) Sodium 139 133 - 145 mmol/L LAB CHEMISTRY METHOD 03/12/2025 3:14 AM [facility] Potassium 3.0(L) 3.5 - 5.5 mmol/L LAB CHEMISTRY METHOD 03/12/2025 3:14 AM [facility] Chloride 104 96 - 110 mmol/L LAB CHEMISTRY METHOD 03/12/2025 3:14 AM [facility] CO2 30 21 - 32 mmol/L LAB CHEMISTRY METHOD 03/12/2025 3:14 AM [facility] Anion Gap 5 3 - 11 LAB CHEMISTRY METHOD 03/12/2025 3:14 AM [facility] Glucose 115(H) 70 - 100 mg/dL LAB CHEMISTRY METHOD 03/12/2025 3:14 AM [facility] BUN 16 5 - 25 mg/dL LAB CHEMISTRY METHOD 03/12/2025 3:14 AM [facility] Creatinine 0.91 0.70 - 1.30 mg/dL LAB CHEMISTRY METHOD 03/12/2025 3:14 AM [facility] eGFR 109 >=60 mL/min/1. 73m2 LAB CHEMISTRY METHOD 03/12/2025 3:14 AM [facility] Comment:Calculation based on the Chronic Kidney Disease Epidemiology Collaboration (CKD-EPI) equation refit without adjustment for race. BUN/Creatinine Ratio 17.6 LAB CHEMISTRY METHOD 03/12/2025 3:14 AM [facility] Calcium 8.5 8.5 - 10.5 mg/dL LAB CHEMISTRY METHOD 03/12/2025 3:14 AM [facility] AST (SGOT) 9(L) 10 - 42 unit/L LAB CHEMISTRY METHOD 03/12/2025 3:14 AM [facility] ALT (SGPT) 16 10 - 60 unit/L LAB CHEMISTRY METHOD 03/12/2025 3:14 AM [facility] Alkaline Phosphatase 56 42 - 121 unit/L LAB CHEMISTRY METHOD 03/12/2025 3:14 AM [facility] Total Protein 6.1 6.0 - 8.0 g/dL LAB CHEMISTRY METHOD 03/12/2025 3:14 AM [facility] Albumin 3.1(L) 3.2 - 5.0 g/dL LAB CHEMISTRY METHOD 03/12/2025 3:14 AM [facility] Total Bilirubin 0.6 0.0 - 1.4 mg/dL LAB CHEMISTRY METHOD 03/12/2025 3:14 AM [facility] Blood Venous blood specimen / Unknown Venipuncture / Unknown 03/12/2025 2:16 AM EDT 03/12/2025 2:43 AM EDT us Patricia LEVY LAB BLOOD ORDERABLES Final Result [facility] [address] [place] [address], * US ED Bedside Vascular Access (03/12/2025 2:15 AM EDT) Anatomical Region Laterality Modality Ultrasound Narrative 03/12/2025 2:15 AM EDT Tyrone Wright MD 03/14/2025 9:45 PM US ED Bedside Vascular Access Date/Time: 03/12/2025 2:15 AM Performed by: MILDRED Mims Authorized by: Tyrone Wright MD Consent: Consent obtained: Verbal Consent given by: Patient Risks discussed: Bleeding, infection and pain [place] protocol: Patient identity confirmed: Verbally with patient and arm band Indications: Indications: RN unable to obtain; Hx IVDA Pre-procedure details: Procedure prep: Alcohol Skin Prep. Sedation: Sedation type: None Anesthesia: Anesthesia method: None Procedure specific details: 18 GA IV placed in the right distal upper arm with ultrasound guidance. Labs obtained, Tourniquet removed, line flushed easily with intravascular blush identified on US. Secured with Tegaderm. Post-procedure details: Procedure completion: Tolerated well, no immediate complications us Tyrone Wright MD US BEDSIDE PROCEDURES Final Res ult * Vascular US Duplex Lower Extremity Venous Right (03/12/2025 12:16 AM EDT) Anatomical Region Laterality Modality Vascular, Abdomen Ultrasound 03/12/2025 8:41 AM EDT Impressions 03/12/2025 8:41 AM EDT No evidence of a right lower extremity deep venous thrombosis. -------- FINAL REPORT -------- Dictated By: Eulogio Russo Dictated Date: 03/12/2025 08:41 ET Assigned Physician: Eulogio Russo Reviewed and Electronically Signed By: Eulogio Russo Signed Date: 03/12/2025 08:41 ET Workstation ID: [id number] Transcribed By: Self Edit Transcribed Date: 03/12/2025 08:41 ET Narrative 03/12/2025 8:41 AM EDT PROCEDURE: Right lower extremity deep vein thrombosis study. HISTORY: edema erythema pain in extremities. COMPARISON: 04/28/2023. TECHNIQUE: Grayscale, color Doppler, and spectral Doppler ultrasound evaluation of the deep venous structures of the right lower extremity. FINDINGS: The deep venous structures of the right lower extremity demonstrate normal compressibility with normal color and spectral Doppler flow and a normal response to augmentation maneuvers. Procedure Note Eulogio Russo MD - 03/12/2025 PROCEDURE: Right lower extremity deep vein thrombosis study. HISTORY: edema erythema pain in extremities. COMPARISON: 04/28/2023. TECHNIQUE: Grayscale, color Doppler, and spectral Doppler ultrasoundevaluation of the deep venous structures of the right lower extremity. FINDINGS: The deep venous structures of the right lower extremity demonstrate normalcompressibility with normal color and spectral Doppler flow and a normalresponse to augmentation maneuvers. IMPRESSION: No evidence of a right lower extremity deep venous thrombosis. -------- FINAL REPORT -------- Dictated By: Eulogio Russo Dictated Date: 03/12/2025 08:41 ET Assigned Physician: Eulogio Russo Reviewed and Electronically Signed By: Eulogio Russo Signed Date: 03/12/2025 08:41 ET Workstation ID: [id number] Transcribed By: Self Edit Transcribed Date: 03/12/2025 08:41 ET Patricia LEVY CV VASCULAR PROCEDURES Fin al Result from Last 3 Months Insurance MEDICAID - [place] Care Teams Floor Hand Relationship Specialty Start Date End Date Physician, Pcp Unknown PCP - General 03/11/25
--- OUTSIDE RECORDS SUMMARY | 2025-05-20 19:37 | XMS_ITS | Encounter Summary ---
Author Organization [employer] Address [address] [facility] 7[address] [place] [address] Care Team Providers Care Sheet Metal Roofer Name Role Phone Radhames Ojeda MD Primary Care Prov ider Reason for Visit * Reason Onset Date Comments PT1 form 02/24/2023 Encounter Details Date Type Department Care Team (Late st Contact Info) Description 02/24/2023 Telephone [facility] [address] [place] [address] Radhames Ojeda MD [address] [place] [address] PT1 form Social History Tobacco Use Types [...] on file. * Telephone Encounter - Kimber Antonio - 02/24/2023 9:45 AM EDT TC from Gwen [place] of pt requesting PT1 for location : [facility] [address] [place] [address] Date: everyday Time: 6:00 am Eyewear Manufacturing Supervisor : no Wheelchair : no PCP DR. Quinones documented in this encounter Plan of Treatment Not on file documented as of this encounter Visit Diagnoses Not on filedocumented in this encounter Additional Health Concerns Assessment Noted Time PHQ-9 Depression Total Score: 3 02/11/20 23 2:02 PM EDT documented as of this encounter Care Teams Sheet Metal Roofer Relationship Specialty Start Date End Date Radhames Ojeda MD [address] [place] [id number] PCP - General Internal Medicine 02/13/20 documented as of this encounter
--- OUTSIDE RECORDS SUMMARY | 2025-05-20 19:37 | XMS_ITS | Encounter Summary ---
Author Organization [employer] Address [address] [facility] [address] [place] [address] Care Team Providers Care Campus Coordinator Name Role Phone Radhames Ojeda MD Primary Care Prov ider Reason for Visit * Reason Comments Med Refill Encounter Details Date Type Department Care Team ([facility] st Contact Info) Description 03/23/2023 Refill [facility] MED [facility] PEDS [address] [place], [place] [phone] Radhames Ojeda MD [address] [place] [address] Chronic bilateral low back pain with bilateral [...] documented as of this encounter Care Teams Campus Coordinator Relationship Specialty Start Date End Date Radhames Ojeda MD [address] [place] [id number] PCP - General Internal Medicine 02/13/20 documented as of this encounter
--- OUTSIDE RECORDS SUMMARY | 2025-05-20 19:38 | XMS_ITS | Encounter Summary ---
Author Organization [employer] Address [address] [facility] 7t [place] [address] Care Team Providers Care Round Up Ring Hand Name Role Phone Radhames Ojeda MD Primary Care Prov ider Reason for Visit * Reason Comments Med Refill Encounter Details Date Type Department Care Team ([facility] st Contact Info) Description 03/24/2023 Refill [facility] MED [facility] PEDS [address] [place], [place] [phone] Radhames Ojeda MD [address] [place] [address] Chronic bilateral low back pain with bilateral [...] documented as of this encounter Care Teams Round Up Ring Hand Relationship Specialty Start Date End Date Radhames Ojeda MD [address] [place] [id number] PCP - General Internal Medicine 02/13/20 documented as of this encounter
--- NOTE | 2025-05-20 19:55 | PC.NURSE ---
patient noted to be febrile at 101.2 orally. provider noted and sepsis protocol initiated
[2025-05-20] MEDS: SODIUM CHLORIDE 2472 ML IV (20:02)
--- NOTE | 2025-05-20 20:11 | PC.NURSE ---
Patient medicated per NOV for sepsis, also medicated w/ prn pain medication for 10/10 right lower extremity pain. large scabbed wound w/ surrounding erythema and swelling to right lower extemity, small opening at the top of the wound with purulent drainage. patient states the wound has gotten worse over the past 3 days, fevers/chills starting this morning. positive csm distally. patient to CT at this time.
[2025-05-20] MEDS: iohexoL 350 MG/ML 100 ML INFUS..BTL IV (20:29)
[2025-05-20 21:37] LABS: Cannabinoid Screen Urine Not Detected (Not Detect)
[2025-05-21] VITALS (16 sets, daily range): BP systolic 91–154; BP diastolic 54–87; PULSE 53–83; RESP 16–18; TEMP 36–37.9; O2SAT 97–100; BMI 26.8
--- NOTE | 2025-05-21 00:41 | PC.NURSE ---
pt medicated w/ dilaudid per order for 10/10 right lower leg pain. aware of plan for admission
--- NOTE | 2025-05-21 03:13 | PC.NURSE ---
Report received and care assumed at 0300. The pt was initially noted to be in the restroom upon RN's arrival to bedside. He was noted to independently ambulate from the nearby bathroom to his room independently with even and steady gait. RN to bedside at that time for introductions s/p change of shift. The pt is alert, oriented, skin dry, and respirations even and unlabored. This RN inquired about pain and needs to which the pt reported feeling unwell and believing that he is experiencing severe withdrawals, stating If they don't do something about this I'm thinking about just leaving . This RN sent a [email or web address] outreach to Dr Turner to make him aware and to request additional assistance with pain and/or withdrawal symptoms. RN awaiting response or updates at this time.
[2025-05-21] MEDS: oxyCODONE HCl Immed Release 5 MG TABLET PO ×3 (03:45→21:00)
--- NOTE | 2025-05-21 04:26 | PC.NURSE ---
RN to bedside to answer call griffin. Pt found sitting upright at/on the edge of his bed. He states that the previous medication administered did not assist and/or touch his pain and/or withdrawal symptoms. The pt is requesting 2mg dilaudid stating that is what he had previously received and had worked well for him. Outreach made via Sqord to hospitalist to assist and/or provide new orders for care. Pt is otherwise, calm and cooperative, no outward signs of distress noted.
[2025-05-21] MEDS: Nicotine Polacrilex Lozenge 4 MG LOZENGE BUCCAL ×2 (04:56→09:36)
--- NOTE | 2025-05-21 05:01 | PC.NURSE ---
Hospitalist placed new orders to assist with patients. RN to bedside to provide patient with medications per MAR. Pt expressed his frustration with medication management as he states do they know I do 15 baggies at a time, what is this? . The pt went further to say how he was informed that he would be getting his methadone and appropriate pain/withdrawal management but does not believe that to be the case at this time. The pt did willingly receive/accept his 1mg dilaudid and was also given a PRN nicoret lozenge to assist with nicotine cravings. The pt remains calm and cooperative, A&Ox4 without acute distress noted. The pt declined AM labs at this time as he reports feeling too unwell to have them obtained, requesting that lab return at a later time.
--- NOTE | 2025-05-21 06:07 | P.HPHOSP_ITS ---
History of Present Illness Date of Service: 05/21/25 Chief Complaint: leg redness 40-year-old male with a past medical history of anxiety, depression, polysubstance use disorder, heroin abuse, opiate dependence on methadone maintenance program, tobacco dependence presented to the hospital with a chief complaint of right leg pain redness and swelling at the site of IV drug injection site the past 4 days. Reports having subjective fevers. Mentions that he tried to inject on the leg few times. Noted to have erythema and redness. Also noted pus-like discharge. Hence presented to the ER for further evaluation. Reports that he missed his methadone dose on the day he came to the ER. Mentions that he used about 15 bags of heroin per day. Denies any nausea or vomiting. Denies any urinary symptoms. Denies any chest pain or palpitations. Review of all other systems is negative except mentioned above ER course: Per ER team, patient noted to have right leg pain redness and swelling especially on the barba with the open wound and track blanco. CT showed no evidence of abscess or necrotizing fasciitis. Noted superficial cellulitis. Given vancomycin. [facility] Medical History Polysubstance abuse Cannabis use disorder Cocaine use disorder Opioid use disorder, severe, on maintenance therapy Alcohol use disorder Panic attacks ADHD Bipolar disorder Opiate abuse, continuous Depression Social History Household Members: Family Household Members Other:: Mother and Stepfather Housing: House Do you presently have visiting nurse or other home services: No Alcohol intake: unknown Patient Tobacco Use Status: Current everyday Tobacco user Tobacco use type: Cigarette Cigarettes Per Day: 30 Smoked in Last 30 Days: Yes Second Hand Smoke Exposure: No Use of substances other than those prescribed or required for medical reasons: Yes Substance Use Type: Crack/Cocaine, Heroin and IV Drugs Last Used Substance: Days (ago) Advance Directives: No Advance Directives Information Provided: Yes Nutrition Risks: No Nutritional Risk service: No Sexual orientation: Straight/Heterosexual Meds Allergies Allergy/AdvReac Type Severity Reaction Status Date / Time buspirone AdvReac Severe EPS Verified 05/20/25 16:21 Active Medications: Current Medications Acetaminophen (Acetaminophen 325 Mg Tablet) 650 mg PO Q6H PRN PRN Reason: Pain, Mild 1-3,fever,headache Last Admin: 05/21/25 02:10 Dose: 650 mg Amphetamine/Dextroamphetamine (Dextroamphetamine/Amphetamine Xr 5 Mg Cap.Er.24h) 25 mg PO DAILY@0800 [facility] Bupropion HCl (Bupropion Hcl Xl 300 Mg Tab.Er.24h) 300 mg PO DAILY [facility] Calcium Carbonate (Calcium Carbonate 750 Mg Tab.Chew) 750 mg PO Q4H PRN PRN Reason: Heartburn Clonazepam (Clonazepam 0.5 Mg Tablet) 0.5 mg PO DAILY PRN PRN Reason: anxiety attack Enoxaparin Sodium (Enoxaparin Sodium 40 Mg/0.4 Ml Syringe) 40 mg SUBCUT Q24H [facility] Last Admin: 05/21/25 01:56 Dose: Not Given Gabapentin (Gabapentin 400 Mg Capsule) 1,200 mg PO TID [facility] Magnesium Hydroxide (Milk Of Magnesia 30 Ml Oral.Susp) 30 ml PO DAILY PRN PRN Reason: Constipation Melatonin (Melatonin 3 Mg Tablet) 6 mg PO BEDTIME PRN PRN Reason: Insomnia Multivitamins/Vitamin C (Multivitamin Tablet) 1 tab PO DAILY [facility] Nicotine Polacrilex (Nicotine Polacrilex Lozenge 4 Mg Lozenge) 4 mg BUCCAL Q2H PRN PRN Reason: Nicotine Cravings Last Admin: 05/21/25 04:56 Dose: 4 mg Oxycodone HCl (Oxycodone Hcl Immed Release 5 Mg Tablet) 5 mg PO Q4H PRN PRN Reason: Breakthrough Pain Last Admin: 05/21/25 03:45 Dose: 5 mg Pharmacy Consult (Consult Rx Vancomycin Dosing) 1 each MISCELLANE DAILY PRN PRN Reason: Consult order Quetiapine Fumarate (Quetiapine Fumarate 100 Mg Tablet) 100 mg PO BID@1200,2100 [facility] Sertraline HCl (Sertraline Hcl 50 Mg Tablet) 150 mg PO DAILY [facility] Sodium Chloride (0.9 % Sodium Chloride Flush 3 Ml Syringe) [facility] Medications ?Medication ?Instructions ?Recorded ?Confirmed ?Last Taken ?Type bupropion HCl 150 mg 24 hr tablet, 150 mg PO DAILY 10/1305/21/25 05/19/25 History extended release bupropion HCl 300 mg 24 hr tablet, 300 mg PO DAILY 10/1305/21/25 05/19/25 History extended release clonazepam 0.5 mg tablet 0.5 mg PO DAILY PRN anxiety attack 07/09/24 05/21/25 05/19/25 History sertraline 100 mg tablet 150 mg PO DAILY 07/09/2410/1405/19/25 History albuterol sulfate 90 mcg/actuation 2 puff inhalation Q 6H PRN wheezing 10/04/24 05/21/25 05/19/25 History aerosol inhaler (Ventolin HFA) quetiapine 100 mg tablet 100 mg PO BID@1200,2100 09/2005/21/25 05/19/25 History methadone 10 mg/mL oral 150 mg PO DAILY 10/05/2403/15/25 09:00 History concentrate (Methadone Intensol) gabapentin 800 mg tablet 1,200 mg PO TID 03/16/2510/1405/19/25 History multivitamin with minerals 1 tab PO DAILY 03/16/2510/1405/19/25 History dextroamphetamine-amphetamine ER 1 cap PO QAM 05/21/25 05/21/25 05/19/25 History 25 mg 24hr capsule,extend release (Adderall XR) nicotine (polacrilex) 4 mg buccal 4 mg PO Q2H PRN Lopez owen Cravings 05/21/25 05/21/25 Unknown History lozenge Physical Exam 2 Vital Signs and Narrative: Vital Signs: Last Vital Signs Temp 98.5 F 05/21/25 05:50 Pulse 68 05/21/25 05:50 Resp 16 05/21/25 05:50 BP 101/55 L 05/21/25 05:50 Pulse Ox 98 05/21/25 05:50 O2 Del Method Room Air 05/21/25 05:50 BMI result Body Mass Index 25.3 Gen: Appears be in no acute distress HEENT: NCAT, Moist mucosa. Pulmonary: Vesicular breath sounds, fair air entry CVS: Normal S1-S2 Abdomen: BS+, Soft, Nontender Extremities: Warm well perfused; noted erythema, open wound with serosanguineous discharge on the anterior barba of the right leg in the middle 3rd. Surrounding erythema noted. Warm and tender. Neuro: Alert and awake. Results Labs 05/20/25 16:58 05/20/25 16:58 Labs: Laboratory Results - last 24 hr 05/20/25 05/20/25 16:58 21:18 MCV 83.7 MCH 29.7 MCHC 35.5 RDW 12.5 Plt Count 223 MPV 10.9 Immature Gran % (Auto) 0.6 H Neut % (Auto) 86.6 H Lymph % (Auto) 5.2 L [place] % (Auto) 7.0 Eos % (Auto) 0.3 Baso % (Auto) 0.3 Lymph # (Auto) 1.0 L [place] # (Auto) 1.4 H Eos # (Auto) 0.1 Baso # (Auto) 0.1 Abs Immat Gran (auto) 0.12 H Absolute Neuts (auto) 17.1 H Absolute Nucleated RBC 0.000 Nucleated RBC % (auto) 0.0 ESR 86 H Anion Gap 14 Estim Creat Clear Calc 106.7 Estimated GFR > 60 Random Glucose 118 H Lactic Acid 1.3 Calcium 9.3 Magnesium 1.8 Total Bilirubin 0.6 AST 14 ALT 11 Alkaline Phosphatase 77 C-Reactive Protein 10.40 H Total Protein 8.1 H Albumin 4.5 Lipase 10 Urine Opiates Screen POSITIVE H Ur Buprenorphine Scrn Not Detected Ur Oxycodone Screen Not Detected Urine Methadone Screen Positive H Urine Fentanyl Screen POSITIVE H Ur Barbiturates Screen Not Detected Ur Phencyclidine Scrn Not Detected Ur Amphetamines Screen Not Detected U Benzodiazepines Scrn Not Detected Urine Cocaine Screen POSITIVE H U Marijuana (THC) Screen Not Detected Assessment and Plan (1) Cellulitis of leg, right: Status: Acute Plan 40-year-old male with a past medical history of anxiety, depression, polysubstance use disorder, heroin abuse, opiate dependence on methadone maintenance program, tobacco dependence presented to the hospital with a chief complaint of right leg pain redness and swelling at the site of IV drug injection site the past 4 days. Noted to have Right leg cellulitis. Right leg cellulitis: CT showed no evidence of abscess or necrosis. Surrounding soft tissue cellulitis noted. Continue vancomycin (pharmacy consult) Pain control Opiate dependence: Patient on methadone maintenance program. Will defer to day team to confirm and resume methadone in a.m.. Patient reports missing the dose of methadone on the day he came to the ER. Patient was given 20 mg of methadone on admission. Also received oxycodone and Dilaudid, clonidine. Monitor on cows protocol Anxiety/depression: Continue home medications DVT prophylaxis: Lovenox Code status: Full code Quality Stroke Does the patient have a stroke diagnosis?: No VTE Prior VTE?: No VTE Risk Level:: Medical - moderate - high VTE Device Contraindication: Treatment Not Indicated VTE Drug Contraindication: N/A - Med Ordered
--- NOTE | 2025-05-21 06:23 | PC.NURSE ---
RN to bedside for vitals, reassessment, etc. pt easily arousable to verbal stimuli, denies any relief from previous medications that assist with his pain and/or withdrawal symptoms and is requesting an additional dose of diluadid to help as well as for this RN to call to verify his methadone. New orders obtained by hospitalist, pt's BP soft, hospitalist aware and reports new orders for IVF
--- NOTE | 2025-05-21 06:38 | PC.NURSE ---
RN called [facility] clinic where the pt reports he is dosed for his methadone. RN spoke with Bety KOTHARI who confirmed that pt's methadone dose to be 150mg, last dosed in the clinic on 05/15 at 0622am and sent home with 6 bottles that should've lasted him until today . Methadone verification form scanned/faxed to pharmacy and hospitalist made aware
[2025-05-21] MEDS: Lactated Ringers 1,000 ML 100 ML IVCONT ×2 (06:53→21:04)
[2025-05-21] MEDS: Dextroamphetamine/Amphetamine XR 5 MG CAP.ER.24H 25 MG PO (07:22)
--- NOTE | 2025-05-21 07:30 | HE.PHANOTE ---
re methadone verification last dose given at [facility] 05/15/25 @0622 150 mg
--- NOTE | 2025-05-21 07:43 | P.PNIM_ITS ---
Subjective Subjective Date of Service: 05/21/25 Interval History: Patient reports taking methadone 150 in the morning, 10 bags of heroin mixed with cocaine in the afternoon and late evening daily He reports that the methadone he got in the ED which was 20 mg and clonidine did not help him He reports that he did not leave AMA because he is unable to walk with his LLE cellulitis This is being addressed with initiating scheduled clonidine, resuming home methadone 150 mg, requested Addiction Medicine consult Cows protocol initiated Patient reports that his fever, chills and shaking was likely from his opiate withdrawal which has since subsided from his admission. Rest of the ROS negative except as stated above Review of Systems Review of Systems: Yes all other systems are reviewed and are negative Constitutional Constitutional: Reports no additional constitutional complaints Physical Exam 2 Vital Signs: Vital Signs: Last Vital Signs Temp 98.7 F 05/21/25 07:29 Pulse 72 05/21/25 07:29 Resp 16 05/21/25 07:29 BP 126/87 05/21/25 07:29 Pulse Ox 99 05/21/25 07:29 O2 Del Method Room Air 05/21/25 07:29 BMI result Body Mass Index 25.3 General: AOx3, no acute distress Resp: CTA bilaterally CVS: S1, S2, RRR GI: +BS, NT, no distention Skin: RLE cellulitis Neuro: Cranial nerves II-XII grossly intact bilaterally. Motor grossly intact bilaterally Extremities:RLE edema Psych: Anxious appearing Const: General: cooperative GI: Palpation (GI): Soft to palpation, nontender, no guarding and not rigid Objective Data Active Medications Acetaminophen (Acetaminophen 325 Mg Tablet) 650 mg PO Q6H PRN PRN Reason: Pain, Mild 1-3,fever,headache Last Admin: 05/21/25 02:10 Dose: 650 mg Documented By: NERI Amphetamine/Dextroamphetamine (Dextroamphetamine/Amphetamine Xr 5 Mg Cap.Er.24h) 25 mg PO DAILY@0800 ON [facility] OF [facility] Last Admin: 05/21/25 07:22 Dose: 25 mg Documented By: FARHAT Bupropion HCl (Bupropion Hcl Xl 300 Mg Tab.Er.24h) 300 mg PO DAILY ON [facility] OF [facility] Calcium Carbonate (Calcium Carbonate 750 Mg Tab.Chew) 750 mg PO Q4H PRN PRN Reason: Heartburn Clonazepam (Clonazepam 0.5 Mg Tablet) 0.5 mg PO DAILY PRN PRN Reason: anxiety attack Enoxaparin Sodium (Enoxaparin Sodium 40 Mg/0.4 Ml Syringe) 40 mg SUBCUT Q24H ON [facility] Last Admin: 05/21/25 01:56 Dose: Not Given Documented By: NERI Non-Admin Reason: Patient Refused Gabapentin (Gabapentin 400 Mg Capsule) 1,200 mg PO TID ON LICENSE OF [facility] Lactated Ringer's (Lr) 1,000 mls @ 100 mls/hr IVCONT .Q10H ON LICENSE OF [facility] Last Admin: 05/21/25 06:53 Dose: 100 mls/hr Documented By: LISE Vancomycin HCl 1,250 mg/ (Sodium Chloride) 250 mls @ 166.667 mls/hr IV Q12H ON LICENSE OF [facility] Last Admin: 05/21/25 07:21 Dose: 166.67 mls/hr Documented By: FARHAT Magnesium Hydroxide (Milk Of Magnesia 30 Ml Oral.Susp) 30 ml PO DAILY PRN PRN Reason: Constipation Melatonin (Melatonin 3 Mg Tablet) 6 mg PO BEDTIME PRN PRN Reason: Insomnia Methadone HCl (Methadone Hcl 20 Mg/2 Ml Oral.Conc) 150 mg PO DAILY ON [facility] OF [facility] Multivitamins/Vitamin C (Multivitamin Tablet) 1 tab PO DAILY ON [facility] Nicotine Polacrilex (Nicotine Polacrilex Lozenge 4 Mg Lozenge) 4 mg BUCCAL Q2H PRN PRN Reason: Nicotine Cravings Last Admin: 05/21/25 04:56 Dose: 4 mg Documented By: MERLE Oxycodone HCl (Oxycodone Hcl Immed Release 5 Mg Tablet) 5 mg PO Q4H PRN PRN Reason: Breakthrough Pain Last Admin: 05/21/25 03:45 Dose: 5 mg Documented By: MERLE Pharmacy Consult (Consult Rx Vancomycin Dosing) 1 each MISCELLANE DAILY PRN PRN Reason: Consult order Quetiapine Fumarate (Quetiapine Fumarate 100 Mg Tablet) 100 mg PO BID@1200,2100 ON LICENSE OF [facility] Sertraline HCl (Sertraline Hcl 50 Mg Tablet) 150 mg PO DAILY ON [facility] OF [facility] Sodium Chloride (0.9 % Sodium Chloride Flush 3 Ml Syringe) 3 ml IVFLUSH QSHIFT ON LICENSE OF [facility] Last Admin: 05/21/25 07:04 Dose: Not Given Documented By: FARHAT Non-Admin Reason: IV Running Labs 05/21/25 08:26 05/21/25 08:26 Labs: Laboratory Results - last 24 hr 05/20/25 05/20/25 16:58 21:18 MCV 83.7 MCH 29.7 MCHC 35.5 RDW 12.5 Plt Count 223 MPV 10.9 Immature Gran % (Auto) 0.6 H Neut % (Auto) 86.6 H Lymph % (Auto) 5.2 L [place] % (Auto) 7.0 Eos % (Auto) 0.3 Baso % (Auto) 0.3 Lymph # (Auto) 1.0 L [place] # (Auto) 1.4 H Eos # (Auto) 0.1 Baso # (Auto) 0.1 Abs Immat Gran (auto) 0.12 H Absolute Neuts (auto) 17.1 H Absolute Nucleated RBC 0.000 Nucleated RBC % (auto) 0.0 ESR 86 H Anion Gap 14 Estim Creat Clear Calc 106.7 Estimated GFR > 60 Random Glucose 118 H Lactic Acid 1.3 Calcium 9.3 Magnesium 1.8 Total Bilirubin 0.6 AST 14 ALT 11 Alkaline Phosphatase 77 C-Reactive Protein 10.40 H Total Protein 8.1 H Albumin 4.5 Lipase 10 Urine Opiates Screen POSITIVE H Ur Buprenorphine Scrn Not Detected Ur Oxycodone Screen Not Detected Urine Methadone Screen Positive H Urine Fentanyl Screen POSITIVE H Ur Barbiturates Screen Not Detected Ur Phencyclidine Scrn Not Detected Ur Amphetamines Screen Not Detected U Benzodiazepines Scrn Not Detected Urine Cocaine Screen POSITIVE H U Marijuana (THC) Screen Not Detected Assessment and Plan (1) Cellulitis of leg, right: Status: Acute Plan 40-year-old male with a past medical history of anxiety, depression, polysubstance use disorder - heroin abuse (10 bags BID +cocaine) , opiate dependence on methadone maintenance program, tobacco dependence presented to the hospital with a chief complaint of right leg pain redness and swelling at the site of IV drug injection site the past 4 days is admitted to the hospital for right lower extremity cellulitis in the sites of IVDU. Recurrent-acute on chronic/ RLE cellulitis secondary to IVDU Patient has been initiated on broad-spectrum antibiotics-vancomycin and Zosyn- start date 05/21/2025 Appears hemodynamically stable We will continue IV fluid resuscitation for another couple of days and if continues to be hemodynamically stable, we will stop and encourage oral hydration TTE ordered as the patient is likely to have high suspicion for bacteremia- awaiting blood culture results Wound culture results ABIOLA-on methadone 150mg , 10 bags of heroin into least with cocaine in the afternoon and evening Nicotine replacement for smoking withdrawal Initiated on cows protocol Re-initiated methadone 150 mg daily Initiated clonidine 0.1 p.o. t.i.d. scheduled on 05/21/2025 Addiction Medicine consulted -awaiting records Gabapentin 1200 mg p.o. t.i.d. scheduled Patient is interested in cessation-interested in a program Amantadine p.r.n. for cocaine withdrawals Depression Re-initiated bupropion 300 mg and 150 mg daily DVT prophylaxis with Lovenox daily Regular diet Quality Stroke Does the patient have a stroke diagnosis?: No VTE Prior VTE?: No VTE Risk Level:: Medical - moderate - high VTE Device Contraindication: Treatment Not Indicated VTE Drug Contraindication: N/A - Med Ordered
--- NOTE | 2025-05-21 08:05 | PHA.MEDREC ---
Pharmacy Consult ? Medication Reconciliation Pharmacy has completed the medication reconciliation. Utilized claims history to review med rec done by nursing
[2025-05-21 08:38] LABS: MANUAL DIFF FLAG NO
[2025-05-21] MEDS: buPROPion HCl XL 300 MG TAB.ER.24H PO (08:38)
[2025-05-21] MEDS: methADONE HCl 20 MG/2 ML ORAL.CONC 130 MG PO (08:39)
[2025-05-21 08:46] LABS: Hematocrit 31.6 % (42.0-52.0); Hemoglobin 10.7 g/dl (14.0-18.0); Imm Gran Abs Auto 0.10 X10*3/uL (0.00-0.03); Imm Gran Pct Auto 0.6 % (0.0-0.4); Lymphocytes Absolute Auto 1.8 X10*3/uL (1.2-4.9); Mean Corpuscular HGB Conc 33.9 g/dl (31.0-36.0); Mean Corpuscular Hemoglobin 29.2 pg (27.0-33.0); Mean Corpuscular Volume 86.3 fL (80.0-98.0); NRBC Abs Auto 0.000 X10*3/uL (0.0-0.012); NRBC Pct Auto 0.0 /100WBC (0.0-0.2); Platelet Count 231 X10*3/uL (160-400); Red Blood Count 3.66 X10*6/uL (4.60-5.80); White Blood Count 16.2 X10*3/uL (4.8-10.8)
--- NOTE | 2025-05-21 08:48 | PC.NURSE ---
previous US guided IV access noted to be infiltrated - heat applied to affected area. access removed. new 20gIV US access placed to right AC - patent/intact. IVF/abx remain infusing per provider order. pt otherwise medicated per provider order. prn medication utilized d/t pt verbalizing 10/10 pain to RLE. effectiveness pending. pending transfer to admission assignment. plan of care ongoing. call griffin placed within reach.
[2025-05-21 09:01] LABS: Anion Gap 13 (12-20); Blood Urea Nitrogen 7 mg/dL (9-16); Calcium 8.8 mg/dL (8.4-10.2); Carbon Dioxide 25 mmol/L (22-29); Chloride 107 mmol/L (96-108); Creatinine Clr Calc Pharmacy 143.2; Estimated Glomerular Filt Rate > 60; Potassium 3.6 mmol/L (3.3-5.1); Sodium 141 mmol/L (135-145)
--- NOTE | 2025-05-21 09:11 | PHA.PROG ---
Admission Date/Time: May 21, 2025 00:10 Indication: ssti Weight in k.4 kg Adjusted body weight in K kg [place] body weight in K.3 kg Obesity Dosing Indication % IBW: Serum Creatinine - Last 168 Hours 05/20/25 05/21/25 16:58 08:26 Creatinine 0.98 0.73 Estimated CrCl and GFR - Last 168 Hours 05/20/25 05/21/25 16:58 08:26 Estim Creat Clear Calc 106.7 143.2 Estimated GFR > 60 > 60 Vancomycin Loading Dose: 1500 mg x 1 Current Vancomycin Dosing Regimen: 1250 mg q12h Vancomycin Monitoring using AUC goal of 400 - 600 range with trough as surrogate marker: predicted auc 463 Date and Time for next Vancomycin Level to be drawn: before 3rd dose 05/21/25 @1700 Pharmacist Comments on Vancomycin Plan: Vancomycin dosing will take advantage of [employer] as a clinical decision support tool that uses Bayesian modeling to calculate individual patient's pharmacokinetic parameters and forecast the patient's drug concentration time course with the target goal AUC 24 range of 400 - 600 mg/L/hr.
[2025-05-21] MEDS: buPROPion HCl XL 150 MG TAB.ER.24H PO (12:21)
--- NOTE | 2025-05-21 13:00 | CA_ITS ---
Transthoracic Echocardiogram Patient (Last, First, Middle): Von Michelle, Gender: Male Date of : 1985 Age: 40 Procedure Date: 05/21/2025 Procedure Type: Transthoracic Echocardiogram Location: S3E Height: 180.34 cm Weight: 82.1 kg BSA: 2.02 m2 Heart Rate: bpm BP: 124 / 81 mmHg Sales Negotiator: TO Referring MD: Angie Muñoz MD Clinical Law Professor: Mateo Armijo MD Symptoms: suspected bacteremia/IVDU/Bacteremia suspected Study Quality: Fair ECG Rhythm: Sinus Conclusions: - 1. No obvious vegetation seen on this study, but can not be entirely ruled out 2. Normal LV ejection fraction 65-70% 3. Cardiac valvular Dopplers within normal limits 4. Significantly elevated right atrial pressures Findings Left Ventricle Normal left ventricular size, thickness, and systolic function. The visually estimated ejection fraction is between 65-70%. Spectral Doppler is indicative of a normal filling pattern. Right Ventricle Normal right ventricular cavity size and systolic function. Atria Both atria are normal in size. Interatrial shunt cannot be excluded. Aortic Valve The aortic valve structure and function is likely normal. There is no aortic valve stenosis. There is no aortic valve regurgitation. Mitral Valve Likely normal mitral valve structure and function. There is no mitral valve regurgitation. There is no mitral valve stenosis. Pulmonic Valve The pulmonic valve was not well visualized. There is trace pulmonic valve regurgitation. Tricuspid Valve Likely normal tricuspid valve structure and function. Significantly elevated right atrial pressure. Great Vessels The aorta was not well visualized. The pulmonary artery was not well visualized. Venous The inferior vena cava is moderately dilated and does not collapse with inspiration. Pericardium/Pleural The pericardium was not well visualized. Prior Study Comparison No prior study available for comparison. Measurements 2D Linear Measurements IVSd: 0.72 0.6-0.9/0.6-1.0 cm LVIDd: 4.80 3.9-5.3/4.2-5.9 cm LVIDd Index: 2.38 2.4-3.2/2.2-3.1 cm/m2 LVIDs: 3.57 2.0-3.6 cm LVPWd: 0.72 0.7-1.1 cm LA Diam: 3.70 2.7-3.8/3.0-4.0 cm LAIDs Index: 1.83 1.5-2.3 cm/m2 LV Mass: 136.46 67-162/88-224 g LV Mass Index: 67.55 43-95/49-115 g/m2 LVOT Diam: 2.50 3.0+(-)1.3 cm 2D Systolic Function EF 4C: 68.60 >55% EF 2C: 65.30 >55% EF BiP: 68.40 >55% Mitral Valve MV Pk E: 0.68 MV PK A: 0.31 MV Decel Time: 276.00 E/A: 2.20 E'Lateral: 18.30 E'Medial: 12.20 E/E' Med: 5.60 E/E' Lat: 3.70 PHT: 81.00 MVA PHT: 2.72 Decel [place]: 2.47 Aortic Valve AoV Pk Igor: 1.39 AoV Mn Igor: 0.97 AoV VTI: 0.30 AoV Pk Grad: 8.00 Aov Mn Grad: 4.00 VIKKI Cont.VTI: 3.74 LVOT LVOT Pk Igor: 1.06 LVOT Mn Igor: 0.73 LVOT VTI: 0.23 LVOT Pk Grad: 4.00 LVOT Mn Grad: 2.00 LVOT Diam: 2.50 LVOT Area: 4.91 Diastolic Function MV Pk E: 0.68 MV Pk A: 0.31 E/A: 2.20 E'Medial: 12.20 E/E' Med: 5.60 E' Laterial: 18.30 E/E' Lat: 3.70 Right Ventricle TAPSE (mm): 22.80 TVS' Igor: 15.70 Tricuspid Valve RA Press: 15.00 Great Vessels Aorta Sinus of Valsalva: 3.73 2.0-3.[address] [place]: 2.63 1.7-3.4 cm Updated in Other Vendor System with Status of Final Mateo Armijo MD electronically signed on 05/22/2025 12:38:38 PM with status of Final
[2025-05-22 03:08] VITALS: BP 110/69; PULSE 56; RESP 18; TEMP 36; O2SAT 96
[2025-05-22] MEDS: oxyCODONE HCl Immed Release 5 MG TABLET PO ×3 (05:04→13:06)
[2025-05-22] MEDS: Nicotine Polacrilex Lozenge 4 MG LOZENGE BUCCAL ×5 (05:44→23:33)
[2025-05-22] MEDS: methADONE HCl 20 MG/2 ML ORAL.CONC 150 MG PO (07:09)
[2025-05-22] MEDS: Dextroamphetamine/Amphetamine XR 5 MG CAP.ER.24H 25 MG PO (07:10)
[2025-05-22] MEDS: 0.9 % Sodium Chloride Flush 3 ML SYRINGE IVFLUSH ×3 (07:11→23:29)
[2025-05-22 07:26] LABS: Alanine Aminotransferase < 6 U/L (0-40); Albumin Level 3.2 g/dL (3.5-5.0); Alkaline Phosphatase 55 U/L (39-117); Anion Gap 14 (12-20); Aspartate Amino Transferase 15 U/L (5-37); Blood Urea Nitrogen 10 mg/dL (9-16); Calcium 8.5 mg/dL (8.4-10.2); Carbon Dioxide 21 mmol/L (22-29); Chloride 111 mmol/L (96-108); Creatinine Clr Calc Pharmacy 153.7; Estimated Glomerular Filt Rate > 60; Potassium 4.0 mmol/L (3.3-5.1); Sodium 142 mmol/L (135-145); Total Protein 6.0 g/dL (6.5-8.0)
--- NOTE | 2025-05-22 07:28 | HO.PM.IMPN ---
Subjective Subjective Date of Service: 05/22/25 Interval History: Leukocytosis downtrending Patient reports minimal improvement in his pain likely secondary to methadone Patient has Addiction Medicine seeing him today Review of Systems Review of Systems: Yes all other systems are reviewed and are negative Physical Exam Exam: Exam: General: AOx3, no acute distress Resp: CTA bilaterally CVS: S1, S2, RRR GI: +BS, NT, no distention Skin: RLE cellulitis Neuro: Cranial nerves II-XII grossly intact bilaterally. Motor grossly intact bilaterally Extremities:RLE edema Psych: Anxious appearing document embedded image Const: General: cooperative GI: Palpation (GI): Soft to palpation, nontender, no guarding and not rigid Vital Signs: Vital Signs: Last Vital Signs Temp 96.8 F 05/22/25 03:08 Pulse 56 05/22/25 03:08 Resp 18 05/22/25 03:08 BP 110/69 05/22/25 03:08 Pulse Ox 96 05/22/25 03:08 O2 Del Method Room Air 05/22/25 03:08 BMI result Body Mass Index 26.8 General: AOx3, no acute distress Resp: CTA bilaterally CVS: S1, S2, RRR GI: +BS, NT, no distention Skin: RLE cellulitis Neuro: Cranial nerves II-XII grossly intact bilaterally. Motor grossly intact bilaterally Extremities:RLE edema Psych: Anxious appearing Const: General: cooperative GI: Palpation (GI): Soft to palpation, nontender, no guarding and not rigid Objective Data Active Medications Acetaminophen (Acetaminophen 325 Mg Tablet) 975 mg PO Q6H REPLACED BY [facility] Last Admin: 05/22/25 05:03 Dose: 975 mg Documented By: CORDELL Albuterol Sulfate (Albuterol Sulfate 90 Mcg 8 Gm Inhaler) 2 puff INHALE Q6H PRN PRN Reason: Wheezing Amphetamine/Dextroamphetamine (Dextroamphetamine/Amphetamine Xr 5 Mg Cap.Er.24h) 25 mg PO DAILY@0800 REPLACED BY [facility] Last Admin: 05/22/25 07:10 Dose: 25 mg Documented By: RAFAEL Bupropion HCl (Bupropion Hcl Xl 300 Mg Tab.Er.24h) 300 mg PO DAILY REPLACED BY [facility] Last Admin: 05/21/25 08:38 Dose: 300 mg Documented By: FARHAT Calcium Carbonate (Calcium Carbonate 750 Mg Tab.Chew) 750 mg PO Q4H PRN PRN Reason: Heartburn Clonazepam (Clonazepam 0.5 Mg Tablet) 0.5 mg PO DAILY PRN PRN Reason: anxiety attack Last Admin: 05/21/25 13:12 Dose: 0.5 mg Documented By: SJ Clonidine HCl (Clonidine Hcl 0.1 Mg Tablet) 0.1 mg PO TID REPLACED BY [facility]; Protocol Last Admin: 05/21/25 21:13 Dose: Not Given Documented By: CORDELL Non-Admin Reason: Decreased Heart Rate Enoxaparin Sodium (Enoxaparin Sodium 40 Mg/0.4 Ml Syringe) 40 mg SUBCUT Q24H REPLACED BY [facility] Last Admin: 05/21/25 23:22 Dose: 40 mg Documented By: CORDELL Gabapentin (Gabapentin 400 Mg Capsule) 1,200 mg PO TID REPLACED BY [facility] Last Admin: 05/21/25 21:01 Dose: 1,200 mg Documented By: CORDELL Lactated Ringer's (Lr) 1,000 mls @ 100 mls/hr IVCONT .Q10H REPLACED BY [facility] Last Admin: 05/21/25 21:04 Dose: 100 mls/hr Documented By: CORDELL Vancomycin HCl 1,500 mg/ (Sodium Chloride) 500 mls @ 333.333 mls/hr IV Q12H REPLACED BY [facility] Last Admin: 05/22/25 07:11 Dose: 333.33 mls/hr Documented By: RAFAEL Magnesium Hydroxide (Milk Of Magnesia 30 Ml Oral.Susp) 30 ml PO DAILY PRN PRN Reason: Constipation Melatonin (Melatonin 3 Mg Tablet) 6 mg PO BEDTIME PRN PRN Reason: Insomnia Last Admin: 05/21/25 21:01 Dose: 6 mg Documented By: CORDELL Methadone HCl (Methadone Hcl 20 Mg/2 Ml Oral.Conc) 150 mg PO DAILY REPLACED BY [facility] Last Admin: 05/22/25 07:09 Dose: 150 mg Documented By: RAFAEL Co-signed By: JERALD Multivitamins/Vitamin C (Multivitamin Tablet) 1 tab PO DAILY REPLACED BY [facility] Last Admin: 05/21/25 08:38 Dose: 1 tab Documented By: FARHAT Nicotine Polacrilex (Nicotine Polacrilex Lozenge 4 Mg Lozenge) 4 mg BUCCAL Q2H PRN PRN Reason: Nicotine Cravings Last Admin: 05/22/25 05:44 Dose: 4 mg Documented By: CORDELL Oxycodone HCl (Oxycodone Hcl Immed Release 5 Mg Tablet) 5 mg PO Q4H PRN PRN Reason: Breakthrough Pain Last Admin: 05/22/25 05:04 Dose: 5 mg Documented By: CORDELL Pharmacy Consult (Consult Rx Vancomycin Dosing) 1 each MISCELLANE DAILY PRN PRN Reason: Consult order Quetiapine Fumarate (Quetiapine Fumarate 100 Mg Tablet) 100 mg PO BID@1200,2100 REPLACED BY [facility] Last Admin: 05/21/25 21:01 Dose: 100 mg Documented By: CORDELL Sertraline HCl (Sertraline Hcl 50 Mg Tablet) 150 mg PO DAILY REPLACED BY [facility] Last Admin: 05/21/25 08:38 Dose: 150 mg Documented By: FARHAT Sodium Chloride (0.9 % Sodium Chloride Flush 3 Ml Syringe) 3 ml IVFLUSH QSHIFT REPLACED BY [facility] Last Admin: 05/22/25 07:11 Dose: 3 ml Documented By: RAFAEL Labs 05/22/25 05:18 05/22/25 05:18 Labs: Laboratory Results - last 24 hr 05/21/25 05/21/25 05/22/25 08:26 17:06 05:18 MCV 86.3 MCH 29.2 MCHC 33.9 RDW 12.5 Plt Count 231 MPV 11.5 Immature Gran % (Auto) 0.6 H Neut % (Auto) 81.0 H Lymph % (Auto) 11.2 L [place] % (Auto) 6.7 Eos % (Auto) 0.2 Baso % (Auto) 0.3 Lymph # (Auto) 1.8 [place] # (Auto) 1.1 Eos # (Auto) 0.0 Baso # (Auto) 0.1 Abs Immat Gran (auto) 0.10 H Absolute Neuts (auto) 13.1 H Absolute Nucleated RBC 0.000 Nucleated RBC % (auto) 0.0 Anion Gap 13 14 Estim Creat Clear Calc 143.2 153.7 Estimated GFR > 60 > 60 Random Glucose 115 104 Calcium 8.8 8.5 Total Bilirubin 0.2 AST 15 ALT < 6 Alkaline Phosphatase 55 Total Protein 6.0 L Albumin 3.2 L Random Vancomycin 8.1 L Microbiology Microbiology Results: Microbiology 05/20/25 20:02 Blood Culture - Preliminary Blood - Venous No growth after 24 hours. 05/20/25 16:58 Blood Culture - Preliminary Blood - Venous No growth after 24 hours. Assessment and Plan (1) Cellulitis of leg, right: Status: Acute Plan 40-year-old male with a past medical history of anxiety, depression, polysubstance use disorder - heroin abuse (10 bags BID +cocaine) , opiate dependence on methadone maintenance program, tobacco dependence presented to the hospital with a chief complaint of right leg pain redness and swelling at the site of IV drug injection site the past 4 days is admitted to the hospital for right lower extremity cellulitis in the sites of IVDU. Recurrent-acute on chronic/ RLE cellulitis secondary to IVDU Continue broad-spectrum antibiotics-vancomycin and Zosyn- start date 05/21/2025 Appears hemodynamically stable DVT ruled out with bilateral lower extremity ultrasound TTE done awaiting read Discontinue IV hydration as the patient is able to have adequate oral intake and is hemodynamically stable Wound culture results pending-preliminary negative ABIOLA-on methadone 150mg , 10 bags of heroin into least with cocaine in the afternoon and evening Nicotine replacement for smoking withdrawal Patient's pain suboptimally controlled likely in the setting of methadone and addiction med is seeing the patient today he will likely come up with a plan today Continue on cows protocol Continue methadone 150 mg daily Continue clonidine 0.1 p.o. t.i.d. scheduled on 05/21/2025 Addiction Medicine consulted -awaiting recommendations Continue Gabapentin 1200 mg p.o. t.i.d. scheduled Patient is interested in cessation-interested in a program Depression Continue bupropion 300 mg and 150 mg daily DVT prophylaxis with Lovenox daily Regular diet Quality Stroke Does the patient have a stroke diagnosis?: No VTE Prior VTE?: No VTE Risk Level:: Medical - moderate - high VTE Device Contraindication: Treatment Not Indicated VTE Drug Contraindication: N/A - Med Ordered
[2025-05-22 07:35] VITALS: BP 109/69; PULSE 56; RESP 18; TEMP 36.1; O2SAT 97
[2025-05-22 07:36] LABS: Hematocrit 32.6 % (42.0-52.0); Hemoglobin 11.5 g/dl (14.0-18.0); Mean Corpuscular HGB Conc 35.3 g/dl (31.0-36.0); Mean Corpuscular Hemoglobin 30.3 pg (27.0-33.0); Mean Corpuscular Volume 85.8 fL (80.0-98.0); NRBC Abs Auto 0.000 X10*3/uL (0.0-0.012); NRBC Pct Auto 0.0 /100WBC (0.0-0.2); PLT CLUMP 1; Red Blood Count 3.80 X10*6/uL (4.60-5.80)
[2025-05-22 08:07] LABS: Platelet Count 168 X10*3/uL (160-400); White Blood Count 7.7 X10*3/uL (4.8-10.8)
[2025-05-22] MEDS: buPROPion HCl XL 300 MG TAB.ER.24H PO (08:15)
[2025-05-22 11:39] VITALS: BP 128/69; PULSE 55; RESP 18; TEMP 36.3; O2SAT 98
--- NOTE | 2025-05-22 11:49 | MHC.CM.PN ---
PT REPORTS HE LIVES WITH HIS MOTHER AND IS INDEPENDENT WITH CARE HE HAS NO DME AND IS ACTIVE WITH [facility] AND [facility] PCP AT [facility] HE REPORTS HIS MOTHER IS HIS HCP, COPY REQUESTED DCP TBD PENDING RECOVERY CONSULT, PT INTERESTED IN A PROGRAM HOME VS [facility] PROGRAM PT WILL ARRANGE TRANSPORT
--- NOTE | 2025-05-22 12:01 | MHC.RECOVRN ---
TW met with the patient in [id number]? to discuss current substance use and concerns related to increased risk of substance use and related problems.? On approach pt was sitting in bed watching television in no apparent acute distress. He denies current withdrawal symptoms stating, ?I just received my dose but it's worse before I get it. I experience stomach cramping, irritability, and my body just aches?? Pt reports his pain is not being adequately treated. ?Tylenol isn?t going to cut it for me when I?m using like 15 bags of dope a day?. Pt states he is in withdrawal each morning before receiving his methadone dose and feels he may benefit from an increase ?until I can stabilize a bit more?? Pt is goal oriented and states he would like to get into an ABIOLA program upon discharging from the hospital, primarily? [facility] where he reports a previous stay for 30 days with some success. Pt is agreeable to any available placement at this time. Pt was also agreeable to a referral for recovery coaching.? Discussed risk and reduction strategies including continuing to utilize [employer] for clean supplies if he decides to continue use, never using alone, and carrying Narcan. Provided pt with written resources including recovery coaching, [facility] [place], harm reduction techniques, pathways to recovery and additional outpatient support.? Pt reports he will continue community methadone dosing at [facility] upon discharge, was agreeable to acid recovery operator referral. TW will attempt to contact [facility] for placement pt was instructed to do the same.? ? Pt was provided with TW?s contact information if questions or concerns arise. Pt denies further questions or concerns at this time.? Case [facility]
--- NOTE | 2025-05-22 13:50 | HO.WOUND ---
Wound Consult: Initial 40 yr old male admitted to [facility] on 05/22/25- See progress notes and H&P for detailed history. Wound consult placed for right lower extremity. Patient agreeable to assessment and photo documentation. Etiology: Right lower leg injection site Wound Bed: linear area of scabbing, largely dry and intact, proximal scabs moist with creamy yellow drainage Drainage / Odor: small creamy yellow, no odor Edges: ? open/attached Deisy wound: ? No Induration, Fluctuance or Warmth noted, deisy wound swelling and redness noted Pain: pain controlled Goals of Treatment: ? wound healing Recommendations: 1. Turn and Reposition every 2 hours and as needed for patient comfort. Use pillows or wedges to support off loading positions. 2. Off Load all bony prominences with use of pillows and heel boots if needed. Apply Preventative foams where needed. 3. Monitor for incontinence and moisture control, use barrier creams when needed for prevention and treatment. 4. Provide adequate and supplemental nutrition. 5. Order or Continue low air loss mattress. 6. When applicable maintain blood glucose levels per Providers order. Right leg: cleanse with normal saline, apply durafiber ag to open wounds, cover with ABD pad, wrap with rolled gauze, change every other day and PRN. Re-consult wound care Nurse for wound deterioration or wound changes.
[2025-05-22 15:30] VITALS: BP 126/60; PULSE 57; RESP 18; TEMP 36.3; O2SAT 100
[2025-05-22] MEDS: oxyCODONE HCl ER 10 MG TAB.ER.12H 20 MG PO (15:36)
[2025-05-22] MEDS: buPROPion HCl XL 150 MG TAB.ER.24H PO (16:20)
[2025-05-22] MEDS: oxyCODONE HCl Immed Release 5 MG TABLET 10 MG PO ×2 (18:14→23:33)
[2025-05-22 19:03] VITALS: BP 104/61; PULSE 69; RESP 18; TEMP 36.8; O2SAT 98
[2025-05-22 23:24] VITALS: BP 113/69; PULSE 62; RESP 18; TEMP 36.5; O2SAT 98
[2025-05-23 03:27] VITALS: BP 120/62; PULSE 65; RESP 18; TEMP 36.7; O2SAT 97
[2025-05-23] MEDS: oxyCODONE HCl Immed Release 5 MG TABLET 10 MG PO ×3 (05:44→13:33)
[2025-05-23] MEDS: Nicotine Polacrilex Lozenge 4 MG LOZENGE BUCCAL ×2 (06:27→14:37)
[2025-05-23 07:36] VITALS: BP 120/71; PULSE 58; RESP 18; TEMP 36.6; O2SAT 97
--- NOTE | 2025-05-23 08:04 | P.PNIM_ITS ---
Subjective Subjective Date of Service: 05/23/25 Physical Exam 2 Vital Signs: Vital Signs: Last Vital Signs Temp 97.8 F 05/23/25 07:36 Pulse 58 05/23/25 07:36 Resp 18 05/23/25 07:36 BP 120/71 05/23/25 07:36 Pulse Ox 97 05/23/25 07:36 O2 Del Method Room Air 05/23/25 07:36 BMI result Body Mass Index 26.8 Objective Data Active Medications Acetaminophen (Acetaminophen 325 Mg Tablet) 975 mg PO Q6H PENDING SALE TO [facility] Last Admin: 05/23/25 06:25 Dose: 975 mg Documented By: JULISSA Albuterol Sulfate (Albuterol Sulfate 90 Mcg 8 Gm Inhaler) 2 puff INHALE Q6H PRN PRN Reason: Wheezing Amphetamine/Dextroamphetamine (Dextroamphetamine/Amphetamine Xr 5 Mg Cap.Er.24h) 25 mg PO DAILY@0800 PENDING SALE TO [facility] Last Admin: 05/22/25 07:10 Dose: 25 mg Documented By: RAFAEL Bupropion HCl (Bupropion Hcl Xl 300 Mg Tab.Er.24h) 300 mg PO DAILY PENDING SALE TO [facility] Last Admin: 05/22/25 08:15 Dose: 300 mg Documented By: RAFAEL Bupropion HCl (Bupropion Hcl Xl 150 Mg Tab.Er.24h) 150 mg PO DAILY PENDING SALE TO [facility] Calcium Carbonate (Calcium Carbonate 750 Mg Tab.Chew) 750 mg PO Q4H PRN PRN Reason: Heartburn Clonazepam (Clonazepam 0.5 Mg Tablet) 0.5 mg PO DAILY PRN PRN Reason: anxiety attack Last Admin: 05/22/25 11:26 Dose: 0.5 mg Documented By: RAFAEL Clonidine HCl (Clonidine Hcl 0.1 Mg Tablet) 0.1 mg PO TID PENDING SALE TO [facility]; Protocol Last Admin: 05/22/25 23:28 Dose: 0.1 mg Documented By: JULISSA Enoxaparin Sodium (Enoxaparin Sodium 40 Mg/0.4 Ml Syringe) 40 mg SUBCUT Q24H PENDING SALE TO [facility] Last Admin: 05/22/25 23:31 Dose: Not Given Documented By: JULISSA Non-Admin Reason: Patient Refused Gabapentin (Gabapentin 400 Mg Capsule) 1,200 mg PO TID PENDING SALE TO [facility] Last Admin: 05/22/25 23:29 Dose: 1,200 mg Documented By: JULISSA Hydromorphone HCl (Hydromorphone Hcl 1 Mg/Ml Syringe) 1 mg IVPUSH Q4H PRN; Protocol PRN Reason: Pain, Severe (Pain Scale 7-10) Vancomycin HCl 1,500 mg/ (Sodium Chloride) 500 mls @ 333.333 mls/hr IV Q12H PENDING SALE TO [facility] Last Admin: 05/23/25 06:27 Dose: 333.33 mls/hr Documented By: JULISSA Magnesium Hydroxide (Milk Of Magnesia 30 Ml Oral.Susp) 30 ml PO DAILY PRN PRN Reason: Constipation Melatonin (Melatonin 3 Mg Tablet) 6 mg PO BEDTIME PRN PRN Reason: Insomnia Last Admin: 05/21/25 21:01 Dose: 6 mg Documented By: CORDELL Methadone HCl (Methadone Hcl 20 Mg/2 Ml Oral.Conc) 150 mg PO DAILY PENDING SALE TO [facility] Last Admin: 05/22/25 07:09 Dose: 150 mg Documented By: RAFAEL Co-signed By: JERALD Multivitamins/Vitamin C (Multivitamin Tablet) 1 tab PO DAILY PENDING SALE TO [facility] Last Admin: 05/22/25 08:16 Dose: 1 tab Documented By: RAFAEL Nicotine Polacrilex (Nicotine Polacrilex Lozenge 4 Mg Lozenge) 4 mg BUCCAL Q2H PRN PRN Reason: Nicotine Cravings Last Admin: 05/23/25 06:27 Dose: 4 mg Documented By: JULISSA Oxycodone HCl (Oxycodone Hcl Immed Release 5 Mg Tablet) 10 mg PO Q4H PRN PRN Reason: Breakthrough Pain Last Admin: 05/23/25 05:44 Dose: 10 mg Documented By: JULSISA Pharmacy Consult (Consult Rx Vancomycin Dosing) 1 each MISCELLANE DAILY PRN PRN Reason: Consult order Quetiapine Fumarate (Quetiapine Fumarate 100 Mg Tablet) 100 mg PO BID@1200,2100 PENDING SALE TO [facility] Last Admin: 05/22/25 23:28 Dose: 100 mg Documented By: JULISSA Sertraline HCl (Sertraline Hcl 50 Mg Tablet) 150 mg PO DAILY PENDING SALE TO [facility] Last Admin: 05/22/25 08:18 Dose: Not Given Documented By: RAFAEL Non-Admin Reason: Patient Refused Sodium Chloride (0.9 % Sodium Chloride Flush 3 Ml Syringe) 3 ml IVFLUSH QSHIFT PENDING SALE TO [facility] Last Admin: 05/22/25 23:29 Dose: 3 ml Documented By: JULISSA Labs 05/22/25 05:18 05/22/25 05:18 Labs: Laboratory Results - last 24 hr 05/22/25 05/22/25 05:18 17:27 Plt Count 168 D MPV 12.2 Random Vancomycin 11.0 L Microbiology Microbiology Results: Microbiology 05/20/25 20:02 Blood Culture - Preliminary Blood - Venous No growth after 48 hours. 05/20/25 16:58 Blood Culture - Preliminary Blood - Venous No growth after 48 hours. Quality Stroke Does the patient have a stroke diagnosis?: No VTE Prior VTE?: No VTE Risk Level:: Medical - moderate - high VTE Device Contraindication: Treatment Not Indicated VTE Drug Contraindication: N/A - Med Ordered
[2025-05-23] MEDS: buPROPion HCl XL 300 MG TAB.ER.24H PO (08:09)
[2025-05-23] MEDS: Dextroamphetamine/Amphetamine XR 5 MG CAP.ER.24H 25 MG PO (08:09)
[2025-05-23] MEDS: methADONE HCl 20 MG/2 ML ORAL.CONC 150 MG PO (08:09)
[2025-05-23] MEDS: 0.9 % Sodium Chloride Flush 3 ML SYRINGE IVFLUSH (08:16)
--- NOTE | 2025-05-23 09:43 | MHC.RECOVRN ---
TW met with pt to offer continued support. Pt reports adequate pain relief with oxycodone 10mg. however states that is wears off Pt educated that medication is available Q4H PRN and pt verbalizes understanding. TW also spoke with pt about desire for [facility] placement and explained that placement options should be considered after blood cultures return as pt may have need for continued IV abx. Pt also instructed that he may contact [facility] resources previously provided by TW in order to start the process. Pt verbalizes understanding. TW available for further support as needed
[2025-05-23 10:10] LABS: Hematocrit 32.8 % (42.0-52.0); Hemoglobin 10.9 g/dl (14.0-18.0); Mean Corpuscular HGB Conc 33.2 g/dl (31.0-36.0); Mean Corpuscular Hemoglobin 29.1 pg (27.0-33.0); Mean Corpuscular Volume 87.5 fL (80.0-98.0); NRBC Abs Auto 0.000 X10*3/uL (0.0-0.012); NRBC Pct Auto 0.0 /100WBC (0.0-0.2); Platelet Count 231 X10*3/uL (160-400); Red Blood Count 3.75 X10*6/uL (4.60-5.80); White Blood Count 10.4 X10*3/uL (4.8-10.8)
[2025-05-23 10:32] LABS: Alanine Aminotransferase 7 U/L (0-40); Albumin Level 3.8 g/dL (3.5-5.0); Alkaline Phosphatase 55 U/L (39-117); Anion Gap 12 (12-20); Aspartate Amino Transferase 10 U/L (5-37); Blood Urea Nitrogen 6 mg/dL (9-16); Calcium 8.9 mg/dL (8.4-10.2); Carbon Dioxide 27 mmol/L (22-29); Chloride 106 mmol/L (96-108); Creatinine Clr Calc Pharmacy 137.6; Estimated Glomerular Filt Rate > 60; Potassium 3.3 mmol/L (3.3-5.1); Sodium 142 mmol/L (135-145); Total Protein 7.0 g/dL (6.5-8.0)
--- NOTE | 2025-05-23 11:26 | MHC.CM.PN ---
Patient has been medically cleared to discharge today. He will discharge to home self care. He will resume Methadone treatment at his community dispensary.
[2025-05-23 11:46] VITALS: BP 142/84; PULSE 78; RESP 18; TEMP 36.4; O2SAT 97
--- NOTE | 2025-05-23 13:40 | MHC.RECOVRN ---
TW called [facility] ([facility]) to inquire about potential placement for patient. Spoke with Pat @ [facility] who states they have 1 male bed currently available, however, pt will need to chose an insurance plan as he currently has not done so and is only covered by [employer]. Pat also explained that ocne a plan is selected it can take 24hrs or sometimes 5 days and encouraged to have pt call to get on a waitlist if the bed fills before his plan is effect. TW relayed information to pt and pt mother who was at bedside. Pt verbalized understanding and reports he will be calling now.
--- NOTE | 2025-05-23 13:51 | PM.DS ---
DS: Providers Provider Date of Service: 05/23/25 Date of admission: 05/21/25 00:10 Date of discharge: 05/23/25 Primary care physician: Unknown Physician Consults: 05/21/25 00:11 Addiction Medicine Provider Routine Consulting Provider: Addiction Covering Reason for consultation: pt on methadone 05/21/25 11:44 Addiction Medicine Provider Routine Consulting Provider: Addiction Covering Reason for consultation: abiola 05/21/25 11:47 Consult to Wound Care Routine Reason for consultation: LLE IVDU cellulitis 05/21/25 13:28 Consult to Wound Care Routine Reason for consultation: RLE cellulitis DS: Diagnosis Discharge Diagnosis (1) Cellulitis of leg, right: Status: Acute DS: Summary Hospital Course Hospital Course: 40-year-old male with a past medical history of anxiety, depression, polysubstance use disorder - heroin abuse (10 bags BID +cocaine) , opiate dependence on methadone maintenance program, tobacco dependence presented to the hospital with a chief complaint of right leg pain redness and swelling at the site of IV drug injection site the past 4 days is admitted to the hospital for right lower extremity cellulitis in the sites of IVDU. Recurrent-acute on chronic/ RLE cellulitis secondary to IVDU Was treated with broad-spectrum antibiotics for 3 days and was switched to doxycycline for 7 more days to complete a total 10 day course of antibiotics Has been hemodynamically stable, DVT TTE ruled out with echo and ultrasound Had extensive discussion with the patient and patient's mom regarding the need for oral antibiotics and why he would not need to stay inpatient for this time to complete total antibiotic duration Patient's mother had concern about nausea given doxycycline and for that reason we have prescribed Zofran p.o. prior to administration of doxycycline-family and the patient in agreement with the plan Wound care Patient has been advised to keep the wound clean dry and intact and was given instructions on how to maintain the bandages by the staff. ABIOLA-on methadone 150mg , 10 bags of heroin into least with cocaine in the afternoon and evening Nicotine replacement for smoking withdrawal done Given patient's methadone and extensive heroin and cocaine use, pain control was challenging initially, Addiction Medicine was consulted, and we came up with a plan to continue methadone, cows was discontinued as the patient is on methadone and would not exhibit typical withdrawal symptoms, and he was started on OxyContin 10 mg b.i.d. with good effect Patient is interested in rehab program which Addiction Medicine has given him details about and patient and family-mother are in agreement with the plan that patient can do the intake. Only medication that was added was OxyContin 10 mg 3 tablets till he gets into rehab program tomorrow as the patient already has a bed in a rehab program today and is actively working on getting placed Depression Continued bupropion 300 mg and 150 mg daily, no changes in medication DVT prophylaxis was managed with Lovenox while inpatient Time spent discussing smoking cessation with patient: more than 10 minutes Status at Discharge Functional status at discharge: independent ambulation Time Attestation Total time managing care of this patient today: 50 mintues. Discharge Coordination Time (in mins): 50 Specific discharge activities: I spoke to pt, mom and the staff in detail Quality: Safe Use of Opioids Does Pt have an Active Cancer Diagnosis on the Problem List?: No Quality: Stroke Does the patient have a stroke diagnosis?: No Physical Exam Exam: Exam: General: AOx3, no acute distress Resp: CTA bilaterally CVS: S1, S2, RRR GI: +BS, NT, no distention Skin: RLE cellulitis Extremities:RLE edema Psych: Anxious appearing document embedded image Vital Signs: Vital Signs: Last Vital Signs Temp 97.6 F 05/23/25 11:46 Pulse 78 05/23/25 11:46 Resp 18 05/23/25 11:46 BP 142/84 H 05/23/25 11:46 Pulse Ox 97 05/23/25 11:46 O2 Del Method Room Air 05/23/25 11:46 BMI result Body Mass Index 26.8 General: AOx3, no acute distress Resp: CTA bilaterally CVS: S1, S2, RRR GI: +BS, NT, no distention Skin: RLE cellulitis Neuro: Cranial nerves II-XII grossly intact bilaterally. Motor grossly intact bilaterally Extremities:RLE edema Psych: Anxious appearing Const: General: cooperative GI: Palpation (GI): Soft to palpation, nontender, no guarding and not rigid DS: Data Data Completed and Pending Labs on day of discharge: Laboratory Results - last 24 hr 05/22/25 05/23/25 17:27 09:49 WBC 10.4 RBC 3.75 L Hgb 10.9 L Hct 32.8 L MCV 87.5 MCH 29.1 MCHC 33.2 RDW 12.5 Plt Count 231 D MPV 10.9 Absolute Nucleated RBC 0.000 Nucleated RBC % (auto) 0.0 Sodium 142 Potassium 3.3 Chloride 106 Carbon Dioxide 27 Anion Gap 12 BUN 6 L Creatinine 0.76 Estim Creat Clear Calc 137.6 Estimated GFR > 60 Random Glucose 148 H Calcium 8.9 Total Bilirubin 0.3 AST 10 ALT 7 Alkaline Phosphatase 55 Total Protein 7.0 Albumin 3.8 Random Vancomycin 11.0 L Preliminary micro results at discharge 05/20/25 20:02 Blood Culture - Preliminary Blood - Venous No growth after 48 hours. 05/20/25 16:58 Blood Culture - Preliminary Blood - Venous No growth after 48 hours. Discharge Plan Discharge Anticipated Discharge Date/Time: 05/23/25 13:37 Patient Disposition: Home, Self-Care Discharge Diagnosis: Cellulitis secondary to IVDU in the RLE Referrals: [facility] [Other] - 1 Week Referral Note: Referral has been placed for recovery coaching and office will be in contact Please follow-up as needed Physician,Jadiel J [Primary Care Provider, Medical] - 1 Week Discharge Medications: New doxycycline monohydrate 100 mg Capsule 100 mg PO Q12H 10 Days Qty: 20 0RF oxycodone [OxyContin] 10 mg tablet,oral only,ext.rel.12 hr 10 mg PO BID Qty: 3 0RF Rx Instructions: Partial Fill upon patient request. ondansetron HCl 4 mg tablet 4 mg PO Q8H PRN (Reason: nausea and vomiting) Qty: 10 0RF Continued bupropion HCl 300 mg tablet extended release 24 hr 300 mg PO DAILY bupropion HCl 150 mg tablet extended release 24 hr 150 mg PO DAILY Rx Instructions: takes in afternoon clonazepam 0.5 mg tablet 0.5 mg PO DAILY PRN (Reason: anxiety attack) sertraline 100 mg tablet 150 mg PO DAILY gabapentin 800 mg tablet 1,200 mg PO TID multivitamin with minerals Tablet 1 tab PO DAILY albuterol sulfate [Ventolin HFA] 90 mcg/actuation HFA aerosol inhaler 2 puff inhalation Q6H PRN (Reason: wheezing) quetiapine 100 mg tablet 100 mg PO BID@1200,2100 methadone [Methadone Intensol] 10 mg/mL Concentrate 150 mg PO DAILY dextroamphetamine-amphetamine [Adderall XR] 25 mg capsule,extended release 24hr 1 cap PO QAM nicotine (polacrilex) 4 mg lozenge 4 mg PO Q2H PRN (Reason: Nicotine Cravings) Discharge Orders: Discharge Order (Routine); Ordered 05/23/25 Ordered By: Angie Muñoz Diet: Advance to usual diet Activity on Discharge: As tolerated Stand Alone Forms: Patient Portal Discharge page, Substance Abuse Outpt Detox Print Language: Venezuelan Care Plan Goals: Patient is interested in rehab which has been advised by the addiction team about his intake. Patient is already accepted in a rehab program, awaiting insurance authorization Health Concerns: Maintaining sobriety and prevent relapse Plan of Treatment: Rehab program Assessment: See all above
[2025-05-23] MEDS: buPROPion HCl XL 150 MG TAB.ER.24H PO (14:55)
[2025-05-23] MEDS: Naloxone HCl Nasal TAKE HOME 4 MG SPRAY 8 MG NOSTRILALT (14:56)
== END 2025-05-23 14:57 | disposition home or self-care (01) | DRG 383 ==
LOC: HO.ED 05-21 00:06 → HO.EDOVER 05-21 00:33 → HO.S3 05-21 08:34
PROVIDERS: Physician Assistant Medical; Admitting Provider Hospitalist; Emergency Provider Emergency Medicine; Visit Provider Student in an Organized Health Care Education/Training Program
DX: L03.115 Cellulitis of right lower limb (principal); F11.20 Opioid dependence, uncomplicated; F17.210 Nicotine dependence, cigarettes, uncomplicated; F19.10 Other psychoactive substance abuse, uncomplicated; Z71.6 Tobacco abuse counseling; Z79.899 Other long term (current) drug therapy
CPT/HCPCS: 36415; 73590; 73701; 80048; 80053; 80202; 80307; 83605; 83690; 83735; 85025; 85027; 85652; 86140; 87040; 93306; 93970; 99285; J1171; J1650; J2270; J2543; J3374; J7120; Q9957; Q9967; S9485

== ENCOUNTER → 2025-05-20 16:20 | Outpatient (BNV) | payer MEDICAID, SELFPAY | PROVIDERS: Visit Provider Radiology Diagnostic Radiology | DX: L03.115 Cellulitis of right lower limb (principal) | CPT/HCPCS: 73590; 73701 ==

== ENCOUNTER 2025-05-21 00:10 | Outpatient (BNV) | payer MEDICAID, SELFPAY | END 2025-05-21 13:00 | PROVIDERS: Admitting Provider Hospitalist; Emergency Provider Emergency Medicine; Visit Provider Internal Medicine Cardiovascular Disease | DX: I27.20 Pulmonary hypertension, unspecified (principal) | CPT/HCPCS: 93306 ==

== ENCOUNTER 2025-05-21 00:10 | Outpatient (BNV) | payer MEDICAID, SELFPAY | END 2025-05-21 16:29 | PROVIDERS: Admitting Provider Hospitalist; Emergency Provider Emergency Medicine; Visit Provider Radiology Diagnostic Radiology | DX: R22.43 Localized swelling, mass and lump, lower limb, bilateral (principal) | CPT/HCPCS: 93970 ==

== ENCOUNTER → 2025-05-21 00:10 | Outpatient (BNV) | payer MEDICAID, SELFPAY | PROVIDERS: Admitting Provider Hospitalist; Emergency Provider Emergency Medicine; Visit Provider Hospitalist | DX: L03.115 Cellulitis of right lower limb (principal) | CPT/HCPCS: 99232; 99239 ==

== ENCOUNTER 2025-06-25 11:36 | Emergency (ER) | payer MEDICAID, SELFPAY ==
[2025-06-25 11:56] VITALS: BP 135/68; PULSE 65; RESP 16; TEMP 36.6; O2SAT 99; BMI 25.7
--- NOTE | 2025-06-25 12:06 | ED_ITS ---
HPI - General Adult General Chief complaint: Skin/Abscess/Foreign Body Stated complaint: Spider bite on leg History of Present Illness HPI narrative: Left before completion of treatment by ED provider, Related Data Home Medications ?Medication ?Instructions ?Recorded ?Confirmed bupropion HCl 150 mg 24 hr tablet, 150 mg PO DAILY 10/1305/21/25 extended release bupropion HCl 300 mg 24 hr tablet, 300 mg PO DAILY 10/1305/21/25 extended release clonazepam 0.5 mg tablet 0.5 mg PO DAILY PRN anxiety attack 07/09/24 05/21/25 sertraline 100 mg tablet 150 mg PO DAILY 07/09/2410/14 albuterol sulfate 90 mcg/actuation 2 puff inhalation Q 6H PRN wheezing 10/04/24 05/21/25 aerosol inhaler (Ventolin HFA) quetiapine 100 mg tablet 100 mg PO BID@1200,2100 09/2005/21/25 methadone 10 mg/mL oral 150 mg PO DAILY 10/05/2410/14 concentrate (Methadone Intensol) gabapentin 800 mg tablet 1,200 mg PO TID 03/16/2510/14 multivitamin with minerals 1 tab PO DAILY 03/16/2510/14 dextroamphetamine-amphetamine ER 1 cap PO QAM 05/21/25 05/21/25 25 mg 24hr capsule,extend release (Adderall XR) nicotine (polacrilex) 4 mg buccal 4 mg PO Q2H PRN Lopez owen Cravings 05/21/25 05/21/25 lozenge Previous Rx's ?Medication ?Instructions ?Recorded doxycycline monohydrate 100 mg 100 mg PO Q12H 10 days #20 caps 05/23/25 capsule ondansetron HCl 4 mg tablet 4 mg PO Q8H PRN nausea and 05/23/25 vomiting #10 tabs oxycodone 10 mg tablet 10 mg PO Q8H PRN opiate reve rsal 05/23/25 #6 tabs Allergies Allergy/AdvReac Type Severity Reaction Status Date / Time buspirone AdvReac Severe EPS Verified 06/25/25 11:58 [facility] Past Medical History Medical History (Updated 06/26/25 @ 13:45 by MILDRED Pacheco) Polysubstance abuse Cannabis use disorder Cocaine use disorder Opioid use disorder, severe, on maintenance therapy Alcohol use disorder Panic attacks ADHD Bipolar disorder Opiate abuse, continuous Depression Social History Social History Household Members: Other Household Members Other:: Dad Housing: House Do you presently have visiting nurse or other home services: No Alcohol intake: unknown Patient Tobacco Use Status: Current everyday Tobacco user Tobacco use type: Cigarette Cigarette Packs Per Day: 1.5 Cigarettes Per Day: 30.0 Second Hand Smoke Exposure: Yes Substance Use Type: Crack/Cocaine, Heroin and IV Drugs Advance Directives: No Advance Directives Information Provided: No service: No Sexual orientation: Straight/Heterosexual Physical Exam ED Vital Signs: Vital Signs - 24 hr 06/25/25 11:56 Temperature 97.9 F Pulse Rate 65 Respiratory Rate 16 Blood Pressure 135/68 Pulse Oximetry 99 Oxygen Delivery Method Room Air BMI result Body Mass Index 25.7 Course Course Course Narrative: RME: 40-year-old male presents to ED for left leg redness and swelling. Patient admits to injecting IV heroin into his left leg now swollen and red. Patient denies any chest pain or shortness of breath. Labs x-ray ultrasound ordered Discharge Plan Discharge Clinical Impression: Cellulitis Patient Disposition: Left W/O Completing Treatment Prescriptions: No Action bupropion HCl 300 mg tablet extended release 24 hr 300 mg PO DAILY bupropion HCl 150 mg tablet extended release 24 hr 150 mg PO DAILY Rx Instructions: takes in afternoon clonazepam 0.5 mg tablet 0.5 mg PO DAILY PRN (Reason: anxiety attack) sertraline 100 mg tablet 150 mg PO DAILY gabapentin 800 mg tablet 1,200 mg PO TID multivitamin with minerals Tablet 1 tab PO DAILY albuterol sulfate [Ventolin HFA] 90 mcg/actuation HFA aerosol inhaler 2 puff inhalation Q6H PRN (Reason: wheezing) quetiapine 100 mg tablet 100 mg PO BID@1200,2100 methadone [Methadone Intensol] 10 mg/mL Concentrate 150 mg PO DAILY dextroamphetamine-amphetamine [Adderall XR] 25 mg capsule,extended release 24hr 1 cap PO QAM nicotine (polacrilex) 4 mg lozenge 4 mg PO Q2H PRN (Reason: Nicotine Cravings) doxycycline monohydrate 100 mg Capsule 100 mg PO Q12H 10 Days Qty: 20 0RF ondansetron HCl 4 mg tablet 4 mg PO Q8H PRN (Reason: nausea and vomiting) Qty: 10 0RF oxycodone 10 mg tablet 10 mg PO Q8H PRN (Reason: opiate reversal) Qty: 6 0RF Rx Instructions: Partial Fill upon patient request. Discharge Date/Time: 06/25/25 13:45
--- OUTSIDE RECORDS SUMMARY | 2025-06-25 16:00 | XMS_ITS | Clinical Summary ---
Author Organization [employer] Address [address] [facility] 7t [place] [address] Care Team Providers Care Specialized Developer Name Role Phone Radhames Ojeda MD Primary Care Prov ider Allergies No known active allergies Medications * This document contains information received from the source organization and may not represent a complete record from that organization. clotrimazole (Lotrimin) 1 % cream Use 4 times a day on rash for 7 days 30 g 2 04/19/2023 Active gabapentin (Neurontin) 800 MG tabletIndication s:CONTROL SUPERVISOR checked 08/26/22 Take 1 tablet (800 mg) [...] (05/06/2023 1:49 PM EDT): Patient seen at [facility] due to right arm cellulitis, he [...] 01/25/2019 Chronic anemia 01/25/2019 Chronic hepatitis C ([facility]/HCC) 01/25/2019 Assessment & Plan (05/06/2023 1:49 PM EDT): Told to get blood work done for further assesment Assessment & Plan (04/19/2023 7:30 PM EDT): PT would like treatment for Hep C. He was waiting until he was in sustained recovery. 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 Intravenous cocaine abuse ([facility]) 01/25/2019 Methicillin resistant Staphylococcus aureus infe ction [...] Description 04/06/2025 11:40 AM EDT Office Visit [facility] [address] [place] [address] Jolie Rodriguez MD Poison carola (Primary Dx); Neuropathy of finger of right hand 04/06/2025 Travel 04/06/2025 Telephone [facility] [address] [place] [address] Radhames Ojeda MD Nurse Triage from Last 3 Months Immunizations Immunization Administration Dates Next Due Tdap 03/18/2018 Social History Tobacco Use Types Packs/Day Years Used Date Smoking Tobacco: Every Day Cigarettes 0.5 22.8 Started: 2002 Passive Smoke Exposure: Current Smokeless [...] Screening 02/11/2024 02/10/2023 COVID-19 Vaccine (4 - 2024-2 6 season) 2025 08/22/2022, 12/19/2020, 11/21/2020 Influenza Vaccine (#1) 2025 [...] patient's age to complete this topic Insurance [facility] STANDARD Care Teams Specialized Developer Relationship Specialty Start Date End Date QuinonesRadhames Hester MD [address] [place] [id number] PCP - General Internal Medicine 02/13/20
--- OUTSIDE RECORDS SUMMARY | 2025-06-25 16:00 | XMS_ITS | Encounter Summary ---
Author Organization [email or web address] Address [address] [place] [address] 7t [place] [address] Care Team Providers Care Dye Winch Operator Name Role Phone Radhames Ojeda MD Primary Care Prov ider Reason for Visit * Reason Onset Date Comments Med Refill 01/06/2023 Encounter Details Date Type Department Care Team ([facility] st Contact Info) Description 01/06/2023 Telephone [facility] [address] [place], [place] [phone] Radhames Ojeda MD [address] [place] [address] Med Refill Social History Tobacco Use Types [...] (Neurontin) 800 MG tablet Please sent to [facility]/pharmacy #[id number] - [place] - [phone] [facility] documented in this encounter Plan of Treatment Not on file documented as of this encounter Visit Diagnoses Not on filedocumented in this encounter Care Teams Dye Winch Operator Relationship Specialty Start Date End Date Quinones Briggs, Radhames, MD [address] [place] [phone] PCP - General Internal Medicine 02/13/20 documented as of this encounter
--- OUTSIDE RECORDS SUMMARY | 2025-06-25 16:00 | XMS_ITS | Encounter Summary ---
Author Organization [employer] Address [address] [facility] 7t [place] [address] Care Team Providers Care Full Service Supervisor Name Role Phone Radhames Ojeda MD Primary Care Prov ider Reason for Visit * Reason Onset Date Comments Medication Question 10/14/2022 Encounter Details Date Type Department Care Team (Late st Contact Info) Description 10/14/2022 Telephone [facility] MEDICINE [address] [place] [address] Radhames Ojeda MD [address] [place], [place] [phone] Medication Question Social History Tobacco Use Types [...] on filedocumented in this encounter Care Teams Full Service Supervisor Relationship Specialty Start Date End Date Radhames Ojeda MD [address] [place] [id number] PCP - General Internal Medicine 02/13/20 documented as of this encounter
--- OUTSIDE RECORDS SUMMARY | 2025-06-25 16:00 | XMS_ITS | Encounter Summary ---
Author Organization [employer] Address [address] [facility] 7t [place] [address] Care Team Providers Care Nurse Examiner Name Role Phone Radhames Ojeda MD Primary Care Prov ider Reason for Visit * Reason Onset Date Comments Med Refill 01/13/2024 Encounter Details Date Type Department Care Team (Late st Contact Info) Description 01/13/2024 Telephone [facility] MEDICINE [address] [place] [address] Radhames Ojeda MD [address] [place], [place] [phone] Med Refill Social History Tobacco Use Types [...] 24 hr tablet To be sent to: [facility]/pharmacy #[id number] documented in this encounter Plan of Treatment Not on file documented as of this encounter Visit Diagnoses Not on filedocumented in this encounter Additional Health Concerns Assessment Noted Time PHQ-9 Depression Total Score: 3 02/11/20 23 2:02 PM EDT documented as of this encounter Care Teams Nurse Examiner Relationship Specialty Start Date End Date Radhames Ojeda MD [address] [place] [phone] PCP - General Internal Medicine 02/13/20 documented as of this encounter
--- OUTSIDE RECORDS SUMMARY | 2025-06-25 16:00 | XMS_ITS | Encounter Summary ---
Author Organization [employer] Address [address] [facility] 7t [place] [address] Care Team Providers Care Underground Electrician Name Role Phone Radhames Ojeda MD Primary Care Prov ider Reason for Visit * Reason Comments Med Refill Encounter Details Date Type Department Care Team ([facility] st Contact Info) Description 01/06/2023 Refill [facility] [address] [place] [address] Radhames Ojeda MD [address] [place] [address] Chronic bilateral low back pain with bilateral [...] sciatica documented in this encounter Care Teams Underground Electrician Relationship Specialty Start Date End Date Radhames Ojeda MD [address] [place] [address] PCP - General Internal Medicine 02/13/20 documented as of this encounter
--- OUTSIDE RECORDS SUMMARY | 2025-06-25 16:00 | XMS_ITS | Encounter Summary ---
Author Organization [employer] Address [address] [facility] 7[address] [place] [address] Care Team Providers Care Rent Collector Name Role Phone Radhames Ojeda MD Primary Care Prov ider Reason for Visit * Reason Comments Med Refill Encounter Details Date Type Department Care Team ([facility] st Contact Info) Description 03/23/2023 Refill [facility] [address] [place], [place] [phone] Radhames Ojeda MD [address] [place] [address] Chronic bilateral low back pain with bilateral [...] documented as of this encounter Care Teams Rent Collector Relationship Specialty Start Date End Date Radhames Ojeda MD [address] [place] [place] [id number] PCP - General Internal Medicine 02/13/20 documented as of this encounter
--- OUTSIDE RECORDS SUMMARY | 2025-06-25 16:00 | XMS_ITS | Encounter Summary ---
Author Organization [employer] Address [address] [facility] 7t [place] [address] Care Team Providers Care Cell Installer Name Role Phone Radhames Ojeda MD Primary Care Prov ider Reason for Visit * Reason Comments Med Change Request Encounter Details Date Type Department Care Team ([facility] Contact Info) Description 03/07/2025 Refill [facility]S [address] [place], [place] [phone] Radhames Ojeda MD [address] [place], [place] [phone] Social History Tobacco Use Types Packs/Day Years [...] documented as of this encounter Care Teams Cell Installer Relationship Specialty Start Date End Date Radhames Ojeda MD [address] [place] [phone] PCP - General Internal Medicine 02/13/20 documented as of this encounter
--- OUTSIDE RECORDS SUMMARY | 2025-06-25 16:00 | XMS_ITS | Encounter Summary ---
Author Organization [employer] Address [address] [facility] [address] [place] [address] Care Team Providers Care Registered Respiratory Technician Name Role Phone Radhames Ojeda MD Primary Care Prov ider Encounter Details Date Type Department Care Team (Late st Contact Info) Description 09/25/2022 Orders Only [facility] MEDICINE [address] [place] [address] Radhames Ojeda MD [address] [place], [place] [phone] Eye exam, routine (Primary Dx) Social History [...] Primary documented in this encounter Care Teams Registered Respiratory Technician Relationship Specialty Start Date End Date Radhames Ojeda MD [address] [place] [address] PCP - General Internal Medicine 02/13/20 documented as of this encounter
--- OUTSIDE RECORDS SUMMARY | 2025-06-25 16:00 | XMS_ITS | Encounter Summary ---
Author Organization [employer] Address [address] [facility] 7t [place] [address] Care Team Providers Care Childcare Director Name Role Phone Radhames Ojeda MD Primary Care Prov ider Reason for Visit * Reason Comments Med Refill Encounter Details Date Type Department Care Team ([facility] st Contact Info) Description 10/14/2022 Refill [facility]S [address] [place] [address] Radhames Ojeda MD [address] [place] [address] Chronic bilateral low back pain with bilateral [...] sciatica documented in this encounter Care Teams Childcare Director Relationship Specialty Start Date End Date Radhames Ojeda MD [address] [place] [address] PCP - General Internal Medicine 02/13/20 documented as of this encounter
--- OUTSIDE RECORDS SUMMARY | 2025-06-25 16:00 | XMS_ITS | Encounter Summary ---
Author Organization [employer] Address [address] [facility] 7t [place] [address] Care Team Providers Care Commercial Fisher Name Role Phone Radhames Ojeda MD Primary Care Prov ider Reason for Visit * Reason Onset Date Comments PT1 form 02/24/2023 Encounter Details Date Type Department Care Team (Late st Contact Info) Description 02/24/2023 Telephone [facility] MEDICINE [address] [place] [address] Radhames Ojeda MD [address] [place] [address] PT1 form Social History Tobacco Use Types [...] 02/24/2023 9:45 AM EDT TC from [facility] of pt requesting PT1 for location : [facility] [address] [place] [address] Date: everyday Time: 6:00 am Dough Brake Machine Operator : no Wheelchair : no PCP DR. Quinones documented in this encounter Plan of Treatment Not on file documented as of this encounter Visit Diagnoses Not on filedocumented in this encounter Additional Health Concerns Assessment Noted Time PHQ-9 Depression Total Score: 3 02/11/20 23 2:02 PM EDT documented as of this encounter Care Teams Commercial Fisher Relationship Specialty Start Date End Date Radhames Ojeda MD [address] [place] [phone] PCP - General Internal Medicine 02/13/20 documented as of this encounter
--- OUTSIDE RECORDS SUMMARY | 2025-06-25 16:00 | XMS_ITS | Encounter Summary ---
Author Organization [employer] Address [address] [facility] [address] 7[address] [place] [address] Care Team Providers Care Muck Boss Name Role Phone Radhames Ojeda MD Primary Care Prov ider Encounter Details Date Type Department Care Team (Late st Contact Info) Description 10/15/2022 Orders Only [facility] MEDICINE [address] [place] [address] Radhames Ojeda MD [address] [place], [place] [phone] Mood disorder (CMS/HCC) (Primary Dx) Social History [...] disorder documented in this encounter Care Teams Muck Boss Relationship Specialty Start Date End Date Radhames Ojeda MD [address] [place], [place] [phone] PCP - General Internal Medicine 02/13/20 documented as of this encounter
--- OUTSIDE RECORDS SUMMARY | 2025-06-25 16:00 | XMS_ITS | Clinical Summary ---
Author Organization [facility] Address [address] [place] [address] Care Team Providers Care Disc Inspector Name Role Phone Unavailable Primary Care Provider [...]
--- OUTSIDE RECORDS SUMMARY | 2025-06-25 16:00 | XMS_ITS | Clinical Summary ---
Author Organization [facility] Address [address] [place] [address] Phone Care Team Providers Care Scientific Informatics Analyst Name Role Phone Physician, Pcp Unknown Primary Care Provider Dolores vailable Allergies No known active allergies Medications No known medications Active Problems No known active problems Encounters Date Type Department Care Team Description 04/09/2025 6:13 PM EDT - 04/09/2025 6:30 PM EDT Emergency [facility] Emergency [address] [place] [address] Rash (Primary Dx) Discharge Disposition: Home or Self Care from Last 3 Months Immunizations Immunization Administration Dates Next Due Tdap Tetanus diptheria [...] of 3 - 3-dose series) 11/22/2000 10/25/2000 HPV Vaccines (1 - 3-dose SCD M series) 02/23/2012 Hepatitis A Vaccines (2 of 2 - Risk 2-dose series) 03/27/2021 09/27/2020 Cholesterol Screening (Lipid Panel) 08/23/2022 HIV Screening 08/23/2022 Hepatitis C Screening 08/23/2022 Social Influencers of Health Screening 08/23/2022 Depression Screening 09/20/2024 COVID-19 Vaccine (4 - 2024-2 6 season) 2025 08/22/2022, 12/19/2020, 11/21/2020 Influenza Vaccine (#1) 2025 DTaP,Tdap,and Td Vaccines (4 - Td or Tdap) 03/11/2035 03/11/2025, 11/07/2023, 03/18/2018 RSV Immunization Adult Patients (1 - 1-dose 75+ series) 02/23/2060 HIB [...] patient's age to complete this topic Insurance MEDICAID - [place] Care Teams Scientific Informatics Analyst Relationship Specialty Start Date End Date Physician, Pcp Unknown PCP - General 03/11/25
--- OUTSIDE RECORDS SUMMARY | 2025-06-25 16:00 | XMS_ITS | Encounter Summary ---
Author Organization [employer] Address [address] [facility] 7[address] [place] [address] Care Team Providers Care Molder Setter Name Role Phone Radhames Ojeda MD Primary Care Prov ider Reason for Visit * Reason Comments Med Refill Encounter Details Date Type Department Care Team ([facility] st Contact Info) Description 03/24/2023 Refill [facility] CH[facility] MED & PEDS [address], [place] [phone] Radhames Ojeda MD [address] [place] [address] Chronic bilateral low back pain with bilateral [...] documented as of this encounter Care Teams Molder Setter Relationship Specialty Start Date End Date Radhames Ojeda MD [address] [place] [id number] PCP - General Internal Medicine 02/13/20 documented as of this encounter
== END 2025-06-25 13:45 | disposition left against medical advice (07) ==
PROVIDERS: Emergency Provider Emergency Medicine
DX: L03.90 Cellulitis, unspecified (principal); M79.89 Other specified soft tissue disorders; Z53.21 Procedure and treatment not carried out due to patient leaving prior to being seen by health care provider
CPT/HCPCS: 99281

== ENCOUNTER 2025-06-29 11:29 | Emergency (ER) | payer MEDICAID, SELFPAY ==
--- NOTE | ~2025-06-29 | XR_ITS ---
EXAMINATION: XR ANKLE, LEFT CLINICAL INFORMATION: cellulitis, pain COMPARISON: None available. TECHNIQUE: AP, lateral, and mortise views of the left ankle. FINDINGS: No visible acute fracture or dislocation. Alignment is anatomic. Ankle mortise is maintained. No erosions. Joint spaces are maintained. Mild soft tissue prominence. No air is seen in the soft tissues. No radiopaque foreign bodies identified.. XR/XR ankle LT min 3V IMPRESSION: No radiographic evidence of acute osseous findings. Mild soft tissue prominence. No air or radiopaque foreign bodies identified in the soft tissues. Electronically signed by: Sanjay Zapien MD 06/29/2025 12:06 PM EDT
--- NOTE | ~2025-06-29 | US_ITS ---
EXAMINATION: US TRIPLEX LOWER EXTREMITY, LEFT CLINICAL INFORMATION: Redness and swelling COMPARISON: Previous exam May 21, 2025 TECHNIQUE: Color-flow triplex imaging with spectral analysis and compression Doppler were performed on the left lower extremity. FINDINGS: Respiratory variation, normal compression and augmented flow are noted throughout the left lower extremity. The visualized common femoral vein, superficial femoral vein, profunda femoral vein, popliteal vein and midcalf peroneal and posterior tibial venous segments show no evidence of deep venous thrombosis. There is no Whitten's cyst. There are several lymph nodes in the left groin. Largest measure 2.3 x 0.7 x 0.9 cm. This has normal ultrasound morphology with fatty echogenic hilum. Next largest lymph node measures 1.2 x 0.5 x 0.8 cm. This has abnormal ultrasound morphology and is diffusely hypoechoic with loss of echogenic fatty hilum. US/US venous duplex LE LT IMPRESSION: No evidence of deep venous thrombosis involving the left lower extremity. Left inguinal lymphadenopathy. Normal-size 1.2 x 0.5 x 0.8 cm left inguinal lymph node with abnormal ultrasound morphology. This may be reactive. Recommend ultrasound follow-up in several months. Electronically signed by: Karina Quintana MD 06/29/2025 12:51 PM EDT
[2025-06-29 11:32] VITALS: BP 131/61; PULSE 59; RESP 18; TEMP 36.2; O2SAT 98; BMI 29.3
--- NOTE | 2025-06-29 11:32 | ED.SKABFB ---
HPI - Skin/Abscess/Foreign Bdy General Chief complaint: Wound/Laceration Stated complaint: leg swelling/bug bite? Time Seen by Provider: 06/29/25 11:58 History of Present Illness ED Provider: Dr. Hernandez HPI narrative: 40 y/o M patient; H IVDU; presents from home reporting approx 6 days of redness, swelling, and pain to his left leg. The patient states he was recently injecting heroin/crack but missed the vein. He otherwise denies: fever or chills, SOB, chest pain, nausea/vomiting, abdominal pain. Related Data Home Medications ?Medication ?Instructions ?Recorded ?Confirmed bupropion HCl 150 mg 24 hr tablet, 150 mg PO DAILY 03/20/24 05/21/25 extended release bupropion HCl 300 mg 24 hr tablet, 300 mg PO DAILY 03/20/24 05/21/25 extended release clonazepam 0.5 mg tablet 0.5 mg PO DAILY PRN anxiety attack 07/09/24 05/21/25 sertraline 100 mg tablet 150 mg PO DAILY 07/09/24 05/21/25 albuterol sulfate 90 mcg/actuation 2 puff inhalation Q6H PRN wheezing 10/04/24 05/21/25 aerosol inhaler (Ventolin HFA) quetiapine 100 mg tablet 100 mg PO BID@1200,2100 10/04/24 05/21/25 methadone 10 mg/mL oral 150 mg PO DAILY 10/05/24 05/21/25 concentrate (Methadone Intensol) gabapentin 800 mg tablet 1,200 mg PO TID 03/16/25 05/21/25 multivitamin with minerals 1 tab PO DAILY 03/16/25 05/21/25 dextroamphetamine-amphetamine ER 1 cap PO QAM 05/21/25 05/21/25 25 mg 24hr capsule,extend release (Adderall XR) nicotine (polacrilex) 4 mg buccal 4 mg PO Q2H PRN Nicotine Cravings 05/21/25 05/21/25 lozenge Previous Rx's ?Medication ?Instructions ?Recorded doxycycline monohydrate 100 mg 100 mg PO Q12H 10 days #20 caps 05/23/25 capsule ondansetron HCl 4 mg tablet 4 mg PO Q8H PRN nausea and 05/23/25 vomiting #10 tabs oxycodone 10 mg tablet 10 mg PO Q8H PRN opiate reversal 05/23/25 #6 tabs cefuroxime axetil 500 mg tablet 500 mg PO BID 7 days #14 tabs 06/29/25 sulfamethoxazole 800 2 tab PO BID 7 days #28 tabs 06/29/25 mg-trimethoprim 160 mg tablet Allergies Allergy/AdvReac Type Severity Reaction Status Date / Time buspirone AdvReac Severe EPS Verified 06/29/25 11:36 Review of Systems Review of Systems: Yes all other systems are reviewed and are negative [facility] Past Medical History Attestation statement: The following information was validated with the patient. Source: old records reviewed Medical History Polysubstance abuse Cannabis use disorder Cocaine use disorder Opioid use disorder, severe, on maintenance therapy Alcohol use disorder Panic attacks ADHD Bipolar disorder Opiate abuse, continuous Depression Social History Social History Household Members: Other Household Members Other:: Dad Housing: House Do you presently have visiting nurse or other home services: No Alcohol intake: unknown Patient Tobacco Use Status: Current everyday Tobacco user Tobacco use type: Cigarette Cigarette Packs Per Day: 1.5 Cigarettes Per Day: 30.0 Smoked in Last 30 Days: No Second Hand Smoke Exposure: Yes Use of substances other than those prescribed or required for medical reasons: Yes Substance Use Type: IV Drugs Advance Directives: No Advance Directives Information Provided: Yes service: No Sexual orientation: Straight/Heterosexual Physical Exam Vital Signs: Vital Signs: Last Vital Signs Temp 98.1 F 06/29/25 13:49 Pulse 54 06/29/25 13:49 Resp 14 06/29/25 13:49 BP 129/79 06/29/25 13:49 Pulse Ox 100 06/29/25 13:49 O2 Del Method Room Air 06/29/25 13:49 BMI result Body Mass Index 29.3 Extrem: Other: Focal puncture wound to LLE anterior aspect of barba above ankle line. Mild surrounding warmth, swelling, erythema. No streaking. NVI with palpable DP/PT. Soft compartments. Course Course Course Narrative: This is an RME: Additional HPI, ROS, PE not included below will be deferred to primary provider. RME assessment and note performed by: Krysta Lujan PA-C This is a 40-year-old male, with a hx of polysubstance abuse on methadone, who presents to the ER with complaints of left lower extremity redness and swelling. Reports that he used IV cocaine and heroin in this area. Reporting pain and swelling. Reporting difficulty with movement of his left foot. Left lower leg with erythema, redness, pain. No fevers or chills Plan: Labs, xr Reevaluation(s) Reevaluation #1: Patient is afebrile and hemodynamically stable. Reviewed triage work up. Labs with: Cr 1.04. ESR 48. No significant leukocytosis. Mild baseline anemia. XR LLE with mild soft tissue swelling. No air or radiopaque foreign bodies in the soft tissues. US LLE added. No evidence of DVT. + Left inguinal lymphadenopathy. Possibly reactive. Started on Bactrim & Cefuroxime for focal cellulitis. Discussed importance of compliance with antibiotics and completing course. Plan: Discharge to home Condition: Stable Medical Decision Making Lab Data 06/29/25 12:13 06/29/25 12:13 Labs: Lab Results 06/29/25 Range/Units 12:13 WBC 7.1 (4.8-10.8) X10*3/uL RBC 3.62 L (4.60-5.80) X10*6/uL Hgb 10.7 L (14.0-18.0) g/dl Hct 31.7 L (42.0-52.0) % MCV 87.6 (80.0-98.0) fL MCH 29.6 (27.0-33.0) pg MCHC 33.8 (31.0-36.0) g/dl RDW 12.7 (11.0-16.0) % Plt Count 272 (160-400) X10*3/uL MPV 10.4 (9.4-12.4) fL Immature Gran % (Auto) 0.4 (0.0-0.4) % Neut % (Auto) 70.5 (45-73) % Lymph % (Auto) 20.2 (20-40) % Ocean % (Auto) 6.1 (2-11) % Eos % (Auto) 2.4 (0-4) % Baso % (Auto) 0.4 (0-2) % Lymph # (Auto) 1.4 (1.2-4.9) X10*3/uL Ocean # (Auto) 0.4 (0.1-1.2) X10*3/uL Eos # (Auto) 0.2 (0.0-0.4) X10*3/uL Baso # (Auto) 0.0 (0.0-0.2) X10*3/uL Abs Immat Gran (auto) 0.03 (0.00-0.03) X10*3/uL Absolute Neuts (auto) 5.0 (2.0-8.3) x10*3/uL Absolute Nucleated RBC 0.000 (0.0-0.012) X10*3/uL Nucleated RBC % (auto) 0.0 (0.0-0.2) /100WBC ESR 48 H (0-15) MM/HR Sodium 143 (135-145) mmol/L Potassium 4.1 D (3.3-5.1) mmol/L Chloride 109 H (96-108) mmol/L Carbon Dioxide 25 (22-29) mmol/L Anion Gap 13 (12-20) BUN 15 (9-16) mg/dL Creatinine 0.66 (0.5-1.4) mg/dL Estim Creat Clear Calc 165.0 Estimated GFR > 60 Random Glucose 107 (60-115) mg/dL Calcium 9.1 (8.4-10.2) mg/dL Total Bilirubin 0.1 (0.0-1.0) mg/dL Direct Bilirubin < 0.2 (0.0-0.5) mg/dL AST 26 (5-37) U/L ALT 11 (0-40) U/L Alkaline Phosphatase 63 (39-117) U/L C-Reactive Protein 1.04 H (< or = 0.50) mg/dL Total Protein 6.9 (6.5-8.0) g/dL Albumin 4.0 (3.5-5.0) g/dL Radiology Impression Discussion of test interpretation with radiology: I have reviewed the radiologist's reading. Radiologist Impression: EXAMINATION: XR ANKLE, LEFT CLINICAL INFORMATION: cellulitis, pain COMPARISON: None available. TECHNIQUE: AP, lateral, and mortise views of the left ankle. FINDINGS: No visible acute fracture or dislocation. Alignment is anatomic. Ankle mortise is maintained. No erosions. Joint spaces are maintained. Mild soft tissue prominence. No air is seen in the soft tissues. No radiopaque foreign bodies identified.. XR/XR ankle LT min 3V IMPRESSION: No radiographic evidence of acute osseous findings. Mild soft tissue prominence. No air or radiopaque foreign bodies identified in the soft tissues. Electronically signed by: Sanjay Zapien MD 06/29/2025 12:06 PM EDT EXAMINATION: US TRIPLEX LOWER EXTREMITY, LEFT CLINICAL INFORMATION: Redness and swelling COMPARISON: Previous exam May 21, 2025 TECHNIQUE: Color-flow triplex imaging with spectral analysis and compression Doppler were performed on the left lower extremity. FINDINGS: Respiratory variation, normal compression and augmented flow are noted throughout the left lower extremity. The visualized common femoral vein, superficial femoral vein, profunda femoral vein, popliteal vein and midcalf peroneal and posterior tibial venous segments show no evidence of deep venous thrombosis. There is no Whitten's cyst. There are several lymph nodes in the left groin. Largest measure 2.3 x 0.7 x 0.9 cm. This has normal ultrasound morphology with fatty echogenic hilum. Next largest lymph node measures 1.2 x 0.5 x 0.8 cm. This has abnormal ultrasound morphology and is diffusely hypoechoic with loss of echogenic fatty hilum. US/US venous duplex LE LT IMPRESSION: No evidence of deep venous thrombosis involving the left lower extremity. Left inguinal lymphadenopathy. Normal-size 1.2 x 0.5 x 0.8 cm left inguinal lymph node with abnormal ultrasound morphology. This may be reactive. Recommend ultrasound follow-up in several months. Electronically signed by: Karina Quintana MD 06/29/2025 12:51 PM EDT Discharge Plan Discharge Clinical Impression: Cellulitis Patient Disposition: Home, Self-Care Instructions: Cellulitis (ED) Additional Instructions: You did excellent coming in today for a check of your leg. The infection is still early so if you take the antibiotics twice a day every day for the next 7 days I do think it will improve well. Return to the emergency department for: Spreading redness Worsening pain Fever Prescriptions: New sulfamethoxazole-trimethoprim 800-160 mg tablet 2 tab PO BID 7 Days Qty: 28 0RF cefuroxime axetil 500 mg tablet 500 mg PO BID 7 Days Qty: 14 0RF No Action bupropion HCl 300 mg tablet extended release 24 hr 300 mg PO DAILY bupropion HCl 150 mg tablet extended release 24 hr 150 mg PO DAILY Rx Instructions: takes in afternoon clonazepam 0.5 mg tablet 0.5 mg PO DAILY PRN (Reason: anxiety attack) sertraline 100 mg tablet 150 mg PO DAILY gabapentin 800 mg tablet 1,200 mg PO TID multivitamin with minerals Tablet 1 tab PO DAILY albuterol sulfate [Ventolin HFA] 90 mcg/actuation HFA aerosol inhaler 2 puff inhalation Q6H PRN (Reason: wheezing) quetiapine 100 mg tablet 100 mg PO BID@1200,2100 methadone [Methadone Intensol] 10 mg/mL Concentrate 150 mg PO DAILY dextroamphetamine-amphetamine [Adderall XR] 25 mg capsule,extended release 24hr 1 cap PO QAM nicotine (polacrilex) 4 mg lozenge 4 mg PO Q2H PRN (Reason: Nicotine Cravings) doxycycline monohydrate 100 mg Capsule 100 mg PO Q12H 10 Days Qty: 20 0RF ondansetron HCl 4 mg tablet 4 mg PO Q8H PRN (Reason: nausea and vomiting) Qty: 10 0RF oxycodone 10 mg tablet 10 mg PO Q8H PRN (Reason: opiate reversal) Qty: 6 0RF Rx Instructions: Partial Fill upon patient request. Print Language: Togolese
[2025-06-29 11:58] VITALS: BP 131/61; PULSE 59; RESP 18; TEMP 36.2; O2SAT 98
--- NOTE | 2025-06-29 12:09 | PC.NURSE ---
40 M presents to ED with redness/swelling to left barba x 6 day old area of redness/swelling after injecting heroin/crack and missing his vein. Pt c/o 8/10 pain and tenderness at the site. Pt is ambulatory. RR even and unlabored, deneis CP or SOB. A+Ox4.
[2025-06-29 12:16] LABS: MANUAL DIFF FLAG NO
[2025-06-29 12:18] LABS: Hematocrit 31.7 % (42.0-52.0); Hemoglobin 10.7 g/dl (14.0-18.0); Imm Gran Abs Auto 0.03 X10*3/uL (0.00-0.03); Imm Gran Pct Auto 0.4 % (0.0-0.4); Lymphocytes Absolute Auto 1.4 X10*3/uL (1.2-4.9); Mean Corpuscular HGB Conc 33.8 g/dl (31.0-36.0); Mean Corpuscular Hemoglobin 29.6 pg (27.0-33.0); Mean Corpuscular Volume 87.6 fL (80.0-98.0); NRBC Abs Auto 0.000 X10*3/uL (0.0-0.012); NRBC Pct Auto 0.0 /100WBC (0.0-0.2); Platelet Count 272 X10*3/uL (160-400); Red Blood Count 3.62 X10*6/uL (4.60-5.80); White Blood Count 7.1 X10*3/uL (4.8-10.8)
[2025-06-29 12:45] LABS: Alanine Aminotransferase 11 U/L (0-40); Albumin Level 4.0 g/dL (3.5-5.0); Alkaline Phosphatase 63 U/L (39-117); Anion Gap 13 (12-20); Aspartate Amino Transferase 26 U/L (5-37); Blood Urea Nitrogen 15 mg/dL (9-16); Calcium 9.1 mg/dL (8.4-10.2); Carbon Dioxide 25 mmol/L (22-29); Chloride 109 mmol/L (96-108); Creatinine Clr Calc Pharmacy 165.0; Estimated Glomerular Filt Rate > 60; Potassium 4.1 mmol/L (3.3-5.1); Sodium 143 mmol/L (135-145); Total Protein 6.9 g/dL (6.5-8.0)
[2025-06-29 13:49] VITALS: BP 129/79; PULSE 54; RESP 14; TEMP 36.7; O2SAT 100
[2025-06-29] MEDS: Sulfamethox/Trimeth 800/160 TABLET 2 TAB PO (14:41)
[2025-06-29 14:43] VITALS: BP 129/79; PULSE 54; RESP 14; TEMP 36.7; O2SAT 100
== END 2025-06-29 14:44 | disposition home or self-care (01) ==
PROVIDERS: Physician Assistant Medical; Emergency Provider Emergency Medicine
DX: R60.0 Localized edema (principal); L03.116 Cellulitis of left lower limb; F17.210 Nicotine dependence, cigarettes, uncomplicated; F11.90 Opioid use, unspecified, uncomplicated; Z79.899 Other long term (current) drug therapy
CPT/HCPCS: 36415; 73610; 80048; 80076; 85025; 85652; 86140; 93971; 99284

== ENCOUNTER → 2025-06-29 11:36 | Outpatient (BNV) | payer MEDICAID, SELFPAY | PROVIDERS: Emergency Provider Emergency Medicine; Visit Provider Radiology Diagnostic Ultrasound | DX: R59.0 Localized enlarged lymph nodes (principal); L03.116 Cellulitis of left lower limb | CPT/HCPCS: 73610; 93971 ==

== ENCOUNTER 2025-09-07 21:51 | Emergency (ER) | payer MEDICAID, SELFPAY ==
--- NOTE | 2025-09-07 | ECG_ITS ---
Test Reason : CHEST PAIN Blood Pressure : */* mmHG Vent. Rate : 72 BPM Atrial Rate : 72 BPM P-R Int : 170 ms QRS Dur : 90 ms QT Int : 430 ms P-R-T Axes : 64 42 38 degrees QTcB Int : 470 ms Normal sinus rhythm Normal ECG When compared with ECG of 04-Oct-2024 15:45, No significant change was found Referred By: Generic ED Physician Electronically Signed By: Andrea Forbes
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
[2025-09-07 21:54] VITALS: BP 115/55; PULSE 94; RESP 18; TEMP 37.2; O2SAT 97; BMI 21.5
--- NOTE | 2025-09-07 22:23 | MHC.EDTECH ---
pt had refused ekg it took the copyist at bedside with him to talk him into it 10 mins later
--- OUTSIDE RECORDS SUMMARY | 2025-09-07 22:35 | XMS_ITS | Encounter Summary ---
Author Organization [employer] Address [address] [facility] [address] [place] [address] Care Team Providers Care Radiology Transporter Name Role Phone Radhames Ojeda MD Primary Care Prov ider Reason for Visit * Reason Comments Med Refill Encounter Details Date Type Department Care Team ([facility] st Contact Info) Description 10/14/2022 Refill [facility] CH[facility] MED & PEDS [address] [place] [address] Radhames Ojeda MD [address] [place] [address] Chronic bilateral low back pain with bilateral [...] sciatica documented in this encounter Care Teams Radiology Transporter Relationship Specialty Start Date End Date Radhames Ojeda MD [address] [place] [address] PCP - General Internal Medicine 02/13/20 documented as of this encounter
--- OUTSIDE RECORDS SUMMARY | 2025-09-07 22:35 | XMS_ITS | Clinical Summary ---
Author Organization [facility] Prior to 02/17/25 Address [address] [place] [address] Care Team Providers Care Administration Internship Name Role Phone Unavailable Primary Care Provider [...]
--- OUTSIDE RECORDS SUMMARY | 2025-09-07 22:35 | XMS_ITS | Encounter Summary ---
Author Organization [employer] Address [address] [facility] 7t [place] [address] Care Team Providers Care Wardrobe Supervisor Name Role Phone Radhames Ojeda MD Primary Care Prov ider Reason for Visit * Reason Comments Med Change Request Encounter Details Date Type Department Care Team ([facility] Contact Info) Description 03/07/2025 Refill [facility] CH[facility] MED & PEDS [address] [place], [place] [phone] Radhames Ojeda MD [address] [place], [place] [phone] Social History Tobacco Use Types Packs/Day Years Used Date Smoking Tobacco: Every Day Cigarettes 0.5 23 Started: 2002 Passive Smoke Exposure: Current Smokeless [...] documented as of this encounter Care Teams Wardrobe Supervisor Relationship Specialty Start Date End Date Radhames Ojeda MD [address] [place] [id number] PCP - General Internal Medicine 02/13/20 documented as of this encounter
--- OUTSIDE RECORDS SUMMARY | 2025-09-07 22:35 | XMS_ITS | Clinical Summary ---
Author Organization [employer] Address [address] [facility] [address]t [place] [address] Care Team Providers Care Health Support Specialist Name Role Phone Radhames Ojeda MD Primary Care Prov ider Allergies No known active allergies Medications * This document contains information received from the source organization and may not represent a complete record from that organization. clotrimazole (Lotrimin) 1 % cream Use 4 times a day on rash for 7 days 30 g 2 04/19/2023 Active gabapentin (Neurontin) 800 MG tabletIndication s:JEWELRY CUTTER checked 08/26/22 Take 1 tablet (800 mg) by mouth every 8 (eight) hours. 90 tablet 1 01/25/2024 Active buPROPion XL (Wellbutrin XL) 300 MG 24 hr tablet Take 1 tablet (300 mg) by mouth in the morning. 90 tablet 3 01/25/2024 Active albuterol 108 (90 Base) MCG/ACT inhaler Inhale 2 puffs every 6 (six) hours if needed for wheezing. 18 g 11 08/23/2024 Active omeprazole (PriLOSEC) [address] capsuleIndicatio ns:Gastroesophag eal reflux disease, unspecified whether esophagitis [...] (05/06/2023 1:49 PM EDT): Patient seen at [facility] due to right arm cellulitis, he [...] 01/25/2019 Chronic anemia 01/25/2019 Chronic hepatitis C ([facility]/HCC) 01/25/2019 Assessment & Plan (05/06/2023 1:49 PM EDT): Told to get blood work done for further assesment Assessment & Plan (04/19/2023 7:30 PM EDT): PT would like treatment for Hep C. He was waiting until he was in sustained recovery. 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/HCC) 01/25/2019 Methicillin resistant Staphylococcus aureus infe ction [...] Encounters Date Type Department Care Team Description 06/29/2025 Telephone [facility] MED & PEDS [address] [place] [address] Radhames Ojeda MD 06/28/2025 Telephone [facility] [address] [place] [address] Radhames Ojeda MD Nurse Triage 06/27/2025 Telephone [facility] MED & P[facility] [address] [place] [address] Radhames Ojeda MD Med Refill from Last 3 Months Immunizations Immunization Administration [...] patient's age to complete this topic Insurance [facility] [employer] [employer] Care Teams Health Support Specialist Relationship Specialty Start Date End Date Radhames Ojeda MD [address] [place] [id number] PCP - General Internal Medicine 02/13/20
--- OUTSIDE RECORDS SUMMARY | 2025-09-07 22:35 | XMS_ITS | Encounter Summary ---
Author Organization [employer] Address [address] [facility] [address] [place] [address] Care Team Providers Care Recruitment Specialist Name Role Phone Radhames Ojeda MD Primary Care Prov ider Reason for Visit * Reason Onset Date Comments Med Refill 01/13/2024 Encounter Details Date Type Department Care Team (Late st Contact Info) Description 01/13/2024 Telephone [facility] MEDICINE [address] [place] [address] Radhames Ojeda MD [address] [place], [place] [phone] Med Refill Social History Tobacco Use Types [...] hr tablet To be sent to: [facility]/pharmacy #[id number] documented in this encounter Plan of Treatment Not on file documented as of this encounter Visit Diagnoses Not on filedocumented in this encounter Additional Health Concerns Assessment Noted Time PHQ-9 Depression Total Score: 3 02/11/20 23 2:02 PM EDT documented as of this encounter Care Teams Recruitment Specialist Relationship Specialty Start Date End Date Radhames Ojeda MD [address] [place] [id number] PCP - General Internal Medicine 02/13/20 documented as of this encounter
--- OUTSIDE RECORDS SUMMARY | 2025-09-07 22:36 | XMS_ITS | Encounter Summary ---
Author Organization [employer] Address [address] [place] [address] 7t [place] [address] Care Team Providers Care Flow Machine Operator Name Role Phone Radhames Ojeda MD Primary Care Prov ider Reason for Visit * Reason Onset Date Comments Med Refill 01/06/2023 Encounter Details Date Type Department Care Team ([facility] st Contact Info) Description 01/06/2023 Telephone [facility] MED & PEDS [address] [place], [place] [phone] Radhames Ojeda MD [address] [place] [address] Med Refill Social History Tobacco Use Types [...] (Neurontin) 800 MG tablet Please sent to [facility]/pharmacy #[id number] - [place] - [id number] [facility] documented in this encounter Plan of Treatment Not on file documented as of this encounter Visit Diagnoses Not on filedocumented in this encounter Care Teams Flow Machine Operator Relationship Specialty Start Date End Date Quinones Briggs, Radhames, MD [address] [place] [phone] PCP - General Internal Medicine 02/13/20 documented as of this encounter
--- OUTSIDE RECORDS SUMMARY | 2025-09-07 22:36 | XMS_ITS | Encounter Summary ---
Author Organization [employer] Address [address] [facility] 7t [place] [address] Care Team Providers Care Zumba Instructor Name Role Phone Radhames Ojeda MD Primary Care Prov ider Reason for Visit * Reason Onset Date Comments PT1 form 02/24/2023 Encounter Details Date Type Department Care Team (Late st Contact Info) Description 02/24/2023 Telephone [facility] MEDICINE [address] [place] [address] Radhames Ojeda MD [address] [place] [address] PT1 form Social History Tobacco Use Types [...] 02/24/2023 9:45 AM EDT TC from [facility] [place] pt requesting PT1 for location : [facility] [address] [place] [address] Date: everyday Time: 6:00 am Technical Internship : no Wheelchair : no PCP DR. Quinones documented in this encounter Plan of Treatment Not on file documented as of this encounter Visit Diagnoses Not on filedocumented in this encounter Additional Health Concerns Assessment Noted Time PHQ-9 Depression Total Score: 3 02/11/20 23 2:02 PM EDT documented as of this encounter Care Teams Zumba Instructor Relationship Specialty Start Date End Date Radhames Ojeda MD [address] [place] [phone] PCP - General Internal Medicine 02/13/20 documented as of this encounter
--- OUTSIDE RECORDS SUMMARY | 2025-09-07 22:36 | XMS_ITS | Encounter Summary ---
Author Organization [employer] Address [address] [facility] 7t [place] [address] Care Team Providers Care Organizational Development Director Name Role Phone Radhames Ojeda MD Primary Care Prov ider Reason for Visit * Reason Comments Med Refill Encounter Details Date Type Department Care Team ([facility] st Contact Info) Description 01/06/2023 Refill [facility] PEDS [address] [place] [address] Radhames Ojeda MD [address] [place] [address] Chronic bilateral low back pain with bilateral [...] sciatica documented in this encounter Care Teams Organizational Development Director Relationship Specialty Start Date End Date Radhames Ojeda MD [address] [place] [address] PCP - General Internal Medicine 02/13/20 documented as of this encounter
--- OUTSIDE RECORDS SUMMARY | 2025-09-07 22:36 | XMS_ITS | Encounter Summary ---
Author Organization [employer] Address [address] [facility] 7t [place] [address] Care Team Providers Care Oliver Filter Operator Name Role Phone Radhames Ojeda MD Primary Care Prov ider Reason for Visit * Reason Comments Med Refill Encounter Details Date Type Department Care Team ([facility] st Contact Info) Description 03/24/2023 Refill [facility] MED & PEDS [address] [place], [place] [phone] Radhames Ojeda MD [address] [place] [address] Chronic bilateral low back pain with bilateral [...] documented as of this encounter Care Teams Oliver Filter Operator Relationship Specialty Start Date End Date Radhames Ojeda MD [address] [place] [phone] PCP - General Internal Medicine 02/13/20 documented as of this encounter
--- OUTSIDE RECORDS SUMMARY | 2025-09-07 22:36 | XMS_ITS | Encounter Summary ---
Author Organization [email or web address] Address [address] [facility] [address] 7[address] [place] [address] Care Team Providers Care Cold Press Loader Name Role Phone Radhames Ojeda MD Primary Care Prov ider Encounter Details Date Type Department Care Team (Late st Contact Info) Description 09/25/2022 Orders Only [facility] MEDICINE [address] [place] [address] Radhames Ojeda MD [address] [place], [place] [phone] Eye exam, routine (Primary Dx) Social History [...] Primary documented in this encounter Care Teams Cold Press Loader Relationship Specialty Start Date End Date Radhames Ojeda MD [address] [place] [address] PCP - General Internal Medicine 02/13/20 documented as of this encounter
--- OUTSIDE RECORDS SUMMARY | 2025-09-07 22:36 | XMS_ITS | Clinical Summary ---
Author Organization [facility] Address [address] [place] [address] Phone Care Team Providers Care Curtain Mender Name Role Phone Physician, Pcp Unknown Primary Care Provider Dolores vailable Allergies No known active allergies Medications No known medications Active Problems No known active problems Immunizations Immunization Administration Dates Next Due Tdap [...] topic Insurance MEDICAID - [place] Care Teams Curtain Mender Relationship Specialty Start Date End Date Physician, Pcp Unknown PCP - General 03/11/25
--- OUTSIDE RECORDS SUMMARY | 2025-09-07 22:36 | XMS_ITS | Encounter Summary ---
Author Organization [employer] Address [address] [facility] [address] [place] [address] Care Team Providers Care Director Cpg Name Role Phone Radhames Ojeda MD Primary Care Prov ider Encounter Details Date Type Department Care Team (Late st Contact Info) Description 10/15/2022 Orders Only [facility] MEDICINE [address] [place] [address] Radhames Ojeda MD [address] [place], [place] [phone] Mood disorder (CMS/HCC) (Primary Dx) Social History [...] disorder documented in this encounter Care Teams Director Cpg Relationship Specialty Start Date End Date Radhames Ojeda MD [address] [place] [address] PCP - General Internal Medicine 02/13/20 documented as of this encounter
--- OUTSIDE RECORDS SUMMARY | 2025-09-07 22:36 | XMS_ITS | Encounter Summary ---
Author Organization [employer] Address 75 [facility] 7t [place] [address] Care Team Providers Care Direct Response Consultant Name Role Phone Radhames Ojeda MD Primary Care Prov ider Reason for Visit * Reason Onset Date Comments Medication Question 10/14/2022 Encounter Details Date Type Department Care Team (Late st Contact Info) Description 10/14/2022 Telephone [facility] MEDICINE [address] [place] [address] Radhames Ojeda MD [address] [place], [place] [phone] Medication Question Social History Tobacco Use Types [...] on filedocumented in this encounter Care Teams Direct Response Consultant Relationship Specialty Start Date End Date Radhames Ojeda MD [address] [place] [id number] PCP - General Internal Medicine 02/13/20 documented as of this encounter
--- OUTSIDE RECORDS SUMMARY | 2025-09-07 22:36 | XMS_ITS | Encounter Summary ---
Author Organization [employer] Address 75 [facility] 7t [place] [address] Care Team Providers Care Human Factors Specialist Name Role Phone Radhames Ojeda MD Primary Care Prov ider Reason for Visit * Reason Comments Med Refill Encounter Details Date Type Department Care Team ([facility] st Contact Info) Description 03/23/2023 Refill [facility] MED & PEDS [address] [place], [place] [phone] Radhames Ojeda MD [address] [place] [address] Chronic bilateral low back pain with bilateral [...] documented as of this encounter Care Teams Human Factors Specialist Relationship Specialty Start Date End Date Radhames Ojeda MD [address] [place] [phone] PCP - General Internal Medicine 02/13/20 documented as of this encounter
[2025-09-07 23:34] LABS: Hematocrit 34.3 % (42.0-52.0); Hemoglobin 12.1 g/dl (14.0-18.0); Imm Gran Abs Auto 0.03 X10*3/uL (0.00-0.03); Imm Gran Pct Auto 0.3 % (0.0-0.4); Lymphocytes Absolute Auto 1.9 X10*3/uL (1.2-4.9); MANUAL DIFF FLAG NO; Mean Corpuscular HGB Conc 35.3 g/dl (31.0-36.0); Mean Corpuscular Hemoglobin 29.7 pg (27.0-33.0); Mean Corpuscular Volume 84.3 fL (80.0-98.0); NRBC Abs Auto 0.000 X10*3/uL (0.0-0.012); NRBC Pct Auto 0.0 /100WBC (0.0-0.2); Platelet Count 260 X10*3/uL (160-400); Red Blood Count 4.07 X10*6/uL (4.60-5.80); White Blood Count 10.1 X10*3/uL (4.8-10.8)
[2025-09-07 23:49] LABS: Alanine Aminotransferase 8 U/L (0-40); Albumin Level 4.4 g/dL (3.5-5.0); Alkaline Phosphatase 55 U/L (39-117); Anion Gap 14 (12-20); Aspartate Amino Transferase 17 U/L (5-37); Blood Urea Nitrogen 18 mg/dL (9-16); Calcium 9.5 mg/dL (8.4-10.2); Carbon Dioxide 23 mmol/L (22-29); Chloride 106 mmol/L (96-108); Creatinine Clr Calc Pharmacy 115.2; Estimated Glomerular Filt Rate > 60; Potassium 3.2 mmol/L (3.3-5.1); Sodium 140 mmol/L (135-145); Total Protein 7.0 g/dL (6.5-8.0)
[2025-09-08 01:08] VITALS: BP 114/60; PULSE 60; RESP 12; O2SAT 97
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
[2025-09-08 05:02] VITALS: BP 120/69; PULSE 56; RESP 16; TEMP 36.4; O2SAT 96
[2025-09-08 05:33] VITALS: BP 120/69; PULSE 56; RESP 16; TEMP 36.4; O2SAT 96
== END 2025-09-08 05:49 ==
PROVIDERS: Emergency Provider Emergency Medicine
DX: T14.8XXA Other injury of unspecified body region, initial encounter (principal); M54.2 Cervicalgia; M25.532 Pain in left wrist; M25.531 Pain in right wrist; Y04.0XXA Assault by unarmed brawl or fight, initial encounter; Y93.89 Activity, other specified; Y92.149 Unspecified place in prison as the place of occurrence of the external cause; Y99.8 Other external cause status
CPT/HCPCS: 36415; 70450; 72125; 80053; 85025; 93005; 99284

== ENCOUNTER → 2025-09-07 22:17 | Outpatient (BNV) | payer MEDICAID, SELFPAY | PROVIDERS: Emergency Provider Emergency Medicine; Visit Provider Internal Medicine Cardiovascular Disease | DX: R07.9 Chest pain, unspecified (principal) | CPT/HCPCS: 93010 ==

== ENCOUNTER → 2025-09-08 02:00 | Outpatient (BNV) | payer MEDICAID, SELFPAY | PROVIDERS: Emergency Provider Emergency Medicine; Visit Provider Student in an Organized Health Care Education/Training Program | DX: M54.2 Cervicalgia (principal); S06.0XAA Concussion with loss of consciousness status unknown, initial encounter | CPT/HCPCS: 70450; 72125 ==